=== PATIENT | female | born 2000 | race Caucasian/White ===

== ENCOUNTER → 2020-08-20 11:17 | Outpatient (CLI) | payer OTHER, SELFPAY ==
[2020-08-23 17:43] LABS: HPV Reflexed? NOT INDICATED
== END ==
PROVIDERS: Visit Provider Student in an Organized Health Care Education/Training Program
DX: Z12.4 Encounter for screening for malignant neoplasm of cervix (principal)
CPT/HCPCS: 88175; G0145

== ENCOUNTER → 2022-03-20 | Outpatient (CLI) | payer OTHER, SELFPAY ==
[2022-03-20 11:16] LABS: Absolute Lymphocyte Count 1.38 X10^3/uL (0.83-4.51); Absolute Neutrophil Count 3.6 X10^3/uL (2.0-7.7); Basophil# 0.04 X10^3/uL; Basophil% 0.7 % (0-1); Eosinophil# 0.04 X10^3/uL; Eosinophils% 0.7 % (0-5); Hematocrit 42.1 % (37-47); Hemoglobin 13.5 g/dL (12.0-15.0); Lymphocyte # 1.38 X10^3/ul (0.83-4.51); Mean Corp Hgb Conc 32.1 g/dL (32-36); Mean Corpuscular Hgb 28.8 pg (27.0-32.0); Mean Corpuscular Volume 89.8 fL (81-99); Mean Platelet Vol. 10.1 fl (6.2-12.0); Monocyte# 0.46 X10^3/uL; Monocyte% 8.3 % (0-10); NRBC Flagged by Analyzer 0 % (0-5); Neutrophil % 65.3 % (47-70); Platelet Count 321 K/mm3 (150-450); RBC Distribution Width CV 13.3 % (11.6-14.6); RBC Distribution Width SD 44.1 fl (35.1-43.9); Red Blood Count 4.69 M/mm3 (4.2-5.4); White Blood Count 5.5 K/mm3 (4.4-11.0)
[2022-03-20 11:52] LABS: Thyroid Stim Hormone (TSH) 0.89 uIU/mL (0.358-3.74)
== END | disposition home or self-care (01) ==
PROVIDERS: Referring Provider Obstetrics & Gynecology; Visit Provider Obstetrics & Gynecology
DX: N93.9 Abnormal uterine and vaginal bleeding, unspecified (principal)
CPT/HCPCS: 36415; 84443; 85025; 87070; 87205

== ENCOUNTER → 2022-03-26 | Outpatient (CLI) | payer OTHER, SELFPAY ==
--- NOTE | 2022-03-26 18:05 | US_ITS ---
STUDY: ULTRASOUND OF THE FEMALE PELVIS - COMPLETE REASON FOR EXAM: Female, 21 years old. AUB TECHNIQUE: Endovaginal. Transvaginal US was obtained to better visualized the ovaries. COMPARISON: None. FINDINGS: The uterus is anteverted and is in a midline position. The uterus measures 6.6 x 4 cm. Normal uterine cervix. The endometrium measures 5 mm in thickness, and is hyperechoic. There is no demonstrated endometrial mass. There is no demonstrated myometrial mass. I.U.D. - The patient does not have an I.U.D. arcuate uterus. The right ovary is visualized. The right ovary measures 4.2 cm. There is no right ovarian cyst or ovarian mass. There is no visualized right adnexal mass or complex lesion. There is normal arterial and normal venous vascularity. The left ovary is visualized. The left ovary measures 4.4 cm. There is no left ovarian cyst or ovarian mass. There is no visualized left adnexal mass or complex lesion. There is normal arterial and normal venous vascularity. There is no fluid in the cul-de-sac. Urinary bladder volume is (in cc) 75. US/Transvaginal Non- IMPRESSION: There are no acute findings. Electronically Signed: Emre Ariza MD at 20:14 EDT ,
--- NOTE | 2022-03-26 18:05 | US_ITS ---
STUDY: ULTRASOUND OF THE FEMALE PELVIS - COMPLETE REASON FOR EXAM: Female, 21 years old. AUB TECHNIQUE: Endovaginal. Transvaginal US was obtained to better visualized the ovaries. COMPARISON: None. FINDINGS: The uterus is anteverted and is in a midline position. The uterus measures 6.6 x 4 cm. Normal uterine cervix. The endometrium measures 5 mm in thickness, and is hyperechoic. There is no demonstrated endometrial mass. There is no demonstrated myometrial mass. I.U.D. - The patient does not have an I.U.D. arcuate uterus. The right ovary is visualized. The right ovary measures 4.2 cm. There is no right ovarian cyst or ovarian mass. There is no visualized right adnexal mass or complex lesion. There is normal arterial and normal venous vascularity. The left ovary is visualized. The left ovary measures 4.4 cm. There is no left ovarian cyst or ovarian mass. There is no visualized left adnexal mass or complex lesion. There is normal arterial and normal venous vascularity. There is no fluid in the cul-de-sac. Urinary bladder volume is (in cc) 75. US/Pelvic (Non ) IMPRESSION: There are no acute findings. Electronically Signed: Emre Ariza MD at 20:14 EDT ,
== END | disposition home or self-care (01) ==
PROVIDERS: Referring Provider Obstetrics & Gynecology; Visit Provider Obstetrics & Gynecology
DX: N93.9 Abnormal uterine and vaginal bleeding, unspecified (principal)
CPT/HCPCS: 76830; 76856

== ENCOUNTER → 2022-05-27 | Outpatient (CLI) | payer OTHER, SELFPAY ==
[2022-05-27 17:22] LABS: Amphetamine Urine VISTA NEGATIVE (<1000 ng/mL); Barbiturate Urine VISTA NEGATIVE (< 200 ng/mL); Benzodiazepine Urine VISTA NEGATIVE (< 200 ng/mL); Cocaine Urine VISTA NEGATIVE (< 300 ng/mL); Ecstacy Urine VISTA NEGATIVE (< 500 ng/mL); Methadone Urine VISTA NEGATIVE (< 300 ng/mL); PCP Urine VISTA NEGATIVE (< 25 ng/mL); THC Urine VISTA NEGATIVE (< 50 ng/mL); Vista UDS pH Range 5
[2022-05-29 21:07] LABS: Chlamydia By Nucleic Acid AMP Negative (Negative)
[2022-05-30 15:57] LABS: Gonococcus By Nucleic Acid AMP Negative (Negative)
== END | disposition home or self-care (01) ==
LOC: LABSPEC 15:43
PROVIDERS: Visit Provider Obstetrics & Gynecology
DX: Z34.92 Encounter for supervision of normal pregnancy, unspecified, second trimester (principal)
CPT/HCPCS: 80307; 87086; 87088; 87491; 87591

== ENCOUNTER → 2022-06-25 | Outpatient (CLI) | payer OTHER, SELFPAY ==
[2022-06-25 14:56] LABS: Absolute Lymphocyte Count 1.71 X10^3/uL (0.83-4.51); Absolute Neutrophil Count 6.6 X10^3/uL (2.0-7.7); Basophil# 0.03 X10^3/uL; Basophil% 0.3 % (0-1); Eosinophil# 0.06 X10^3/uL; Eosinophils% 0.7 % (0-5); Hematocrit 41.9 % (37-47); Hemoglobin 13.6 g/dL (12.0-15.0); Lymphocyte # 1.71 X10^3/ul (0.83-4.51); Lymphocyte % 19.1 % (19-41); Mean Corp Hgb Conc 32.5 g/dL (32-36); Mean Corpuscular Hgb 29.1 pg (27.0-32.0); Mean Corpuscular Volume 89.7 fL (81-99); Mean Platelet Vol. 10.4 fl (6.2-12.0); Monocyte# 0.54 X10^3/uL; NRBC Flagged by Analyzer 0 % (0-5); Neutrophil # 6.61 X10^3/uL (2.7-7.7); Neutrophil % 73.7 % (47-70); Platelet Count 315 K/mm3 (150-450); RBC Distribution Width CV 13.3 % (11.6-14.6); RBC Distribution Width SD 43.9 fl (35.1-43.9); Red Blood Count 4.67 M/mm3 (4.2-5.4)
[2022-06-25 15:03] LABS: NATERA MAILED SPECIMEN
[2022-06-25 16:42] LABS: HIV - WCH Non-Reactive (Nonreactive); Hepatitis B Surface Antigen Non-Reactive (Nonreactive); Hepatitis C Antibody Non-Reactive (Nonreactive); Rubella IgG Reactive (Nonreactive); Syphilis Antibodies Non-reactive
== END | disposition home or self-care (01) ==
PROVIDERS: Referring Provider Obstetrics & Gynecology; Visit Provider Obstetrics & Gynecology
DX: Z34.81 Encounter for supervision of other normal pregnancy, first trimester (principal)
CPT/HCPCS: 36415; 85025; 86703; 86762; 86780; 86803; 86850; 86900; 86901; 87340

== ENCOUNTER → 2022-07-22 | Outpatient (CLI) | payer OTHER, SELFPAY | END | disposition home or self-care (01) | PROVIDERS: Visit Provider Registered Nurse | DX: O26.899 Other specified pregnancy related conditions, unspecified trimester (principal); Z36.9 Encounter for antenatal screening, unspecified; R30.0 Dysuria | CPT/HCPCS: 36415; 87086; 87088 ==

== ENCOUNTER → 2022-10-16 | Outpatient (CLI) | payer OTHER, SELFPAY ==
[2022-10-16 10:17] LABS: Absolute Lymphocyte Count 1.36 X10^3/uL (0.83-4.51); Absolute Neutrophil Count 12.3 X10^3/uL (2.0-7.7); Basophil# 0.05 X10^3/uL; Basophil% 0.3 % (0-1); Eosinophil# 0.11 X10^3/uL; Eosinophils% 0.8 % (0-5); Hematocrit 33.1 % (37-47); Hemoglobin 10.4 g/dL (12.0-15.0); Lymphocyte # 1.36 X10^3/ul (0.83-4.51); Lymphocyte % 9.3 % (19-41); Mean Corp Hgb Conc 31.4 g/dL (32-36); Mean Corpuscular Hgb 28.7 pg (27.0-32.0); Mean Corpuscular Volume 91.2 fL (81-99); Mean Platelet Vol. 9.9 fl (6.2-12.0); Monocyte# 0.76 X10^3/uL; Monocyte% 5.2 % (0-10); NRBC Flagged by Analyzer 0 % (0-5); Neutrophil # 12.27 X10^3/uL (2.7-7.7); Neutrophil % 83.8 % (47-70); Platelet Count 303 K/mm3 (150-450); RBC Distribution Width CV 13.2 % (11.6-14.6); RBC Distribution Width SD 43.4 fl (35.1-43.9); Red Blood Count 3.63 M/mm3 (4.2-5.4); White Blood Count 14.6 K/mm3 (4.4-11.0)
[2022-10-16 10:45] LABS: Glucose Challenge Gest 1H 50g 142 mg/dL (70-140)
[2022-10-16 12:07] LABS: HIV - WCH Non-Reactive (Nonreactive); Syphilis Antibodies Non-reactive
== END | disposition home or self-care (01) ==
LOC: LAB 09:12
PROVIDERS: Referring Provider Obstetrics & Gynecology; Visit Provider Obstetrics & Gynecology
DX: Z34.00 Encounter for supervision of normal first pregnancy, unspecified trimester (principal)
CPT/HCPCS: 36415; 82950; 85025; 86703; 86780

== ENCOUNTER → 2022-10-22 | Outpatient (CLI) | payer OTHER, SELFPAY ==
[2022-10-22 07:36] LABS: Glucose GTT-Gestation. Fasting 77 mg/dL (<105)
[2022-10-22 08:23] LABS: Glucose GTT-Gestational 1 Hr 119 mg/dL (<190)
[2022-10-22 09:21] LABS: Glucose GTT-Gestational 2 Hr 112 mg/dL (<165)
[2022-10-22 10:30] LABS: Glucose GTT-Gestational 3 Hr 94 L (<145)
== END | disposition home or self-care (01) ==
LOC: LAB 06:42
PROVIDERS: Referring Provider Obstetrics & Gynecology; Visit Provider Obstetrics & Gynecology
DX: Z13.1 Encounter for screening for diabetes mellitus (principal)
CPT/HCPCS: 36415; 82951; 82952

== ENCOUNTER → 2022-12-04 | Outpatient (CLI) | payer OTHER, SELFPAY ==
[2022-12-04 17:19] LABS: Absolute Lymphocyte Count 1.62 X10^3/uL (0.83-4.51); Absolute Neutrophil Count 11.3 X10^3/uL (2.0-7.7); Basophil# 0.05 X10^3/uL; Basophil% 0.4 % (0-1); Eosinophils% 0.7 % (0-5); Hematocrit 30.1 % (37-47); Hemoglobin 9.8 g/dL (12.0-15.0); Lymphocyte # 1.62 X10^3/ul (0.83-4.51); Lymphocyte % 11.4 % (19-41); Mean Corp Hgb Conc 32.6 g/dL (32-36); Mean Corpuscular Hgb 27.4 pg (27.0-32.0); Mean Corpuscular Volume 84.1 fL (81-99); Mean Platelet Vol. 10.3 fl (6.2-12.0); Monocyte# 1.05 X10^3/uL; Monocyte% 7.4 % (0-10); NRBC Flagged by Analyzer 0 % (0-5); Neutrophil # 11.27 X10^3/uL (2.7-7.7); Neutrophil % 79.7 % (47-70); Platelet Count 308 K/mm3 (150-450); RBC Distribution Width CV 13.7 % (11.6-14.6); RBC Distribution Width SD 42.5 fl (35.1-43.9); Red Blood Count 3.58 M/mm3 (4.2-5.4); White Blood Count 14.2 K/mm3 (4.4-11.0)
== END | disposition home or self-care (01) ==
LOC: LAB 16:19
PROVIDERS: Referring Provider Registered Nurse; Visit Provider Registered Nurse
DX: O99.019 Anemia complicating pregnancy, unspecified trimester (principal); Z3A.00 Weeks of gestation of pregnancy not specified
CPT/HCPCS: 36415; 85025

== ENCOUNTER → 2022-12-11 | Outpatient (CLI) | payer OTHER, SELFPAY ==
[2022-12-11 16:40] LABS: Ferritin 7 ng/mL (8-252); Iron Binding Capacity,Total 538 ug/dL (250-450)
[2022-12-13 08:09] LABS: Transferrin 442 mg/dL (192-364)
== END | disposition home or self-care (01) ==
LOC: LAB 15:49
PROVIDERS: Referring Provider Registered Nurse; Visit Provider Registered Nurse
DX: O99.019 Anemia complicating pregnancy, unspecified trimester (principal)
CPT/HCPCS: 36415; 82728; 83550; 84466

== ENCOUNTER → 2022-12-22 | Outpatient (CLI) | payer OTHER, SELFPAY ==
[2022-12-22 15:08] LABS: Absolute Lymphocyte Count 1.44 X10^3/uL (0.83-4.51); Absolute Neutrophil Count 11.1 X10^3/uL (2.0-7.7); Basophil# 0.03 X10^3/uL; Basophil% 0.2 % (0-1); Eosinophil# 0.07 X10^3/uL; Eosinophils% 0.5 % (0-5); Hematocrit 33.1 % (37-47); Hemoglobin 10.6 g/dL (12.0-15.0); Lymphocyte # 1.44 X10^3/ul (0.83-4.51); Lymphocyte % 10.7 % (19-41); Mean Corpuscular Hgb 27.4 pg (27.0-32.0); Mean Corpuscular Volume 85.5 fL (81-99); Mean Platelet Vol. 10.6 fl (6.2-12.0); Monocyte# 0.75 X10^3/uL; Monocyte% 5.6 % (0-10); NRBC Flagged by Analyzer 0 % (0-5); Neutrophil # 11.13 X10^3/uL (2.7-7.7); Neutrophil % 82.3 % (47-70); Platelet Count 296 K/mm3 (150-450); RBC Distribution Width CV 16.7 % (11.6-14.6); RBC Distribution Width SD 48.6 fl (35.1-43.9); Red Blood Count 3.87 M/mm3 (4.2-5.4); White Blood Count 13.5 K/mm3 (4.4-11.0)
== END | disposition home or self-care (01) ==
PROVIDERS: Referring Provider Advanced Practice Midwife; Visit Provider Advanced Practice Midwife
DX: Z34.00 Encounter for supervision of normal first pregnancy, unspecified trimester (principal)
CPT/HCPCS: 36415; 85025; 87081

== ENCOUNTER 2022-12-24 08:15 | Outpatient (CLI) | payer OTHER, SELFPAY ==
[2022-12-24 08:27] VITALS: BMI 27.4
[2022-12-24 08:45] VITALS: BP 112/71; PULSE 67; PULSE 72; TEMP 37.3; O2SAT 98
[2022-12-24 08:56] LABS: ROM Internal Control Test YES-OK TO RESULT pt. (Internal QC); ROM Patient Test Negative (Negative)
[2022-12-24 08:57] LABS: Record Kit Lot#, ROM+ K1374
--- NOTE | 2022-12-28 07:22 | OB.TRI.PN ---
Progress Notes Date of Service: 12/24/22 Progress Note: Patient presents for triage evaluation secondary to possible rupture of membranes FHT: 140 Moderate variability reactive no decelerations category I tracing [place]: no reuglar Contractions Assessment and plan: amniotic membranes intact false labor Reactive NST, reassuring maternal and status patient discharged to home to follow-up as scheduled. See problem list details for additional plan information. Laboratory Studies: Laboratory Tests 12/24/22 12/24/22 Range/Units 09:25 08:30 Vag Amniotic Fld Detect Negative (Negative) Blood Type A POSITIVE Antibody Screen NEGATIVE Charges/Coding Procedures Urinary/Genital 52xxx-59xxx: 67120-90 non-stress test Interp
== END 2022-12-24 11:50 | disposition home or self-care (01) ==
LOC: WPOUT 08:23 → WP 08:23
PROVIDERS: Referring Provider Obstetrics & Gynecology; Visit Provider Obstetrics & Gynecology
DX: O47.9 False labor, unspecified (principal); Z3A.00 Weeks of gestation of pregnancy not specified
CPT/HCPCS: 36415; 59025; 59050; 84112; 86850; 86900; 86901

== ENCOUNTER 2022-12-27 14:15 | Outpatient (CLI) | payer OTHER, SELFPAY ==
[2022-12-27 14:30] VITALS: TEMP 37.1
[2022-12-27 14:31] VITALS: BP 123/74; PULSE 67; O2SAT 99
[2022-12-27 14:35] VITALS: BMI 27.3
--- NOTE | 2022-12-28 07:23 | OB.TRI.PN_ITS ---
Progress Notes Date of Service: 12/27/22 Progress Note: Patient presents for triage evaluation secondary to contractions FHT: 140 Moderate variability reactive no decelerations category I tracing [place]: q 2-5 Contractions Assessment and plan: contractions no cervical change 4 cm Reactive NST, reassuring maternal and status patient discharged to home to follow-up as scheduled no cervical change. See problem list details for additional plan information. Charges/Coding Procedures Urinary/Genital 52xxx-59xxx: 54780-36 non-stress test Interp
== END 2022-12-27 16:00 | disposition home or self-care (01) ==
LOC: WPOUT 14:18 → WP 14:19
PROVIDERS: Referring Provider Obstetrics & Gynecology; Visit Provider Obstetrics & Gynecology
DX: O47.9 False labor, unspecified (principal); Z3A.00 Weeks of gestation of pregnancy not specified
CPT/HCPCS: 59025; 59050; 99221; G0378

== ENCOUNTER 2023-01-08 19:55 | Inpatient (IN) | payer OTHER, SELFPAY ==
[2022-12-27 15:33] LABS: ROM Internal Control Test YES-OK TO RESULT pt. (Internal QC); ROM Patient Test Negative (Negative)
[2023-01-08] MEDS: Lactated Ringers 1,000 ML 50 ML IV (20:05)
[2023-01-08 20:24] LABS: ROM Internal Control Test YES-OK TO RESULT pt. (Internal QC)
[2023-01-08 20:26] LABS: Absolute Lymphocyte Count 1.94 X10^3/uL (0.83-4.51); Absolute Neutrophil Count 10.4 X10^3/uL (2.0-7.7); Basophil# 0.05 X10^3/uL; Basophil% 0.4 % (0-1); Eosinophil# 0.08 X10^3/uL; Eosinophils% 0.6 % (0-5); Hemoglobin 10.7 g/dL (12.0-15.0); Lymphocyte # 1.94 X10^3/ul (0.83-4.51); Lymphocyte % 14.2 % (19-41); Mean Corp Hgb Conc 31.5 g/dL (32-36); Mean Corpuscular Hgb 26.9 pg (27.0-32.0); Mean Corpuscular Volume 85.4 fL (81-99); Mean Platelet Vol. 10.3 fl (6.2-12.0); Monocyte# 1.17 X10^3/uL; Monocyte% 8.6 % (0-10); NRBC Flagged by Analyzer 0 % (0-5); Neutrophil # 10.35 X10^3/uL (2.7-7.7); Neutrophil % 75.6 % (47-70); Platelet Count 316 K/mm3 (150-450); RBC Distribution Width CV 18.2 % (11.6-14.6); RBC Distribution Width SD 55.5 fl (35.1-43.9); Red Blood Count 3.98 M/mm3 (4.2-5.4); White Blood Count 13.7 K/mm3 (4.4-11.0)
[2023-01-08 20:27] LABS: ROM Patient Test POSITIVE (Negative); Record Kit Lot#, ROM+ K1374
[2023-01-08 21:21] VITALS: BMI 28.1
--- NOTE | 2023-01-08 21:49 | HP.PCM.OB_ITS ---
HPI - General General Date of Admission: 01/08/23 HPI Narrative TK COTTER, is a 22 y/o @ 39 weeks 3 days who presents to L&D in active labor and SROM Maternal Data Information KOKI Calculator Estimated Delivery Date Method Current WG Current Estimate 01/13/23 Ultrasound #1 39w 3d Other Estimates 12/07/22 LMP (Certain) 44w 5d PFSH PFSH Medical History no medical history Home Medications vitamins no.163-iron bis-gly 20 mg-folate no.10 1 mg tablet (PNV Tabs 20-1) 1 tab PO DAILY 05/06/22 [History Last Taken 12/26/22 21:00] miscellaneous medical supply 2 ea miscellaneous ONCE #2 ea 10/16/22 [Rx Last Taken Unknown] ferrous sulfate 142 mg (45 mg iron) tablet,extended release (Slow Fe) 142 mg PO DAILY anemia 12/24/22 [History Last Taken 12/26/22 21:00] hydrocortisone 2.5 % topical ointment 1 applic topical BID itching 12/24/22 [History Last Taken Unknown] Allergy/AdvReac Type Severity Reaction Status Date / Time hydrocodone [From Vicodin] Allergy Mild Rash Verified 01/08/23 20:51 Family History Grandfather Cancer Grandmother Breast cancer Surgical History no surgical history Social History adopted: No household members: spouse housing: house current occupational status: employed 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 April going to [place].) out of state: Yes out of country: No sexually active: Yes Smoking Status: Never smoker alcohol intake: never substance use type: does not use well-balanced diet: daily or most days caffeine: Yes Type: coffee and tea Number of servings: 1 eating out: rarely or never during the past year weight has: remained stable what type of physical activity do you participate in: none yennifer/caodaism: Sikhism seatbelt use: always do you feel safe at home: Yes additional social history: [employer] History 1 Elective abortions Hx Para 0 Spontaneous abortions Hx # Term Pregnancies Ectopic pregnancies Hx # Pregnancies Multiple births # of living children Visit Details Expected Delivery Route/Plan Labor Preferences- CB/BF classes: done labor support person: dawood labor intervention preferences: [] pain management options preferred: natural. prefers no epidural cut cord/dad catch: [] : [] PP control planned: [] discussed possible routes of delivery and associated risks: [] special requests: [] Plans Covid status: discussed Flu vaccine: discussed Tdap vaccine: discussed Rhogam: na LARC form signed: declined movement and labor precautions reviewed. Problem list reviewed and updated with the most current plan of care details and appropriate orders placed. Relevant counseling for the gestational age provided. Continue routine care and follow up unless otherwise noted in visit notes/problem list details OB Flowsheet Initial Weight: Not Recorded Date -?-?-?-?-?-?-?-?-?-?-?-?- EGA Weight BP Urine Prot -?-?-?-?-?-?-?-?-?-?-?-?- Glucose FHR FuHt Pres Dilation -?-?-?-?-?-?-?-?-?-?-?-?- Effaced St Visit Note 05/27/22 -?-?-?-?-?-?-?-?-?-?-?-?- 7w 0d 108 lb 107/67 -?-?-?-?-?-?-?-?-?-?-?-?- 160 -?-?-?-?-?-?-?-?-?-?-?-?- SM- CRL 9.8 NOT cons with LMP 06/25/22 -?-?-?-?-?-?-?-?-?-?-?-?- 11w 1d 110 lb 96/56 -?-?-?-?-?-?-?-?-?-?-?-?- 163 -?-?-?-?-?-?-?-?-?-?-?-?- JV- no complaint s today. Pt desires genetic testing and carrier testing. sending to lab today. 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 desires afp, order placed. no vb/cramping.has anatomy scheduled 08/17/22 -?-?-?-?-?-?-?-?-?-?-?-?- 18w 5d 116 lb 97/61 Negative -?-?-?-?--?-?-?-?-?-?-?-?- Negative 145 -?-?-?-?-?-?-?-?-?-?-?-?- SM- no vb crampi ng 09/18/22 -?-?-?-?-?-?-?-?-?-?-?-?- 23w 2d 128 lb 4 oz 116/68 Nega tive -?-?-?-?-?-?-?-?-?-?-?-?- Negative 145 23 -?-?-?-?-?-?-?-?-?-?-?-?- SM- no vb lof go od fm no regular ctx 10/16/22 -?-?-?-?-?-?-?-?--?-?-?-?- 27w 2d 134 lb 123/73 Negative -?-?-?-?-?-?-?-?-?-?-?-?- Negative 150 -?-?-?-?-?-?-?-?-?-?-?-?- JV- no complaint s want compression stocking. going on trip so her can go bear hunting in [place]. 11/02/22 -?-?-?-?-?-?-?-?-?-?-?-?- 29w 5d 139 lb 6 oz 109/69 -?-?-?-?-?-?-?-?-?-?-?-?- 145 30 -?-?-?-?-?-?-?-?-?-?-?-?- Sm- no vb lof go od fm no regular ctx 11/20/22 -?-?-?-?-?-?-?-?-?-?-?-?- 32w 2d 142 lb 114/75 Negative -?-?-?-?-?-?-?-?-?-?-?-?- Negative 150 29 Cephalic -?-?-?-?-?-?-?-?-?-?-?-?- JV- measuring a little small today. if still small next visit will order growth scan 12/04/22 -?-?-?-?-?-?-?-?-?-?-?-?- 34w 2d 151 lb 8 oz 127/69 Nega tive -?-?-?-?-?-?-?-?-?-?-?-?- Negative 148 33 Cephalic -?-?-?-?-?-?-?-?-?-?-?-?- LC- no lof/vb/ct x. good fm. repeat CBC ordered today for mild anemia. using iron gummies for supplementation. 12/15/22 -?-?-?-?-?-?-?-?-?-?-?-?- 35w 6d 146 lb 8 oz 103/69 Nega tive -?-?-?-?-?-?-?-?-?-?-?-?- Negative 148 35 Cephalic -?-?-?-?-?-?-?-?-?-?-?-?- Sm- no vb lof go od fm no regular ctx, has pupps rash on lateral thighs- reviewed supportive care 12/22/22 -?-?-?-?-?-?-?-?-?-?-?-?- 36w 6d 152 lb 120/60 Negative -?-?-?-?-?-?-?-?-?-?-?-?- Negative 135 37 Cephalic 4 -?-?-?-?-?-?-?-?-?-?-?-?- 70 -2 KW-+FM. no lof/vb/ctx. no concerns today. GBS done. labor precautions. 01/01/23 -?-?-?-?-?-?-?-?-?-?-?-?- 38w 2d 150 lb 2 oz 125/86 Nega tive -?-?-?-?-?-?-?-?-?-?-?-?- Negative 143 37 Cephalic -?-?-?-?-?-?-?-?-?-?-?-?- JV- pt's PATRICIA is having heart surgery. declines pelvic exam. no lof, vaginal bleeding, or dec fm. 01/08/23 -?-?-?-?-?-?-?-?-?-?-?-?- 39w 2d 149 lb 126/70 Negative -?-?-?-?-?-?-?-?-?-?-?-?- Negative 140 39 Cephalic 4 .5 -?-?-?-?-?-?-?-?-?-?-?-?- 70 -1 KW-+ FM, n o lof/vb/ctx. no complaints ROS Constitutional Constitutional: Denies change in weight, fatigue, fever(s), headache(s), poor appetite or weakness Eyes Eyes: Denies blurry vision, change in vision, seeing flashes or spots in vision ENT HEENT: Denies dizziness, headache(s), loss taste/smell or sore throat Cardiovascular Cardiovascular: Denies chest pain, dizziness, dyspnea, irregular heart rhythm, leg edema, palpitations, rapid heart rate or vomiting Respiratory/Chest Respiratory/Chest: Denies chest tightness, cough, dyspnea or breast pain Gastrointestinal Gastrointestinal: Denies abdominal pain, anorexia, constipation, cramping, diarrhea, hemorrhoids, vomiting or weight changes Genitourinary Genitourinary: Denies dysuria, flank pain, genital lesions, genital pain, urinary frequency or urinary urgency Musculoskeletal Musculoskeletal: Denies back pain, difficulty walking, joint pain, limited range of motion, muscle cramps or numbness Integumentary Integumentary: Denies lesions or unusual bruising Neurologic Neurologic: Denies abnormal movements, abnormal speech, dizziness, numbness, seizure-like activity or syncope Psychiatric Psychiatric: Denies anxiety, behavioral changes, change in appetite, change in libido, cognitive impairment, confusion, depression, difficulty concentrating, hallucinations or suicidal thoughts Endocrine Endocrinology: Denies excessive sweating, polydipsia or polyuria Hematologic/Lymphatic Hematologic/Lymphatic: Denies easy bleeding, easy bruising or lymphadenopathy Allergic/Immunologic Allergic/Immunologic: Denies itchy eyes, lip swelling, seasonal rhinorrhea, rhinitis, throat swelling, tongue swelling, eczemia, wheezing or asthma Vital Signs Vital Signs Vital Signs: 01/08/23 21:53 01/08/23 21:53 01/08/23 21:53 Temperature Temperature Source Tympanic Pulse Rate 76 Respiratory Rate Blood Pressure 126/77 H Blood Pressure Mean BP Systolic 126 BP Diastolic 77 Pulse Ox Oxygen Delivery Method 01/08/23 21:53 01/08/23 23:47 01/08/23 23:47 Temperature 99.2 F H Temperature Source Pulse Rate 65 Respiratory Rate Blood Pressure Blood Pressure Mean BP Systolic BP Diastolic Pulse Ox 89 Oxygen Delivery Method 01/08/23 23:47 01/08/23 23:47 01/08/23 23:52 Temperature Temperature Source Pulse Rate 85 74 Respiratory Rate Blood Pressure Blood Pressure Mean BP Systolic BP Diastolic Pulse Ox 100 Oxygen Delivery Method 01/08/23 23:52 01/08/23 23:53 01/08/23 23:53 Temperature Temperature Source Pulse Rate 71 Respiratory Rate Blood Pressure 128/72 H Blood Pressure Mean BP Systolic 128 BP Diastolic 72 Pulse Ox 99 Oxygen Delivery Method 01/08/23 23:57 01/08/23 23:57 01/08/23 23:58 Temperature Temperature Source Pulse Rate 82 Respiratory Rate Blood Pressure 130/63 H Blood Pressure Mean BP Systolic 130 BP Diastolic 63 Pulse Ox 98 Oxygen Delivery Method 01/08/23 23:58 01/09/23 00:03 01/09/23 00:03 Temperature Temperature Source Pulse Rate 76 81 Respiratory Rate Blood Pressure 122/65 H Blood Pressure Mean BP Systolic 122 BP Diastolic 65 Pulse Ox Oxygen Delivery Method 01/09/23 00:02 01/09/23 00:05 01/09/23 00:05 Temperature Temperature Source Pulse Rate 80 Respiratory Rate Blood Pressure 105/51 L Blood Pressure Mean BP Systolic 105 BP Diastolic 51 Pulse Ox 100 Oxygen Delivery Method 01/09/23 00:07 01/09/23 00:07 01/09/23 00:09 Temperature Temperature Source Pulse Rate 81 Respiratory Rate Blood Pressure 103/50 L Blood Pressure Mean BP Systolic 103 BP Diastolic 50 Pulse Ox 98 Oxygen Delivery Method 01/09/23 00:09 01/09/23 00:13 01/09/23 00:12 Temperature Temperature Source Pulse Rate 83 96 Respiratory Rate Blood Pressure Blood Pressure Mean BP Systolic BP Diastolic Pulse Ox 97 Oxygen Delivery Method 01/09/23 00:13 01/09/23 00:17 01/09/23 00:17 Temperature Temperature Source Pulse Rate 105 H Respiratory Rate Blood Pressure 107/58 L Blood Pressure Mean BP Systolic 107 BP Diastolic 58 Pulse Ox 97 Oxygen Delivery Method 01/09/23 00:19 01/09/23 00:19 01/09/23 00:24 Temperature Temperature Source Pulse Rate 93 Respiratory Rate Blood Pressure 112/55 L 119/65 Blood Pressure Mean BP Systolic 112 119 BP Diastolic 55 65 Pulse Ox Oxygen Delivery Method 01/09/23 00:24 01/09/23 00:28 01/09/23 00:28 Temperature Temperature Source Pulse Rate 101 H 104 H Respiratory Rate Blood Pressure 116/66 Blood Pressure Mean BP Systolic 116 BP Diastolic 66 Pulse Ox Oxygen Delivery Method 01/09/23 00:32 01/09/23 00:32 01/09/23 00:34 Temperature Temperature Source Pulse Rate 99 98 Respiratory Rate Blood Pressure Blood Pressure Mean BP Systolic BP Diastolic Pulse Ox 97 Oxygen Delivery Method 01/09/23 00:34 01/09/23 00:38 01/09/23 00:38 Temperature Temperature Source Pulse Rate 85 Respiratory Rate Blood Pressure 107/59 L Blood Pressure Mean BP Systolic 107 BP Diastolic 59 Pulse Ox 93 Oxygen Delivery Method 01/09/23 00:37 01/09/23 03:19 01/09/23 03:20 Temperature Temperature Source Tympanic Pulse Rate Respiratory Rate Blood Pressure 121/63 H Blood Pressure Mean BP Systolic 121 BP Diastolic 63 Pulse Ox 97 Oxygen Delivery Method 01/09/23 03:20 01/09/23 03:19 01/09/23 04:33 Temperature 98.9 F Temperature Source Pulse Rate 88 Respiratory Rate Blood Pressure 117/65 Blood Pressure Mean BP Systolic 117 BP Diastolic 65 Pulse Ox Oxygen Delivery Method 01/09/23 04:33 01/09/23 04:33 01/09/23 04:33 Temperature 99.1 F Temperature Source Tympanic Pulse Rate 104 H Respiratory Rate Blood Pressure Blood Pressure Mean BP Systolic BP Diastolic Pulse Ox Oxygen Delivery Method 01/09/23 06:27 01/09/23 06:27 01/09/23 06:26 Temperature 98.1 F Temperature Source Temporal Pulse Rate 127 H 130 H Respiratory Rate 16 Blood Pressure 110/58 L 110/58 L Blood Pressure Mean 75 BP Systolic 110 BP Diastolic 58 Pulse Ox 98 Oxygen Delivery Method Room Air Weight Weight: 149 lb Body Mass Index (BMI) 28.1 Physical Exam Const alert, oriented x3, no apparent distress and healthy appearing General Appearance: cooperative; Negative for anxious HEENT normocephalic Face and Sinus: normal facial exam Eyes EOMs intact bilaterally and no scleral icterus General Eye: normal appearance of both eyes Neck full ROM and supple Lymph Lymphatic: no lymphadenopathy noted Chest Chest: abnormal inspection of the chest Resp normal respiratory effort Effort and Inspection: able to speak in complete sentences Cardio regular rate GI soft to palpation and non-tender Inspection: gravid Palpation: soft; Negative for tender external exam normal Amniotic Fluid: ROM+plus Back/Spine no CVA tenderness Extremity normal to inspection, full ROM and no clubbing, cyanosis or edema General Extremity: Negative for calf tenderness or edema Skin Lesions: no lesions Rashes: no rashes Psych mental status grossly normal Labs Labs Labs: Blood Type A POSITIVE Antibody Screen NEGATIVE Hct 34.0 % (37-47) L Hgb 10.7 g/dL (12.0-15.0) L Syphilis Total Ab Non-reactive Rubella IgG Antibody Reactive (Nonreactive) Hep Bs Antigen Non-Reactive (Nonreactive) Chlamydia DNA (JUANY) Negative (Negative) Neisseria gonorrhoeae DNA (JUANY) Negative (Negative) HIV 1&2 Antibody Non-Reactive (Nonreactive) Glucose 1 Hr 50 gm 142 mg/dL (70-140) H Miscellaneous Test Assessment & Plan (1) Pruritic urticarial papules and plaques of (puppp): COMMENT: supportive care (2) Anemia affecting : COMMENT: cont anemia on PO iron. iron studies ordered 12/07. 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 (5) UTI (urinary tract infection) during : COMMENT: 07/22 rpt culture obtained (6) Supervision of normal first : COMMENT: PRR , KOKI 01/13/23, boy walker Spouse Dawood (7) : QUALIFIERS: Weeks of gestation: 38 weeks Qualified Code(s): Z3A.38 - 38 weeks gestation of COMMENT: GBS neg, nl NIPT & reviewed Carrier testing, nl anatomy PLAN: Plan Patient presents IAL, plan expectant management for , pitocin PRN Pain management: plans epidural. GBS negative . Management of any complications: none I have reviewed the [facility] and made any clinically relevant updates.
[2023-01-08 21:53] VITALS: BP 126/77; PULSE 76; TEMP 37.3
[2023-01-08 22:15] LABS: Syphilis Antibodies Non-reactive
[2023-01-08 22:21] VITALS: BMI 28.1
[2023-01-08] MEDS: LACTATED RINGERS 500 ML 999 ML IV (23:20)
[2023-01-08 23:47] VITALS: PULSE 65; PULSE 85; O2SAT 100; O2SAT 89
[2023-01-08 23:52] VITALS: PULSE 74; O2SAT 99
[2023-01-08 23:53] VITALS: BP 128/72; PULSE 71
[2023-01-08 23:57] VITALS: PULSE 82; O2SAT 98
[2023-01-08 23:58] VITALS: BP 130/63; PULSE 76
[2023-01-09] VITALS (37 sets, daily range): BP systolic 98–129; BP diastolic 50–78; PULSE 77–130; RESP 14–21; TEMP 36.6–37.3; O2SAT 93–100
[2023-01-09] MEDS: fentaNYL-bupivacaine (epidural) 100 ML BAG EPIDURAL ×2 (00:10→04:15)
[2023-01-09] MEDS: Lactated Ringers 1,000 ML 200 ML IV (03:54)
[2023-01-09] MEDS: Cefazolin 2 GM in 0.9% Normal Saline 100 ML IV (06:45)
--- NOTE | 2023-01-09 06:51 | PCM.PN.OB ---
Subjective Subjective pt was pushing for 3 hrs when nurses called for evaluation. current tracing: FHT: Moderate variability reactive no decelerations category I tracing [place]: q1-2 min Contractions OP position, cx compltely dilated. The patient consents to tryin some different positions then a vacuum attempt after another hour of pushing a vacuum attempt was decided The bladder was emptied and EFW is thought to be less than 4000 grams but not under 3000 grams The vacuum was applied to the head inferior to the superior sutures. The device was pumped to the green zone. 4 pulls were attempted with 2 pop offs with no decent of the head. The decision was made to proceed with a primary section Objective Data Objective Data Vital Signs: Vital Signs Temp Pulse Resp BP Pulse Ox O2 Del Method 98.1 F 127 H 16 110/58 L 98 Room Air 01/09/23 06:26 01/09/23 06:27 01/09/23 06:26 01/09/23 06:27 01/09/23 06:26 01/09/23 06:26 Oxygen Delivery Method Room Air Weight: 149 lb Body Mass Index (BMI) 28.1 Intake & Output: Intake and Output for Last 24 Hours 01/07/23 01/08/23 01/09/23 23:59 23:59 23:59 Intake Total 1000 / 1000 Balance 1000 / 1000 Lab / Micro Data Result Diagrams: 01/08/23 20:05 Labs: Laboratory Results - last 24 hr 01/08/23 19:50: Vag Amniotic Fld Detect POSITIVE H 01/08/23 20:05: WBC 13.7 H, RBC 3.98 L, Hgb 10.7 L, Hct 34.0 L, MCV 85.4, MCH 26.9 L, MCHC 31.5 L, RDW Std Deviation 55.5 H, RDW Coeff of [place]ár[place] 18.2 H, Plt Count 316, MPV 10.3, Immature Gran % (Auto) 0.600, Neut % (Auto) 75.6 H, Lymph % (Auto) 14.2 L, [place] % (Auto) 8.6, Eos % (Auto) 0.6, Baso % (Auto) 0.4, Absolute Neuts (auto) 10.4 H, Absolute Lymphs (auto) 1.94, Nucleated RBC % 0 01/08/23 20:05: Blood Type A POSITIVE, Antibody Screen NEGATIVE 01/08/23 20:05: Syphilis Total Ab Non-reactive Charges/Coding Procedures Urinary/Genital 52xxx-59xxx: Other Procedure See Report (vacuum attempt, failed (modifier needed) )
--- NOTE | 2023-01-09 06:57 | DCINST_ITS ---
Discharge Instructions Diet Discharge Diet: No restrictions Activity Discharge Activity: May Not Drive (for 2 weeks or while taking narcotic pain medications.), May Shower and May Take a Tub Bath (in 7 days.) May resume sexual activity in: 4-6 weeks Weight Bearing Status: Full weight bearing Lifting Restrictions: 20 pounds Dressing / Incision Call your doctor if your incision/area has: Continuous Slow Oozing, Sudden Increased Bleeding, Increased Pain/ Swelling, Increased Redness and Foul Smelling Discharge Call your doctor if you observe: Fever of 101 or Higher and Using more than 1 pad per hour Suture Line Care: Avoid Pulling/Pushing and Avoid Pinching/Bending Cleanse incision/area with: Soap & Water and Keep Dressing Clean & Dry Follow Up Care Please Follow Up With: Awilda Felix DO When: Call [phone] to make an appointment for an incision check in 1-2 weeks. Test Results: Test results from this visit will be discussed in further detail at your follow- up appointment, if applicable. Discharge Plan Admission Admit Date/Time: 01/08/23 19:55 Primary Reason for Your Visit: Attending Provider: Awilda Felix Primary Care Provider: Moni Farris Primary Discharge Orders/Prescriptions Prescriptions: New ibuprofen 800 mg tablet 800 mg PO Q8H PRN (Reason: pain) Qty: 30 0RF No Action PNV Tabs 20-1 20 mg iron- 1 mg tablet 1 tab PO DAILY miscellaneous medical supply Misc 2 ea miscellaneous ONCE Qty: 2 0RF Rx Instructions: compression stockings 20mm hg strength. hydrocortisone 2.5 % ointment 1 applic topical BID Slow Fe 142 mg (45 mg iron) tablet extended release 142 mg PO DAILY Referrals / Follow Up: Care PhysicianMoni Primary [Primary Care Provider] - Disposition Disposition (needs filled in before D/C Order can be placed): Home, Self Care
--- NOTE | 2023-01-09 07:49 | EX.PCM.OBRPT ---
Assessment & Plan (1) Arrested active labor, delivered, current hospitalization: (2) Pruritic urticarial papules and plaques of (puppp): COMMENT: supportive care (3) Anemia affecting : COMMENT: cont anemia on PO iron. iron studies ordered 12/07. 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 (6) UTI (urinary tract infection) during : COMMENT: 07/22 rpt culture obtained (7) Supervision of normal first : COMMENT: PRR , KOKI 01/13/23, boy walker Spouse Dawood (8) : QUALIFIERS: Weeks of gestation: 38 weeks Qualified Code(s): Z3A.38 - 38 weeks gestation of COMMENT: GBS neg, nl NIPT & reviewed Carrier testing, nl anatomy Maternal Data Information KOKI Calculator Estimated Delivery Date Method Current WG Current Estimate 01/13/23 Ultrasound #1 39w 3d Other Estimates 12/07/22 LMP (Certain) 44w 5d Final KOKI: 01/13/23 Final KOKI Source: US <20 weeks [place] Doctor Who Attended Delivery: Huy Espino Details Operative Information Date of Procedure: 01/09/23 Pre-Operative Diagnosis: 22 y/o @39 weeks 3 days, arrest of descent, failed vacuum attempt Post-Operative Diagnosis: 22 y/o @39 weeks 3 days, arrest of descent, failed vacuum attempt Classification: ARTURO Procedure Type: low transverse Type of Anesthesia: Epidural Antibiotic Given: Ancef 2 grams IV x1 and Zithromax 500 mg/5 mL X1 Drain: García to straight drain Estimated Blood Loss: 400cc Findings Description of Procedure: The patient was found to be complete and pushing for 4 hours total. Vacuum attempt was performed with 4 poles and 2 pop offs. Minimal descent of the head was achieved and only It was brought to a lower station. The decision was made to proceed with a primary section. The risk benefits alternatives of the procedure were discussed with the patient a consent form was signed. Epidural anesthesia was found to be adequate . García catheter was placed. The patient was placed in the dorsal supine position with leftward tilt. Patient was prepped and draped in the normal sterile fashion. Pfannenstiel skin incision was made with the scalpel and carried through to the underlying layer of fascia with the scalpel. Fascia was nicked in the midline and the incision extended laterally. The rectus bellies were dissected off superiorly and inferiorly with out complication both sharply and bluntly. The peritoneum was entered digitally. The incision was stretched and a low transverse uterine incision was made with the scalpel. The infant's head was delivered atraumatically followed by the anterior and posterior shoulders without complication the rest of the delivered. The cord was clamped and cut and the infant was handed off to awaiting nurse. The placenta was delivered spontaneously immediately following and was noted to be intact and have a three-vessel cord. The uterus was exteriorized cleared of all clots and debris, and the incision was closed in a double layer closure using #1 vicryl and #1 Monocryl. The ovaries and fallopian tubes were noted to be within normal limits. The uterus was returned to the maternal abdomen and gutters were cleared of all clots and debris. The peritoneum was closed with 3-0 Monocryl in a running fashion. Gloves were changed prior to fascial closure. Fascia was closed with 0 PDS in a running fashion. Subcutaneous tissue was copiously irrigated and the skin was closed with 3-0 Monocryl in a subcuticular fashion. Mepilex dressing was applied without complication. Patient was taken to recovery in stable condition. It was discussed with the patient that based on the clinical information obtained during this encounter, combined with her history, at this time I would recommend repeat for future deliveries if next size is estimated over 8 lbs. further pregnancies are desired. male : 8lbs 1 oz, scores 8/9. baby boy walker Presentation: Positive for Vertex Amniotic Membrane Rupture Type: Spontaneous Amniotic Fluid Description: Moderate meconium Placental Delivery Description: Expressed Placenta Disposition: [facility] Cord Vessel Description: 3 Vessels Cord Entanglement: None Infant A Gender: Male (1 minute): 8 (5 minute): 9 Delayed Cord Clamping: Yes Complications Risks of Surgery Discussed w/Patient: Bleeding, Anesthesia Risks, Infection, Need for Future C-Sections and Injury to surrounding structure(s) including bowel and bladder Multi Select Codes Urinary/Genital Urinary/Genital CPT Codes: 13901 Delivery [facility] [place]
[2023-01-09] MEDS: Oxytocin 15 Units/NS 250ml 15 UNITS/250 ML IV.SOLN 83 UNITS IV (08:00)
[2023-01-09] MEDS: Ketorolac 30 MG/ML Syringe IV ×3 (09:33→22:02)
[2023-01-09] MEDS: Senna/Docusate Sodium 1 Tablet PO (10:55)
[2023-01-09] MEDS: Lactated Ringers 1,000 ML 100 ML IV (10:55)
[2023-01-09] MEDS: Acetaminophen 500 MG Tablet 1000 MG PO ×3 (10:56→22:42)
[2023-01-09] MEDS: Ferrous Sulfate 325 MG Tablet PO (13:59)
[2023-01-09] MEDS: 0.9% Saline Lock 10 ML Syringe IV ×2 (15:23→22:01)
[2023-01-10] MEDS: Ketorolac 30 MG/ML Syringe IV (03:57)
[2023-01-10] MEDS: 0.9% Saline Lock 10 ML Syringe IV (03:57)
[2023-01-10 03:58] VITALS: BP 108/55; PULSE 73; RESP 16; TEMP 36.3; O2SAT 100
[2023-01-10] MEDS: Acetaminophen 500 MG Tablet 1000 MG PO ×4 (04:40→22:10)
[2023-01-10 04:52] LABS: Hematocrit 25.8 % (37-47); Mean Corpuscular Hgb 26.7 pg (27.0-32.0); Mean Platelet Vol. 9.5 fl (6.2-12.0); Platelet Count 209 K/mm3 (150-450); RBC Distribution Width CV 18.4 % (11.6-14.6); RBC Distribution Width SD 56.9 fl (35.1-43.9)
--- NOTE | 2023-01-10 07:32 | PCM.PN.OB ---
Subjective Subjective Patient is laying in bed comfortably without complaints. She states that she slept on an off during the night. Lochia is mild and pain is minimal. Objective Data Objective Data Vital Signs: Vital Signs Temp Pulse Resp BP Pulse Ox O2 Del Method 97.4 F L 73 16 108/55 L 100 Room Air 01/10/23 03:58 01/10/23 03:58 01/10/23 03:58 01/10/23 03:58 01/10/23 03:58 01/10/23 03:58 Oxygen Delivery Method Room Air Weight: 149 lb Body Mass Index (BMI) 28.1 Intake & Output: Intake and Output for Last 24 Hours 01/08/23 01/09/23 01/10/23 23:59 23:59 23:59 Intake Total 3425.41 / 3425.41 Output Total 1350 / 1350 200 / 200 Balance 2075.41 / 2075.41 -200 / -200 Lab / Micro Data Result Diagrams: 01/10/23 04:42 Labs: Laboratory Results - last 24 hr 01/10/23 04:42: WBC 12.0 H, RBC 3.00 L, Hgb 8.0 L, Hct 25.8 L, MCV 86.0, MCH 26.7 L, MCHC 31.0 L, RDW Std Deviation 56.9 H, RDW Coeff of [place]ár[place] 18.4 H, Plt Count 209, MPV 9.5 ROS Constitutional Constitutional: Reports systems reviewed and no addt'l complaints, except as documented Cardiovascular Cardiovascular: Denies chest pain, dizziness, dyspnea or irregular heart rhythm Respiratory/Chest Respiratory/Chest: Denies cough, pain on inspiration or shortness of breath at rest Gastrointestinal Gastrointestinal: Denies abdominal pain, nausea or vomiting Genitourinary Genitourinary: Denies burning urination Musculoskeletal Musculoskeletal: Denies muscle cramps, muscle spasms or muscle weakness Neurologic Neurologic: Denies confusion, dizziness, headache(s) or lack of coordination Psychiatric Psychiatric: Denies anxiety, behavioral changes or depression Physical Exam HEENT normocephalic Resp normal respiratory effort and normal air movement GI soft to palpation, non-tender and non-distended Rectal Exam: other Other Details: Incision is clean, dry, and intact no CVA tenderness Extremity normal to inspection General Extremity: edema bilateral (trace ) Assessment & Plan (1) Status post section: PLAN: s/p LTCS PPD # 1 1. routine post care 2. breast feeding- support given 3. rh positive 4. rubella immune 5. plan for dc to home today
[2023-01-10 07:48] VITALS: BP 98/62; PULSE 72; RESP 18; TEMP 36.4; O2SAT 98
[2023-01-10] MEDS: Senna/Docusate Sodium 1 Tablet PO (09:32)
[2023-01-10] MEDS: Ibuprofen 600 MG Tablet PO ×3 (09:32→22:10)
[2023-01-10 15:00] VITALS: BP 95/68; PULSE 78; RESP 18; TEMP 36.6
[2023-01-10] MEDS: Ferrous Sulfate 325 MG Tablet PO (15:20)
[2023-01-10 19:47] VITALS: BP 108/60; PULSE 78; RESP 16; TEMP 36.5; O2SAT 98
[2023-01-11 02:20] VITALS: BP 107/71; PULSE 72; RESP 16; TEMP 36.4; O2SAT 99
--- NOTE | 2023-01-11 02:44 | NURSING ---
Reviewed and agreed with Lacy QUIROZ charting.
[2023-01-11] MEDS: Acetaminophen 500 MG Tablet 1000 MG PO ×2 (04:39→10:43)
[2023-01-11] MEDS: Ibuprofen 600 MG Tablet PO ×2 (04:39→10:43)
--- NOTE | 2023-01-11 07:06 | PCM.PN.OB ---
Subjective Subjective Patient doing well without complaints. Tolerating PO. Ambulating and voiding without difficulty. Feeding well. Denies chest pain, shortness of breath, calf pain/swelling, fevers, chills, lightheadedness. Objective Data Objective Data Vital Signs: Vital Signs Temp Pulse Resp BP Pulse Ox O2 Del Method 97.5 F L 72 16 107/71 99 Room Air 01/11/23 02:20 01/11/23 02:20 01/11/23 02:20 01/11/23 02:20 01/11/23 02:20 01/11/23 02:20 Oxygen Delivery Method Room Air Weight: 149 lb Body Mass Index (BMI) 28.1 Intake & Output: Intake and Output for Last 24 Hours 01/09/23 01/10/23 01/11/23 23:59 23:59 23:59 Intake Total 3425.41 / 3425.41 Output Total 1350 / 1350 200 / 200 Balance 2075.41 / 2075.41 -200 / -200 Lab / Micro Data Attestation: I reviewed the patient's lab results. Result Diagrams: 01/10/23 04:42 ROS Constitutional Constitutional: Reports systems reviewed and no addt'l complaints, except as documented; Denies anorexia or headache(s) Cardiovascular Cardiovascular: Reports systems reviewed and no addt'l complaints, except as documented; Denies dizziness, dyspnea, nausea or tachypnea Respiratory/Chest Respiratory/Chest: Reports systems reviewed and no addt'l complaints, except as documented; Denies cough, dyspnea, shortness of breath at rest or tachypnea Gastrointestinal Gastrointestinal: Reports systems reviewed and no addt'l complaints, except as documented; Denies abdominal pain, constipation or nausea Genitourinary Genitourinary: Reports systems reviewed and no addt'l complaints, except as documented; Denies burning urination, difficulty urinating, dysuria, urinary frequency or urinary incontinence Musculoskeletal Musculoskeletal: Reports systems reviewed and no addt'l complaints, except as documented Integumentary Integumentary: Reports systems reviewed and no addt'l complaints, except as documented Neurologic Neurologic: Reports systems reviewed and no addt'l complaints, except as documented; Denies abnormal speech, dizziness or headache(s) Psychiatric Psychiatric: Reports systems reviewed and no addt'l complaints, except as documented Endocrine Endocrinology: Reports systems reviewed and no addt'l complaints, except as documented Hematologic/Lymphatic Hematologic/Lymphatic: Reports systems reviewed and no addt'l complaints, except as documented Physical Exam Const alert, oriented x3 and no apparent distress Neck full ROM Resp normal respiratory effort, normal air movement and no retractions Effort and Inspection: able to speak in complete sentences and symmetric chest movement GI soft to palpation Inspection: incision intact Bladder / Kidney Exam: bladder normal to palpation Uterus Palpation: uterus fundus firm Extremity normal to inspection and full ROM Psych mental status grossly normal, thought process normal and cooperative Assessment & Plan (1) Status post section: PLAN: s/p LTCS PPD # 2 1. routine post care 2. breast feeding- support given 3. rh positive 4. rubella immune 5. DC home. (2) Abnormal glucose affecting : COMMENT: normal 3 hr gtt (3) Anemia affecting : COMMENT: cont anemia on PO iron. iron studies ordered 12/07. slow fe 45mg (4) Arrested active labor, delivered, current hospitalization: (5) Supervision of normal first : COMMENT: PRR , KOKI 01/13/23, boy walker Spouse Dawood (6) : QUALIFIERS: Weeks of gestation: 38 weeks Qualified Code(s): Z3A.38 - 38 weeks gestation of COMMENT: GBS neg, nl NIPT & reviewed Carrier testing, nl anatomy Charges/Coding Procedures Urinary/Genital [id number]: No Charge Multi Select Codes Urinary/Genital Urinary/Genital CPT Codes: No Charge
--- NOTE | 2023-01-11 07:12 | DCINST_ITS ---
Discharge Instructions Diet Discharge Diet: No restrictions Activity Discharge Activity: Return to Normal Activity May resume sexual activity in: 4-6 weeks Weight Bearing Status: Full weight bearing Dressing / Incision Call your doctor if your incision/area has: Continuous Slow Oozing, Sudden Increased Bleeding, Increased Pain/ Swelling, Increased Redness and Foul Smelling Discharge Call your doctor if you observe: Fever of 101 or Higher and Using more than 1 pad per hour Suture Line Care: Avoid Pulling/Pushing and Avoid Pinching/Bending Cleanse incision/area with: Soap & Water and Keep Dressing Clean & Dry Follow Up Care Please Follow Up With: Awilda Felix, When: Please call the office to schedule your follow up appointment in 6 weeks. If you had high blood pressure please call to schedule an appointment in 2 we eks. Test Results: Test results from this visit will be discussed in further detail at your follow- up appointment, if applicable. Discharge Plan Admission Admit Date/Time: 01/08/23 19:55 Primary Reason for Your Visit: Attending Provider: Awilda Felix Primary Care Provider: Care PhysicianMoni Primary Discharge Orders/Prescriptions Prescriptions: New ibuprofen 800 mg tablet 800 mg PO Q8H PRN (Reason: pain) Qty: 30 0RF oxycodone 5 mg capsule 5 mg PO Q6H PRN (Reason: pain) 3 Days Qty: 10 0RF No Action PNV Tabs 20-1 20 mg iron- 1 mg tablet 1 tab PO DAILY miscellaneous medical supply Misc 2 ea miscellaneous ONCE Qty: 2 0RF Rx Instructions: compression stockings 20mm hg strength. hydrocortisone 2.5 % ointment 1 applic topical BID Slow Fe 142 mg (45 mg iron) tablet extended release 142 mg PO DAILY Referrals / Follow Up: Care PhysicianMoni Primary [Primary Care Provider] - Disposition Disposition (needs filled in before D/C Order can be placed): Home, Self Care
[2023-01-11 09:00] VITALS: BP 125/74; PULSE 75; RESP 16; TEMP 36.4; O2SAT 96
[2023-01-11] MEDS: Senna/Docusate Sodium 1 Tablet PO (10:43)
== END 2023-01-11 12:30 | disposition home or self-care (01) | DRG 788 ==
LOC: WPOUT 21:42 → WP 21:44 → WPOUT 21:45 → WP 21:45
PROVIDERS: Obstetrics & Gynecology; Admitting Provider Obstetrics & Gynecology; Visit Provider Obstetrics & Gynecology
DX: O62.1 Secondary uterine inertia (principal); D64.9 Anemia, unspecified; O26.86 Pruritic urticarial papules and plaques of pregnancy (PUPPP); Z3A.39 39 weeks gestation of pregnancy; O77.0 Labor and delivery complicated by meconium in amniotic fluid; Z37.0 Single live birth; Z14.8 Genetic carrier of other disease; O99.02 Anemia complicating childbirth; O66.5 Attempted application of vacuum extractor and forceps
CPT/HCPCS: 59025; 59050; 84112; 85025; 85027; 86780; 86850; 86900; 86901; 94799; 99221; J7120; A4216; G0378

== ENCOUNTER → 2024-02-23 | Outpatient (CLI) | payer OTHER, SELFPAY ==
[2024-02-29 12:36] LABS: HPV Reflexed? NOT INDICATED
== END | disposition home or self-care (01) ==
PROVIDERS: Referring Provider Nurse Practitioner Family; Visit Provider Nurse Practitioner Family
DX: Z01.419 Encounter for gynecological examination (general) (routine) without abnormal findings (principal)
CPT/HCPCS: 88175; G0145

== ENCOUNTER → 2025-01-29 | Outpatient (CLI) | payer OTHER, SELFPAY ==
[2025-02-01 06:08] LABS: Chlamydia By Nucleic Acid AMP Negative (Negative); Gonococcus By Nucleic Acid AMP Negative (Negative)
== END | disposition home or self-care (01) ==
LOC: LABSPEC 16:32
PROVIDERS: Referring Provider Obstetrics & Gynecology; Visit Provider Obstetrics & Gynecology
DX: O09.90 Supervision of high risk pregnancy, unspecified, unspecified trimester (principal); Z3A.00 Weeks of gestation of pregnancy not specified
CPT/HCPCS: 87086; 87088; 87491; 87591

== ENCOUNTER → 2025-02-09 | Outpatient (CLI) | payer OTHER, SELFPAY ==
[2025-02-09 12:25] LABS: Hematocrit 40.8 % (37-47); Hemoglobin 13.6 g/dL (12.0-15.0); Immature Granulocytes Count 0.030 X10^3/uL (0.0-0.0); Mean Corp Hgb Conc 33.3 g/dL (32-36); Mean Corpuscular Volume 87.7 fL (81-99); Mean Platelet Vol. 10.2 fl (6.2-12.0); NRBC Flagged by Analyzer 0 % (0-5); Platelet Count 305 K/mm3 (150-450); RBC Distribution Width CV 13.3 % (11.6-14.6); RBC Distribution Width SD 42.7 fl (35.1-43.9); Red Blood Count 4.65 M/mm3 (4.2-5.4); White Blood Count 9.3 K/mm3 (4.4-11.0)
[2025-02-09 13:36] LABS: HIV Nonreactive (Nonreactive); Hepatitis B Surface Antigen Nonreactive (Nonreactive); Syphilis Antibodies Nonreactive (Nonreactive)
[2025-02-09 13:58] LABS: Hepatitis C Antibody Nonreactive (Nonreactive)
== END | disposition home or self-care (01) ==
PROVIDERS: Visit Provider Obstetrics & Gynecology
DX: O09.90 Supervision of high risk pregnancy, unspecified, unspecified trimester (principal); Z3A.00 Weeks of gestation of pregnancy not specified
CPT/HCPCS: 36415; 85025; 86703; 86762; 86780; 86803; 86850; 86900; 86901; 87340

== ENCOUNTER → 2025-05-14 | Outpatient (CLI) | payer OTHER, SELFPAY ==
--- OUTSIDE RECORDS SUMMARY | 2025-05-14 17:53 | XMS RPT_ITS | CCD ---
Author Organization [facility] Care Team Providers Care Crime Scene Examiner Name Role Phone Dr. Brielle Nathan Attending Provider [phone] Dr. Brielle Nathan Attending Provider [phone] Care Physician, No Primary Primary Care Provider Unavailable Care Physician, No Primary Referring Provider Un available Dr. Awilda Felix Attending Provider [phone] Dr. Brielle Nathan Attending Provider [phone] JOY White Attending Provider Care Physician, No Primary Primary Care Provider Unavailable Care Physician, No Primary Referring Provider Un available Dr. Awilda Felix Attending Provider [phone] JOY White Attending Provider [phone] Dr. Brielle Nathan Attending Provider [phone] Care Physician, No Primary Primary Care Provider Unavailable Care Physician, No Primary Referring Provider Un available Dr. Awilda Felix Attending Provider [phone] Care Physician, No Primary Primary Care Provider Unavailable Care Physician, No Primary Referring Provider Un available Dr. Brielle Nathan Attending Provider [phone] JOY White Attending Provider JOY Mercado Attending Provider [phone] Dr. Brielle Nathan Referring Provider [phone] Dr. Brielle Nathan Other Provider [phone] Dr. Awilda Felix Admit Provider Dr. Awilda Felix Other Provider Care Physician, No Primary Primary Care Provider Unavailable Care Physician, No Primary Referring Provider Un available Dr. Brielle Nathan Attending Provider [phone] Osvaldo [employer]LECT[employer] LEAD, DIANEC Kya Attending Provider PHYSICIAN, NONE Primary Care Physician Unavailab le PHYSICIAN, NONE Primary Care Unavailable MARAL MILLER, DR MARYAN West Attending Unavailable LORAINE BANEGAS, DR CARTER Attending Unavailyari e PHYSICIAN, NONE Primary Care Unavailable Dr. Brielle Nathan MD Attending Provider Dr. Awilda Felix DO Attending Provider Chas Bhatia DO, Dr. Kaiser Referring Provider Jami Mckay Attending Provider [phone] Lizzy Mercado CNM Attending Provider [phone] NO PRIMARY CARE, MD Primary Care Unavailable VIVIAN LOBO Attending Unavailable JAMI JOHNSON Referring Unavailable Dr. Brielle Nathan MD Attending Physician Dr. Awilda Felix DO Attending Physician Jami Mckay Attending Physician [phone] Lizzy Mercado CNM Attending Physician [phone] Jami Johnson NP Attending Unavailable Lizzy Mercado Attending Unavailable Lizzy Mercado Attending Unavailable Brielle Nathan Attending Unavailable Awilda Felix Attending Awilda Orona Referring Unavailyari e Awilda Felix Attending Unavailabl e Awilda Felix Attending Unavailabl e Allergies Allergy Classification Reported Allergen(s) Allergy Type Date of Onset Reaction(s) Facility Acetaminophen / HYDROcodone (1 source) Acetaminophen / HYDROcodone; Translations: [acetaminophen-hyd rocodone] Drug Allergy [facility] (2 sources) Acetaminophen Drug Allergy 03-20-2022 [facility] Work Phone: (18 sources) HYDROcodone Drug Allergy 03-20-2022 other, Rash [facility] (1 source) Acetaminophen / HYDROcodone; Translations: [acetaminophen-hyd rocodone] Drug Allergy [facility] (1 source) Acetaminophen / HYDROcodone; Translations: [HYDROCODONE-ACETA MINOPHEN] Drug Allergy 11-21-2015 [facility] (1 source) HYDROcodone Drug Allergy 04-30-2025 [facility] Repository Medications Current Medications Medication Drug Class(es) Dates Sig (Normalized) Sig (Original) famotidine 40 mg oral tablet (1 source) Histamine-2 Receptor Antagonist Start: 01-03-2024 End: 01-13-2024 Pepcid 40 mg oral tablet Dose : 40 mg = 1 tab(s), Oral, BID, # 20 tab(s), 0 Refill(s) Start Date: 01/03/24 Stop Date: 01/13/24 Status: Ordered Iron (16 sources) Start: 05-06-2022 Pnv No.704-[id number] No.10 (Pnv Tabs 20-1) 20 mg iron- 1 mg tablet Active 1 {tbl} PO DAILY May 06, 2022 12:00am Complies with drug therapy Start: 05-06-2022 Pnv No.163-Iro n-Folate No.10 (Pnv Tabs 20-1) 20 mg iron- 1 mg tablet Active 1 {tbl} PO DAILY May 06, 2022 12:00am Start: 05-06-2022 Pnv No.163-Iro n-Folate No.10 (Pnv Tabs 20-1) 20 mg iron- 1 mg tablet Active 1 {tbl} PO DAILY May 06, 2022 12:00am Start: 05-06-2022 Pnv No.163-Iro n-Folate No.10 (Pnv Tabs 20-1) 20 mg iron- 1 mg tablet Active 1 TABLET PO DAILY May 06, 2022 12:00am Start: 05-06-2022 Pnv No.163-Iro n-Folate No.10 (Pnv Tabs 20-1) 20 mg iron- 1 mg tablet Active TABLET PO May 06, 2022 12:00am Start: 05-06-2022 Pnv No.163-Iro n-Folate No.10 (Pnv Tabs 20-1) 20 mg iron- 1 mg tablet Active TABLET PO May 05, 2022 11:00pm Completed/Discontinued Medications Medication Drug Class(es) Dates Sig (Normalized) Sig (Original) cephalexin 500 mg oral capsule (16 sources) Cephalosporin Antibacterial Start: 05-29-2022 End: 07-24-2022 take 1 capsule by mouth three times daily Cephalexin 500 mg capsule Discontinued 500 mg PO THREE TIMES A DAY 21 0 May 29, 2022 12:00am July 24, 2022 10:27pm 24 hr ferrous sulfate 142 mg extended release oral tablet (20 sources) Start: 12-11-2022 End: 02-18-2023 take 1 tablet by mouth once daily Ferrous Sulfate (Slow Fe) 142 mg (45 mg iron) tablet extended release Discontinued 142 mg PO DAILY December 24, 2022 8:51am February 18, 2023 1:20pm anemia fluconazole 150 mg oral tablet (5 sources) Azole Antifungal Start: 02-01-2025 End: 03-23-2025 Fluconazole 150 mg tablet Discontinued 150 mg PO Every 3 Days 2 0 February 01, 2025 12:00am March 23, 2025 9:41am hydrocortisone 0.025 mg/mg topical ointment (20 sources) Corticosteroid Start: 12-22-2022 End: 01-21-2023 Hydrocortisone 2.5 % ointment Discontinued 1 NMA TOPICAL TWICE A DAY December 24, 2022 8:51am January 21, 2023 9:41am itching ibuprofen 800 mg oral tablet (19 sources) Nonsteroidal Anti-inflammatory Drug Start: 01-09-2023 End: 02-18-2023 take 1 tablet by mouth every eight hours as needed for pain Ibuprofen 800 mg tablet Discontinued 800 mg PO Q8H as needed for pain 20 0 January 21, 2023 9:59am February 18, 2023 1:20pm metroNIDAZOLE 500 mg oral tablet (18 sources) Nitroimidazole Antimicrobial Start: 03-23-2022 End: 05-06-2022 take 1 tablet by mouth twice daily Metronidazole 500 mg tablet Discontinued 500 mg PO TWICE A DAY 14 0 March 23, 2022 12:00am May 06, 2022 3:16pm take one tab twice a day for 7 days. Miscellaneous Medical Supply (7 sources) Start: 10-16-2022 End: 01-21-2023 Miscellaneous Medical Supply Discontinued 2 EACH MC ONCE 2 October 16, 2022 12:00am January 21, 2023 9:41am compression stockings 20mm hg strength. Start: 10-16-2022 Miscellaneous Medical Supply Active 2 EACH MC ONCE 2 October 16, 2022 12:00am compression stockings 20mm hg strength. Miscellaneous Medical Supply misc (7 sources) Start: 10-16-2022 End: 01-21-2023 Miscellaneous Medical Supply misc Discontinued 2 NMA MC ONCE 2 October 16, 2022 12:00am January 21, 2023 9:41am Back pain affecting Other specified diseases and conditions complicating Dorsalgia, unspecified compression stockings 20mm hg strength. Start: 10-16-2022 End: 01-21-2023 Miscellaneous Medical Supply misc Discontinued 2 NMA MC ONCE 2 October 16, 2022 12:00am January 21, 2023 9:41am compression stockings 20mm hg strength. nitrofurantoin, macrocrystals 25 mg / nitrofurantoin, monohydrate 75 mg oral capsule (15 sources) Nitrofuran Antibacterial Start: 07-24-2022 End: 07-31-2022 take 1 capsule by mouth every twelve hours at mealtime Nitrofurantoin Monohyd/M-Cryst (Macrobid) 100 mg capsule Discontinued 100 mg PO Q12H 14 7 0 July 24, 2022 1:00am July 30, 2022 1:00am July 31, 2022 1:04am must administer with a meal/food oxyCODONE hydrochloride 5 mg oral capsule (10 sources) Opioid Agonist Start: 01-11-2023 End: 01-21-2023 take 1 capsule by mouth every six hours as needed for pain Oxycodone 5 mg capsule Discontinued 5 mg PO EVERY 6 HOURS as needed for pain 10 3 0 January 11, 2023 January 21, 2023 9:41am Status post delivery History of uterine scar from previous surgery Problems Problem Classification Problem Date Documented Da te Episodic/Chronic Contraceptive and procreative management (3 sources) Encounter for other general counseling and advice on procreation; Translations: [Other procreative management counseling and advice] Episodic Diabetes or abnormal glucose tolerance complicating ; childbirth; or the puerperium (20 sources) Abnormal glucose level; Translations: [Abnormal glucose complicating ] 10-22-2022 Episodic Comment on above: normal 3 hr gtt distress and abnormal forces of labor (13 sources) Arrested active phase of labor; 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 iron studies ordered 12/07. slow fe 45mg Other complications of (16 sources) Anemia complicating , unspecified trimester; Translations: [Anemia of mother, unspecified as to episode of care or not applicable] 12-15-2022 Chronic Other complications of (16 sources) Urinary tract infection in ; Translations: [Unspecified infection of urinary tract in , unspecified trimester] 07-22-2022 Episodic Comment on above: 07/22 rpt culture ob tained Other complications of (20 sources) Unspecified infection of urinary tract in , unspecified trimester; Translations: [Infections of genitourinary tract in , unspecified as to episode of care or not applicable] Episodic Other complications of (20 sources) Pruritic urticarial papules and plaques of (PUPPP); Translations: [Pruritic urticarial papules and plaques of ] 12-15-2022 Episodic Comment on above: supportive care Other complications of (18 sources) High risk ; Translations: [Supervision of high risk , unspecified, unspecified trimester] 01-25-2025 Episodic Comment on above: KOKI 08/31/25 PC Shanna alker Maia PRR, KOKI 08/31/25 PC Walker Maia Other complications of (1 source) Supervision of high risk , unspecified, first trimester; Translations: [Supervision of high risk , unspecified, first trimester] Onset: 04-30-2025 Episodic Other complications of (1 source) Supervision of high risk , unspecified, unspecified trimester; Translations: [Supervision of high risk , unspecified, unspecified trimester] Onset: 02-15-2025 Episodic Other connective tissue disease (18 sources) Pelvic floor tension; Translations: [Other specified disorders of muscle] 05-27-2022 Episodic Comment on above: possible cause of dy spareunia and pelvic pain, recommend PFPT evaluation. 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 mood side effects with enskyce in past. Other female genital disorders (3 sources) Abnormal uterine and vaginal bleeding, unspecified; Translations: [Unspecified disorders of menstruation and other abnormal bleeding from female genital tract] Chronic Other and delivery including normal (20 sources) Normal ; Translations: [Encounter for supervision of normal first , unspecified trimester] Episodic Comment on above: PRR , KOKI 3, boy walker Spouse Maia GBS neg, nl NIPT & r eviewed Carrier testing, nl anatomy NIPT w gender- elect s, carrier- declines (previously did carrier) NIPT low risk, male( PT DOES NOT KNOW GENDER YET), carrier- declines (previously did carrier) NIPT low risk, male( PT DOES NOT KNOW GENDER YET), carrier- declines (previously did carrier), nl anatomy Other upper respiratory disease (16 sources) Seasonal allergy; Translations: [Other seasonal allergic rhinitis] 05-27-2022 Chronic Comment on above: Spring Residual codes; unclassified (20 sources) 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 1 11/06 Residual codes; unclassified (20 sources) Genetic carrier of other disease; Translations: [Other genetic carrier status] Onset: 04-30-2025 Episodic Residual codes; unclassified (6 sources) History of uterine scar from previous surgery; Translations: [Other postprocedural status] Onset: 04-30-2025 01-11-2023 Episodic Residual codes; unclassified (1 source) 21 weeks gestation of ; Translations: [21 weeks gestation of ] Onset: 04-30-2025 Episodic Results Test Name Value Interpretation Reference Range Facility Business Analysis Consultant Office Visit Reporton 04-30-2025 Business Analysis Consultant Office Visit Report [facility] [address], [address] [place] [address] OFFICE VISIT Date of Service: 04/30/25 MR#: [id number] Acct: [id number] Name: TK COTTER Rep #: [id number] : 2000 Provider: JOY Camargo ams Age/Sex: 25/F Location: [facility] Status: Signed Intake Vital Signs 01/29/25 10:44 03/23/25 09:42 04/30/25 11:02 Height 5 ft 1 in 5 ft 1 in 5 ft 1 in Weight: 122 lb 3 oz BMI 23.1 BP 105/71 Intake Visit Reasons: 21 wk ob *5 wks per patient Chief Complaint: 21wk OB Research Assistant Member Required: No Is patient in pain?: No Allergies hydrocodone (From Vicodin) Allergy (Mild, Verified 04/30/25 11:00) Rash Medications ???Medication ???Instructions ???Recorded ???Confirmed ???Type vitamins no.163-iron 1 tab PO DAILY 05/06/22 04/30/25 History bis-gly 20 mg-folate no.10 1 mg tablet (PNV Tabs 20-1) Last Menstrual Period: 11/24/24 : No PFSH PFSH Surgical History Status post section Family History Grandfather Cancer Grandmother Breast cancer Grandfather Cancer esophageal cancer Social History adopted: No household members: spouse housing: house number of children: 1 current occupational status: employed 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 [employer] current occupational exposures/hazards: No pets and animals: Yes pets and animals: dog(s) history of recent travel: No sexually active: Yes Smoking Status: Never smoker alcohol intake: never details: not while substance use type: does not use well-balanced diet: daily or most days caffeine: Yes Type: coffee and tea Number of servings: 1 eating out: rarely or never during the past year weight has: remained stable what type of physical activity do you participate in: none yennifer/taoist: Catholic seatbelt use: always do you feel safe at home: Yes additional social history: [employer] History 2 Elective abortions Hx Para 1 Spontaneous abortions Hx # Term Pregnancies Ectopic pregnancies Hx # Pregnancies Multiple births # of living children 1 Past Pregnancies Del. Date Name GA/Weeks Outcome Route Bth Weight Gen Labor Lgth Anesthesia Del Locatn Provider FOB 01/09/23 Walker 39 live - full term 8lbs 2oz Male epidural [facility] Dr. Felix Delivery Date: 01/09/23 Last Updated by: Vee Santiago PUPPS, anemia, failed vacuum, arrest of decent HPI 21 wk ob *5 wks per patient Details: TK COTTER is a 25 year old who presents for routine OB visit. OB Visit KOKI Calculator Estimated Delivery Date Method Current WG Current Estimate 09/08/25 Ultrasound #1 21w 2d Other Estimates 08/31/25 LMP (Certain) 22w 3d 09/05/25 Ultrasound #2 21w 5d Expected Delivery Route/Plan prior c-s patient counseled regarding risks/benefits of trial of labor versus repeat . ACOG/uptodate education given to patient. 60 % likelihood of success per calculator TOLAC consent form signed: [] Specific Issue/Plans Covid status: [] Flu vaccine: [] Tdap vaccine: [] Rhogam: [] LARC form signed: [] Problem list reviewed and updated with the most current plan of care details and appropriate orders placed. Relevant counseling for the gestational age provided. Continue routine care and follow up unless otherwise noted in visit notes/problem list details Initial Weight: 106 lb Date -???-???-???-???-???-???- ???-???-???-???-???-???- EGA Weight BP Urine Prot -???-???-???-???-???-???- ???-???-???-???-???-???- Glucose FHR FuHt Pres Dilation -???-???-???-???-???-???- ???-???-???-???-???-???- Effaced St Visit Note 01/29/25 -???-???-???-???-???-???- ???-???-???-???-???-???- 8w 2d 106 lb 8 oz (+8 oz) 112/75 -???-???-???-???-???-???- ???-???-???-???-???-???- 180 -???-???-???-???-???-???- ???-???-???-???-???-???- JV- JV- CRL measuring 8 weeks 5 days. unsure if wants to , desires NIPT. 02/28/25 -???-???-???-???-???-???- ???-???-???-???-???-???- 12w 4d 110 lb 9 oz (+4 lb 9 oz) 101/66 Negative -???-???-???-???-???-???- ???-???-???-???-???-???- Negative 160 -???-???-???-???-???-???- ???-???-???-???-???-???- -Has light pink dc postcoital. Reassured Br US confirm FHT 03/23/25 -???-???-???-???-???-???- ???-???-???-???-???-???- 15w 6d 114 lb 5 oz (+8 lb 5 oz) 112/71 Negative -???-???-???-???-???-???- ???-???-???-???-???-???- Negative 145 -???-???-???-???-???-???- ???-???-???-???-???-???- KW- work in for JV. no vb/cramping. possible flutters US scheduled. AFP declined. 10/ (more content not included)... Normal [facility] - Chemistry and C hemistry - challengeOrdered By: Awilda Bhatia on 03-23-2025 Glucose Ql (U) Negative [facility] - UrinalysisOrder ed By: Awilda Bhatia on 03-23-2025 Protein Ql (U) Negative [facility] Business Analysis Consultant Office Visit Reporton 03-23-2025 Business Analysis Consultant Office Visit Report [facility] [address], [address] [place] [address] OFFICE VISIT Date of Service: 03/23/25 MR#: [id number] Acct: [id number] Name: TK COTTER Rep #: [id number] : 2000 Provider: JOY Camargo ams Age/Sex: 24/F Location: [facility] Status: Signed Intake Vital Signs 01/29/25 10:44 02/28/25 10:07 03/23/25 09:41 03/23/25 09:42 Height 5 ft 1 in 5 ft 1 in 5 ft 1 in 5 ft 1 in Weight: 114 lb 5 oz BMI 21.6 BP 112/71 Intake Visit Reasons: 16 wk ob Research Assistant Member Required: No Is patient in pain?: No Allergies hydrocodone (From Vicodin) Allergy (Mild, Verified 03/23/25 09:41) Rash Medications ???Medication ???Instructions ???Recorded ???Confirmed ???Type vitamins no.163-iron 1 tab PO DAILY 05/06/22 03/23/25 History bis-gly 20 mg-folate no.10 1 mg tablet (PNV Tabs 20-1) Last Menstrual Period: 11/24/24 Zika: Zika virus screening: Negative : No PFSH PFSH Surgical History Status post section Family History Grandfather Cancer Grandmother Breast cancer Grandfather Cancer esophageal cancer Social History adopted: No household members: spouse housing: house number of children: 1 current occupational status: employed 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 [employer] current occupational exposures/hazards: No pets and animals: Yes pets and animals: dog(s) history of recent travel: No sexually active: Yes Smoking Status: Never smoker alcohol intake: never details: not while substance use type: does not use well-balanced diet: daily or most days caffeine: Yes Type: coffee and tea Number of servings: 1 eating out: rarely or never during the past year weight has: remained stable what type of physical activity do you participate in: none yennifer/taoist: Catholic seatbelt use: always do you feel safe at home: Yes additional social history: [employer] History 2 Elective abortions Hx Para 1 Spontaneous abortions Hx # Term Pregnancies Ectopic pregnancies Hx # Pregnancies Multiple births # of living children 1 Past Pregnancies Del. Date Name GA/Weeks Outcome Route Bth [facility] Walker 39 live - full term 8lbs 2oz Male epidural [facility] Dr. Felix Delivery Date: 01/09/23 Last Updated by: Vee Santiago PUPPS, anemia, failed vacuum, arrest of decent HPI 16 wk ob Details: TK COTTER is a 24 year old who presents for routine OB visit. OB Visit KOKI Calculator Estimated Delivery Date Method Current WG Current Estimate 09/08/25 Ultrasound #1 15w 6d Other Estimates 08/31/25 LMP (Certain) 17w 0d 09/05/25 Ultrasound #2 16w 2d Expected Delivery Route/Plan prior c-s patient counseled regarding risks/benefits of trial of labor versus repeat . ACOG/uptodate education given to patient. 60 % likelihood of success per calculator TOLAC consent form signed: [] Specific Issue/Plans Covid status: [] Flu vaccine: [] Tdap vaccine: [] Rhogam: [] LARC form signed: [] Problem list reviewed and updated with the most current plan of care details and appropriate orders placed. Relevant counseling for the gestational age provided. Continue routine care and follow up unless otherwise noted in visit notes/problem list details Initial Weight: 106 lb Date -???-???-???-???-???-???- ???-???-???-???-???-???- EGA Weight BP Urine Prot -???-???-???-???-???-???- ???-???-???-???-???-???- Glucose FHR FuHt Pres Dilation -???-???-???-???-???-???- ???-???-???-???-???-???- Effaced St Visit Note 01/29/25 -???-???-???-???-???-???- ???-???-???-???-???-???- 8w 2d 106 lb 8 oz (+8 oz) 112/75 -???-???-???-???-???-???- ???-???-???-???-???-???- 180 -???-???-???-???-???-???- ???-???-???-???-???-???- JV- JV- CRL measuring 8 weeks 5 days. unsure if wants to , desires NIPT. 02/28/25 -???-???-???-???-???-???- ???-???-???-???-???-???- 12w 4d 110 lb 9 oz (+4 lb 9 oz) 101/66 Negative -???-???-???-???-???-???- ???-???-???-???-???-???- Negative 160 -???-???-???-???-???-???- ???-???-???-???-???-???- MH-Has light pink dc postcoital. Reassured Br US confirm FHT 03/23/25 -???-???-???-???-???-???- ???-???-???-???-???-???- 15w 6d 114 lb 5 oz (+8 lb 5 oz) 112/71 Negative -???-???-???-???-???-???- ???-???-???-???-???-???- Negative 145 -???-???-???-???-???-???- ???-???-???-???-???-???- KW- work in for JV. no vb/cramping. possible flutters US scheduled. AFP d (more content not included)... Normal [facility] - Chemistry and C hemistry - challengeOrdered By: Jami Johnson on 02-28-2025 Glucose Ql (U) Negative [facility] - UrinalysisOrder ed By: Jami Johnson on 02-28-2025 Protein Ql (U) Negative [facility] Business Analysis Consultant Office Visit Reporton 02-28-2025 Business Analysis Consultant Office Visit Report [address], [address] [place] [address] OFFICE VISIT Date of Service: 02/28/25 MR#: [id number] Acct: [id number] Name: TK COTTER Rep #: [id number] : 2000 Provider: ADRIANA angeles Age/Sex: 24/F Location: [facility] Status: Signed Intake Vital Signs 01/29/25 10:44 02/28/25 10:07 Height 5 ft 1 in 5 ft 1 in Weight: 110 lb 9 oz BMI 20.9 BP 101/66 Intake Visit Reasons: 12 wk ob Chief Complaint: 12 Week OB Research Assistant Member Required: No Is patient in pain?: No Allergies hydrocodone (From Vicodin) Allergy (Mild, Verified 02/28/25 10:07) Rash Medications ???Medication ???Instructions ???Recorded ???Confirmed ???Type vitamins no.163-iron 1 tab PO DAILY 05/06/22 02/28/25 History bis-gly 20 mg-folate no.10 1 mg tablet (PNV Tabs 20-1) fluconazole 150 mg tablet 150 mg PO Q3D 2 doses #2 tabs 01/2302/28/25 Rx Last Menstrual Period: 11/24/24 Zika: Zika virus screening: Negative : No PFSH PFSH Surgical History Status post section Family History Grandfather Cancer Grandmother Breast cancer Grandfather Cancer esophageal cancer Social History adopted: No household members: spouse housing: house number of children: 1 current occupational status: employed 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 [employer] current occupational exposures/hazards: No pets and animals: Yes pets and animals: dog(s) history of recent travel: No sexually active: Yes Smoking Status: Never smoker alcohol intake: never details: not while substance use type: does not use well-balanced diet: daily or most days caffeine: Yes Type: coffee and tea Number of servings: 1 eating out: rarely or never during the past year weight has: remained stable what type of physical activity do you participate in: none yennifer/taoist: Catholic seatbelt use: always do you feel safe at home: Yes additional social history: [employer] History 2 Elective abortions Hx Para 1 Spontaneous abortions Hx # Term Pregnancies Ectopic pregnancies Hx # Pregnancies Multiple births # of living children 1 Past Pregnancies Del. Date Name GA/Weeks Outcome Route Bth Weight Infant Gen Labor Lgth Anesthesia Del Locatn Provider FOB 01/09/23 Walker 39 live - full term 8lbs 2oz Male epidural [facility] Dr. Felix Delivery Date: 01/09/23 Last Updated by: Vee Santiago PUPPS, anemia, failed vacuum, arrest of decent HPI 12 wk ob Details: TK COTTER is a 24 year old who presents for routine OB visit. OB Visit KOKI Calculator Estimated Delivery Date Method Current WG Current Estimate 09/08/25 Ultrasound #1 12w 4d Other Estimates 08/31/25 LMP (Certain) 13w 5d 09/05/25 Ultrasound #2 13w 0d Expected Delivery Route/Plan prior c-s patient counseled regarding risks/benefits of trial of labor versus repeat . ACOG/uptodate education given to patient. 60 % likelihood of success per calculator TOLAC consent form signed: [] Specific Issue/Plans Covid status: [] Flu vaccine: [] Tdap vaccine: [] Rhogam: [] LARC form signed: [] Problem list reviewed and updated with the most current plan of care details and appropriate orders placed. Relevant counseling for the gestational age provided. Continue routine care and follow up unless otherwise noted in visit notes/problem list details Initial Weight: 106 lb Date -???-???-???-???-???-???- ???-???-???-???-???-???- EGA Weight BP Urine Prot -???-???-???-???-???-???- ???-???-???-???-???-???- Glucose FHR FuHt Pres Dilation -???-???-???-???-???-???- ???-???-???-???-???-???- Effaced St Visit Note 01/29/25 -???-???-???-???-???-???- ???-???-???-???-???-???- 8w 2d 106 lb 8 oz (+8 oz) 112/75 -???-???-???-???-???-???- ???-???-???-???-???-???- 180 -???-???-???-???-???-???- ???-???-???-???-???-???- JV- JV- CRL measuring 8 weeks 5 days. unsure if wants to , desires NIPT. 02/28/25 -???-???-???-???-???-???- ???-???-???-???-???-???- 12w 4d 110 lb 9 oz (+4 lb 9 oz) 101/66 Negative -???-???-???-???-???-???- ???-???-???-???-???-???- Negative 160 -???-???-???-???-???-???- ???-???-???-???-???-???- -Has light pink dc postcoital. Reassured Br US confirm FHT ACOG First Trimester First Trimester: Desire for , Alcohol, Tobacco Cessation, Illicit/Recreational Drug/Substance Use, Intimate Partner Violence, Barriers to care, Unstable Housing, Communication Barriers, Environmental/Wor (more content not included)... Normal [facility] Absolute lymphocyte countOrd ered By: Awilda Bhatia on 02-09-2025 Lymphocytes Auto (Unsp spec) [#/Vol] 1.38 10*3/uL 0.83-4.51 [facility] Absolute neutrophil countOrd ered By: Awilda Bhatia on 02-09-2025 Neutrophils (Bld) [#/Vol] 7.4 10*3/uL 2.0-7.7 [facility] Automated lymphocyte count a s percentage of total leukocytesOrdered By: Awilda Bhatia on 02-09-2025 Lymphocytes/100 WBC Auto (Unsp spec) 14.8 % Low 19-41 [facility] Basophil percentageOrdered B y: Awilda Bhatia on 02-09-2025 Basophils/100 WBC (Bld) 0.5 % 0-1 [facility] CBC W/Diff, Automatedon 01-23 Absolute Lymph 1.38 X10 3/uL Normal 0.83-4.51 [facility] Comment on above: Performed By: #### B TS, L3890.6301, L3890.6006, L100.0100, L900.0098, L509.4006, L509.8002, L3890.6102 #### [facility] [address] [place], [address] Absolute Neut 7.4 X10 3/uL Normal 2.0-7.7 [facility] Comment on above: Performed By: #### B TS, L3890.6301, L3890.6006, L100.0100, L900.0098, L509.4006, L509.8002, L3890.6102 #### [facility] [address] [place], [address] Basophils/100 WBC (Bld) 0.5 % Normal 0-1 [facility] Comment on above: Performed By: #### B TS, L3890.6301, L3890.6006, L100.0100, L900.0098, L509.4006, L509.8002, L3890.6102 #### [facility] [address] [place], [address] Eosinophils/100 WBC (Bld) 0.8 % Normal 0-5 [facility] Comment on above: Performed By: #### B TS, L3890.6301, L3890.6006, L100.0100, L900.0098, L509.4006, L509.8002, L3890.6102 #### [facility] [address] [place], [address] Erythrocyte distribution width (RBC) [Ratio] 13.3 % Normal 11.6-14.6 [facility] Comment on above: Performed By: #### B TS, L3890.6301, L3890.6006, L100.0100, L900.0098, L509.4006, L509.8002, L3890.6102 #### [facility] [address] [facility] [place], [address] Hematocrit (Bld) [Volume fraction] 40.8 % Normal 37-47 [facility] Comment on above: Performed By: #### B TS, L3890.6301, L3890.6006, L100.0100, L900.0098, L509.4006, L509.8002, L3890.6102 #### [facility] [address] [facility] [place], [address] Hemoglobin (Bld) [Mass/Vol] 13.6 g/dL Normal 12.0-15.0 [facility] Comment on above: Performed By: #### B TS, L3890.6301, L3890.6006, L100.0100, L900.0098, L509.4006, L509.8002, L3890.6102 #### [facility] [address] [facility] [place], [address] IG% 0.300 Normal 0.0-0.9 [facility] Comment on above: Result Comment: IG% - Immature Granulocytes (promyelocytes, myelocytes and metamyelocytes) > 1% indicates that a LEFT SHIFT is Present. Performed By: #### B TS, L3890.6301, L3890.6006, L100.0100, L900.0098, L509.4006, L509.8002, L3890.6102 #### [facility] [address] [place], [address] Lymphocytes/100 WBC (Bld) 14.8 % Low 19-41 [facility] Comment on above: Performed By: #### B TS, L3890.6301, L3890.6006, L100.0100, L900.0098, L509.4006, L509.8002, L3890.6102 #### [facility] [address] [place], [address] MCH (RBC) [Entitic mass] 29.2 pg Normal 27.0-32.0 [facility] Comment on above: Performed By: #### B TS, L3890.6301, L3890.6006, L100.0100, L900.0098, L509.4006, L509.8002, L3890.6102 #### [facility] [address] [place], [address] MCHC (RBC) [Mass/Vol] 33.3 g/dL Normal 32-36 [facility] Comment on above: Performed By: #### B TS, L3890.6301, L3890.6006, L100.0100, L900.0098, L509.4006, L509.8002, L3890.6102 #### [facility] [address] [place], [address] MCV (RBC) [Entitic vol] 87.7 fL Normal 81-99 [facility] Comment on above: Performed By: #### B TS, L3890.6301, L3890.6006, L100.0100, L900.0098, L509.4006, L509.8002, L3890.6102 #### [facility] [address] [place], [address] Monocytes/100 WBC (Bld) 4.3 % Normal 0-10 [facility] Comment on above: Performed By: #### B TS, L3890.6301, L3890.6006, L100.0100, L900.0098, L509.4006, L509.8002, L3890.6102 #### [facility] [address] [place], [address] Neutrophils/100 WBC (Bld) 79.3 % High 47-70 [facility] Comment on above: Performed By: #### B TS, L3890.6301, L3890.6006, L100.0100, L900.0098, L509.4006, L509.8002, L3890.6102 #### [facility] [address] [place], [address] Nucleated RBC (Bld) [#/Vol] 0 10*3/uL Normal 0-5 [facility] Comment on above: Performed By: #### B TS, L3890.6301, L3890.6006, L100.0100, L900.0098, L509.4006, L509.8002, L3890.6102 #### [facility] [address] [place], [address] Platelet mean volume (Bld) [Entitic vol] 10.2 fL Normal 6.2-12.0 [facility] Comment on above: Performed By: #### B TS, L3890.6301, L3890.6006, L100.0100, L900.0098, L509.4006, L509.8002, L3890.6102 #### [facility] [address] [place], [address] Platelets (Bld) [#/Vol] 305 10*3/uL Normal 150-450 [facility] Comment on above: Performed By: #### B TS, L3890.6301, L3890.6006, L100.0100, L900.0098, L509.4006, L509.8002, L3890.6102 #### [facility] [address] [place], [address] RBC (Bld) [#/Vol] 4.65 10*6/uL Normal 4.2-5.4 [facility] Comment on above: Performed By: #### B TS, L3890.6301, L3890.6006, L100.0100, L900.0098, L509.4006, L509.8002, L3890.6102 #### [facility] [address] [place], [address] RDW SD 42.7 fl Normal 35.1-43.9 [facility] Comment on above: Performed By: #### B TS, L3890.6301, L3890.6006, L100.0100, L900.0098, L509.4006, L509.8002, L3890.6102 #### [facility] [address] [place], [address] WBC (Bld) [#/Vol] 9.3 10*3/uL Normal 4.4-11.0 [facility] Comment on above: Performed By: #### B TS, L3890.6301, L3890.6006, L100.0100, L900.0098, L509.4006, L509.8002, L3890.6102 #### [facility] [address] [place], [address] Eosinophil percentageOrdered By: Awilda Bhatia on 02-09-2025 Eosinophils/100 WBC (Bld) 0.8 % 0-5 [facility] Erythrocyte distribution wid th ratioOrdered By: Awilda Bhatia on 02-09-2025 Erythrocyte distribution width (RBC) [Ratio] 13.3 % 11.6-14.6 [facility] Erythrocyte distribution wid th standard deviationOrdered By: Awilda Bhatia on 02-09-2025 Erythrocyte distribution width (RBC) [Ratio] 42.7 fl 35.1-43.9 [facility] HIVon 02-09-2025 HIV Non-Reactive Normal Nonreactive [facility] Comment on above: Result Comment: Non- Reactive Reactive Repeatedly reactive samples must be confirmed according to CDC recommended confirmatory algorithms. The subresults for either HIVAG or AHIV can be used as an aid in the selection of the confirmation algorithm for reactive samples. Send out specimens with Reactive results to [facility] for confirmation. Order the HIV antibody detection and differentiation: lc#[id number] Performed By: #### B TS, L3890.6301, L3890.6006, L100.0100, L900.0098, L509.4006, L509.8002, L3890.6102 #### [facility] [address] [place], [place], [address] Hematocrit Auto (Bld) [Volum e fraction]Ordered By: Awilda Jannette on 02-09-2025 Hematocrit (Bld) [Volume fraction] 40.8 % 37-47 [facility] Hemoglobin measurementOrdere d By: Awilda Jannette on 02-09-2025 Hemoglobin (Bld) [Mass/Vol] 13.6 g/dL 12.0-15.0 [facility] Hepatitis C Antibodyon 02-09 Hepatitis C Ab Non-Reactive Normal Nonreactive [facility] Comment on above: Result Comment: Reac tive: Presumptive evidence of antibodies to HCV. Follow CDC recommendations for supplemental testing. Non-Reactive: Antibodies to HCV were not detected; does not exclude the possibility of exposure to HCV Reactive Results are presumptive evidence of antibodies to HCV. Follow CDC recommendations for supplemental testing. Order confirmation testing: HCV Quant by PCR testing - HCVPCR lc#[id number] Non Reactive: < 0.8 Equivocal: >/= 0.8 to < 1.0 Reactive: >/= 1.0 The CDC requires that a reactive/equivocal HCV antibody result be sent out for confirmation. HCV Quant by PCR testing. Performed By: #### B CELINA, L3890.6301, L3890.6006, L100.0100, L900.0098, L509.4006, L509.8002, L3890.6102 ####[facility] [address] [place], [place], [id number] Immature granulocytes/100 WB C Auto (Bld)Ordered By: Awilda Bhatia on 02-09-2025 Immature granulocytes/100 WBC (Bld) 0.300 % 0.0-0.9 [facility] Comment on above: IG% - Immature Granu locytes (promyelocytes, myelocytes and metamyelocytes) > 1% indicates that a LEFT SHIFT is Present. L3890.6102on 02-09-2025 HEP B Surf Ag Non-Reactive Normal Nonreactive [facility] Comment on above: Result Comment: Reac tive: Presumptive evidence of HBV. Repeatedly reactive samples must be confirmed using a neutralization test ([employer] HBsAg Confirmatory Test) Non-Reactive: HBsAg not detected; does not exclude the possibility of exposure to HBV Performed By: #### B TS, L3890.6301, L3890.6006, L100.0100, L900.0098, L509.4006, L509.8002, L3890.6102 ####[facility] [address] [facility] [place], [place], [id number] L509.4006on 02-09-2025 Rubella IgG REAC Normal Nonreactive [facility] Comment on above: Result Comment: Anti body Result: Interpretation Non-Reactive: Non-Immune Reactive: Immune The following results were obtained with the [employer] Rubella IgG assay. Results from assays of other manufacturers cannot be used interchangeably. Performed By: #### B TS, L3890.6301, L3890.6006, L100.0100, L900.0098, L509.4006, L509.8002, L3890.6102 #### [facility] [address] [facility] [place], [place], [id number] Laboratory - Microbiology an d Antimicrobial susceptibilityOrdered By: Awilda Bhatia on 02-09-2025 HBV surface Ag Ql (S) Non-Reactive Nonreactive [facility] Comment on above: Reactive: Presumptiv e evidence of HBV. Repeatedly reactive samples must be confirmed using a neutralization test ([facility] HBsAg Confirmatory Test)Non-Reactive: HBsAg not detected; does not exclude the possibility of exposure to HBV MCV (mean corpuscular volume ) determinationOrdered By: Awilda Bhatia on 02-09-2025 MCV (RBC) [Entitic vol] 87.7 fL 81-99 [facility] Mean corpuscular hemoglobin (MCH) determinationOrdered By: Awilda Bhatia on 02-09-2025 MCH (RBC) [Entitic mass] 29.2 pg 27.0-32.0 [facility] Mean corpuscular hemoglobin concentration (MCHC) determinationOrdered By: Awilda Bhatia on 02-09-2025 MCHC (RBC) [Mass/Vol] 33.3 g/dL 32-36 [facility] Mean platelet volume determi nationOrdered By: Awilda Bhatia on 02-09-2025 Platelet mean volume (Bld) [Entitic vol] 10.2 fL 6.2-12.0 [facility] Monocyte percentageOrdered B y: Aiwlda Bhatia on 02-09-2025 Monocytes/100 WBC (Bld) 4.3 % 0-10 [facility] NATERAon 02-09-2025 NATURA SEE SCANNED REPORT Normal [facility] Comment on above: Performed By: #### B , L3890.6301, L3890.6006, L100.0100, L900.0098, L509.4006, L509.8002, L3890.6102 #### [facility] [address] [place], [address] Neutrophil percentageOrdered By: Awilda Bhatia on 02-09-2025 Neutrophils/100 WBC (Bld) 79.3 % High 47-70 [facility] No Panel InformationOrdered By: Awilda Bhatia on 02-09-2025 HIV (1&2) Antibody Non-Reactive Nonreactive [facility] Comment on above: Non-ReactiveReactive Repeatedly reactive samples must be confirmed according to CDC recommended confirmatory algorithms. The subresults for either HIVAG or AHIV can be used as an aid in the selection of the confirmation algorithm for reactive samples.Send out specimens with Reactive results to [facility] for confirmation.Order the HIV antibody detection and differentiation: juvenal#[id number] Nucleated red blood cell per centageOrdered By: Awilda Bhatia on 02-09-2025 Nucleated RBC/100 WBC (Bld) [Ratio] 0 % 0-5 [facility] Platelet countOrdered By: Dejon arriolariver Jannette on 02-09-2025 Platelets (Bld) [#/Vol] 305 10*3/uL 150-450 [facility] RBC Auto (Bld) [#/Vol]Ordere d By: Awilda Bhatia on 02-09-2025 RBC (Bld) [#/Vol] 4.65 10*6/uL 4.2-5.4 [facility] Syphilis Antibodieson 2024 Syphilis Abs Non-Reactive Normal Nonreactive [facility] Comment on above: Performed By: #### B TS, L3890.6301, L3890.6006, L100.0100, L900.0098, L509.4006, L509.8002, L3890.6102 #### [facility] [address] [place], [address] Type AND Screenon 02-09-2025 Ab SCREEN GEL Negative Normal [facility] Comment on above: Order Comment: PN Performed By: #### B TS, L3890.6301, L3890.6006, L100.0100, L900.0098, L509.4006, L509.8002, L3890.6102 ####[facility] [address] [place], [address] ABO and Rh group Nom (Bld) Blood group A Rh(D) positive Normal [facility] Comment on above: Order Comment: PN Performed By: #### B TS, L3890.6301, L3890.6006, L100.0100, L900.0098, L509.4006, L509.8002, L3890.6102 ####[facility] [address] [place] [place], [address] White blood cell (WBC) count Ordered By: Awilda Bhatia on 02-09-2025 WBC (Bld) [#/Vol] 9.3 10*3/uL 4.4-11.0 [facility] Chlamydia/GC JUANY aptimaon CHLAMY,NUC ACID Negative Normal Negative [facility] Comment on above: Performed By: #### M 100.2200, L7000.1800 #### [facility] [address] [place] [place], [address] GC BY NUC ACID Negative Normal Negative [facility] Comment on above: Result Comment: Perf ormed at: =G - [facility] [address] [id number] Churn Operator Margarine: Ange Motley MD, Phone: [phone] Performed By: #### M 100.2200, L7000.1800 #### [facility] [address] [place] [place], [address] Urine Cultureon 02-01-2025 URC Below infection leve l. Presumptive C albicans [place] Count <1000 Normal [facility] Comment on above: Performed By: #### M 100.2200, L7000.1800 #### [facility] [address] [place], [address] Chlamydia trachomatis rRNA d etection by probe and target amplification methodOrdered By: Awilda Bhatia on 01-29-2025 C. trachomatis rRNA JUANY+probe Ql (Unsp spec) Negative Negative [facility] Neisseria gonorrhoeae nuclei c acid detection by amplified probe techniqueOrdered By: Awilda Bhatia on 01-29-2025 N. gonorrhoeae DNA JUANY+probe Ql (Unsp spec) Negative Negative [facility] Comment on above: Performed at: =G - [facility] [address] [id number] Director: Ange Motley MD, Phone: [phone] Business Analysis Consultant Office Visit Reporton 01-29-2025 Business Analysis Consultant Office Visit Report [facility] [address], [address] [place] [address] OFFICE VISIT Date of Service: 01/29/25 MR#: [id number] Acct: [id number] Name: TK COTTER Rep #: [id number] : 2000 Provider: Dr. Awilda Dubois, Age/Sex: 24/F Location: [facility] Status: Signed Intake Vital Signs 02/23/24 14:26 01/15/25 11:35 01/29/25 10:44 01/29/25 10:44 Height 5 ft 1 in 5 ft 1 in 5 ft 1 in 5 ft 1 in Weight: 106 lb 8 oz BMI 20.1 BP 112/75 Intake Visit Reasons: *EST* NOB LMP 11/24, KOKI / Research Assistant Member Required: No Is patient in pain?: No Allergies hydrocodone (From Vicodin) Allergy (Mild, Verified 01/29/25 10:43) Rash Medications ???Medication ???Instructions ???Recorded ???Confirmed ???Type vitamins no.163-iron 1 tab PO DAILY 05/06/22 01/29/25 History bis-gly 20 mg-folate no.10 1 mg tablet (PNV Tabs 20-1) Last Menstrual Period: 11/24/24 Zika: Zika virus screening: Negative : No PFSH PFSH Surgical History Status post section Family History Grandfather Cancer Grandmother Breast cancer Grandfather Cancer esophageal cancer Social History adopted: No household members: spouse housing: house number of children: 1 current occupational status: employed 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 [employer] current occupational exposures/hazards: No pets and animals: Yes pets and animals: dog(s) history of recent travel: No sexually active: Yes Smoking Status: Never smoker alcohol intake: never details: not while substance use type: does not use well-balanced diet: daily or most days caffeine: Yes Type: coffee and tea Number of servings: 1 eating out: rarely or never during the past year weight has: remained stable what type of physical activity do you participate in: none yennifer/taoist: Catholic seatbelt use: always do you feel safe at home: Yes additional social history: [employer] History 2 Elective abortions Hx Para 1 Spontaneous abortions Hx # Term Pregnancies Ectopic pregnancies Hx # Pregnancies Multiple births # of living children 1 Past Pregnancies Del. Date Name GA/Weeks Outcome Route Bth Weight Infant Gen Labor Lgth Anesthesia Del Locatn Provider FOB 01/09/23 Walker 39 live - full term 8lbs 2oz Male epidural [facility] Dr. Felix Delivery Date: 01/09/23 Last Updated by: Vee Santiago PUPPS, anemia, failed vacuum, arrest of decent HPI *EST* NOB LMP 11/24, KOKI 08/31 Details: TK COTTER is a 24 year old who presents for New OB visit. OB Visit KOKI Calculator Estimated Delivery Date Method Current WG Current Estimate 09/08/25 Ultrasound #1 8w 2d Other Estimates 08/31/25 LMP (Certain) 9w 3d 09/05/25 Ultrasound #2 8w 5d Comments: HIV: Urine Culture: Sequential Screen: NIPT Screen: Estimated Due Date: 12/07/22 Expected Delivery Route/Plan prior c-s patient counseled regarding risks/benefits of trial of labor versus repeat . ACOG/uptodate education given to patient. 60 % likelihood of success per calculator TOLAC consent form signed: [] Specific Issue/Plans Covid status: [] Flu vaccine: [] Tdap vaccine: [] Rhogam: [] LARC form signed: [] Problem list reviewed and updated with the most current plan of care details and appropriate orders placed. Relevant counseling for the gestational age provided. Continue routine care and follow up unless otherwise noted in visit notes/problem list details Initial Weight: 106 lb Date -???-???-???-???-???-???- ???-???-???-???-???-???- EGA Weight BP Urine Prot -???-???-???-???-???-???- ???-???-???-???-???-???- Glucose FHR FuHt Pres Dilation -???-???-???-???-???-???- ???-???-???-???-???-???- Effaced St Visit Note 01/29/25 -???-???-???-???-???-???- ???-???-???-???-???-???- 8w 2d 106 lb 8 oz (+8 oz) 112/75 -???-???-???-???-???-???- ???-???-???-???-???-???- 180 -???-???-???-???-???-???- ???-???-???-???-???-???- JV- JV- CRL measuring 8 weeks 5 days. unsure if wants to , desires NIPT. Menstrual History Last Menstrual Period: 11/24/24 Reported LMP: definite Normal amount/duration: Yes Frequency in days: 28 On hormonal BC at conception: No hCG+: 12/25/24 Antepartum Record Genetic Screening: Congenital Heart Defect: Other, Neural Tube Defect: Other, Hemoglobinopathy Or Carrier: Other, Cystic Fibrosis: Other, Chromosome Abnormality: Other, Adui-Sachs: Other, Hemophilia: Other, Intellectual Disability/Autism: Other, Recurrent Pr (more content not included)... Normal [facility] Urine cultureOrdered By: Flory Bhatia on 01-29-2025 Bacteria identified Cx Nom (U) Presumptive C albicans Abnormal [facility] Business Analysis Consultant Office Visit Reporton 01-15-2025 Business Analysis Consultant Office Visit Report [facility] [address], [address] [place] [address] OFFICE VISIT Date of Service: 01/15/25 MR#: [id number] Acct: [id number] Name: TK COTTER Rep #: [id number] : 2000 Provider: Dr. Brielle vázquez MD Age/Sex: 24/F Location: [facility] Status: Signed Intake Vital Signs 02/23/24 14:26 01/15/25 11:35 Height 5 ft 1 in 5 ft 1 in Weight: 98 lb 106 lb 6 oz BMI 18.5 20.0 BP 104/67 106/67 Blood Pressure Location Rt brachial Position Sitting Pulse 80 Pulse Source Monitor Intake Visit Reasons: Spotting/cramping in early Research Assistant Member Required: No Is patient in pain?: Yes (intermittent light cramping ) Allergies hydrocodone (From Vicodin) Allergy (Mild, Verified 01/15/25 11:36) Rash Medications ???Medication ???Instructions ???Recorded ???Confirmed ???Type vitamins no.163-iron 1 tab PO DAILY 05/06/22 01/15/25 History bis-gly 20 mg-folate no.10 1 mg tablet (PNV Tabs 20-1) Is last menstrual period known: Yes Last Menstrual Period: 11/24/24 Post menopausal: No Patient : Yes : No PFSH Surgical History Status post section Family History Grandfather Cancer Grandmother Breast cancer Social History (Updated 01/15/25 @ 11:37 by Jami Chapman) adopted: No household members: spouse housing: house number of children: 1 current occupational status: employed 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 April going to [place] out of state: Yes out of country: No sexually active: Yes Smoking Status: Never smoker alcohol intake: never substance use type: does not use well-balanced diet: daily or most days caffeine: Yes Type: coffee and tea Number of servings: 1 eating out: rarely or never during the past year weight has: remained stable what type of physical activity do you participate in: none yennifer/taoist: Catholic seatbelt use: always do you feel safe at home: Yes additional social history: [employer] HPI Spotting/cramping in early Details: TK COTTER is a 24 year old who presents for early brown discharge CRL .cm 6w2d not consistent with LMP KOKI 09/08/24 Female Reproductive History Last Menstrual Period: 11/24/24 History 2 Elective abortions Hx Para 1 Spontaneous abortions Hx # Term Pregnancies Ectopic pregnancies Hx # Pregnancies Multiple births # of living children 1 Past Pregnancies Del. Date Name GA/Weeks Outcome Route Bth Weight Infant Gen Labor Lgth Anesthesia Del Locatn Provider FOB 01/09/23 Walker 39 live - full term 8lbs 2oz Male epidural [facility] Dr. Felix Delivery Date: 01/09/23 Last Updated by: Vee Santiago PUPPS, anemia, failed vacuum, arrest of decent ROS Const Constitutional: Reports as per HPI; Denies fever(s) ENT ENT: Reports system reviewed and no additional complaints, except as documented Cardio Card: Reports system reviewed and no additional complaints, except as documented Resp Resp: Reports system reviewed and no additional complaints, except as documented GI GI: Reports as per HPI : Reports as per HPI Musc Musc: Reports system reviewed and no additional complaints, except as documented Skin Skin/Breast: Reports system reviewed and no additional complaints, except as documented Neuro Neuro: Reports system reviewed and no additional complaints, except as documented Endo Endo: Reports system reviewed and no additional complaints, except as documented Exam Const General: healthy appearing, comfortable and no acute distress HENMT Head: normal to inspection and normocephalic Neck Neck: no lymphadenopathy noted Thyroid: thyroid normal Chest Chest palpation inspection: normal inspection of the chest Resp Effort Inspection: normal respiratory effort Cardio Rate: regular rate Rhythm: regular rhythm GI Inspection: normal to inspection Palpation: soft and nontender External Female Exam: normal external appearance Speculum Exam - Vagina: normal appearance of the vagina and vaginal bleeding Bimanual Exam- Vagina Uterus: uterine shape normal and non-tender OB/External Speculum: vaginal bleeding Speculum Exam: vaginal bleeding Skin General: no rashes or lesions noted Neuro General: no focal motor deficits Extrem General: normal to inspection and no pedal edema Psych Appearance: grossly normal Coding Level of Care Code No Charge Brie (more content not included)... Normal [facility] Final Surgical Pathology Rep sandra 03-01-2024 Final Surgical Pathology Report . Pathology Reports Accession: Collected Date/Time: Received Date/Time: Pathologist: [id number] 02/28/2024 10:42 EDT 02/28/2024 13:56 EDT DONATO HARMON MD Final Surgical Pathology Report DIAGNOSIS: DUODENUM, BIOPSY: - GASTRIC MUCOSA WITH MODERATE ACTIVE CHRONIC GASTRITIS. IMMUNOHISTOCHEMICAL STUDIES ARE NEGATIVE FOR HELICOBACTER CLINICAL INFORMATION: Procedure: ESOPHAGOGASTRODUODENOSCOP Y WITH BIOPSY Preoperative diagnosis: HEMATEMESIS Postoperative diagnosis: HEMATEMESIS SPECIMEN: A DUODENUM, BX GROSS DESCRIPTION: All parts labelled with patient name and [id number] Received in formalin labeled duodenal biopsy are 2 weeks-pink tissue fragments measuring 0.3 x 0.1 and 0.3 cm. TS-1 Juliana Floyd, Grossing Solar Energy Technician/ Dr. Donato Harmon, Pathologist Performed by Juliana Floyd MICROSCOPIC DESCRIPTION: The microscopic examination is performed, except in the case of Gross Only. Electronically Signed by Pathology Report verified by [facility] DONATO HARMON Sign out Date: 03/01/2024 12:38 Performing Lab: [facility], [address] [place] [address] Pathology Dept Disclaimer If ancillary studies were utilized, the following Laboratory Developed Test (LDT) disclaimer will apply: Under CLIA requirements, [facility] is qualified to perform high complexity testing. For all ancillary stains, positive and negative controls stain appropriately. Performance characteristics of immunohistochemical and chromogenic in-situ hybridization tests have been determined by [facility]. These tests are used for clinical purposes, They should not be regarded as investigational or for research. Normal [facility] ([place] LABORATORYOrdered By: Marisabel Mike on 02-28-2024 HCG ( test) Ql Negative (02/28/24 10:01 AM) Normal AO Manual Urine SS test (u) int Not detected Invalid Interpretation Code AO Manual Urine SS PREGUon 02-28-2024 HCG ( test) Ql (U) Negative Normal [facility] ([place] Comment on above: Performed By: #### P REGU #### [address] [address] test (u) int Not detected Invalid Interpretation Code [facility] ([place] Comment on above: Performed By: #### P REGU #### [address] [address] .Auto Diffon 01-03-2024 Basophil, Absolute 0.0 10 3/mcL Normal 0.0-0.2 [facility] ([place] Comment on above: Performed By: #### C SCOTT DIAZ MDW, CMP, LIP, GFR, ANEU #### [address] [address] Basophils/100 WBC (Bld) 0.3 % Normal 0.0-2.5 [facility] ([place] Comment on above: Performed By: #### C SCOTT DIAZ MDW, CMP, LIP, GFR, ANEU #### [address] [address] Eosinophil, Absolute 0.1 10 3/mcL Normal 0.0-0.4 [facility] ([place] Comment on above: Performed By: #### C SCOTT DIAZ MDW, CMP, LIP, GFR, ANEU #### [address] [address] Eosinophils/100 WBC (Bld) 0.9 % Normal 0.0-7.0 [facility] ([place] Comment on above: Performed By: #### C SCOTT DIAZ MDW, CMP, LIP, GFR, ANEU #### [address] [address] Lymphocyte, Absolute 0.8 10 3/mcL Normal 0.8-3.9 [facility] ([place] Comment on above: Performed By: #### C SCOTT DIAZ, PAULINA, CMP, LIP, GFR, ANEU #### [address] [address] Lymphocytes/100 WBC (Bld) 12.1 % Normal 10.0-50.0 [facility] ([place] Comment on above: Performed By: #### C SCOTT DIAZ MDW, CMP, LIP, GFR, ANEU #### [address] [address] Monocyte, Absolute 0.5 10 3/mcL Normal 0.2-1.0 [facility] ([place] Comment on above: Performed By: #### C JOE, PAULINA CHAVEZ, CMP, LIP, GFR, ANEU #### [address] [address] Monocytes/100 WBC (Bld) 6.7 % Normal 1.7-13.0 [facility] ([place] Comment on above: Performed By: #### C SCOTT DIAZ MDW, CMP, LIP, GFR, ANEU #### [address] [address] Neutrophils/100 WBC (Bld) 80.0 % Normal 37.0-80.0 [facility] ([place] Comment on above: Performed By: #### C SCOTT DIAZ MDW, CMP, LIP, GFR, ANEU #### [address] [address] .GFRon 01-03-2024 GFR Non- 132 ml/min/1.73sqm Normal [facility] ([place] Comment on above: Result Comment: GFR Population mean for , Non- Americans Ages 20-29 = 116 mL/min/1.73 sq.m. Ages 30-39 = 107 mL/min/1.73 sq.m. Ages 40-49 = 99 mL/min/1.73 sq.m. Ages 50-59 = 93 mL/min/1.73 sq.m. Ages 60-69 = 85 mL/min/1.73 sq.m. Ages 70+ = 75 mL/min/1.73 sq.m. Chronic Kidney Disease: Less than 60 mL/min/1.73 square meters End Stage Renal Disease: Less than 15 mL/min/1.73 square meters Performed By: #### C JOE, PAULINA CHAVEZ, CMP, LIP, GFR, ANEU #### [address] [address] GFR 160 ml/min/1.73sqm Normal [facility] ([place] Comment on above: Result Comment: GFR Population mean for , Non- Americans Ages 20-29 = 116 mL/min/1.73 sq.m. Ages 30-39 = 107 mL/min/1.73 sq.m. Ages 40-49 = 99 mL/min/1.73 sq.m. Ages 50-59 = 93 mL/min/1.73 sq.m. Ages 60-69 = 85 mL/min/1.73 sq.m. Ages 70+ = 75 mL/min/1.73 sq.m. Chronic Kidney Disease: Less than 60 mL/min/1.73 square meters End Stage Renal Disease: Less than 15 mL/min/1.73 square meters Performed By: #### C SCOTT DIAZ MDW, CMP, LIP, GFR, ANEU #### [address] [address] .MDWon 01-03-2024 Monocyte Distribution Width 20.98 High 0.00-20.00 [facility] ([place] Comment on above: Result Comment: For adults in ED, MDW>20.0 may be associated with a higher risk of sepsis during the first 12hrs of hospital admission Performed By: #### C SCOTT DIAZ MDW, CMP, LIP, GFR, ANEU #### [address] [address] .NEUABSon 01-03-2024 Neutrophil, Absolute 5.5 10 3/mcL Normal 2.9-6.2 [facility] ([place] Comment on above: Performed By: #### C SCOTT DIAZ MDW, CMP, LIP, GFR, ANEU #### [address] [address] CBCon 01-03-2024 Erythrocyte distribution width (RBC) [Ratio] 13.7 % Normal 11.5-14.5 [facility] ([place] Comment on above: Performed By: #### C SCOTT DIAZ MDW, CMP, LIP, GFR, ANEU #### [address] [address] Hematocrit (Bld) [Volume fraction] 42.8 % Normal 37.0-47.0 [facility] ([place] Comment on above: Performed By: #### C SCOTT DIAZ MDW, CMP, LIP, GFR, ANEU #### [address] [address] Hgb 14.2 G/dL Normal 12.0-16.0 [facility] ([place] Comment on above: Performed By: #### C SCOTT DIAZ MDW, CMP, LIP, GFR, ANEU #### [place] [address] MCH (RBC) [Entitic mass] 29.7 pg Normal 27.0-31.2 [facility] ([place] Comment on above: Performed By: #### C SCOTT DIAZ MDW, CMP, LIP, GFR, ANEU #### [place] [address] MCHC 33.3 G/dL Normal 33.0-37.0 [facility] ([place] Comment on above: Performed By: #### C SCOTT DIAZ MDW, CMP, LIP, GFR, ANEU #### [place] [address] MCV (RBC) [Entitic vol] 89.3 fL Normal 80.0-94.0 [facility] ([place] Comment on above: Performed By: #### C SCOTT DIAZ MDW, CMP, LIP, GFR, ANEU #### [place] [id number] Platelet 254 10 3/mcL Normal 130-400 [facility] ([place] Comment on above: Performed By: #### C SCOTT DIAZ MDW, CMP, LIP, GFR, ANEU #### [place] [id number] Platelet mean volume (Bld) [Entitic vol] 7.7 fL Normal 7.4-10.4 [facility] ([place] Comment on above: Performed By: #### C SCOTT DIAZ MDW, CMP, LIP, GFR, ANEU #### [address] [address] RBC 4.79 10 6/mcL Normal 4.20-5.40 [facility] ([place] Comment on above: Performed By: #### C JOE, PAULINA CHAVEZ, CMP, LIP, GFR, ANEU #### [address] [address] WBC 6.9 10 3/mcL Normal 4.6-10.8 [facility] ([place] Comment on above: Performed By: #### C SCOTT DIAZ MDW, CMP, LIP, GFR, ANEU #### [address] [address] CMPon 01-03-2024 Albumin Level 4.1 G/dL Normal 3.5-5.0 [facility] ([place] Comment on above: Performed By: #### C SCOTT DIAZ MDW, CMP, LIP, GFR, ANEU #### [address] [address] Albumin/Globulin [Mass ratio] 1.3 {ratio} Normal 1.1-2.5 [facility] ([place] Comment on above: Performed By: #### C SCOTT DIAZ MDW, CMP, LIP, GFR, ANEU #### [address] [address] ALP [Catalytic activity/Vol] 97 U/L Normal 40-135 [facility] ([place] Comment on above: Performed By: #### C SCOTT DIAZ MDW, CMP, LIP, GFR, ANEU #### [address] [address] ALT [Catalytic activity/Vol] 20 U/L Normal 14-59 [facility] ([place] Comment on above: Performed By: #### C SCOTT DIAZ MDW, CMP, LIP, GFR, ANEU #### [address] [address] AST [Catalytic activity/Vol] 16 U/L Normal 10-40 [facility] ([place] Comment on above: Performed By: #### C JOE, PAULINA CHAVEZ, CMP, LIP, GFR, ANEU #### [address] [address] Bili Total 0.4 mg/dL Normal 0.2-1.0 [facility] ([place] Comment on above: Result Comment: Use of this assay is not recommended for patients undergoing treatment with eltrombopag due to the potential for falsely elevated results. Performed By: #### C JOE, PAULINA CHAVEZ, CMP, LIP, GFR, ANEU #### [address] [address] BUN/Creatinine Ratio 30 ratio High 7-27 [facility] ([place] Comment on above: Performed By: #### C JOE, PAULINA CHAVEZ, CMP, LIP, GFR, ANEU #### [address] [address] Calcium [Mass/Vol] 9.0 mg/dL Normal 8.4-10.2 [facility] ([place] Comment on above: Performed By: #### C JOE, PAULINA CHAVEZ, CMP, LIP, GFR, ANEU #### [address] [address] Chloride [Moles/Vol] 107 mmol/L Normal 98-107 [facility] ([place] Comment on above: Performed By: #### C SCOTT DIAZ MDW, CMP, LIP, GFR, ANEU #### [address] [address] CO2 [Moles/Vol] 27 mmol/L Normal 22-29 [facility] ([place] Comment on above: Performed By: #### C JOE, PAULINA CHAVEZ, CMP, LIP, GFR, ANEU #### [address] [address] Creatinine [Mass/Vol] 0.56 mg/dL Normal 0.55-1.02 [facility] ([place]) Comment on above: Performed By: #### C JOE, PAULINA CHAVEZ, CMP, LIP, GFR, ANEU #### [address] [address] Electrolyte Balance 11.0 mEq/L Normal 4.0-15.0 [facility] ([place] Comment on above: Performed By: #### C SCOTT DIAZ MDW, CMP, LIP, GFR, ANEU #### [address] [address] Globulin 3.1 G/dL Normal [facility] ([place] Comment on above: Performed By: #### C SCOTT DIAZ MDW, CMP, LIP, GFR, ANEU #### [address] [address] Glucose [Mass/Vol] 83 mg/dL Normal 70-105 [facility] ([place] Comment on above: Performed By: #### C SCOTT DIAZ MDW, CMP, LIP, GFR, ANEU #### [address] [address] Potassium [Moles/Vol] 3.8 mmol/L Normal 3.5-5.1 [facility] ([place] Comment on above: Performed By: #### C SCOTT DIAZ MDW, CMP, LIP, GFR, ANEU #### [address] [address] Sodium [Moles/Vol] 145 mmol/L Normal 136-145 [facility] ([place] Comment on above: Performed By: #### C SCOTT DIAZ MDW, CMP, LIP, GFR, ANEU #### [address] [address] Total Protein 7.2 G/dL Normal 6.4-8.2 [facility] ([place] Comment on above: Performed By: #### SCOTT RICHARD MDW, CMP, LIP, GFR, ANEU #### [address] [address] Urea nitrogen [Mass/Vol] 17 mg/dL Normal 7-18 [facility] ([place] Comment on above: Performed By: #### C SCOTT DIAZ MDW, CMP, LIP, GFR, ANEU #### [address] [place] [address] LABORATORYOrdered By: SYSTEM SYSTEM on 01-03-2024 Albumin BCP dye [Mass/Vol] 4.1 G/dL Normal 3.5 - 5.0 G/dL AO ADM SS Albumin/Globulin [Mass ratio] 1.3 {ratio} Normal 1.1 - 2.5 ratio AO ADM SS ALP [Catalytic activity/Vol] 97 U/L Normal 40 - 135 U/L AO ADM SS ALT With P-5'-P [Catalytic activity/Vol] 20 U/L Normal 14 - 59 U/L AO ADM SS AST With P-5'-P [Catalytic activity/Vol] 16 U/L Normal 10 - 40 U/L AO ADM SS Basophil, Absolute 0.0 103/mcL Normal 0.0 - 0.2 10^3/mcL AO Workflow SS Basophils/100 WBC (Bld) 0.3 % Normal 0.0 - 2.5 % AO Workflow SS Bilirubin [Mass/Vol] 0.4 mg/dL Normal 0.2 - 1 .0 mg/dL AO ADM SS Comment on above: Interpretive Data: U se of this assay is not recommended for patients undergoing treatment with eltrombopag due to the potential for falsely elevated results. Calcium [Mass/Vol] 9.0 mg/dL Normal 8.4 - 10. 2 mg/dL AO ADM SS Chloride [Moles/Vol] 107 mmol/L Normal 98 - 10 7 mmol/L AO ADM SS CO2 [Moles/Vol] 27 mmol/L Normal 22 - 29 mmol/L AO ADM SS Creatinine [Mass/Vol] 0.56 mg/dL Normal 0.55 - 1.02 mg/dL AO ADM SS Electrolyte Balance 11.0 mEq/L Normal 4.0 - 15 .0 mEq/L AO ADM SS Eosinophil, Absolute 0.1 103/mcL Normal 0.0 - 0 .4 10^3/mcL AO Workflow SS Eosinophils/100 WBC (Bld) 0.9 % Normal 0.0 - 7.0 % AO Workflow SS Erythrocyte distribution width (RBC) [Ratio] 13.7 % Normal 11.5 - 14.5 % AO Workflow SS GFR/1.73 sq M.predicted among blacks MDRD (S/P/Bld) [Vol rate/Area] 160 ml/min/1.73sqm Invalid Interpretation Code AO Chemistry S Comment on above: Interpretive Data: GFR Population mean for , Non- Americans Ages 20-29 = 116 mL/min/1.73 sq.m. Ages 30-39 = 107 mL/min/1.73 sq.m. Ages 40-49 = 99 mL/min/1.73 sq.m. Ages 50-59 = 93 mL/min/1.73 sq.m. Ages 60-69 = 85 mL/min/1.73 sq.m. Ages 70+ = 75 mL/min/1.73 sq.m. Chronic Kidney Disease: Less than 60 mL/min/1.73 square meters End Stage Renal Disease: Less than 15 mL/min/1.73 square meters GFR/1.73 sq M.predicted among non-blacks MDRD (S/P/Bld) [Vol rate/Area] 132 ml/min/1.73sqm Invalid Interpretation Code AO Chemistry S Comment on above: Interpretive Data: GFR Population mean for , Non- Americans Ages 20-29 = 116 mL/min/1.73 sq.m. Ages 30-39 = 107 mL/min/1.73 sq.m. Ages 40-49 = 99 mL/min/1.73 sq.m. Ages 50-59 = 93 mL/min/1.73 sq.m. Ages 60-69 = 85 mL/min/1.73 sq.m. Ages 70+ = 75 mL/min/1.73 sq.m. Chronic Kidney Disease: Less than 60 mL/min/1.73 square meters End Stage Renal Disease: Less than 15 mL/min/1.73 square meters Globulin 3.1 G/dL Invalid Interpretation Code AO ADM SS Glucose [Mass/Vol] 83 mg/dL Normal 70 - 105 mg/dL AO ADM SS Hematocrit (Bld) [Volume fraction] 42.8 % Normal 37.0 - 47.0 % AO Workflow SS Hemoglobin (Bld) [Mass/Vol] 14.2 G/dL Normal 12.0 - 16.0 G/dL AO Workflow SS Lipase [Catalytic activity/Vol] 32 U/L Normal 16 - 77 U/L AO ADM SS Lymphocyte, Absolute 0.8 103/mcL Normal 0.8 - 3 .9 10^3/mcL AO Workflow SS Lymphocytes/100 WBC (Bld) 12.1 % Normal 10.0 - 50.0 % AO Workflow SS MCH (RBC) [Entitic mass] 29.7 pg Normal 27.0 - 31.2 pg AO Workflow SS MCHC 33.3 G/dL Normal 33.0 - 37.0 G/dL AO Workflow SS MCV (RBC) [Entitic vol] 89.3 fL Normal 80.0 - 94.0 fL AO Workflow SS Monocyte distribution width Auto (Bld) [Entitic vol] 20.98 1 High 0.00 - 20.00 AO Workflow SS Comment on above: Result Comment: For adults in ED, MDW>20.0 may be associated with a higher risk of sepsis during the first 12hrs of hospital admission Monocyte, Absolute 0.5 103/mcL Normal 0.2 - 1.0 10^3/mcL AO Workflow SS Monocytes/100 WBC (Bld) 6.7 % Normal 1.7 - 13.0 % AO Workflow SS Neutrophil, Absolute 5.5 103/mcL Normal 2.9 - 6 .2 10^3/mcL AO Workflow SS Neutrophils/100 WBC (Bld) 80.0 % Normal 37.0 - 80.0 % AO Workflow SS Platelet mean volume (Bld) [Entitic vol] 7.7 fL Normal 7.4 - 10.4 fL AO Workflow SS Platelets (Bld) [#/Vol] 254 103/mcL Normal 130 - 400 10^3/mcL AO Workflow SS Potassium [Moles/Vol] 3.8 mmol/L Normal 3.5 - 5.1 mmol/L AO ADM SS Protein [Mass/Vol] 7.2 G/dL Normal 6.4 - 8.2 G/dL AO ADM SS RBC (Bld) [#/Vol] 4.79 106/mcL Normal 4.20 - 5.4 0 10^6/mcL AO Workflow SS Sodium [Moles/Vol] 145 mmol/L Normal 136 - 145 mmol/L AO ADM SS Urea nitrogen [Mass/Vol] 17 mg/dL Normal 7 - 18 mg/dL AO ADM SS Urea nitrogen/Creatinine [Mass ratio] 30 ratio High 7 - 27 ratio AO ADM SS WBC (Bld) [#/Vol] 6.9 103/mcL Normal 4.6 - 10.8 10^3/mcL AO Workflow SS LABORATORYOrdered By: Darby Reid on 01-03-2024 HCG ( test) Ql Negative (01/03/24 8:23 PM) Normal AO Manual Urine SS test (u) int Not detected Invalid Interpretation Code AO Manual Urine SS LIPon 01-03-2024 Lipase Level 32 U/L Normal 16-77 [facility] ([place] Comment on above: Performed By: #### C BC, SCOTT, MDW, CMP, LIP, GFR, ANEU #### [place] [id number] [place], [place] [address] PREGUon 01-03-2024 HCG ( test) Ql (U) Negative Normal [facility] ([place] Comment on above: Performed By: #### P REGU #### [address] [address] test (u) int Not detected Invalid Interpretation Code [facility] ([place] Comment on above: Performed By: #### P REGU #### [address] [address] Basophil percentageOrdered B y: Dr. Bhatia on 01-10-2023 WBC (Bld) [#/Vol] 12.0 10*3/uL 4.4-11.0 [facility] Blood erythrocytes count (nu mber/volume)Ordered By: Dr. Bhatia on 01-10-2023 RBC (Bld) [#/Vol] 3.00 10*6/uL 4.2-5.4 [facility] Blood hemoglobin measurement (mass/volume)Ordered By: Dr. Bhatia on 01-10-2023 Hemoglobin (Bld) [Mass/Vol] 8.0 g/dL 12.0-15.0 [facility] Blood platelet mean volumeOr dered By: Dr. Bhatia on 01-10-2023 Platelet mean volume (Bld) [Entitic vol] 9.5 fL 6.2-12.0 [facility] Determination of erythrocyte mean corpuscular volume (MCV)Ordered By: Dr. Bhatia on 01-10-2023 MCV (RBC) [Entitic vol] 86.0 fL 81-99 [facility] Hematocrit Auto (Bld) [Volum e fraction]Ordered By: Dr. Bhatia on 01-10-2023 Hematocrit (Bld) [Volume fraction] 25.8 % 37-47 [facility] Laboratory - Hematology and Cell countsOrdered By: Dr. Bhatia on 01-10-2023 Erythrocyte distribution width (RBC) [Entitic vol] 56.9 fL 35.1-43.9 [facility] Erythrocyte distribution width (RBC) [Ratio] 18.4 % 11.6-14.6 [facility] MCH (RBC) [Entitic mass] 26.7 pg 27.0-32.0 [facility] MCHC Auto (RBC) [Mass/Vol]Or dered By: Dr. Bhatia on 01-10-2023 MCHC (RBC) [Mass/Vol] 31.0 g/dL 32-36 [facility] Platelets bldOrdered By: Dr. Bhatia on 01-10-2023 Platelets (Bld) [#/Vol] 209 10*3/uL 150-450 [facility] Absolute lymphocyte countOrd ered By: Dr. Bhatia on 01-08-2023 Lymphocytes Auto (Unsp spec) [#/Vol] 1.94 10*3/uL 0.83-4.51 [facility] Basophil percentageOrdered B y: Dr. Bhatia on 01-08-2023 Basophils/100 WBC (Bld) 0.4 % 0-1 [facility] Eosinophils/100 WBC (Bld) 0.6 % 0-5 [facility] Neutrophils (Bld) [#/Vol] 10.4 10*3/uL 2.0-7.7 [facility] Neutrophils/100 WBC (Bld) 75.6 % 47-70 [facility] Blood lymphocytes/100 leukoc ytesOrdered By: Dr. Bhatia on 01-08-2023 Lymphocytes/100 WBC (Bld) 14.2 % 19-41 [facility] Blood monocytes/100 leukocyt esOrdered By: Dr. Bhatia on 01-08-2023 Monocytes/100 WBC (Bld) 8.6 % 0-10 [facility] Laboratory - Chemistry and C hemistry - challengeon 01-08-2023 Glucose Ql (U) Negative [facility] Laboratory - Hematology and Cell countsOrdered By: Dr. Bhatia on 01-08-2023 Immature granulocytes/100 WBC (Bld) 0.600 % 0.0-0.9 [facility] Comment on above: IG% - Immature Granu locytes (promyelocytes, myelocytes and metamyelocytes) > 1% indicates that a LEFT SHIFT is Present. Nucleated RBC/100 WBC (Bld) [Ratio] 0 % 0-5 [facility] Laboratory - Urinalysison Protein Ql (U) Negative [facility] No Panel InformationOrdered By: Dr. Nathan on 01-08-2023 Vaginal Amniotic Fluid Detection Positive Negative [facility] Comment on above: Amniotic fluid prese nt indicates rupture of Membranes. RESULTS CALLED TO MICHEAL ABDUL 01/08/232023 Pedro Perdomo.REPORT READ BACK BY SAME . Serum Treponema species anti body detectionOrdered By: Dr. Bhatia on 01-08-2023 Treponema sp Ab Ql (S) Non-Reactive [facility] Laboratory - Chemistry and C hemistry - challengeon 01-01-2023 Glucose Ql (U) Negative [facility] Laboratory - Urinalysison Protein Ql (U) Negative [facility] No Panel InformationOrdered By: Lizzy Mercado on 12-25-2022 Group B Streptococcus Culture Group B Beta Streptococcus is not isolated. [facility] No Panel InformationOrdered By: Dr. Nathan on 12-24-2022 Vaginal Amniotic Fluid Detection Negative Negative [facility] Comment on above: Amniotic fluid not p resent indicates No Rupture of FetalMembranes at time of specimen collection. Absolute lymphocyte countOrd ered By: Lizzy Mercado on 12-22-2022 Lymphocytes Auto (Unsp spec) [#/Vol] 1.44 10*3/uL 0.83-4.51 [facility] Basophil percentageOrdered B y: Lizzy Mercado on 12-22-2022 Basophils/100 WBC (Bld) 0.2 % 0-1 [facility] Eosinophils/100 WBC (Bld) 0.5 % 0-5 [facility] Neutrophils (Bld) [#/Vol] 11.1 10*3/uL 2.0-7.7 [facility] Neutrophils/100 WBC (Bld) 82.3 % 47-70 [facility] WBC (Bld) [#/Vol] 13.5 10*3/uL 4.4-11.0 [facility] Blood erythrocytes count (nu mber/volume)Ordered By: Lizzy Mercado on 12-22-2022 RBC (Bld) [#/Vol] 3.87 10*6/uL 4.2-5.4 [facility] Blood hemoglobin measurement (mass/volume)Ordered By: Lizzy Mercado on 12-22-2022 Hemoglobin (Bld) [Mass/Vol] 10.6 g/dL 12.0-15.0 [facility] Blood lymphocytes/100 leukoc ytesOrdered By: Lizzy Mercado on 12-22-2022 Lymphocytes/100 WBC (Bld) 10.7 % 19-41 [facility] Blood monocytes/100 leukocyt esOrdered By: Lizzy Mercado on 12-22-2022 Monocytes/100 WBC (Bld) 5.6 % 0-10 [facility] Blood platelet mean volumeOr dered By: Lizzy Mercado on 12-22-2022 Platelet mean volume (Bld) [Entitic vol] 10.6 fL 6.2-12.0 [facility] Determination of erythrocyte mean corpuscular volume (MCV)Ordered By: Lizzy Mercado on 12-22-2022 MCV (RBC) [Entitic vol] 85.5 fL 81-99 [facility] Hematocrit Auto (Bld) [Volum e fraction]Ordered By: Lizzy Mercado on 12-22-2022 Hematocrit (Bld) [Volume fraction] 33.1 % 37-47 [facility] Laboratory - Chemistry and C hemistry - challengeon 12-22-2022 Glucose Ql (U) Negative [facility] Laboratory - Hematology and Cell countsOrdered By: Lizzy Mercado on 12-22-2022 Erythrocyte distribution width (RBC) [Entitic vol] 48.6 fL 35.1-43.9 [facility] Erythrocyte distribution width (RBC) [Ratio] 16.7 % 11.6-14.6 [facility] Immature granulocytes/100 WBC (Bld) 0.700 % 0.0-0.9 [facility] Comment on above: IG% - Immature Granu locytes (promyelocytes, myelocytes and metamyelocytes) > 1% indicates that a LEFT SHIFT is Present. MCH (RBC) [Entitic mass] 27.4 pg 27.0-32.0 [facility] Nucleated RBC/100 WBC (Bld) [Ratio] 0 % 0-5 [facility] Laboratory - Urinalysison Protein Ql (U) Negative [facility] MCHC Auto (RBC) [Mass/Vol]Or dered By: Lizzy Mercado on 12-22-2022 MCHC (RBC) [Mass/Vol] 32.0 g/dL 32-36 [facility] No Panel InformationOrdered By: Lizzy Mercado on 12-22-2022 Group B Streptococcus Culture Group B Beta Streptococcus is not isolated. [facility] Platelets bldOrdered By: Rocky Mercado on 12-22-2022 Platelets (Bld) [#/Vol] 296 10*3/uL 150-450 [facility] Laboratory - Chemistry and C hemistry - challengeon 12-15-2022 Glucose Ql (U) Negative [facility] Laboratory - Urinalysison Protein Ql (U) Negative [facility] Laboratory - Chemistry and C hemistry - challengeOrdered By: Erma White on 12-11-2022 Transferrin [Mass/Vol] 442 mg/dL 192-364 [facility] Comment on above: Performed at: [address] Director: Robert Jo PhD, Phone: [phone] No Panel InformationOrdered By: Erma White on 12-11-2022 Total Iron Binding Capacity 538 ug/dL 250-450 [facility] Serum or plasma ferritin rhina surement (mass/volume)Ordered By: Erma White on 12-11-2022 Ferritin [Mass/Vol] 7 ng/mL 8-252 [facility] Absolute lymphocyte countOrd ered By: Erma White on 12-04-2022 Lymphocytes Auto (Unsp spec) [#/Vol] 1.62 10*3/uL 0.83-4.51 [facility] Basophil percentageOrdered B y: Erma White on 12-04-2022 Basophils/100 WBC (Bld) 0.4 % 0-1 [facility] Eosinophils/100 WBC (Bld) 0.7 % 0-5 [facility] Neutrophils (Bld) [#/Vol] 11.3 10*3/uL 2.0-7.7 [facility] Neutrophils/100 WBC (Bld) 79.7 % 47-70 [facility] WBC (Bld) [#/Vol] 14.2 10*3/uL 4.4-11.0 [facility] Blood erythrocytes count (nu mber/volume)Ordered By: Erma White on 12-04-2022 RBC (Bld) [#/Vol] 3.58 10*6/uL 4.2-5.4 [facility] Blood hemoglobin measurement (mass/volume)Ordered By: Erma White on 12-04-2022 Hemoglobin (Bld) [Mass/Vol] 9.8 g/dL 12.0-15.0 [facility] Blood lymphocytes/100 leukoc ytesOrdered By: Erma White on 12-04-2022 Lymphocytes/100 WBC (Bld) 11.4 % 19-41 [facility] Blood monocytes/100 leukocyt esOrdered By: Erma White on 12-04-2022 Monocytes/100 WBC (Bld) 7.4 % 0-10 [facility] Blood platelet mean volumeOr dered By: Erma White on 12-04-2022 Platelet mean volume (Bld) [Entitic vol] 10.3 fL 6.2-12.0 [facility] Determination of erythrocyte mean corpuscular volume (MCV)Ordered By: Erma White on 12-04-2022 MCV (RBC) [Entitic vol] 84.1 fL 81-99 [facility] Hematocrit Auto (Bld) [Volum e fraction]Ordered By: Erma White on 12-04-2022 Hematocrit (Bld) [Volume fraction] 30.1 % 37-47 [facility] Laboratory - Chemistry and C hemistry - challengeon 12-04-2022 Glucose Ql (U) Negative [facility] Laboratory - Hematology and Cell countsOrdered By: Erma White on 12-04-2022 Erythrocyte distribution width (RBC) [Entitic vol] 42.5 fL 35.1-43.9 [facility] Erythrocyte distribution width (RBC) [Ratio] 13.7 % 11.6-14.6 [facility] Immature granulocytes/100 WBC (Bld) 0.400 % 0.0-0.9 [facility] Comment on above: IG% - Immature Granu locytes (promyelocytes, myelocytes and metamyelocytes) > 1% indicates that a LEFT SHIFT is Present. MCH (RBC) [Entitic mass] 27.4 pg 27.0-32.0 [facility] Nucleated RBC/100 WBC (Bld) [Ratio] 0 % 0-5 [facility] Laboratory - Urinalysison Protein Ql (U) Negative [facility] MCHC Auto (RBC) [Mass/Vol]Or dered By: Erma White on 12-04-2022 MCHC (RBC) [Mass/Vol] 32.6 g/dL 32-36 [facility] Platelets bldOrdered By: Jo White on 12-04-2022 Platelets (Bld) [#/Vol] 308 10*3/uL 150-450 [facility] Laboratory - Chemistry and C hemistry - challengeon 11-20-2022 Glucose Ql (U) Negative [facility] Laboratory - Urinalysison Protein Ql (U) Negative [facility] Quantitative serum or plasma 3 hour gestational glucose tolerance panelOrdered By: Dr. Bhatia on 10-22-2022 Glucose tolerance 3 hours gestational panel See comment [facility] Comment on above: FASTING 77 Col: 09/25 0647GLUCOSE TOLERANCE TEST FOR Reference Interval GESTATIONAL DIABETES Fasting <105 mg/dL 1 hour <190 mg/dl 2 hour <165 mg/dl 3 hour <145 mg/dl 1 HR GLU 119 Col: 10/22/22 0755 2 HR GLU 112 Col: 10/22/22 0855 3 HR GLU 94 Col: 10/22/22 0954 Absolute lymphocyte countOrd ered By: Dr. Nathan on 10-16-2022 Lymphocytes Auto (Unsp spec) [#/Vol] 1.36 10*3/uL 0.83-4.51 [facility] Basophil percentageOrdered B y: Dr. Nathan on 10-16-2022 Basophils/100 WBC (Bld) 0.3 % 0-1 [facility] Eosinophils/100 WBC (Bld) 0.8 % 0-5 [facility] Neutrophils (Bld) [#/Vol] 12.3 10*3/uL 2.0-7.7 [facility] Neutrophils/100 WBC (Bld) 83.8 % 47-70 [facility] WBC (Bld) [#/Vol] 14.6 10*3/uL 4.4-11.0 [facility] Blood erythrocytes count (nu mber/volume)Ordered By: Dr. Nathan on 10-16-2022 RBC (Bld) [#/Vol] 3.63 10*6/uL 4.2-5.4 [facility] Blood hemoglobin measurement (mass/volume)Ordered By: Dr. Nathan on 10-16-2022 Hemoglobin (Bld) [Mass/Vol] 10.4 g/dL 12.0-15.0 [facility] Blood lymphocytes/100 leukoc ytesOrdered By: Dr. Nathan on 10-16-2022 Lymphocytes/100 WBC (Bld) 9.3 % 19-41 [facility] Blood monocytes/100 leukocyt esOrdered By: Dr. Nathan on 10-16-2022 Monocytes/100 WBC (Bld) 5.2 % 0-10 [facility] Blood platelet mean volumeOr dered By: Dr. Nathan on 10-16-2022 Platelet mean volume (Bld) [Entitic vol] 9.9 fL 6.2-12.0 [facility] Determination of erythrocyte mean corpuscular volume (MCV)Ordered By: Dr. Nathan on 10-16-2022 MCV (RBC) [Entitic vol] 91.2 fL 81-99 [facility] Gestational diabetes screen 1-hour screen with 50g oral glucose loadOrdered By: Dr. Nathan on 10-16-2022 Glucose 1 Hr post 50 g glucose PO [Mass/Vol] 142 mg/dL 70-140 [facility] HIV 1 and HIV-2 antibody ass ay with HIV-1 p24 antigen detectionOrdered By: Dr. Nathan on 10-16-2022 HIV 1+2 Ab+HIV1 p24 Ag IA Ql Non-Reactive Nonreactive [facility] Hematocrit Auto (Bld) [Volum e fraction]Ordered By: Dr. Nathan on 10-16-2022 Hematocrit (Bld) [Volume fraction] 33.1 % 37-47 [facility] Laboratory - Chemistry and C hemistry - challengeon 10-16-2022 Glucose Ql (U) Negative [facility] Laboratory - Hematology and Cell countsOrdered By: Dr. Nathan on 10-16-2022 Erythrocyte distribution width (RBC) [Entitic vol] 43.4 fL 35.1-43.9 [facility] Erythrocyte distribution width (RBC) [Ratio] 13.2 % 11.6-14.6 [facility] Immature granulocytes/100 WBC (Bld) 0.600 % 0.0-0.9 [facility] Comment on above: IG% - Immature Granu locytes (promyelocytes, myelocytes and metamyelocytes) > 1% indicates that a LEFT SHIFT is Present. MCH (RBC) [Entitic mass] 28.7 pg 27.0-32.0 [facility] Nucleated RBC/100 WBC (Bld) [Ratio] 0 % 0-5 [facility] Laboratory - Urinalysison Protein Ql (U) Negative [facility] MCHC Auto (RBC) [Mass/Vol]Or dered By: Dr. Nathan on 10-16-2022 MCHC (RBC) [Mass/Vol] 31.4 g/dL 32-36 [facility] Platelets bldOrdered By: Dr. Nathan on 10-16-2022 Platelets (Bld) [#/Vol] 303 10*3/uL 150-450 [facility] Serum Treponema species anti body detectionOrdered By: Dr. Nathan on 10-16-2022 Treponema sp Ab Ql (S) Non-Reactive [facility] Laboratory - Chemistry and C hemistry - challengeon 09-18-2022 Glucose Ql (U) Negative [facility] Laboratory - Urinalysison Protein Ql (U) Negative [facility] Laboratory - Chemistry and hemistry - challengeon 08-17-2022 Glucose Ql (U) Negative [facility] Laboratory - Urinalysison Protein Ql (U) Negative [facility] Culture, urineOrdered By: Ivy White on 07-24-2022 Bacteria identified Cx Nom (U) Presumptive Lactobacillus sp. [facility] Laboratory - Chemistry and C hemistry - challengeon 07-22-2022 Glucose Ql (U) Negative [facility] Laboratory - Urinalysison Protein Ql (U) Negative [facility] No Panel InformationOrdered By: Erma White on 07-22-2022 Miscellaneous Test See comment [facility] Comment on above: TEST RESULT LIMITSAF P, Serum, Open Spina BifidaTEST RESULTS: SCREEN GESTATIONAL AGE 15.1 WEEKSGESTAT. AGE BASED ON Ultrasound 15.0 on 07/22/22 Recalculation are not recommended when gestational dating by LMP or ultrasound are within 10 days MATERNAL AGE AT [place] [age] YEARSRACE CaucasianWEIGHT 112 LBSINSULIN DEP DIABETES Not ProvidedMULTIPLE GESTATION NoAFP VALUE (EIA) 34.8 ng/mLAFP MOM VALUE 0.91 [place] RISK 1 [place] [address] Interpretation: Screen NegativeThis result is screen negative for OSB. The AFP MoM calculated is based on the gestational age provided. MS-AFP can identify up to 80% of open neural tube defects. Closed neural tube defects and some open defects may not be detected by this test. This test does not screen for Down Syndrome or Trisomy 18. If screening for Down Syndrome or Trisomy 18 is desired, contact [employer] to discuss available options. The [place] [employer] [place] [employer] recommends amniocentesis be offered to women age 35 and older.Catrachita Sunshine, Ph.D., DABCCDirectorReferences: Available Upon Request. Multiples of Median cutoffs Abreviation definitions For AFP Elevations IDD - Insulin Dep DiabetesSingleton 2.5 Black 2.8 OSBR- Open Spina Bifida RiskIDD 2.0 Twins 4.5 DSR - Down Syndrome RiskFor further inquiries contact [employer] at [phone].This test was developed and its performance characteristicsdetermined by [employer]. It has not been cleared or approvedby the Food and Drug Administration. TESTING PERFORMED AT [facility]. ORIGINAL REPORT ON FILE IN LAB CONTAINS ADDITIONAL TEST SITE INFORMATION. Absolute lymphocyte countOrd ered By: Dr. Nathan on 06-25-2022 Lymphocytes Auto (Unsp spec) [#/Vol] 1.71 10*3/uL 0.83-4.51 [facility] Basophil percentageOrdered B y: Dr. Nathan on 06-25-2022 Basophils/100 WBC (Bld) 0.3 % 0-1 [facility] Eosinophils/100 WBC (Bld) 0.7 % 0-5 [facility] Neutrophils (Bld) [#/Vol] 6.6 10*3/uL 2.0-7.7 [facility] Neutrophils/100 WBC (Bld) 73.7 % 47-70 [facility] WBC (Bld) [#/Vol] 9.0 10*3/uL 4.4-11.0 [facility] Blood erythrocytes count (nu mber/volume)Ordered By: Dr. Nathan on 06-25-2022 RBC (Bld) [#/Vol] 4.67 10*6/uL 4.2-5.4 [facility] Blood hemoglobin measurement (mass/volume)Ordered By: Dr. Nathan on 06-25-2022 Hemoglobin (Bld) [Mass/Vol] 13.6 g/dL 12.0-15.0 [facility] Blood lymphocytes/100 leukoc ytesOrdered By: Dr. Nathan on 06-25-2022 Lymphocytes/100 WBC (Bld) 19.1 % 19-41 [facility] Blood monocytes/100 leukocyt esOrdered By: Dr. Nathan on 06-25-2022 Monocytes/100 WBC (Bld) 6.0 % 0-10 [facility] Blood platelet mean volumeOr dered By: Dr. Nathan on 06-25-2022 Platelet mean volume (Bld) [Entitic vol] 10.4 fL 6.2-12.0 [facility] Determination of erythrocyte mean corpuscular volume (MCV)Ordered By: Dr. Nathan on 06-25-2022 MCV (RBC) [Entitic vol] 89.7 fL 81-99 [facility] HIV 1 and HIV-2 antibody ass ay with HIV-1 p24 antigen detectionOrdered By: Dr. Nathan on 06-25-2022 HIV 1+2 Ab+HIV1 p24 Ag IA Ql Non-Reactive Nonreactive [facility] Hematocrit Auto (Bld) [Volum e fraction]Ordered By: Dr. Nathan on 06-25-2022 Hematocrit (Bld) [Volume fraction] 41.9 % 37-47 [facility] Laboratory - Hematology and Cell countsOrdered By: Dr. Nathan on 06-25-2022 Erythrocyte distribution width (RBC) [Entitic vol] 43.9 fL 35.1-43.9 [facility] Erythrocyte distribution width (RBC) [Ratio] 13.3 % 11.6-14.6 [facility] Immature granulocytes/100 WBC (Bld) 0.200 % 0.0-0.9 [facility] Comment on above: IG% - Immature Granu locytes (promyelocytes, myelocytes and metamyelocytes) > 1% indicates that a LEFT SHIFT is Present. MCH (RBC) [Entitic mass] 29.1 pg 27.0-32.0 [facility] Nucleated RBC/100 WBC (Bld) [Ratio] 0 % 0-5 [facility] MCHC Auto (RBC) [Mass/Vol]Or dered By: Dr. Nathan on 06-25-2022 MCHC (RBC) [Mass/Vol] 32.5 g/dL 32-36 [facility] No Panel InformationOrdered By: Dr. Nathan on 06-25-2022 Miscellaneous Test Comment MAILED SPECIMEN [facility] Hepatitis B Surface Antigen Non-Reactive Nonreactive [facility] Hepatitis C Antibody Non-Reactive Nonreactive [facility] Comment on above: Non Reactive: < 0.8 Equivocal: >/= 0.8 to < 1.0 Reactive: >/= 1.0The CDC recommends that a reactive/equivocal HCV antibody result be followed up by the HCV Nucleic Acid Amplificationtest (336348) Rubella IgG Antibody Reactive Nonreactive [facility] Comment on above: Antibody Results Int erpretation of Immune Status Non Reactive Presumed Non-Immune Equivocal Equivocal Reactive Presumed Immune Platelets bldOrdered By: Dr. Nathan on 06-25-2022 Platelets (Bld) [#/Vol] 315 10*3/uL 150-450 [facility] Serum Treponema species anti body detectionOrdered By: Dr. Nathan on 06-25-2022 Treponema sp Ab Ql (S) Non-Reactive [facility] Chlamydia trachomatis rRNA d etection by probe and target amplification methodon 05-27-2022 C. trachomatis rRNA JUANY+probe Ql (Unsp spec) Negative Negative [facility] Work Phone: Laboratory - Drug toxicology on 05-27-2022 Amphetamines Ql (U) Negative <1000 ng/mL [facility] Work Phone: Benzodiazepines Ql (U) Negative < 200 ng/mL [facility] Work Phone: Cannabinoids Screen Ql (U) Negative < 50 ng/mL [facility] Work Phone: Cocaine Ql (U) Negative < 300 ng/mL [facility] Work Phone: Opiates Ql (U) Negative < 300 ng/mL [facility] Work Phone: Laboratory - Microbiology an d Antimicrobial susceptibilityon 05-27-2022 N. gonorrhoeae DNA JUANY+probe Ql (Unsp spec) Negative Negative [facility] Work Phone: Comment on above: Performed at: =[address] [id number] Director: Ange Motley MD, Phone: [phone] No Panel Informationon 05-27 MDMA (Ecstasy) Screen Negative < 500 ng/mL [facility] Work Phone: Urine Barbiturates Screen Negative < 200 ng/mL [facility] Work Phone: Urine Drug Screen Comment [facility] Work Phone: Comment on above: CONFIRMATORY TESTING FOR ALL POSITIVE URINE DRUG SCREENRESULTS WILL ONLY BE SENT OUT UPON PHYSICIAN ORDER. VISTA Urine Drug Screen methods provide only preliminaryanalytical test results. A more specific alternate chemicalmethod must be used in order to obtain a confirmedanalytical result. Gas chromatography/mass spectrometery(GC/MS) is the preferred confirmatory method. Clinicalconsideration and professional judgement should be appliedto any drug of abuse test result, particularly whenpreliminary positive results are used. URINE TCA TESTING MUST BE ORDERED SEPARATELY. USE TESTMNEMONIC: [facility] Urine Methadone Screen Negative < 300 ng/mL [facility] Work Phone: Urine phencyclidine (PCP) de tectionon 05-27-2022 Phencyclidine Ql (U) Negative < 25 ng/mL [facility] Work Phone: Absolute lymphocyte counton 03-20-2022 Lymphocytes Auto (Unsp spec) [#/Vol] 1.38 10*3/uL 0.83-4.51 [facility] Work Phone: [phone] Basophil percentageon 2021 Basophils/100 WBC (Bld) 0.7 % 0-1 [facility] Work Phone: Eosinophils/100 WBC (Bld) 0.7 % 0-5 [facility] Work Phone: Neutrophils (Bld) [#/Vol] 3.6 10*3/uL 2.0-7.7 [facility] Work Phone: Neutrophils/100 WBC (Bld) 65.3 % 47-70 [facility] Work Phone: WBC (Bld) [#/Vol] 5.5 10*3/uL 4.4-11.0 [facility] Work Phone: [phone] Blood erythrocytes count (nu mber/volume)on 03-20-2022 RBC (Bld) [#/Vol] 4.69 10*6/uL 4.2-5.4 [facility] Work Phone: Blood hemoglobin measurement (mass/volume)on 03-20-2022 Hemoglobin (Bld) [Mass/Vol] 13.5 g/dL 12.0-15.0 [facility] Work Phone: Blood lymphocytes/100 leukoc yteson 03-20-2022 Lymphocytes/100 WBC (Bld) 25.0 % 19-41 [facility] Work Phone: Blood monocytes/100 leukocyt eson 03-20-2022 Monocytes/100 WBC (Bld) 8.3 % 0-10 [facility] Work Phone: Blood platelet mean volumeon 03-20-2022 Platelet mean volume (Bld) [Entitic vol] 10.1 fL 6.2-12.0 [facility] Work Phone: Determination of erythrocyte mean corpuscular volume (MCV)on 03-20-2022 MCV (RBC) [Entitic vol] 89.8 fL 81-99 [facility] Work Phone: Hematocrit Auto (Bld) [Volum e fraction]on 03-20-2022 Hematocrit (Bld) [Volume fraction] 42.1 % 37-47 [facility] Work Phone: Laboratory - Hematology and Cell countson 03-20-2022 Erythrocyte distribution width (RBC) [Entitic vol] 44.1 fL 35.1-43.9 [facility] Work Phone: Erythrocyte distribution width (RBC) [Ratio] 13.3 % 11.6-14.6 [facility] Work Phone: Immature granulocytes/100 WBC (Bld) 0.000 % 0.0-0.9 [facility] Work Phone: Comment on above: IG% - Immature Granu locytes (promyelocytes, myelocytes and metamyelocytes) > 1% indicates that a LEFT SHIFT is Present. MCH (RBC) [Entitic mass] 28.8 pg 27.0-32.0 [facility] Work Phone: Nucleated RBC/100 WBC (Bld) [Ratio] 0 % 0-5 [facility] Work Phone: MCHC Auto (RBC) [Mass/Vol]on 03-20-2022 MCHC (RBC) [Mass/Vol] 32.1 g/dL 32-36 [facility] Work Phone: No Panel Informationon 03-20 Thyroid Stimulating Hormone (TSH) 0.89 uIU/mL 0.358-3.74 [facility] Work Phone: Platelets bldon 03-20-2022 Platelets (Bld) [#/Vol] 321 10*3/uL 150-450 [facility] Work Phone: Culture, urine Bacteria identified Cx Nom (U) Presumptive Lactobacillus sp. [facility] Work Phone: Gram stain for investigation of transfusion reaction Microscopic observation Gram stain Nom (Unsp spec) [facility] Work Phone: Thin prep Papanicolaou smear with manual screening Genital Culture G. vaginalis (Presumptive) [facility] Work Phone: Vital Signs Date Time Vital Sign Value Performing Clinician Faci lity 04-30-2025 11:02-0400 Body height 154.[address] Awilda Felix DO Work Phone: [facility] 04-30-2025 11:02-0400 Body mass index (BMI) [Ratio] 23.1 kg/m2 Dr. Awilda Felix DO Work Phone: [facility] 04-30-2025 11:02-0400 Body weight 55.[address] Awilda Felix DO Work Phone: [facility] 04-30-2025 11:02-0400 Diastolic blood pressure 71 mm[Hg] Dr. Awilda Felix DO Work Phone: [facility] 04-30-2025 11:02-0400 Systolic blood pressure 105 mm[Hg] Dr. Awilda Felix DO Work Phone: [facility] 03-23-2025 09:42-0400 Body height 154.[address] Awilda Felix DO Work Phone: [facility] 03-23-2025 09:41-0400 Body mass index (BMI) [Ratio] 21.6 kg/m2 Dr. Awilda Felix DO Work Phone: [facility] 03-23-2025 09:41-0400 Body weight 51.[address] Awilda Felix DO Work Phone: [facility] 03-23-2025 09:41-0400 Diastolic blood pressure 71 mm[Hg] Dr. Awilda Felix DO Work Phone: [facility] 03-23-2025 09:41-0400 Systolic blood pressure 112 mm[Hg] Dr. Awilda Felix DO Work Phone: [facility] 02-28-2025 10:07-0400 Body height 154.[address] Awilda Felix DO Work Phone: [facility] 02-28-2025 10:07-0400 Body mass index (BMI) [Ratio] 20.9 kg/m2 Dr. Awilad Felix DO Work Phone: [facility] 02-28-2025 10:07-0400 Body weight 50.[address] Awilda Felix DO Work Phone: [facility] 02-28-2025 10:07-0400 Diastolic blood pressure 66 mm[Hg] Dr. Awilda Felix DO Work Phone: [facility] 02-28-2025 10:07-0400 Systolic blood pressure 101 mm[Hg] Dr. Awilda Felix DO Work Phone: [facility] 01-29-2025 10:44-0400 Body height 154.[address] Brielle Nathan MD Work Phone: [facility] 01-29-2025 10:44-0400 Body mass index (BMI) [Ratio] 20.1 kg/m2 Dr. Brielle Nathan MD Work Phone: [facility] 01-29-2025 10:44-0400 Body weight 48.[address] Brielle Nathan MD Work Phone: [facility] 01-29-2025 10:44-0400 Diastolic blood pressure 75 mm[Hg] Dr. Brielle Nathan MD Work Phone: [facility] 01-29-2025 10:44-0400 Systolic blood pressure 112 mm[Hg] Dr. Brielle Nathan MD Work Phone: [phone] [place] [address] 01-15-2025 11:35-0400 Body height 154.[address] Brielle Nathan MD Work Phone: [phone] [place] [address] 01-15-2025 11:35-0400 Body mass index (BMI) [Ratio] 20 kg/m2 Dr. Brielle Nathan MD Work Phone: [phone] [place] [address] 01-15-2025 11:35-0400 Body weight 48.[address] Brielle Nathan MD Work Phone: [phone] [place] [address] 01-15-2025 11:35-0400 Diastolic blood pressure 67 mm[Hg] Dr. Brielle Nathan MD Work Phone: [phone] [place] [address] 01-15-2025 11:35-0400 Systolic blood pressure 106 mm[Hg] Dr. Brielle Nathan MD Work Phone: [facility] 02-28-2024 11:06-0400 Diastolic Blood Pressure Non-Invasive 68 mm[Hg] DR ROBERT BARON MD [facility] 02-28-2024 11:06-0400 Heart rate 70 /min DR ROBERT BARON MD [facility] 02-28-2024 11:06-0400 Respiratory rate 20 /min DR ROBERT BARON MD [facility] 02-28-2024 11:06-0400 Systolic Blood Pressure Non-Invasive 104 mm[Hg] DR ROBERT BARON MD [facility] 02-28-2024 10:55-0400 Diastolic Blood Pressure Non-Invasive 63 mm[Hg] DR ROBERT BARON MD [facility] 02-28-2024 10:55-0400 Heart rate 89 /min DR ROBERT BARON MD [facility] 02-28-2024 10:55-0400 Respiratory rate 20 /min DR ROBERT BARON MD [facility] 02-28-2024 10:55-0400 Systolic Blood Pressure Non-Invasive 102 mm[Hg] DR ROBERT BARON MD [facility] 02-28-2024 10:46-0400 Body temperature 98.06 [degF] DR ROBERT BARON MD [facility] 02-28-2024 10:46-0400 Diastolic Blood Pressure Non-Invasive 63 mm[Hg] DR ROBERT BARON MD [facility] 02-28-2024 10:46-0400 Heart rate 80 /min DR ROBERT BARON MD [facility] 02-28-2024 10:46-0400 Respiratory rate 16 /min DR ROBERT BARON MD [facility] 02-28-2024 10:46-0400 Systolic Blood Pressure Non-Invasive 93 mm[Hg] DR ROBERT BARON MD [facility] 02-28-2024 10:40-0400 Respiratory Rate - Anes 23 br/min DR ROBERT BARON MD [facility] 02-28-2024 10:35-0400 Respiratory Rate - Anes 12 br/min DR ROBERT BARON MD [facility] 02-28-2024 09:57-0400 Body height 159.[address] ROBERT BARON MD [facility] 02-28-2024 09:57-0400 Body temperature 98.06 [degF] DR ROBERT BARON MD [facility] [facility] 02-28-2024 09:57-0400 Body weight 44.[address] ROBERT BARON MD [facility] 02-28-2024 09:57-0400 Body weight 17.4 kg/m2 DR ROBERT BARON MD [facility] 02-28-2024 09:57-0400 Heart rate 72 /min DR ROBERT BARON MD [facility] 01-03-2024 19:46-0400 Body height [address] MARYNA ALICIA DO [facility] 01-03-2024 19:46-0400 Body temperature 96.98 [degF] DR MARYAN ALICIA DO [facility] 01-03-2024 19:46-0400 Body weight 47.[address] MARYAN ALICIA DO [facility] 01-03-2024 19:46-0400 Diastolic Blood Pressure Non-Invasive 67 mm[Hg] DR MARYAN ALICIA DO [facility] 01-03-2024 19:46-0400 Heart rate 69 /min DR MARYAN ALICIA DO [facility] 01-03-2024 19:46-0400 Respiratory rate 18 /min DR MARYAN ALICIA DO [facility] 01-03-2024 19:46-0400 Systolic Blood Pressure Non-Invasive 109 mm[Hg] DR MARYAN ALICIA DO [facility] 01-21-2023 09:38-0400 Body height 154.94 cm No Primary Care Physician [facility] 01-21-2023 09:37-0400 Body mass index (BMI) [Ratio] 23.6 kg/m2 No Primary Care Physician [facility] 01-21-2023 09:37-0400 Body weight 56.75 kg No Primary Care Physician [facility] 01-21-2023 09:37-0400 Diastolic blood pressure 78 mm[Hg] No Primary Care Physician [facility] 01-21-2023 09:37-0400 Systolic blood pressure 123 mm[Hg] No Primary Care Physician [facility] 01-11-2023 09:00-0400 Body temperature 97.5 [degF] No Primary Care Physician [facility] 01-11-2023 09:00-0400 Diastolic blood pressure 74 mm[Hg] No Primary Care Physician [facility] 01-11-2023 09:00-0400 Heart rate 75 /min No Primary Care Physician [facility] 01-11-2023 09:00-0400 Respiratory rate 16 /min No Primary Care Physician [facility] 01-11-2023 09:00-0400 SaO2% (BldA) [Mass fraction] 96 % No Primary Care Physician [facility] 01-11-2023 09:00-0400 Systolic blood pressure 125 mm[Hg] No Primary Care Physician [facility] 01-08-2023 22:21-0400 Body height 154.94 cm No Primary Care Physician [facility] 01-08-2023 22:21-0400 Body mass index (BMI) [Ratio] 28.1 kg/m2 No Primary Care Physician [facility] 01-08-2023 22:21-0400 Body weight 67.58 kg No Primary Care Physician [facility] 01-08-2023 13:57-0400 Body mass index (BMI) [Ratio] 27.2 kg/m2 No Primary Care Physician [facility] 01-08-2023 13:57-0400 Body weight 67.58 kg No Primary Care Physician [facility] 01-08-2023 13:57-0400 Diastolic blood pressure 70 mm[Hg] No Primary Care Physician [facility] 01-08-2023 13:57-0400 Systolic blood pressure 126 mm[Hg] No Primary Care Physician [facility] 01-01-2023 14:23-0400 Diastolic blood pressure 86 mm[Hg] No Primary Care Physician [facility] 01-01-2023 14:23-0400 Systolic blood pressure 125 mm[Hg] No Primary Care Physician [facility] 01-01-2023 14:06-0400 Body mass index (BMI) [Ratio] 27.4 kg/m2 No Primary Care Physician [facility] 01-01-2023 14:06-0400 Body weight 68.09 kg No Primary Care Physician [facility] 01-01-2023 14:06-0400 Heart rate 90 /min No Primary Care Physician [facility] 12-27-2022 14:35-0400 Body height 157.48 cm No Primary Care Physician [facility] 12-27-2022 14:35-0400 Body mass index (BMI) [Ratio] 27.3 kg/m2 No Primary Care Physician [facility] 12-27-2022 14:35-0400 Body weight 68 kg No Primary Care Physician [facility] 12-27-2022 14:31-0400 Diastolic blood pressure 74 mm[Hg] No Primary Care Physician [facility] 12-27-2022 14:31-0400 Heart rate 67 /min No Primary Care Physician [facility] 12-27-2022 14:31-0400 SaO2% (BldA) [Mass fraction] 99 % No Primary Care Physician [facility] 12-27-2022 14:31-0400 Systolic blood pressure 123 mm[Hg] No Primary Care Physician [facility] 12-27-2022 14:30-0400 Body temperature 98.8 [degF] No Primary Care Physician [facility] 12-24-2022 08:45-0400 Body temperature 99.1 [degF] No Primary Care Physician [facility] 12-24-2022 08:45-0400 Diastolic blood pressure 71 mm[Hg] No Primary Care Physician [facility] 12-24-2022 08:45-0400 Heart rate 72 /min No Primary Care Physician [facility] 12-24-2022 08:45-0400 SaO2% (BldA) [Mass fraction] 98 % No Primary Care Physician [facility] 12-24-2022 08:45-0400 Systolic blood pressure 112 mm[Hg] No Primary Care Physician [facility] 12-24-2022 08:27-0400 Body height 157.48 cm No Primary Care Physician [facility] 12-24-2022 08:27-0400 Body mass index (BMI) [Ratio] 27.4 kg/m2 No Primary Care Physician [facility] 12-24-2022 08:27-0400 Body weight 68.03 kg No Primary Care Physician [facility] 12-22-2022 13:55-0400 Body mass index (BMI) [Ratio] 27.8 kg/m2 No Primary Care Physician [facility] 12-22-2022 13:55-0400 Body weight 68.94 kg No Primary Care Physician [facility] 12-22-2022 13:55-0400 Diastolic blood pressure 60 mm[Hg] No Primary Care Physician [facility] 12-22-2022 13:55-0400 Systolic blood pressure 120 mm[Hg] No Primary Care Physician [facility] 12-15-2022 13:19-0400 Body mass index (BMI) [Ratio] 26.8 kg/m2 No Primary Care Physician [facility] 12-15-2022 13:19-0400 Body weight 66.45 kg No Primary Care Physician [facility] 12-15-2022 13:19-0400 Diastolic blood pressure 69 mm[Hg] No Primary Care Physician [facility] 12-15-2022 13:19-0400 Systolic blood pressure 103 mm[Hg] No Primary Care Physician [facility] 12-04-2022 15:05-0400 Body mass index (BMI) [Ratio] 27.7 kg/m2 No Primary Care Physician [facility] 12-04-2022 15:05-0400 Body weight 68.71 kg No Primary Care Physician [facility] 12-04-2022 15:05-0400 Diastolic blood pressure 69 mm[Hg] No Primary Care Physician [facility] 12-04-2022 15:05-0400 Systolic blood pressure 127 mm[Hg] No Primary Care Physician [facility] 11-20-2022 16:00-0400 Body mass index (BMI) [Ratio] 25.9 kg/m2 No Primary Care Physician [facility] 11-20-2022 16:00-0400 Body weight 64.41 kg No Primary Care Physician [facility] 11-20-2022 16:00-0400 Diastolic blood pressure 75 mm[Hg] No Primary Care Physician [facility] 11-20-2022 16:00-0400 Systolic blood pressure 114 mm[Hg] No Primary Care Physician [facility] 11-02-2022 14:53-0400 Body mass index (BMI) [Ratio] 25.4 kg/m2 No Primary Care Physician [facility] 11-02-2022 14:53-0400 Body weight 63.21 kg No Primary Care Physician [facility] 11-02-2022 14:53-0400 Diastolic blood pressure 69 mm[Hg] No Primary Care Physician [facility] 11-02-2022 14:53-0400 Systolic blood pressure 109 mm[Hg] No Primary Care Physician [facility] 10-16-2022 09:58-0400 Body height 157.48 cm No Primary Care Physician [facility] 10-16-2022 09:58-0400 Body mass index (BMI) [Ratio] 24.5 kg/m2 No Primary Care Physician [facility] 10-16-2022 09:58-0400 Body weight 60.78 kg No Primary Care Physician [facility] 10-16-2022 09:58-0400 Diastolic blood pressure 73 mm[Hg] No Primary Care Physician [facility] 10-16-2022 09:58-0400 Systolic blood pressure 123 mm[Hg] No Primary Care Physician [facility] 09-18-2022 14:59-0500 Diastolic blood pressure 68 mm[Hg] No Primary Care Physician [facility] 09-18-2022 14:59-0500 Systolic blood pressure 116 mm[Hg] No Primary Care Physician [facility] 09-18-2022 14:37-0500 Body mass index (BMI) [Ratio] 23.4 kg/m2 No Primary Care Physician [facility] 09-18-2022 14:37-0500 Body weight 58.17 kg No Primary Care Physician [facility] 08-17-2022 16:03-0500 Body mass index (BMI) [Ratio] 21.2 kg/m2 No Primary Care Physician [facility] 08-17-2022 16:03-0500 Body weight 52.61 kg No Primary Care Physician [facility] 08-17-2022 16:03-0500 Diastolic blood pressure 61 mm[Hg] No Primary Care Physician [facility] 08-17-2022 16:03-0500 Systolic blood pressure 97 mm[Hg] No Primary Care Physician [facility] 07-22-2022 15:45-0500 Body height 157.48 cm No Primary Care Physician [facility] Work Phone: 07-22-2022 15:45-0500 Body mass index (BMI) [Ratio] 20.5 kg/m2 No Primary Care Physician [facility] 07-22-2022 15:45-0500 Body weight 50.85 kg No Primary Care Physician [facility] 07-22-2022 15:45-0500 Diastolic blood pressure 71 mm[Hg] No Primary Care Physician [facility] 07-22-2022 15:45-0500 Systolic blood pressure 112 mm[Hg] No Primary Care Physician [facility] 06-25-2022 13:27-0500 Body height 157.48 cm No Primary Care Physician [facility] Work Phone: 06-25-2022 13:23-0500 Body mass index (BMI) [Ratio] 20.1 kg/m2 No Primary Care Physician [facility] 06-25-2022 13:23-0500 Body weight 49.89 kg No Primary Care Physician [facility] 06-25-2022 13:23-0500 Diastolic blood pressure 56 mm[Hg] No Primary Care Physician [facility] 06-25-2022 13:23-0500 Systolic blood pressure 96 mm[Hg] No Primary Care Physician [facility] 05-27-2022 11:46-0400 Body mass index (BMI) [Ratio] 20.4 kg/m2 No Primary Care Physician [facility] Work Phone: 05-27-2022 11:46-0400 Body weight 48.98 kg No Primary Care Physician [facility] Work Phone: 05-27-2022 11:46-0400 Diastolic blood pressure 67 mm[Hg] No Primary Care Physician [facility] Work Phone: 05-27-2022 11:46-0400 Systolic blood pressure 107 mm[Hg] No Primary Care Physician [facility] Work Phone: 03-20-2022 09:19-0400 Body height 157.[address] Brielle Nathan Work Phone: [facility] Work Phone: 03-20-2022 09:19-0400 Body mass index (BMI) [Ratio] 19 kg/m2 Dr. Brielle Nathan Work Phone: [facility] Work Phone: 03-20-2022 09:19-0400 Body weight 47.[address] Brielle Nathan Work Phone: [facility] Work Phone: 03-20-2022 09:19-0400 Diastolic blood pressure 70 mm[Hg] Dr. Brielle Nathan Work Phone: [facility] Work Phone: 03-20-2022 09:19-0400 Systolic blood pressure 110 mm[Hg] Dr. Brielle Nathan Work Phone: [facility] Work Phone: Encounters Encounter Date Encounter Type Care Provider Facility Start: 04-30-2025 End: 04-30-2025 Patient encounter procedure Lizzy ROCKWELL -[facility] Work Phone: Start: 04-30-2025 End: 04-30-[address] Awilda Felix DO Work Phone: -[facility] Start: 04-16-2025 End: 04-16-2025 ambulatory MD [facility] Start: 03-23-2025 End: 03-23-2025 Patient encounter procedure Lizzy Mercado CNM -[facility] Work Phone: Start: 03-23-2025 End: 03-23-[address] Awilda Felix DO Work Phone: -[facility] Start: 02-28-2025 End: 02-28-2025 Patient encounter procedure Jami Kunalattila WRIGHT -[facility] Work Phone: Start: 02-28-2025 End: 02-28-[address] Awilda Felix DO Work Phone: -[facility] Start: 02-09-2025 End: 02-09-[address] Awilda Felix DO Work Phone: -[facility] Start: 02-09-2025 End: 02-09-[address] Awilda Felix DO -[facility] Start: 02-09-2025 End: 02-09-2025 ambulatory Awilda Felix Facility:[facility] Start: 01-29-2025 End: 01-29-[address] Awilda Felix DO Work Phone: -[facility] Start: 01-29-2025 End: 01-29-[address] Awilda Felix DO -[facility] Work Phone: Start: 01-29-2025 End: 01-29-[address] Awilda Felix DO -[facility] Work Phone: Start: 01-29-2025 End: 01-29-2025 ambulatory Awilda Felix -[facility] Start: 01-29-2025 End: 01-29-2025 ambulatory Awilda Felix Facility:[facility] Start: 01-15-2025 End: 01-15-[address] Brielle Nathan MD -[facility] Work Phone: Start: 01-15-2025 End: 01-15-2025 ambulatory Brielle Nathan [facility] Work Phone: Start: 02-28-2024 End: 02-28-[address] ROBERT BARON MD Facility:[facility] Start: 02-28-2024 End: 02-28-[address] ROBERT BARON MD [facility] Start: 01-03-2024 End: 01-03-2024 Emergency department patient visit DR MARYAN ALICIA DO [facility] Start: 01-21-2023 End: 01-21-2023 Patient encounter procedure No Primary Care Physician [facility] Work Phone: Start: 01-12-2023 End: 01-12-2023 Patient encounter procedure No Primary Care Physician [facility] Work Phone: Start: 01-11-2023 Non-patient / Non-visit No Primary Care Physician [facility] Start: 01-10-2023 Non-patient / Non-visit No Primary Care Physician [facility] Start: 01-09-2023 Non-patient / Non-visit No Primary Care Physician [facility] Start: 01-08-2023 Non-patient / Non-visit No Primary Care Physician [facility] Start: 01-08-2023 End: 01-11-2023 Evaluation and management of inpatient No [facility] Start: 01-08-2023 End: 01-08-2023 Patient encounter procedure No Primary Care Physician [facility] Start: 01-01-2023 End: 01-01-2023 Patient encounter procedure No Primary Care Physician [facility] Start: 12-28-2022 Non-patient / Non-visit No Primary Care Physician [facility] Start: 12-27-2022 End: 12-27-2022 ambulatory No Primary Care Physician [facility] Work Phone: Start: 12-27-2022 End: 12-27-2022 Patient encounter procedure No Primary Care Physician [facility] Start: 12-24-2022 End: 12-24-2022 ambulatory No Primary Care Physician [facility] Work Phone: Start: 12-24-2022 End: 12-24-2022 Patient encounter procedure No Primary Care Physician [facility] Start: 12-22-2022 End: 12-22-2022 ambulatory No Primary Care Physician [facility] Work Phone: Start: 12-22-2022 End: 12-22-2022 Patient encounter procedure No Primary Care Physician [facility]-Laboratory Start: 12-15-2022 End: 12-15-2022 Patient encounter procedure No Primary Care Physician [facility] Start: 12-11-2022 End: 12-11-2022 ambulatory No Primary Care Physician [facility] Work Phone: Start: 12-11-2022 End: 12-11-2022 Patient encounter procedure No Primary Care Physician [facility]-Laboratory Start: 12-04-2022 End: 12-04-2022 Patient encounter procedure No Primary Care Physician [facility] Start: 12-04-2022 End: 12-04-2022 Patient encounter procedure No Primary Care Physician [facility] Start: 11-20-2022 End: 11-20-2022 Patient encounter procedure No Primary Care Physician [facility] Start: 11-02-2022 End: 11-02-2022 Patient encounter procedure No Primary Care Physician [facility] Start: 10-22-2022 End: 10-22-2022 ambulatory No Primary Care Physician [facility] Work Phone: Start: 10-22-2022 End: 10-22-2022 Patient encounter procedure No Primary Care Physician [facility] Start: 10-16-2022 End: 10-16-2022 ambulatory No Primary Care Physician [facility] Work Phone: Start: 10-16-2022 End: 10-16-2022 Patient encounter procedure No Primary Care Physician [facility] Start: 09-18-2022 End: 09-18-2022 Patient encounter procedure No Primary Care Physician [facility] Start: 08-17-2022 End: 08-17-2022 Patient encounter procedure No Primary Care Physician [facility] Start: 07-22-2022 End: 07-22-2022 ambulatory No Primary Care Physician [facility] Work Phone: Start: 07-22-2022 End: 07-22-2022 Patient encounter procedure No Primary Care Physician [facility] Start: 06-25-2022 End: 06-25-2022 ambulatory No Primary Care Physician [facility] Work Phone: Start: 06-25-2022 End: 06-25-2022 Patient encounter procedure No Primary Care Physician [facility] Start: 05-27-2022 End: 05-27-2022 Patient encounter procedure No Primary Care Physician [facility]-Laboratory, Specimen Start: 05-27-2022 End: 05-27-2022 Patient encounter procedure No Primary Care Physician [facility] Start: 03-26-2022 End: 03-26-[address] Brielle Nathan Work Phone: [facility] Work Phone: Start: 03-26-2022 End: 03-26-[address] Brielle Nathan Work Phone: [facility] Start: 03-20-2022 End: 03-20-[address] Brielle Nathan Work Phone: [facility] Work Phone: Start: 03-20-2022 End: 03-20-[address] Brielle Nathan Work Phone: [facility]-Laboratory Start: 03-20-2022 End: 03-20-[address] Brielle Nathan Work Phone: [facility] Procedures Date Procedure Procedure Detail Performing Clinician Start: 02-09-2025 Hepatitis C antibody measurement Dr. Awilda Felix DO Work Phone: Comment on above: Reactive: Presumptiv e evidence of antibodies to HCV. Follow CDC recommendations for supplemental testing.Non-Reactive: Antibodies to HCV were not detected; does not exclude the possibility of exposure to HCVReactive Results are presumptive evidence of antibodies to HCV. Follow CDC recommendations for supplemental testing.Order confirmation testing: HCV Quant by PCR testing - HCVPCR #[id number] Non Reactive: < 0.8 Equivocal: >/= 0.8 to < 1.0 Reactive: >/= 1.0The CDC requires that a reactive/equivocal HCV antibody result be sent out for confirmation. HCV Quant by PCR testing. Start: 02-09-[address] Marisabel Felix DO Work Phone: Start: 02-09-[address] Awilda Felix DO Work Phone: Comment on above: Antibody Result: Int erpretationNon-Reactive: Non- ImmuneReactive: ImmuneThe following results were obtained with the [employer] Rubella IgG assay. Results from assays of other manufacturers cannot be used interchangeably. Start: 02-09-2025 Serologic test for syphilis Dr. Awilda Felix DO Work Phone: Start: 01-29-[address] Marly Felix DO Work Phone: Start: 01-19-[address] LANI BARON MD Start: 12-22-2022 Group B Streptococcu s Culture No Primary Care Physician Start: 03-26-[address] Meena Nathan Work Phone: Start: 03-26-[address] Brielle Nathan Work Phone: Cytopathology proced ure, preparation of smear, genital source Dr. Brielle Nathan Work Phone: Group B Streptococcu s Culture No Primary Care Physician H/O: section Status pos t section No Primary Care Physician H/O: section History of C-sectio n Dr. Brielle Nathan MD Work Phone: Comment on above: x1, currently pregna nt contemplating H/O: section History of C-sectio n Dr. Awilda Felix DO H/O: section History of C-sectio n Jami Johnson [employer] H/O: section History of C-sectio n Lizzy ROCKWELLM H/O: section History of C-sectio n Lizzy Mercado CNM Investigation of transfusion reaction Dr. Brielle Nathan Work Phone: Urine culture No Primary Car e Physician Urine culture No Primary Car e Physician Plan of Treatment Date Care Activity Detail Author Start: 01-11-2023 Patient discharge [facility] Start: 01-10-2023 Application of abdominal corset [facility] Start: 01-09-2023 Administration of medication [facility] Start: 01-09-2023 Ambulation therapy management [facility] Start: 01-09-2023 Application of device [facility] Start: 01-09-2023 Application of intermittent pneumatic compression device [facility] Start: 01-09-2023 Assessment of risk of venous thromboembolism [facility] Start: 01-09-2023 Catheterization of vein [facility] Start: 01-09-2023 Deep breathing and coughing exercises [facility] Start: 01-09-2023 Exercises [facility] Start: 01-09-2023 Measuring intake and output [facility] Start: 01-09-2023 End: 01-09-2023 Notification of physician [facility] Start: 01-09-2023 Procedure discontinued [facility] Start: 01-09-2023 Provision of activity privileges [facility] Start: 01-09-2023 Vital signs measurements [facility] Start: 01-09-2023 Wound care [facility] Start: 01-09-2023 End: 01-09-2023 [facility] Start: 01-09-2023 Application of abdominal corset [facility] Start: 01-08-2023 [facility] Start: 01-08-2023 Notification of physician [facility] Start: 01-08-2023 Admission procedure [facility] Start: 01-08-2023 Anesthesia consultation [facility] Start: 01-08-2023 acoustic stimulation test [facility] Start: 01-08-2023 Insertion of catheter into peripheral vein [facility] Start: 01-08-2023 Intrauterine catheterization [facility] Start: 01-08-2023 Introduction of urinary catheter [facility] Start: 01-08-2023 Obstetric monitoring [facility] Start: 01-08-2023 Provision of activity privileges [facility] Start: 01-08-2023 Vital signs measurements [facility] Start: 01-08-2023 End: 01-08-2023 [facility] Start: 12-27-2022 Nonstress test [facility] Start: 12-27-2022 Obstetric monitoring [facility] Start: 12-27-2022 Vital signs measurements [facility] Start: 12-27-2022 [facility] Start: 12-24-2022 Nonstress test [facility] Start: 12-24-2022 Obstetric monitoring [facility] Start: 12-24-2022 Vital signs measurements [facility] Start: 12-24-2022 [facility] Start: 12-24-2022 Patient discharge [facility] Start: 12-22-2022 Streptococcus agalactiae [Presence] in Unspecified specimen by Organism specific culture [facility] Beta-hemolytic Streptococcus culture [facility] CBC W Auto Different ial panel - Blood [facility] Chlamydia deoxyribon ucleic acid detection [facility] Group B Streptococcu s Culture Group B Streptococcus Culture [facility] Hepatitis C antibody measurement [facility] Patient Education [facility] Work Phone: Patient referral [facility] Work Phone: Procedure [facility] Rubella IgG measurement [facility] Serologic test for syphilis [facility] US Pelvis [facility] Work Phone: US Pelvis transvaginal [facility] Work Phone: [facility] Immunizations Immunization Date Immunization Notes Care Provider Fa [id number] 11-20-2022 tetanus toxoid, redu elmira diphtheria toxoid, and acellular pertussis vaccine, adsorbed No Primary Care Physician [facility] Payers Date Payer Category Payer Self-pay [id number] 2024 Unknown [id number] 2024 Unknown [id number] 1998 Unknown [id number] 1998 Unknown [id number] 1998 Unknown [id number] Unknown [id number] 2.16.8 [id number] Unknown [id number] 2.16.8 [id number] Unknown [id number] 2.16.8 [id number] Unknown [id number] 2.16.8 [id number] Unknown [id number] 2.16.8 [id number] Unknown [id number] 2.16.8 [id number] Unknown [id number] 2.16.8 [id number] Social History Date Type Detail Facility Start: 03-20-2022 End: 01-21-2023 Tobacco smoking status NHIS Unknown if ever smoked [facility] Start: 2000 Sex Assigned At Female [facility] Tobacco smoking status No Smokin g Status Entered [facility] Start: 01-07-2024 End: 01-25-2025 Tobacco smoking status Never smoked tobacco (finding) [facility] Sex Female [facility] Goals Date Patient Goal Desired Activity /State Functional Status Date Assessment Result Facility 02-28-2024 Functional Status Independent [facility] 02-28-2024 Functional Status Maintained [facility] 01-03-2024 Functional Status Independent [facility] 01-03-2024 Functional Status Independent [facility] Mental Status Date Assessment Result Facility 02-28-2024 Mental Status [facility] 02-28-[facility]24 [facility] 01-03-2024 Mental Status O[facility] Oriented [facility] 01-03-2024 [facility] Clinical Notes 01-09-2023 to 04-30-2025 Note Date & Type Note Facility 04-30-2025 Progress note [facility] 03-23-2025 Progress note [facility] 01-15-2025 Evaluation note Diagnosis Onset Date Resolution acute January 15 11:18am Vaginal bleeding during acute January 15, 2025 11:18am 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 acute January 29 10:42am History of acute January 29, 2025 10:42am acute January 29, 2025 10:42am Supervision of high-risk acute January 29 10:42am Vaginal bleeding during acute January 29, 2025 10:42am [facility] Work Phone: 1(163) 361-428206-23-2025 Evaluation note* Diagnosis Onset Date Resolution Status Admit Date acute January 15 11:18am Vaginal bleeding during acute January 15, 2025 11:18am 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 acute January 29, 2025 1 0:42am History of acute January 29, 2025 10:42am acute January 29, 2025 10:42am Supervision of high-risk acute January 29, 2025 1 0:42am Vaginal bleeding during acute January 29, 2025 1 0:42am 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 acute February 28, 2025 10:04am History of acute 2024 10:04am acute February 28 10:04am Supervision of high-risk acute February 28, 2025 10:04am Vaginal bleeding during acute February 28, 2025 10:04am [facility] Work Phone: 1(397) 842-507506-23-2025 Evaluation note* Diagnosis Onset Date Resolution Status Admit Date acute January 15 11:18am Vaginal bleeding during acute January 15, 2025 11:18am 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 acute January 29, 2025 1 0:42am History of acute January 29, 2025 10:42am acute January 29, 2025 10:42am Supervision of high-risk acute January 29, 2025 1 0:42am Vaginal bleeding during acute January 29, 2025 1 0:42am 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 acute February 28, 2025 10:04am History of acute 2024 10:04am acute February 28 10:04am Supervision of high-risk acute February 28, 2025 10:04am Vaginal bleeding during acute February 28, 2025 10:04am 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 acute March 23 9:51am History of acute 2024 9:51am acute March 23, 2 025 9:51am Supervision of high-risk acute March 23 9:51am Vaginal bleeding during acute March 23 9:51am [facility] Work Phone: 1(809) 412-247206-23-2025 Evaluation note* Diagnosis Onset Date Resolution Status Admit Date acute January 15 11:18am Vaginal bleeding during acute January 15, 2025 11:18am 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 acute January 29, 2025 1 0:42am History of acute January 29, 2025 10:42am acute January 29, 2025 10:42am Supervision of high-risk acute January 29, 2025 1 0:42am Vaginal bleeding during acute January 29, 2025 1 0:42am 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 acute February 28, 2025 10:04am History of acute 2024 10:04am acute February 28 10:04am Supervision of high-risk acute February 28, 2025 10:04am Vaginal bleeding during acute February 28, 2025 10:04am 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 acute March 23 9:51am History of acute 2024 9:51am acute March 23 9:51am Supervision of high-risk acute March 23 9:51am Vaginal bleeding during acute March 23 9:51am 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 acute April 30 10:58am History of acute 2024 10:58am acute April 30 10:58am Supervision of high-risk acute April 30 10:58am Vaginal bleeding during acute April 30 10:58am [facility] Work Phone: 1(796) 591-762508-05-2024 Evaluation + Plan noteExtracted from: Title:Clinical Document Author:ROBERT BARON Date:02/28/24 [facility] ADMISSION HISTORY AN D PHYSICIAL CHIEF COMPLAINT: HISTORY OF PRESENT ILLNESS: REVIEW OF SYSTEMS: ACTIVE PROBLEMS: No qualifying data available for Problems MEDICATIONS: Active Inpt Meds: None Active PRN Meds: None One Time Meds: None Active IV Meds: Lactated Ringers Infusion 1,000 mL (LR 1,000 mL) Start: 02/28/24 9:59:00 EDT, Rate: 50 mL/hr, 02/28/24 9:59:00 EDT ALLERGIES: (1) Vicodin FAMILY HISTORY: SOCIAL HISTORY: PHYSICAL EXAM: VITALS: [id number](kg) 02/27 09:5736.7--079186TS60/05 44.5 24 Hr Tmax: 36.7 at 02/27 09:57 36 Hr Tmax: 36.7 at 02/27 09:57 Vital Signs are the last 5 in the past 48 hours. Weights display the last 5 within 7 days. Initial Wt: 02/27 44.5 kg 98 lb Current Wt: 02/27 44.5 kg 98 lb GENERAL: HEENT: CARDIOVASCULAR: RESPIRATORY: ABDOMEN: EXREMETIES: NEUROLOGICAL: PSYCHIATRIC: LABS: 36hr Labs 02/27 1001 TestSee Flowsheet testSee Flowsheet DIAGNOSTICS: IMPRESSION: PLAN: History and Physical Update I have examined the patient; reviewed the H&P and there are no changes to the H&P unless noted below. [facility] 08-05-2024 Hospital Discharge instructions Patient Education 02/28/2024 10:49:43 Moderate Conscious Sedation, Adult, Care After Moderate Conscious Sedation, Adult, Care After These instructions provide you with information about caring for yourself after your procedure. Your health care provider may also give you more specific instructions. Your treatment has been plannedaccording to current medical practices, but problems sometimes occur. Call your health care provider if you have any problems or questions after your procedure. What can I expect after the procedure? After your procedure, it is common: To feel sleepy for several hours. To feel clumsy and have poor balance for several hours. To have poor judgment for several hours. To vomit if you eat too soon. Follow these instructions at home: For at least 24 hours after the procedure: Do not: ?Participate in activities where you could fall or become injured. ?Drive. ?Use heavy machinery. ?Drink alcohol. ?Take sleeping pills or medicines that cause drowsiness. ?Make important decisions or sign legal documents. ?Take care of children on your own. Rest. Eating and drinking Follow the diet recommended by your health care provider. If you vomit: ?Drink water, juice, or soup when you can drink without vomiting. ?Make sure you have little or no nausea before eating solid foods. General instructions Have a responsible adult stay with you until you are awake and alert. Take pyxg-lgg-otmewsm and prescription medicines only as told by your health care provider. If you smoke, do not smoke without supervision. Keep all follow-up visits as told by your health care provider. This is important. Contact a health care provider if: You keep feeling nauseous or you keep vomiting. You feel light-headed. You develop a rash. You have a fever. Get help right away if: You have trouble breathing. This information is not intended to replace advice given to you by your health care provider. Make sure you discuss any questions you have with your health care provider. Document Released: 05/02/2014 Document Revised: 06/24/2018 Document Reviewed: 10/31/2016 [employer] Patient Education 2020 [employer]. 02/28/2024 10:49:36 9 - AO Minor Esophagogastroduodenoscopy (10/06)(CUSTOM) Esophagogastroduodenoscopy This is an endoscopic procedure (a procedure that uses a device like a flexible telescope) that allows your caregiver to view the upper stomach and small bowel. This test allows your caregiver to look at the esophagus. The esophagus carries food from your mouth to your stomach. They can also look at your duodenum. This is the first part of the small intestine that attaches to the stomach. This rodrick t is used to detect problems in the bowel such as ulcers and inflammation. MEANING OF TEST Your caregiver will go over the test results with you and discuss the importance and meaning of your results, as well as treatment options and the need for additional tests if necessary. OBTAINING THE TEST RESULTS Your caregiver s office will call you with the results of the test. POST SEDATION INSTRUCTIONS Rest at home today. Since your coordination may be impaired, be cautious on stairways, do not drive any vehicle or operate any heavy machinery, or use any sharp instruments for the remainder of the day. Do not drink any alcoholic beverages or make any major decisions for 24 hours. POST PROCEDURE INSTRUCTIONS Progress slowly with full liquids then resume previous diet and medications. Belching or passing of gas is to be expected. Notify the physician if you have severe chest pain, fever, or if difficulty when swallowing persists. 10/03/13 Custom 02/28/2024 10:49:29 Gastritis, Adult, Kbre-kr-Hnxv Gastritis, Adult Gastritis is swelling (inflammation) of the stomach. Gastritis can develop quickly (acute). It can also develop slowly over time (chronic). It is important to get help for this condition. If you do not get help, your stomach can bleed, and you can get sores (ulcers) in your stomach. What are the causes? This condition may be caused by: Germs that get to your stomach. Drinking too much alcohol. Medicines you are taking. Too much acid in the stomach. A disease of the intestines or stomach. Stress. An allergic reaction. Crohn's disease. Some cancer treatments (radiation). Sometimes the cause of this condition is not known. What are the signs or symptoms? Symptoms of this condition include: Pain in your stomach. A burning feeling in your stomach. Feeling sick to your stomach (nauseous). Throwing up (vomiting). Feeling too full after you eat. Weight loss. Bad breath. Throwing up blood. Blood in your poop (stool). How is this diagnosed? This condition may be diagnosed with: Your medical history and symptoms. A physical exam. Tests. These can include: ?Blood tests. ?Stool tests. ?A procedure to look inside your stomach (upper endoscopy). ?A test in which a sample of tissue is taken for testing (biopsy). How is this treated? Treatment for this condition depends on what caused it. You may be given: Antibiotic medicine, if your condition was caused by germs. H2 blockers and similar medicines, if your condition was caused by too much acid. Follow these instructions at home: Medicines Take dspq-vhc-jbcqeoe and prescription medicines only as told by your doctor. If you were prescribed an antibiotic medicine, take it as told by your doctor. Do not stop taking it even if you start to feel better. Eating and drinking Eat small meals often, instead of large meals. Avoid foods and drinks that make your symptoms worse. Drink enough fluid to keep your pee (urine) pale yellow. Alcohol use Do not drink alcohol if: ?Your doctor tells you not to drink. ?You are , may be , or are planning to become . If you drink alcohol: ?Limit your use to: ?0 1 drink a day for women. ?0 2 drinks a day for men. ?Be aware of how much alcohol is in your drink. In the [place] one drink equals one 12 oz bottle of beer (355 mL), one 5 oz glass of wine (148 mL), or one 1 oz glass of hard liquor (44 mL). General instructions Talk with your doctor about ways to manage stress. You can exercise or do deep breathing, meditation, or yoga. Do not smoke or use products that have nicotine or tobacco. If you need help quitting, ask your doctor. Keep all follow-up visits as told by your doctor. This is important. Contact a doctor if: Your symptoms get worse. Your symptoms go away and then come back. Get help right away if: You throw up blood or something that looks like coffee grounds. You have black or dark red poop. You throw up any time you try to drink fluids. Your stomach pain gets worse. You have a fever. You do not feel better after one week. Summary Gastritis is swelling (inflammation) of the stomach. You must get help for this condition. If you do not get help, your stomach can bleed, and you can get sores (ulcers). This condition is diagnosed with medical history, physical exam, or tests. You can be treated with medicines for germs or medicines to block too much acid in your stomach. This information is not intended to replace advice given to you by your health care provider. Make sure you discuss any questions you have with your health care provider. Document Released: 12/28/2008 Document Revised: 11/29/2018 Document Reviewed: 11/29/2018 [employer] Patient Education 2020 [employer]. Follow Up Care 02/04/2024 13:05:53 With:ROBERT BARON MD Address: [address] [place] [address] [phone] When: Unknown [facility] 08-05-2024 Note Discharge Instructions Thank you for allowing [facility] to assist you with your healthcare needs. The following is importantdischarge information regarding your hospital visit. Your Care Team PHYSICIAN, AILYN BARON What to do next Follow Up Appointments Follow Up with ROBERT BARON MD Where:[address] [place] [address] [phone] Allergies Vicodin Medications Please ask your primary doctor or pharmacist before taking any other medication not listed, including over the counter drugs, herbal medications, vitamins and or supplements as they may interact withyour home medications. Please take this list to your next doctor s visit. Bring all medications you take, including over the counter medications, herbals and other supplements with you to your doctor s visit. Patients and families are reminded to discard old lists and to update any records with all medication providers or retail pharmacies. Education Materials Moderate Conscious Sedation, Adult, Care After These instructions provide you with information about caring for yourself after your procedure. Your health care provider may also give you more specific instructions. Your treatment has been plannedaccording to current medical practices, but problems sometimes occur. Call your health care provider if you have any problems or questions after your procedure. What can I expect after the procedure? After your procedure, it is common: To feel sleepy for several hours. To feel clumsy and have poor balance for several hours. To have poor judgment for several hours. To vomit if you eat too soon. Follow these instructions at home: For at least 24 hours after the procedure: Do not: ? Participate in activities where you could fall or become injured. ? Drive. ? Use heavy machinery. ? Drink alcohol. ? Take sleeping pills or medicines that cause drowsiness. ? Make important decisions or sign legal documents. ? Take care of children on your own. Rest. Eating and drinking Follow the diet recommended by your health care provider. If you vomit: ? Drink water, juice, or soup when you can drink without vomiting. ? Make sure you have little or no nausea before eating solid foods. General instructions Have a responsible adult stay with you until you are awake and alert. Take bnhb-dnf-kdwenyy and prescription medicines only as told by your health care provider. If you smoke, do not smoke without supervision. Keep all follow-up visits as told by your health care provider. This is important. Contact a health care provider if: You keep feeling nauseous or you keep vomiting. You feel light-headed. You develop a rash. You have a fever. Get help right away if: You have trouble breathing. This information is not intended to replace advice given to you by your health care provider. Make sure you discuss any questions you have with your health care provider. Document Released: 05/02/2014 Document Revised: 06/24/2018 Document Reviewed: 10/31/2016 [employer] Patient Education 2020 [employer] Esophagogastroduodenoscopy This is an endoscopic procedure (a procedure that uses a device like a flexible telescope) that allows your caregiver to view the upper stomach and small bowel. This test allows your caregiver to look at the esophagus. The esophagus carries food from your mouth to your stomach. They can also look at your duodenum. This is the first part of the small intestine that attaches to the stomach. This rodrick t is used to detect problems in the bowel such as ulcers and inflammation. MEANING OF TEST Your caregiver will go over the test results with you and discuss the importance and meaning of your results, as well as treatment options and the need for additional tests if necessary. OBTAINING THE TEST RESULTS Your caregiver s office will call you with the results of the test. POST SEDATION INSTRUCTIONS Rest at home today. Since your coordination may be impaired, be cautious on stairways, do not drive any vehicle or operate any heavy machinery, or use any sharp instruments for the remainder of the day. Do not drink any alcoholic beverages or make any major decisions for 24 hours. POST PROCEDURE INSTRUCTIONS Progress slowly with full liquids then resume previous diet and medications. Belching or passing of gas is to be expected. Notify the physician if you have severe chest pain, fever, or if difficulty when swallowing persists. 10/03/13 Custom Gastritis, Adult Gastritis is swelling (inflammation) of the stomach. Gastritis can develop quickly (acute). It can also develop slowly over time (chronic). It is important to get help for this condition. If you do not get help, your stomach can bleed, and you can get sores (ulcers) in your stomach. What are the causes? This condition may be caused by: Germs that get to your stomach. Drinking too much alcohol. Medicines you are taking. Too much acid in the stomach. A disease of the intestines or stomach. Stress. An allergic reaction. Crohn's disease. Some cancer treatments (radiation). Sometimes the cause of this condition is not known. What are the signs or symptoms? Symptoms of this condition include: Pain in your stomach. A burning feeling in your stomach. Feeling sick to your stomach (nauseous). Throwing up (vomiting). Feeling too full after you eat. Weight loss. Bad breath. Throwing up blood. Blood in your poop (stool). How is this diagnosed? This condition may be diagnosed with: Your medical history and symptoms. A physical exam. Tests. These can include: ? Blood tests. ? Stool tests. ? A procedure to look inside your stomach (upper endoscopy). ? A test in which a sample of tissue is taken for testing (biopsy). How is this treated? Treatment for this condition depends on what caused it. You may be given: Antibiotic medicine, if your condition was caused by germs. H2 blockers and similar medicines, if your condition was caused by too much acid. Follow these instructions at home: Medicines Take qpar-jmp-nzrfirh and prescription medicines only as told by your doctor. If you were prescribed an antibiotic medicine, take it as told by your doctor. Do not stop taking it even if you start to feel better. Eating and drinking Eat small meals often, instead of large meals. Avoid foods and drinks that make your symptoms worse. Drink enough fluid to keep your pee (urine) pale yellow. Alcohol use Do not drink alcohol if: ? Your doctor tells you not to drink. ? You are , may be , or are planning to become . If you drink alcohol: ? Limit your use to: ? 0 1 drink a day for women. ? 0 2 drinks a day for men. ? Be aware of how much alcohol is in your drink. In the [place] one drink equals one 12 oz bottle of beer (355 mL), one 5 oz glass of wine (148 mL), or one 1 oz glass of hard liquor (44 mL). General instructions Talk with your doctor about ways to manage stress. You can exercise or do deep breathing, meditation, or yoga. Do not smoke or use products that have nicotine or tobacco. If you need help quitting, ask your doctor. Keep all follow-up visits as told by your doctor. This is important. Contact a doctor if: Your symptoms get worse. Your symptoms go away and then come back. Get help right away if: You throw up blood or something that looks like coffee grounds. You have black or dark red poop. You throw up any time you try to drink fluids. Your stomach pain gets worse. You have a fever. You do not feel better after one week. Summary Gastritis is swelling (inflammation) of the stomach. You must get help for this condition. If you do not get help, your stomach can bleed, and you can get sores (ulcers). This condition is diagnosed with medical history, physical exam, or tests. You can be treated with medicines for germs or medicines to block too much acid in your stomach. This information is not intended to replace advice given to you by your health care provider. Make sure you discuss any questions you have with your health care provider. Document Released: 12/28/2008 Document Revised: 11/29/2018 Document Reviewed: 11/29/2018 [employer] Patient Education 2020 [employer]. Additional Information VACCINATE! IT SAVES LIVES! Members of the community who have not yet received the COVID-19 vaccine and would like to receive it can visit one of [facility] vaccine clinics. There are many vaccine clinic locations within the [facility]. For locations and available times, please visit [email or web address].[place].gov/. It is important to note that some COVID mobile vaccine clinics are held outdoors and may be canceled in rainy or stormy conditions. To learn more about pediatric vaccinations (ages 5-11), we invite you to visit the [employer] webpage. [email or web address]/[email or web address] [email or web address] learn more about the COVID-19 vaccine, we invite you to visit the CDC website for a list of frequently asked questions.https://www.cdc.gov/coronavirus/2019-ncov/vaccines/faq.html [facility] Patient Portal Access Instructions: Stay connected with your healthcare team and access your personal medical information anytime with the [facility] Patient Portal. Please follow the directions below to create your [facility] account: 1.Access the email account you provided upon registration to the hospital/physician office.2.Look for an invitation email from [facility].3.Open the email and access the invitation link: AcceptInvitation to [employer].4.Fill in the required burns to create your account. To access your account, visit [employer]. Click the blue button labeled Access Patient Portal and then log in with the username and password that you created in the steps above. You will be able to view your test results, lab results, a summary of your visits, upcoming appointments and more. There is also a convenient messaging option where you can send secure messages to your p rovider. In addition, you will have the ability to download any documents or summaries to your computer and/or send the information securely to a physician. Remember that your healthcare information is confidential, so carefully consider who you will allowto register on the [facility] for access to your information. You can also access the [facility] on the [facility] sil[facility]. Simply click on Patient Portal and then log into your account. If you would like to receive a full copy of your medical records, please contact the [facility] Medical Records Department by calling [phone], Wednesday through Wednesday between 8 a.m. and 4:30 p.m. HOW TO SAFELY DISPOSE OF PRESCRIPTION MEDICATIONS Please use one of the following methods to safely dispose of your unused medications. 1.Use a drug disposal kit: the drug disposal pouch allows you to safely discard your old and unuseddrugs. Ask your nurse to give you one when you are discharged.2.Visit a local take-back location: Many local pharmacies and police departments have programs that collect old and unwanted prescriptiondrugs. Call your local pharmacy or go to http://[employer]/9G0Mp0c to find one close to you.3.Make use of household items: Use cat litter or old coffee grounds to dispose medications if other options arenot available. Mix your drugs with these household products, seal them in an airtight container andthrow it into the garbage. Call [facility]: [phone] to be sure your drugs can be disposed of in this way. Some medicines may require a different approach.4.Never flush your medications down the toilet. IF YOU HAVE BEEN PRESCRIBED AN OPIOID FOR PAIN If you have been prescribed an opioid (such as hydrocodone, oxycodone or morphine), it is critical to understand the possible side effects and risks of opioid pain medications. Even when taken as directed, opioids can have several side effects including: Tolerance, meaning you might need to take more of a medication for the same pain relief. Nausea, vomiting and/or constipation. Sleepiness, dizziness, dry mouth, confusion, depression or itching. Physical dependence, meaning you have withdrawal symptoms when a medication is stopped, can develop within a few days. KNOW YOUR RESPONSIBILITIES It is important to know exactly how much and how often to take the opioid pain medications you are prescribed. Never take opioids in higher amounts or more often than prescribed. Do not combine opioids with alcohol or other drugs that cause drowsiness, such as benzodiazepines, also known as benzos, including diazepam and alprazolam, muscle relaxants or sleep aids. Never sell or share prescription opioids. This is illegal. Store opioids in a secure place and out of reach of others (including children, family, friends and visitors). The last page of this document has been signed and retained as a CHART COPY. Signatures Patient Education Materials Moderate Conscious Sedation, Adult, Care After 9 - AO Minor Esophagogastroduodenoscopy (10/06)(CUSTOM) Gastritis, Adult, [id number] Medication Leaflets My discharge plan and instructions have been reviewed and explained to me and I,TK COTTER understand my current condition and have read and understand these discharge instructions. I have received a written copy of the plan/instructions. If I have questions, I am aware that I should contact my doctor. 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08-05-2024 Note Date of Service February 28, 2024 Procedure Name EGD with biopsy Consent Taken before procedure Indication Patient with epigastric pain and hematemesis Location [facility] Pre-Procedure Exam Epigastric pain and hematemesis Procedural Sedation Anesthesia provided a MAC Technique Was brought to the endoscopy suite and placed left shoulder down. The scope was passed regularization down to the esophagus. Z-line was 34 cm from the incisors no evidence of Carlos's mucosa. Stomach was easily insufflated there was some erythema in the prepyloric area. The duodenum was unremarkable. Scope was withdrawn back into the stomach retroflexion was performed a view of the cardia was well-seen no evidence of a hiatal hernia. Biopsies were taken taken of the antral mucosa. Stomach is decompressed there was no evidence of any peptic ulcer disease throughout the stomach the distal esophagus showed some minor erythema. The endoscope was withdrawn the patient tolerated the procedure well. Post-Procedure Exam EGD with biopsy Findings Gastritis Complications None apparent Total Time Approximately 15 minutes Assessment/Plan Orders: Lactated Ringers Infusion 1,000 mL(LR 1,000 mL), 1000 mL, Intravenous Bedrest, 02/28/24 10:43:00 EDT, Strict, continuous, Constant order, Lying on side until alert or asordered Bedrest, 02/28/24 10:43:00 EDT, Strict, continuous, Constant order, Lying on side until alert or asordered Call Parameters, 02/28/24 10:43:00 EDT, Notify for vomiting, severe pain, signs of bleeding, severeabdominal pain, distention or rigidity, Constant order Communication Order (scheduled), 02/28/24 9:59:00 EDT, Once, 02/28/24 9:59:00 EDT, Pathology TissueRequest Communication Order (scheduled), 02/28/24 9:59:00 EDT, Once, 02/28/24 9:59:00 EDT, Urine Test or waiver for women of child bearing age Communication Order (scheduled), 02/28/24 9:59:00 EDT, Once, 02/28/24 9:59:00 EDT, Fasting Blood Sugar priot to procedure of patient is diabetic Diet Order, 02/28/24 10:43:00 EDT, Start Meal: Next meal, Clear Liquid Diet, Post exam or after gagreflex returns if EGD, Constant Order, : No, per patient, : Yes Discharge, 02/28/24 9:59:00 EDT, Discharged to: Home, when able to ambulate and after being seen byphysician Discharge Activity, NO activity restrictions, 02/28/24 10:43:00 EDT Discharge Diet, Follow the post-operative/post-procedure diet instructions provided by your physician's office., 02/28/24 10:43:00 EDT Discharge Wound Care, Follow the post-operative/post-procedure wound care instructions provided by your physician's office., 02/28/24 10:43:00 EDT Pathology Tissue Request, 02/28/24 10:42:00 EDT, Collected, Routine, Nurse Collect, AP Specimen, DUODENAL BIOPSY, SEE CHART, ESOPHAGOGASTRODUODENOSCOPY WITH BIOPSY, HEMATEMESIS, HEMATEMESIS, Preferred Lab: Other lab service, [id number] Post Procedure Assessment, 02/28/24 10:43:00 EDT, Stop Date 02/28/24 10:43:00 EDT, [facility] until Adán Score of 12 or Preprocedure Sign Consent, 02/28/24 9:59:00 EDT, Once, For EGD Vital Signs, 02/28/24 10:43:00 EDT, q15min, 1 hour(s), 02/28/24 11:30:00 EDT Vital Signs, 02/28/24 10:43:00 EDT, q30min, 1 hour(s), 02/28/24 11:30:00 EDT Vital Signs PRN, 02/28/24 10:43:00 EDT, PRN order Follow Up/Recommendation Follow-up the biopsies the patient may take a PPI daily Digitally Signed by ROBERT BARON MD on 02/28/2024 10:[address] [facility]08-05-2024 Note [facility]LEY ADMISSION HISTORY AND PHYSICIAL CHIEF COMPLAINT: HISTORY OF PRESENT ILLNESS: REVIEW OF SYSTEMS: ACTIVE PROBLEMS: No qualifying data available for Problems MEDICATIONS: Active Inpt Meds: None Active PRN Meds: None One Time Meds: None Active IV Meds: Lactated Ringers Infusion 1,000 mL (LR 1,000 mL) Start: 02/28/24 9:59:00 EDT, Rate: 50 mL/hr, 02/28/24 9:59:00 EDT ALLERGIES: (1) Vicodin FAMILY HISTORY: SOCIAL HISTORY: PHYSICAL EXAM: VITALS: [id number](kg) 02/27 09:5736.7--[id number]/05 44.5 24 Hr Tmax: 36.7 at 02/27 09:57 36 Hr Tmax: 36.7 at 02/27 09:57 Vital Signs are the last 5 in the past 48 hours. Weights display the last 5 within 7 days. Initial Wt: 02/27 44.5 kg 98 lb Current Wt: 02/27 44.5 kg 98 lb GENERAL: HEENT: CARDIOVASCULAR: RESPIRATORY: ABDOMEN: EXREMETIES: NEUROLOGICAL: PSYCHIATRIC: LABS: 36hr Labs 02/27 1001 TestSee Flowsheet testSee Flowsheet DIAGNOSTICS: IMPRESSION: PLAN: History and Physical Update I have examined the patient; reviewed the H&P and there are no changes to the H&P unless noted below. Digitally Signed by ROBERT BARON MD on 02/28/2024 10:[address] [facility]08-05-2024 Anesthesiology Consult note Patient: TK COTTER Age: 23 years Sex: Female : 2000 Associated Diagnoses: None Author: DIONNE GUERRERO APRN-QUARTZ ORIENTATOR Preoperative Information Anesthesia history Patient's history: negative. Family's history: negative. Health Status Allergies: Allergic Reactions (Selected) Severity Not Documented Vicodin- No reactions were documented., Allergies (1) ActiveSeverityReaction VicodinNone Documented Current medications: (Selected) Inpatient Medications Ordered LR 1,000 mL: 50 mL/hr, Intravenous Prescriptions Prescribed Pepcid 40 mg oral tablet: 40 mg, 1 tab(s), Oral, BID, for 30 day(s), 60 tab(s), 0 Refill(s), Medications (1) Active Scheduled: (0) Continuous: (1) Lactated Ringers Infusion 1,000 mL 1,000 mL, Intravenous, 50 mL/hr PRN: (0) Problem list: No qualifying data available Histories Past Medical History: No active or resolved past medical history items have been selected or recorded. Family History: Cancer Grandparent Procedure history: delivery ([id number]) on 01/19/2023 at 22 Years. Social History: Social & Psychosocial Habits Alcohol 01/07/2024 Use: Current Type: Beer Frequency: 1-2 times per year Average drinks per episode in last year: 3 Maximum drinks per episode in last year: 3 Started at age: 19 Years Substance Abuse 01/07/2024 Use: Never Tobacco 01/07/2024 Tobacco Use: Never (less than 100 in l Exposure to Tobacco Smoke Lives in non-smoking home Home/Environment 01/07/2024 Living situation: Home/Independent Nutrition/Health 01/07/2024 Type of diet: Regular Sexual 01/07/2024 Sexually active: Yes First active at age: 16 Years Physical Examination Vital Signs 02/28/2024 9:57 EDT Temperature Temporal Artery 36.7 DegC Peripheral Pulse Rate 72 bpm Respiratory Rate 16 br/min Systolic Blood Pressure Non-Invasive 96 mmHg Diastolic Blood Pressure Non-Invasive 73 mmHg Vital Signs (last 24 hrs) Last Charted Temp Jigmgjsg74.7 DegC (FEB 27 09:57) SBP96 mmHg (FEB 27 09:57) DBP73 mmHg (FEB 27 09:57) BMI17.4 (FEB 27:57) Measurements from flowsheet : Measurements 02/28/2024 9:57 EDT Height 159.9 cm Admission Weight 44.5 kg [place] Body Weight 52.29 kg BSA Admission 1.43 Body Mass Index 17.4 kg/m2 General: Alert and oriented. Airway: Normal temporomandibular joint mobility. Mallampati classification: II (soft palate, fauces, uvula visible). Dentition Evaluation: Denies loose/chipped teeth. Respiratory: Lungs are clear to auscultation, Respirations are non-labored. Cardiovascular: Normal rate, Regular rhythm. Neurologic: Alert, Oriented. Review / Management Results review: No qualifying data available , Lab results 02/28/2024 9:57 EDT Designated Person #1 We May Share [facility] Designated Person #1 We May Share [facility] Designated Person #1 Relationship Spouse Privacy Restrictions Requested None Height 159.9 cm Admission Weight 44.5 kg [place] Body Weight 52.29 kg BSA Admission 1.43 Body Mass Index 17.4 kg/m2 Temperature Temporal Artery 36.7 DegC Peripheral Pulse Rate 72 bpm Respiratory Rate 16 br/min Systolic Blood Pressure Non-Invasive 96 mmHg Diastolic Blood Pressure Non-Invasive 73 mmHg Oxygen Saturation 99 % Status No, per patient Sensory Deficits None Infectious Disease Symptoms Patient states no symptoms Infectious Disease Recent Exposure No Alcohol and Drug Use No Employee of Institutional Living No Health Care Employee No History of Exposure to TB No History of Positive Chest X-Ray for TB No History of Positive TB Skin Test No Homeless No Known Immunosuppression No Recent Immigrant No Resident of Institutional Living No Bloody Sputum No Fatigue No Fever No Loss of Appetite No Night Sweats No Persistent Cough > 3 Weeks No Weight Loss No Barriers to Learning None evident Teaching Method Explanation, Printed materials Preferred Spoken Language Italian Preferred Written Language Italian Information Given by Patient Patient's Current Physicians N/A Discharge To, Anticipated Home independently Prev Test Positive/Diagnosis w/COVID-19 No Current Quarantine/Isolated any Illness No Any Contact with Sick Animals/Birds No Traveled Anywhere in Last 30 Days No Yes Personal Devices, Patient Valuables Glasses Admission Note-Nursing Procedure/Therapy Intake . Assessment and Plan Citizen Of [place] Society of Anesthesiologists (ASA) physical status classification: Class II. Anesthetic Preoperative Plan Anesthetic technique: MAC. Postoperative pain management: Per surgeon. Risks discussed: nausea, vomiting, sore throat, dental injury, hypotension, allergic reaction, serious complications. Informed consent: signed by patient. Digitally Signed by DIONNE GUERRERO on 02/28/2024 10:[address] [facility]06-10-2024 Hospital Discharge instructions Patient Education 01/03/2024 21:12:24 Gastritis or Ulcer (No Antibiotic Treatment) Gastritis or Ulcer, No Antibiotic Treatment Gastritis is irritation and inflammation of the stomach lining. This means the lining is red and swollen. It can cause shallow sores in the stomach lining called erosions. An ulcer is a deeper open sore in the lining of the stomach. It may also occur in the first part of the small intestine (duodenum). The causes and symptoms of gastritis and ulcers are very similar. Causes and risk factors for both problems can include: Long-term use of nonsteroidal anti-inflammatory drugs (NSAIDs), such as aspirin and ibuprofen H. pylori bacteria infection Tobacco use Alcohol use Certain other conditions such as immune disorders, certain medicines (high-dose iron supplements) and street drugs (such as cocaine) Symptoms for both problems can include: Dull or burning pain in the upper part of the belly Loss of appetite Heartburn or upset stomach Frequent burping Bloated feeling Nausea with or without vomiting You likely had an evaluation to help find the exact cause and extent of your problem. This may haveincluded a health history, exam, and certain tests. Results showed that your problem is not due to H. pylori infection. For this reason, you don't needantibiotics as part of your treatment. Whether your problem is gastritis or an ulcer, you will still need to take other medicines, however. You will also need to follow instructions to help reduce stomach irritation so your stomach can heal. Home care Take any medicines you re prescribed exactly as directed. Common medicines used to treat gastritis include: oAntacids. These help neutralize the normal acids in your stomach. oProton pump inhibitors. These block your stomach from making any acid. oH2 blockers. These reduce the amount of acid your stomach makes. oBismuth subsalicylate. This helps protect the lining of your stomach from acid. Don't take any NSAIDs during your treatment. If you take NSAID to help treat other health problems,tell your healthcare provider. He or she may need to adjust your medicine plan or change the dosage. Don t use tobacco. Also don t drink alcohol. These products can increase the amount of acid your stomach makes. This can delay healing. It can also worsen symptoms. Follow-up care Follow up with your healthcare provider, or as advised. In some cases, more testing may be needed. When to seek medical advice Call your healthcare provider right away if any of these occur: Fever of 100.4 F (38 C) or higher, or as directed by your healthcare provider Stomach pain that worsens or moves to the lower right part of belly Extreme fatigue Weakness or dizziness Continued weight loss Frequent vomiting, blood in your vomit, or coffee ground-like substance in your vomit Black, tarry, or bloody stools Call 911 Call 911 if any of these occur: Chest pain appears or worsens, or spreads to the back, neck, shoulder, or arm Unusually fast heart rate Trouble breathing or swallowing Confusion Extreme drowsiness or trouble waking up Fainting Large amounts of blood present in vomit or stool [id number] [employer]. [address] [place] [address]. All rights reserved. This information is not intended as a substitute for professional medical care. Always follow yourhealthcare professional's instructions. 01/03/2024 21:12:15 Headache, Unspecified Headache, Unspecified A number of things can cause headaches. The cause of your headache isn t clear. But it doesn t seemto be a sign of any serious illness. Headache affects almost everyone at some time. It is the most common reason people miss days from work or school. You could have a tension headache or a migraine headache. Stress can cause a tension headache. This can happen if you tense the muscles of your shoulders, neck, and scalp without knowing it. If this stress lasts long enough, you may develop a tension headache. It is not clear why migraines occur, but certain things called triggers can raise the risk of having a migraine attack. Migraine triggers may include emotional stress or depression, or by hormone changes during the menstrual cycle. Other triggers include control pills and other medicines, alcohol or caffeine, foods with tyramine (such as aged cheese, wine), eyestrain, weather changes, missed meals, and lack of sleep or oversleeping. Other causes of headache include: Viral illness with high fever Head injury with concussion Sinus, ear, or throat infection Dental pain and jaw joint (TMJ) pain More serious but less common causes of headache include stroke, brain hemorrhage, brain tumor, meningitis, and encephalitis. Home care Follow these tips when taking care of yourself at home: Don t drive yourself home if you were given pain medicine for your headache. Instead, have someone else drive you home. Try to sleep when you get home. You should feel much better when you wake up. Apply heat to the back of your neck to ease a neck muscle spasm. Take care of a migraine headache by putting an ice pack on your forehead or at the base of your skull. If you have nausea or vomiting, eat a light diet until your headache eases. If you have a migraine headache, use sunglasses when in the daylight or around bright indoor lighting until your symptoms get better. Bright glaring light can make this type of headache worse. Follow-up care Follow up with your healthcare provider, or as advised. Talk with your provider if you have frequent headaches. He or she can help figure out a treatment plan. By knowing the earliest signs of headache, and starting treatment right away, you may be able to stop the pain yourself. When to seek medical advice Call your healthcare provider right away if any of these occur: Your head pain suddenly gets worse after sexual intercourse or strenuous activity Your head pain doesn t get better within 24 hours You aren t able to keep liquids down (repeated vomiting) Fever of 100.4 F (38 C) or higher, or as directed by your healthcare provider Stiff neck Extreme drowsiness, confusion, or fainting Dizziness or dizziness with spinning sensation (vertigo) Weakness in an arm or leg or one side of your face You have trouble talking or seeing [id number] [employer]. [address] [place] [address], [place] [address]. All rights reserved. This information is not intended as a substitute for professional medical care. Always follow yourhealthcare professional's instructions. Follow Up Care 01/03/2024 19:40:51 With:NANETTE WHITE DO Address: [address] [place] [phone] When:2-4 days With:Follow up with primary care provider Address:Unknown When:2-[address] [facility] 06-10-2024 Note Discharge Instructions Thank you for allowing [facility] to assist you with your healthcare needs. The following is importantdischarge information regarding your hospital visit. What to Do Next Instructions from Your Care Team No qualifying data available. Post Acute Orders No qualifying data available. You Need to Schedule the Following Appointments Follow Up with NANETTE WHITE DO When:Within 2-4 days Where:[address] [place] [phone] Follow Up with Follow up with primary care provider When:Within 2-4 days Allergies Vicodin Medications Please ask your primary doctor or pharmacist before taking any other medication not listed, including over the counter drugs, herbal medications, vitamins and or supplements as they may interact withyour home medications. What How Much When Instructions Last Dose New famotidine (Pepcid 40 mg oral tablet) 1 tab(s) by mouth Two (2) times a day Duration: 10 Days Printed Prescription Please take this list to your next doctor s visit. Bring all medications you take, including over the counter medications, herbals and other supplements with you to your doctor s visit. Patients and families are reminded to discard old lists and to update any records with all medication providers or retail pharmacies. Education Materials Gastritis or Ulcer, No Antibiotic Treatment Gastritis is irritation and inflammation of the stomach lining. This means the lining is red and swollen. It can cause shallow sores in the stomach lining called erosions. An ulcer is a deeper open sore in the lining of the stomach. It may also occur in the first part of the small intestine (duodenum). The causes and symptoms of gastritis and ulcers are very similar. Causes and risk factors for both problems can include: Long-term use of nonsteroidal anti-inflammatory drugs (NSAIDs), such as aspirin and ibuprofen H. pylori bacteria infection Tobacco use Alcohol use Certain other conditions such as immune disorders, certain medicines (high-dose iron supplements) and street drugs (such as cocaine) Symptoms for both problems can include: Dull or burning pain in the upper part of the belly Loss of appetite Heartburn or upset stomach Frequent burping Bloated feeling Nausea with or without vomiting You likely had an evaluation to help find the exact cause and extent of your problem. This may haveincluded a health history, exam, and certain tests. Results showed that your problem is not due to H. pylori infection. For this reason, you don't needantibiotics as part of your treatment. Whether your problem is gastritis or an ulcer, you will still need to take other medicines, however. You will also need to follow instructions to help reduce stomach irritation so your stomach can heal. Home care Take any medicines you re prescribed exactly as directed. Common medicines used to treat gastritis include: oAntacids. These help neutralize the normal acids in your stomach. oProton pump inhibitors. These block your stomach from making any acid. oH2 blockers. These reduce the amount of acid your stomach makes. oBismuth subsalicylate. This helps protect the lining of your stomach from acid. Don't take any NSAIDs during your treatment. If you take NSAID to help treat other health problems,tell your healthcare provider. He or she may need to adjust your medicine plan or change the dosage. Don t use tobacco. Also don t drink alcohol. These products can increase the amount of acid your stomach makes. This can delay healing. It can also worsen symptoms. Follow-up care Follow up with your healthcare provider, or as advised. In some cases, more testing may be needed. When to seek medical advice Call your healthcare provider right away if any of these occur: Fever of 100.4 F (38 C) or higher, or as directed by your healthcare provider Stomach pain that worsens or moves to the lower right part of belly Extreme fatigue Weakness or dizziness Continued weight loss Frequent vomiting, blood in your vomit, or coffee ground-like substance in your vomit Black, tarry, or bloody stools Call 911 Call 911 if any of these occur: Chest pain appears or worsens, or spreads to the back, neck, shoulder, or arm Unusually fast heart rate Trouble breathing or swallowing Confusion Extreme drowsiness or trouble waking up Fainting Large amounts of blood present in vomit or stool [id number] [employer]. [address] [place] [address]. All rights reserved. This information is not intended as a substitute for professional medical care. Always follow yourhealthcare professional's instructions. Headache, Unspecified A number of things can cause headaches. The cause of your headache isn t clear. But it doesn t seemto be a sign of any serious illness. Headache affects almost everyone at some time. It is the most common reason people miss days from work or school. You could have a tension headache or a migraine headache. Stress can cause a tension headache. This can happen if you tense the muscles of your shoulders, neck, and scalp without knowing it. If this stress lasts long enough, you may develop a tension headache. It is not clear why migraines occur, but certain things called triggers can raise the risk of having a migraine attack. Migraine triggers may include emotional stress or depression, or by hormone changes during the menstrual cycle. Other triggers include control pills and other medicines, alcohol or caffeine, foods with tyramine (such as aged cheese, wine), eyestrain, weather changes, missed meals, and lack of sleep or oversleeping. Other causes of headache include: Viral illness with high fever Head injury with concussion Sinus, ear, or throat infection Dental pain and jaw joint (TMJ) pain More serious but less common causes of headache include stroke, brain hemorrhage, brain tumor, meningitis, and encephalitis. Home care Follow these tips when taking care of yourself at home: Don t drive yourself home if you were given pain medicine for your headache. Instead, have someone else drive you home. Try to sleep when you get home. You should feel much better when you wake up. Apply heat to the back of your neck to ease a neck muscle spasm. Take care of a migraine headache by putting an ice pack on your forehead or at the base of your skull. If you have nausea or vomiting, eat a light diet until your headache eases. If you have a migraine headache, use sunglasses when in the daylight or around bright indoor lighting until your symptoms get better. Bright glaring light can make this type of headache worse. Follow-up care Follow up with your healthcare provider, or as advised. Talk with your provider if you have frequent headaches. He or she can help figure out a treatment plan. By knowing the earliest signs of headache, and starting treatment right away, you may be able to stop the pain yourself. When to seek medical advice Call your healthcare provider right away if any of these occur: Your head pain suddenly gets worse after sexual intercourse or strenuous activity Your head pain doesn t get better within 24 hours You aren t able to keep liquids down (repeated vomiting) Fever of 100.4 F (38 C) or higher, or as directed by your healthcare provider Stiff neck Extreme drowsiness, confusion, or fainting Dizziness or dizziness with spinning sensation (vertigo) Weakness in an arm or leg or one side of your face You have trouble talking or seeing [phone] [employer]. [address] [place] [address]. All rights reserved. This information is not intended as a substitute for professional medical care. Always follow yourhealthcare professional's instructions. Additional Information VACCINATE! IT SAVES LIVES! Members of the community who have not yet received the COVID-19 vaccine and would like to receive it can visit one of [facility] vaccine clinics. There are many vaccine clinic locations within the [facility]. For locations and available times, please visit www.gettheshot.coronavirus.[place].gov/. It is important to note that some COVID mobile vaccine clinics are held outdoors and may be canceled in rainy or stormy conditions. To learn more about pediatric vaccinations (ages 5-11), we invite you to visit the [facility] webpage. https://www.[facility].org/pages/5548-Otnth-Nuxctjebzfi-Jffkhnzgrs-Hzeqv-Ttz stions.htmlTo learn more about the COVID-19 vaccine, we invite you to visit the CDC website for a list of frequently asked questions. https://www.cdc.gov/coronavirus/2019-ncov/vaccines/faq.html [facility] Access Instructions: Stay connected with your healthcare team and access your personal medical information anytime with the [facility] Patient Portal. If you would like a full copy of your medical records please contact the [facility] Medical Records Department Wednesday through Wednesday between 8a.m. and 4:30p.m. Please follow the directions below to access the portal: 1.Access the email account you provided upon registration to the hospital.2.Look for an invitation email from [facility].3.Open the email and access the invitation link: Accept Invitation to [employer]4.Fill in the required burns to create your account. Sign into [email or web address] with your username and password that you created in the above steps to stay up to date. You can then view a summary of results, a summary of your visits, and the ability to download your summaries to your computer or send the information securely to a physician. Remember that your healthcare information is confidential, so carefully consider who you will allow to register on the [facility] Patient Portal for access to your information. You can also access the [employer] Patient Portal on the [email or web address] silvia. Simply click on Health Records under [employer] and then click on the [employer] logo. HOW TO SAFELY DISPOSE OF PRESCRIPTION MEDICATIONS Please use one of the following methods to safely dispose of your unused medications. 1.Use a drug disposal kit: the drug disposal pouch allows you to safely discard your old and unuseddrugs. Ask your nurse to give you one when you are discharged.2.Visit a local take-back location: Many local pharmacies and police departments have programs that collect old and unwanted prescriptiondrugs. Call your local pharmacy or go to http://bit.ly/3Q3Mf6c to find one close to you.3.Make use of household items: Use cat litter or old coffee grounds to dispose medications if other options arenot available. Mix your drugs with these household products, seal them in an airtight container andthrow it into the garbage. Call [facility]: [phone] to be sure your drugs can be disposed of in this way. Some medicines may require a different approach.4.Never flush your medications down the toilet. IF YOU HAVE BEEN PRESCRIBED AN OPIOIDS FOR PAIN If you have been prescribed an opioid (such as hydrocodone, oxycodone or morphine), it is critical to understand the possible side effects and risks of opioid pain medications. Even when taken as directed, opioids can have several side effects including: Tolerance, meaning you might need to take more of a medication for the same pain relief. Nausea, vomiting and/or constipation. Sleepiness, dizziness, dry mouth, confusion, depression or itching. Physical dependence, meaning you have withdrawal symptoms when a medication is stopped ? this can develop within a few days. KNOW YOUR RESPONSIBILITIES It is important to know exactly how much and how often to take the opioid pain medications you are prescribed. Never take opioids in higher amounts or more often than prescribed. Do not combine opioids with alcohol or other drugs that cause drowsiness, such as benzodiazepines, also known as benzos,including diazepam and alprazolam, muscle relaxants or sleep aids. Never sell or share prescriptionopioids. This is illegal. Store opioids in a secure place and out of reach of others (including children, family, friends and visitors). The last page(s) of this document has been signed and retained as a CHART COPY Signatures Patient Education Materials Gastritis or Ulcer (No Antibiotic Treatment) Headache, Unspecified Medication Leaflets My discharge plan and instructions have been reviewed and explained to me and I,TK COTTER understand my current condition and have read and understand these discharge instructions. I have received a written copy of the plan/instructions. If I have questions, I am aware that I should contact my doctor. 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06-19-2023 Discharge summary Author Lizzy Mercado [facility] January 11, 2023 7:16am Note Date/Time January 11, 2023 7:13 am [facility] Medical Records Department [address] [place] [address] Instructions for Home/Discharge Instructions 01/11/2312 MR#: [id number] Acct: [id number] Name: TK COTTER Rep #:[id number] : 2000 22 From: Lizzy Mercado CNM PCP: Loretta Physician,No Primary Status :ADM IN Discharge Instructions Diet Discharge Diet: No restrictions Activity Discharge Activity: Return to Normal Activity May resume sexual activity in: 4-6 weeks Weight Bearing Status: Full weight bearing Dressing / Incision Call your doctor if your incision/area has: Continuous Slow Oozing, Sudden Increased Bleeding, Increased Pain/ Swelling, Increased Redness and Foul Smelling Discharge Call your doctor if you observe: Fever of 101 or Higher and Using more than 1 pad per hour Suture Line Care: Avoid Pulling/Pushing and Avoid Pinching/Bending Cleanse incision/area with: Soap & Water and Keep Dressing Clean & Dry Follow Up Care Please Follow Up With: Awilda Felix DO When: Please call the office to schedule your follow up appointment in 6 weeks. If you had high blood pressure please call to schedule an appointment in 2 weeks. Test Results: Test results from this visit will be discussed in further detail at your follow- up appointment, if applicable. Discharge Plan Admission Admit Date/Time: 01/08/23 19:55 Primary Reason for Your Visit: Attending Provider: Awilda Felix Primary Care Provider: Loretta Physician,Moni Primary Discharge Orders/Prescriptions Prescriptions: New ibuprofen 800 mg tablet 800 mg PO Q8H PRN (Reason: pain) Qty: 30 0RF oxycodone 5 mg capsule 5 mg PO Q6H PRN (Reason: pain) 3 Days Qty: 10 0RF No Action PNV Tabs 20-1 20 mg iron- 1 mg tablet 1 tab PO DAILY miscellaneous medical supply Misc 2 ea miscellaneous ONCE Qty: 2 0RF Rx Instructions: compression stockings 20mm hg strength. hydrocortisone 2.5 % ointment 1 applic topical BID Slow Fe 142 mg (45 mg iron) tablet extended release 142 mg PO DAILY Referrals / Follow Up: Care Physician,No Primary [Primary Care Provider] - Disposition Disposition (needs filled in before D/C Order can be placed): Home, Self Care 01/11/23715<Electronically signed by Lizzy Mercado CNM>Lizzy Mercado CNM CC: No Primary Care Physician ~ Signed [facility] Work Phone: 1(154) 561-852506-19-2023 Progress note Author Lizzy Mercado [facility] January 11, 2023 7:12am Note Date/Time January 11, 2023 7:10 am [facility] System Medical Records Department [address] [place] [address] Progress Note - OBGYN 01/11/23 0706 MR#: [id number] Acct: [id number] Name: TK COTTER Rep #:[id number] : 2000 22 From: Lizzy Mercado CNM PCP: Care Physician,No Primary Status :ADM IN Location: [address] Subjective Subjective Patient doing well without complaints. Tolerating PO. Ambulating and voiding without difficulty. Feeding well. Denies chest pain, shortness of breath, calf pain/swelling, fevers, chills, lightheadedness. Objective Data Objective Data Vital Signs: Vital Signs Temp Pulse Resp BP Pulse Ox O2 Del Method 97.5 F L 72 16 107/71 99 Room Air 01/11/23 02:20 01/11/23 02:20 01/11/23 02:20 01/11/23 02:20 01/11/23 02:20 01/11/23 02:20 Oxygen Delivery Method Room Air Weight: 149 lb Body Mass Index (BMI) 28.1 Intake & Output: Intake and Output for Last 24 Hours 01/09/23 01/10/23 01/11/23 23:59 23:59 23:59 Intake Total 3425.41 / 3425.41 Output Total 1350 / 1350 200 / 200 Balance 2075.41 / 2075.41 -200 / -200 Lab / Micro Data Attestation: I reviewed the patient's lab results. Result Diagrams: 01/10/23 04:42 ROS Constitutional Constitutional: Reports systems reviewed and no addt'l complaints, except as documented; Denies anorexia or headache(s) Cardiovascular Cardiovascular: Reports systems reviewed and no addt'l complaints, except as documented; Denies dizziness, dyspnea, nausea or tachypnea Respiratory/Chest Respiratory/Chest: Reports systems reviewed and no addt'l complaints, except as documented; Denies cough, dyspnea, shortness of breath at rest or tachypnea Gastrointestinal Gastrointestinal: Reports systems reviewed and no addt'l complaints, except as documented; Denies abdominal pain, constipation or nausea Genitourinary Genitourinary: Reports systems reviewed and no addt'l complaints, except as documented; Denies burning urination, difficulty urinating, dysuria, urinary frequency or urinary incontinence Musculoskeletal Musculoskeletal: Reports systems reviewed and no addt'l complaints, except as documented Integumentary Integumentary: Reports systems reviewed and no addt'l complaints, except as documented Neurologic Neurologic: Reports systems reviewed and no addt'l complaints, except as documented; Denies abnormal speech, dizziness or headache(s) Psychiatric Psychiatric: Reports systems reviewed and no addt'l complaints, except as documented Endocrine Endocrinology: Reports systems reviewed and no addt'l complaints, except as documented Hematologic/Lymphatic Hematologic/Lymphatic: Reports systems reviewed and no addt'l complaints, exceptas documented Physical Exam Const alert, oriented x3 and no apparent distress Neck full ROM Resp normal respiratory effort, normal air movement and no retractions Effort and Inspection: able to speak in complete sentences and symmetric chest movement GI soft to palpation Inspection: incision intact Bladder / Kidney Exam: bladder normal to palpation Uterus Palpation: uterus fundus firm Extremity normal to inspection and full ROM Psych mental status grossly normal, thought process normal and cooperative Assessment & Plan (1) Status post section: PLAN: s/p LTCS PPD # 2 1. routine post care 2. breast feeding- support given 3. rh positive 4. rubella immune 5. DC home. (2) Abnormal glucose affecting : COMMENT: normal 3 hr gtt (3) Anemia affecting : COMMENT: cont anemia on PO iron. iron studies ordered 12/07. slow fe 45mg (4) Arrested active labor, delivered, current hospitalization: (5) Supervision of normal first : COMMENT: PRR , KOKI 01/13/23, boy walker Spouse Maia (6) : QUALIFIERS: Weeks of gestation: 38 weeks Qualified Code(s): Z3A.38 - 38 weeks gestation of COMMENT: GBS neg, nl NIPT & reviewed Carrier testing, nl anatomy Charges/Coding Procedures Urinary/Genital 52xxx-59xxx: No Charge Multi Select Codes Urinary/Genital Urinary/Genital CPT Codes: No Charge 01/11/23 0712 <Electronically signed by Lizzy Mercado CNM> Cosigner Signature (if applicable): CC: ~ Signed [facility] Work Phone: 1(356) 112-284706-18-[address] Bhatia [facility] January 10, 2023 7:34am Note Date/Time January 10, 2023 7:34 am [facility] Medical Records Department [address] [place] [address] Progress Note - OBGYN 01/10/23 0732 MR#: [id number] Acct: [id number] Name: TK COTTER Rep #:[id number] : 2000 22 From: Awilda Felix DO PCP: Care Physician,No Primary Status :ADM IN Location: [place] [address]-1 Subjective Subjective Patient is laying in bed comfortably without complaints. She states that she slept on an off during the night. Lochia is mild and pain is minimal. Objective Data Objective Data Vital Signs: Vital Signs Temp Pulse Resp BP Pulse Ox O2 Del Method 97.4 F L 73 16 108/55 L 100 Room Air 01/10/23 03:58 01/10/23 03:58 01/10/23 03:58 01/10/23 03:58 01/10/23 03:58 01/10/23 03:58 Oxygen Delivery Method Room Air Weight: 149 lb Body Mass Index (BMI) 28.1 Intake & Output: Intake and Output for Last 24 Hours 01/08/23 01/09/23 01/10/23 23:59 23:59 23:59 Intake Total 3425.41 / 3425.41 Output Total 1350 / 1350 200 / 200 Balance 2075.41 / 2075.41 -200 / -200 Lab / Micro Data Result Diagrams: 01/10/23 04:42 Labs: Laboratory Results - last 24 hr 01/10/23 04:42: WBC 12.0 H, RBC 3.00 L, Hgb 8.0 L, Hct 25.8 L, MCV 86.0, MCH 26.7 L, MCHC 31.0 L, RDW Std Deviation 56.9 H, RDW Coeff of [place]ár[place] 18.4 H, Plt Count 209, MPV 9.5 ROS Constitutional Constitutional: Reports systems reviewed and no addt'l complaints, except as documented Cardiovascular Cardiovascular: Denies chest pain, dizziness, dyspnea or irregular heart rhythm Respiratory/Chest Respiratory/Chest: Denies cough, pain on inspiration or shortness of breath at rest Gastrointestinal Gastrointestinal: Denies abdominal pain, nausea or vomiting Genitourinary Genitourinary: Denies burning urination Musculoskeletal Musculoskeletal: Denies muscle cramps, muscle spasms or muscle weakness Neurologic Neurologic: Denies confusion, dizziness, headache(s) or lack of coordination Psychiatric Psychiatric: Denies anxiety, behavioral changes or depression Physical Exam HEENT normocephalic Resp normal respiratory effort and normal air movement GI soft to palpation, non-tender and non-distended Rectal Exam: other Other Details: Incision is clean, dry, and intact no CVA tenderness Extremity normal to inspection General Extremity: edema bilateral (trace ) Assessment & Plan (1) Status post section: PLAN: s/p LTCS PPD # 1 1. routine post care 2. breast feeding- support given 3. rh positive 4. rubella immune 5. plan for dc to home today 01/10/23 0734 <Electronically signed by Awilda Felix DO> Cosigner Signature (if applicable): CC: ~ Signed [facility] Work Phone: 1(258) 286-814206-17-[address] Bhatia [facility] January 09, 2023 6:58am Note Date/Time January 09, 2023 6:57 am [facility] Medical Records Department [address] [place] [address] Instructions for Home/Discharge Instructions 01/09/23 0657 MR#: [id number] Acct: [id number] Name: CYNDEETK EASTON Rep #:[id number] : 2000 22 From: Awilda Felix DO PCP: Care Physician,No Primary Status :ADM IN Discharge Instructions Diet Discharge Diet: No restrictions Activity Discharge Activity: May Not Drive (for 2 weeks or while taking narcotic pain medications.), May Shower and May Take a Tub Bath (in 7 days.) May resume sexual activity in: 4-6 weeks Weight Bearing Status: Full weight bearing Lifting Restrictions: 20 pounds Dressing / Incision Call your doctor if your incision/area has: Continuous Slow Oozing, Sudden Increased Bleeding, Increased Pain/ Swelling, Increased Redness and Foul Smelling Discharge Call your doctor if you observe: Fever of 101 or Higher and Using more than 1 pad per hour Suture Line Care: Avoid Pulling/Pushing and Avoid Pinching/Bending Cleanse incision/area with: Soap & Water and Keep Dressing Clean & Dry Follow Up Care Please Follow Up With: Awilda Felix DO When: Call [phone] to make an appointment for an incision check in 1-2 weeks. Test Results: Test results from this visit will be discussed in further detail at your follow- up appointment, if applicable. Discharge Plan Admission Admit Date/Time: 01/08/23 19:55 Primary Reason for Your Visit: Attending Provider: Awilda Felxi Primary Care Provider: Care PhysicianMoni Primary Discharge Orders/Prescriptions Prescriptions: New ibuprofen 800 mg tablet 800 mg PO Q8H PRN (Reason: pain) Qty: 30 0RF No Action PNV Tabs 20-1 20 mg iron- 1 mg tablet 1 tab PO DAILY miscellaneous medical supply Misc 2 ea miscellaneous ONCE Qty: 2 0RF Rx Instructions: compression stockings 20mm hg strength. hydrocortisone 2.5 % ointment 1 applic topical BID Slow Fe 142 mg (45 mg iron) tablet extended release 142 mg PO DAILY Referrals / Follow Up: Care Physician,Moni Primary [Primary Care Provider] - Disposition Disposition (needs filled in before D/C Order can be placed): Home, Self Care 01/09/23 0658<Electronically signed by Awilda Felix DO>Awilda Felix DO CC: No Primary Care Physician ~ Signed [facility] Work Phone: [phone]) 747-271706-17-[address] Bhatia [facility] January 09, 2023 6:54am Note Date/Time January 09, 2023 6:54 am [facility] Medical Records Department [address] [place] [address] Progress Note - OBGYN 01/09/23 0651 MR#: [id number] Acct: [id number] Name: TK COTTER Rep #:[id number] : 2000 22 From: Awilda Felix DO PCP: Care Physician,No Primary Status :ADM IN Location: [facility]-0 Subjective Subjective pt was pushing for 3 hrs when nurses called for evaluation. current tracing: FHT: Moderate variability reactive no decelerations category I tracing [place]: q1-2 min Contractions OP position, cx compltely dilated. The patient consents to tryin some different positions then a vacuum attempt after another hour of pushing a vacuum attempt was decided The bladder was emptied and EFW is thought to be less than 4000 grams but not under 3000 grams The vacuum was applied to the head inferior to the superior sutures. The device was pumped to the green zone. 4 pulls were attempted with 2 pop offs with no decent of the head. The decision was made to proceed with a primary section Objective Data Objective Data Vital Signs: Vital Signs Temp Pulse Resp BP Pulse Ox O2 Del Method 98.1 F 127 H 16 110/58 L 98 Room Air 01/09/23 06:26 01/09/23 06:27 01/09/23 06:26 01/09/23 06:27 01/09/23 06:26 01/09/23 06:26 Oxygen Delivery Method Room Air Weight: 149 lb Body Mass Index (BMI) 28.1 Intake & Output: Intake and Output for Last 24 Hours 01/07/23 01/08/23 01/09/23 23:59 23:59 23:59 Intake Total 1000 / 1000 Balance 1000 / 1000 Lab / Micro Data Result Diagrams: 01/08/23 20:05 Labs: Laboratory Results - last 24 hr 01/08/23 19:50: Vag Amniotic Fld Detect POSITIVE H 01/08/23 20:05: WBC 13.7 H, RBC 3.98 L, Hgb 10.7 L, Hct 34.0 L, MCV 85.4, MCH 26.9 L, MCHC 31.5 L, RDW Std Deviation 55.5 H, RDW Coeff of Bárbara 18.2 H, Plt Count 316, MPV 10.3, Immature Gran % (Auto) 0.600, Neut % (Auto) 75.6 H, Lymph %(Auto) 14.2 L, [place] % (Auto) 8.6, Eos % (Auto) 0.6, Baso % (Auto) 0.4, Absolute Neuts (auto) 10.4 H, Absolute Lymphs (auto) 1.94, Nucleated RBC % 0 01/08/23 20:05: Blood Type A POSITIVE, Antibody Screen NEGATIVE 01/08/23 20:05: Syphilis Total Ab Non-reactive Charges/Coding Procedures Urinary/Genital 52xxx-59xxx: Other Procedure See Report (vacuum attempt, failed (modifier needed) ) 01/09/23 0654 <Electronically signed by Awilda Felix DO> Cosigner Signature (if applicable): CC: ~ Signed [facility] Work Phone: 1(402) 104-831406-17-2023 History and physical note Author Dr. 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 01/08/232148 MR#: [id number] Acct: [id number] Name: TK COTTER Rep #:[id number] : 2000 22 From: Awilda Felix DO PCP: Care Physician,No Primary Status :ADM IN Location: [place] [id number] HPI - General General Date of Admission: 01/08/23 HPI Narrative TK COTTER, is a 22 y/o @ 39 weeks 3 days who presents to L&D in active labor and SROM Maternal Data Information KOKI Calculator Estimated Delivery Date Method Current WG Current Estimate 01/13/23 Ultrasound #1 39w 3d Other Estimates 12/07/22 LMP (Certain) 44w 5d PFSH PFSH Medical History no medical history Home Medications vitamins no.163-iron bis-gly 20 mg-folate no.10 1 mg tablet (PNV Tabs 20-1) 1 tab PO DAILY 05/06/22 [History Last Taken 12/26/22 21:00] miscellaneous medical supply 2 ea miscellaneous ONCE #2 ea 10/16/22 [Rx Last Taken Unknown] ferrous sulfate 142 mg (45 mg iron) tablet,extended release (Slow Fe) 142 mg PO DAILY anemia 12/24/22 [History Last Taken 12/26/22 21:00] hydrocortisone 2.5 % topical ointment 1 applic topical BID itching 12/24/22 [History Last Taken Unknown] Allergy/AdvReac Type Severity Reaction Status Date / Time hydrocodone [From Vicodin] Allergy Mild Rash Verified 01/08/23 20:51 Family History Grandfather Cancer Grandmother Breast cancer Surgical History no surgical history Social History adopted: No household members: spouse housing: house current occupational status: employed 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 April going to [place]out of state: Yes out of country: No sexually active: Yes Smoking Status: Never smoker alcohol intake: never substance use type: does not use well-balanced diet: daily or most days caffeine: Yes Type: coffee and tea Number of servings: 1 eating out: rarely or never during the past year weight has: remained stable what type of physical activity do you participate in: none yennifer/taoist: Catholic seatbelt use: always do you feel safe at home: Yes additional social history: [employer] History 1 Elective abortions Hx Para 0 Spontaneous abortions Hx # Term Pregnancies Ectopic pregnancies Hx # Pregnancies Multiple births # of living children Visit Details Expected Delivery Route/Plan Labor Preferences- CB/BF classes: done labor support person: maia labor intervention preferences: [] pain management options preferred: natural. prefers no epidural cut cord/dad catch: [] : [] PP control planned: [] discussed possible routes of delivery and associated risks: [] special requests: [] Plans Covid status: discussed Flu vaccine: discussed Tdap vaccine: discussed Rhogam: na LARC form signed: declined movement and labor precautions reviewed. Problem list reviewed and updated with the most current plan of care details and appropriate orders placed. Relevant counseling for the gestational age provided. Continue routine care and follow up unless otherwise noted in visit notes/problem list details OB Flowsheet Initial Weight: Not Recorded Date -?-?-?-?-?-?-?-?--?-?-?-?- EGA Weight BP Urine Prot -?-?-?-?-?-?-?-?-?-?-?-?- Glucose FHR FuHt Pres Dilation -?-?-?-?-?-?-?-?-?-?-?-?- Effaced St Visit Note 05/27/22 -?-?-?-?-?-?-?-?-?-?-?-?- 7w 0d 108 lb 107/67 -?-?-?-?-?-?-?-?-?-?-?-?- 160 -?-?-?-?-?-?-?-?-?-?-?-?- SM- CRL 9.8 NOT cons with LMP 06/25/22 -?-?-?-?-?-?-?-?-?-?-?-?- 11w 1d 110 lb 96/56 -?-?-?-?-?-?-?-?-?-?-?-?- 163 -?-?-?-?-?-?-?-?-?-?-?-?- JV- no complaint s today. Pt desires genetic testing and carrier testing. sending to lab today. 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 desires afp, order placed. no vb/cramping.has anatomy scheduled 08/17/22 -?-?-?-?-?-?-?-?-?-?-?-?- 18w 5d 116 lb 97/61 Negative -?-?-?-?-?-?-?-?-?-?-?-?- Negative 145 -?-?-?-?-?-?-?-?-?-?-?-?- SM- no vb crampi ng 09/18/22 -?-?-?-?-?-?-?-?-?-?-?-?- 23w 2d 128 lb 4 oz 116/68 Nega tive -?-?-?-?-?-?-?-?-?-?-?-?- Negative 145 23 -?-?-?-?-?-?-?-?-?-?-?-?- SM- no vb lof go od fm no regular ctx 10/16/22 -?--?-?-?-?-?-?-?-?-?-?-?- 27w 2d 134 lb 123/73 Negative -?-?-?-?-?-?-?-?-?-?-?-?- Negative 150 -?-?-?-?-?-?-?-?-?-?-?-?- JV- no complaint s want compression stocking. going on trip so her can go bear hunting in [place]. 11/02/22 -?-?-?-?-?-?-?-?-?-?-?-?- 29w 5d 139 lb 6 oz 109/69 -?-?-?-?-?-?-?-?-?-?-?-?- 145 30 -?-?-?-?-?-?-?-?-?-?-?-?- Sm- no vb lof go od fm no regular ctx 11/20/22 -?-?-?-?-?-?-?-?-?-?-?-?- 32w 2d 142 lb 114/75 Negative -?-?-?-?-?-?-?-?-?-?-?-?- Negative 150 29 Cephalic -?-?-?-?-?-?-?-?-?-?-?-?- JV- measuring a little small today. if still small next visit will order growth scan 12/04/22 -?-?-?-?-?-?-?-?-?-?-?-?- 34w 2d 151 lb 8 oz 127/69 Nega tive -?-?-?-?-?-?-?-?-?-?-?-?- Negative 148 33 Cephalic -?-?-?-?-?-?-?-?-?-?-?-?- LC- no lof/vb/ct x. good fm. repeat CBC ordered today for mild anemia. using iron gummies for supplementation. 12/15/22 -?-?-?-?-?-?-?-?-?-?-?-?- 35w 6d 146 lb 8 oz 103/69 Nega tive -?-?-?-?-?-?-?-?-?-?-?-?- Negative 148 35 Cephalic -?-?-?-?-?-?-?-?-?-?-?-?- Sm- no vb lof go od fm no regular ctx, has pupps rash on lateral thighs- reviewed supportive care 12/22/22 -?-?-?-?-?-?-?-?-?-?-?-?- 36w 6d 152 lb 120/60 Negative -?-?-?-?-?-?-?-?-?-?-?-?- Negative 135 37 Cephalic 4 -?-?-?-?-?-?-?-?-?-?-?-?- 70 -2 KW-+FM. no lof/vb/ctx. no concerns today. GBS done. labor precautions. 01/01/23 -?-?-?-?-?-?--?-?-?-?-?-?- 38w 2d 150 lb 2 oz 125/86 Nega tive -?-?-?-?-?-?-?-?-?-?-?-?- Negative 143 37 Cephalic -?-?-?-?-?-?-?-?-?-?-?-?- JV- pt's PATRICIA is having heart surgery. declines pelvic exam. no lof, vaginal bleeding, or dec fm. 01/08/23 -?-?-?-?-?-?-?-?-?-?-?-?- 39w 2d 149 lb 126/70 Negative -?-?-?-?-?-?-?-?--?-?-?-?- Negative 140 39 Cephalic 4 .5 -?-?-?-?-?-?-?-?-?-?-?-?- 70 -1 KW-+ FM, n o lof/vb/ctx. no complaints ROS Constitutional Constitutional: Denies change in weight, fatigue, fever(s), headache(s), poor appetite or weakness Eyes Eyes: Denies blurry vision, change in vision, seeing flashes or spots in vision ENT HEENT: Denies dizziness, headache(s), loss taste/smell or sore throat Cardiovascular Cardiovascular: Denies chest pain, dizziness, dyspnea, irregular heart rhythm, leg edema, palpitations, rapid heart rate or vomiting Respiratory/Chest Respiratory/Chest: Denies chest tightness, cough, dyspnea or breast pain Gastrointestinal Gastrointestinal: Denies abdominal pain, anorexia, constipation, cramping, diarrhea, hemorrhoids, vomiting or weight changes Genitourinary Genitourinary: Denies dysuria, flank pain, genital lesions, genital pain, urinary frequency or urinary urgency Musculoskeletal Musculoskeletal: Denies back pain, difficulty walking, joint pain, limited range of motion, muscle cramps or numbness Integumentary Integumentary: Denies lesions or unusual bruising Neurologic Neurologic: Denies abnormal movements, abnormal speech, dizziness, numbness, seizure-like activity or syncope Psychiatric Psychiatric: Denies anxiety, behavioral changes, change in appetite, change in libido, cognitive impairment, confusion, depression, difficulty concentrating, hallucinations or suicidal thoughts Endocrine Endocrinology: Denies excessive sweating, polydipsia or polyuria Hematologic/Lymphatic Hematologic/Lymphatic: Denies easy bleeding, easy bruising or lymphadenopathy Allergic/Immunologic Allergic/Immunologic: Denies itchy eyes, lip swelling, seasonal rhinorrhea, rhinitis, throat swelling, tongue swelling, eczemia, wheezing or asthma Vital Signs Vital Signs Vital Signs: 01/08/23 21:53 01/08/23 21:53 01/08/23 21:53 Temperature Temperature Source Tympanic Pulse Rate 76 Respiratory Rate Blood Pressure 126/77 H Blood Pressure Mean BP Systolic 126 BP Diastolic 77 Pulse Ox Oxygen Delivery Method 01/08/23 21:53 01/08/23 23:47 01/08/23 23:47 Temperature 99.2 F H Temperature Source Pulse Rate 65 Respiratory Rate Blood Pressure Blood Pressure Mean BP Systolic BP Diastolic Pulse Ox 89 Oxygen Delivery Method 01/08/23 23:47 01/08/23 23:47 01/08/23 23:52 Temperature Temperature Source Pulse Rate 85 74 Respiratory Rate Blood Pressure Blood Pressure Mean BP Systolic BP Diastolic Pulse Ox 100 Oxygen Delivery Method 01/08/23 23:52 01/08/23 23:53 01/08/23 23:53 Temperature Temperature Source Pulse Rate 71 Respiratory Rate Blood Pressure 128/72 H Blood Pressure Mean BP Systolic 128 BP Diastolic 72 Pulse Ox 99 Oxygen Delivery Method 01/08/23 23:57 01/08/23 23:57 01/08/23 23:58 Temperature Temperature Source Pulse Rate 82 Respiratory Rate Blood Pressure 130/63 H Blood Pressure Mean BP Systolic 130 BP Diastolic 63 Pulse Ox 98 Oxygen Delivery Method 01/08/23 23:58 01/09/23 00:03 01/09/23 00:03 Temperature Temperature Source Pulse Rate 76 81 Respiratory Rate Blood Pressure 122/65 H Blood Pressure Mean BP Systolic 122 BP Diastolic 65 Pulse Ox Oxygen Delivery Method 01/09/23 00:02 01/09/23 00:05 01/09/23 00:05 Temperature Temperature Source Pulse Rate 80 Respiratory Rate Blood Pressure 105/51 L Blood Pressure Mean BP Systolic 105 BP Diastolic 51 Pulse Ox 100 Oxygen Delivery Method 01/09/23 00:07 01/09/23 00:07 01/09/23 00:09 Temperature Temperature Source Pulse Rate 81 Respiratory Rate Blood Pressure 103/50 L Blood Pressure Mean BP Systolic 103 BP Diastolic 50 Pulse Ox 98 Oxygen Delivery Method 01/09/23 00:09 01/09/23 00:13 01/09/23 00:12 Temperature Temperature Source Pulse Rate 83 96 Respiratory Rate Blood Pressure Blood Pressure Mean BP Systolic BP Diastolic Pulse Ox 97 Oxygen Delivery Method 01/09/23 00:13 01/09/23 00:17 01/09/23 00:17 Temperature Temperature Source Pulse Rate 105 H Respiratory Rate Blood Pressure 107/58 L Blood Pressure Mean BP Systolic 107 BP Diastolic 58 Pulse Ox 97 Oxygen Delivery Method 01/09/23 00:19 01/09/23 00:19 01/09/23 00:24 Temperature Temperature Source Pulse Rate 93 Respiratory Rate Blood Pressure 112/55 L 119/65 Blood Pressure Mean BP Systolic 112 119 BP Diastolic 55 65 Pulse Ox Oxygen Delivery Method 01/09/23 00:24 01/09/23 00:28 01/09/23 00:28 Temperature Temperature Source Pulse Rate 101 H 104 H Respiratory Rate Blood Pressure 116/66 Blood Pressure Mean BP Systolic 116 BP Diastolic 66 Pulse Ox Oxygen Delivery Method 01/09/23 00:32 01/09/23 00:32 01/09/23 00:34 Temperature Temperature Source Pulse Rate 99 98 Respiratory Rate Blood Pressure Blood Pressure Mean BP Systolic BP Diastolic Pulse Ox 97 Oxygen Delivery Method 01/09/23 00:34 01/09/23 00:38 01/09/23 00:38 Temperature Temperature Source Pulse Rate 85 Respiratory Rate Blood Pressure 107/59 L Blood Pressure Mean BP Systolic 107 BP Diastolic 59 Pulse Ox 93 Oxygen Delivery Method 01/09/23 00:37 01/09/23 03:19 01/09/23 03:20 Temperature Temperature Source Tympanic Pulse Rate Respiratory Rate Blood Pressure 121/63 H Blood Pressure Mean BP Systolic 121 BP Diastolic 63 Pulse Ox 97 Oxygen Delivery Method 01/09/23 03:20 01/09/23 03:19 01/09/23 04:33 Temperature 98.9 F Temperature Source Pulse Rate 88 Respiratory Rate Blood Pressure 117/65 Blood Pressure Mean BP Systolic 117 BP Diastolic 65 Pulse Ox Oxygen Delivery Method 01/09/23 04:33 01/09/23 04:33 01/09/23 04:33 Temperature 99.1 F Temperature Source Tympanic Pulse Rate 104 H Respiratory Rate Blood Pressure Blood Pressure Mean BP Systolic BP Diastolic Pulse Ox Oxygen Delivery Method 01/09/23 06:27 01/09/23 06:27 01/09/23 06:26 Temperature 98.1 F Temperature Source Temporal Pulse Rate 127 H 130 H Respiratory Rate 16 Blood Pressure 110/58 L 110/58 L Blood Pressure Mean 75 BP Systolic 110 BP Diastolic 58 Pulse Ox 98 Oxygen Delivery Method Room Air Weight Weight: 149 lb Body Mass Index (BMI) 28.1 Physical Exam Const alert, oriented x3, no apparent distress and healthy appearing General Appearance: cooperative; Negative for anxious HEENT normocephalic Face and Sinus: normal facial exam Eyes EOMs intact bilaterally and no scleral icterus General Eye: normal appearance of both eyes Neck full ROM and supple Lymph Lymphatic: no lymphadenopathy noted Chest Chest: abnormal inspection of the chest Resp normal respiratory effort Effort and Inspection: able to speak in complete sentences Cardio regular rate GI soft to palpation and non-tender Inspection: gravid Palpation: soft; Negative for tender external exam normal Amniotic Fluid: ROM+plus Back/Spine no CVA tenderness Extremity normal to inspection, full ROM and no clubbing, cyanosis or edema General Extremity: Negative for calf tenderness or edema Skin Lesions: no lesions Rashes: no rashes Psych mental status grossly normal Labs Labs Labs: Blood Type A POSITIVE Antibody Screen NEGATIVE Hct 34.0 % (37-47) L Hgb 10.7 g/dL (12.0-15.0) L Syphilis Total Ab Non-reactive Rubella IgG Antibody Reactive (Nonreactive) Hep Bs Antigen Non-Reactive (Nonreactive) Chlamydia DNA (JUANY) Negative (Negative) Neisseria gonorrhoeae DNA (JUANY) Negative (Negative) HIV 1&2 Antibody Non-Reactive (Nonreactive) Glucose 1 Hr 50 gm 142 mg/dL (70-140) H Miscellaneous Test Assessment & Plan (1) Pruritic urticarial papules and plaques of (puppp): COMMENT: supportive care (2) Anemia affecting : COMMENT: cont anemia on PO iron. iron studies ordered 12/07. 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 (5) UTI (urinary tract infection) during : COMMENT: 07/22 rpt culture obtained (6) Supervision of normal first : COMMENT: PRR , KOKI 01/13/23, boy walker Spouse Maia (7) : QUALIFIERS: Weeks of gestation: 38 weeks Qualified Code(s): Z3A.38 - 38 weeks gestation of COMMENT: GBS neg, nl NIPT & reviewed Carrier testing, nl anatomy PLAN: Plan Patient presents IAL, plan expectant management for , pitocin PRN Pain management: plans epidural. GBS negative . Management of any complications: none I have reviewed the [facility] and made any clinically relevant updates. 01/09/23 0651 <Electronically signed by Awilda Felix DO> Cosigner Signature (if applicable): CC: Dr. Awilda Felix DO; No Primary Care Physician~ Signed [facility] Work Phone: [phone] 420-494106-17-2023 [facility] + Plan note No data available for this section [facility] Evaluation note* Diagnosis Onset Date Resolution Status Abnormal uterine bleeding ac [place] Pelvic floor tension acute Encounter for preconception consultation noneactive [facility] Work Phone: evaluation note* Diagnosis Onset Date Resolution Status Abnormal uterine bleeding re solved Pelvic floor tension resolve d Encounter for preconception consultation noneactive acute Supervision of normal first acute acute Supervision of normal first acute UTI (urinary tract infection) during acute [facility] Work Phone: Evaluation note* Diagnosis Onset Date Resolution Status acute Supervision of normal first acute acute Supervision of normal first acute UTI (urinary tract infection) during acute 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 acute acute Supervision of normal first acute UTI (urinary tract infection) during acute [facility] Work Phone: evaluation note* Diagnosis Onset Date Resolution Status acute Supervision of normal first acute UTI (urinary tract infection) during acute 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 acute acute Supervision of normal first acute UTI (urinary tract infection) during acute 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 acute acute Supervision of normal first acute UTI (urinary tract infection) during acute 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 acute acute Supervision of normal first acute UTI (urinary tract infection) during acute 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 acute acute Supervision of normal first acute UTI (urinary tract infection) during acute [facility] Work Phone: Evaluation note* Diagnosis Onset Date Resolution Status 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 acute acute Supervision of normal first acute UTI (urinary tract infection) during acute 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 acute acute Supervision of normal first acute UTI (urinary tract infection) during acute 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 acute acute Supervision of normal first acute UTI (urinary tract infection) during acute 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 acute acute Supervision of normal first acute UTI (urinary tract infection) during acute [facility] Work Phone: Evaluation note* Diagnosis Onset Date Resolution Status 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 acute acute Supervision of normal first acute UTI (urinary tract infection) during acute 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 acute acute Supervision of normal first acute UTI (urinary tract infection) during acute Abnormal glucose affecting acute 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 acute acute Supervision of normal first acute UTI (urinary tract infection) during acute Abnormal glucose affecting acute 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 acute acute Supervision of normal first acute UTI (urinary tract infection) during acute Abnormal glucose affecting acute 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 acute acute Supervision of normal first acute UTI (urinary tract infection) during acute Abnormal glucose affecting acute Anemia affecting a cute 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 acute acute Pruritic urticarial papules and plaques of (puppp) acute Supervision of normal first acute UTI (urinary tract infection) during acute Abnormal glucose affecting acute Anemia affecting a cute 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 acute acute Pruritic urticarial papules and plaques of (puppp) acute Supervision of normal first acute UTI (urinary tract infection) during acute [facility] Work Phone: Evaluation note* Diagnosis Onset Date Resolution Status 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 acute acute Supervision of normal first acute UTI (urinary tract infection) during acute 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 acute acute Supervision of normal first acute UTI (urinary tract infection) during acute Abnormal glucose affecting acute 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 acute acute Supervision of normal first acute UTI (urinary tract infection) during acute Abnormal glucose affecting acute 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 acute acute Supervision of normal first acute UTI (urinary tract infection) during acute Abnormal glucose affecting acute 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 acute acute Supervision of normal first acute UTI (urinary tract infection) during acute Abnormal glucose affecting acute Anemia affecting a cute 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 acute acute Pruritic urticarial papules and plaques of (puppp) acute Supervision of normal first acute UTI (urinary tract infection) during acute Abnormal glucose affecting acute Anemia affecting a cute 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 acute acute Pruritic urticarial papules and plaques of (puppp) acute Supervision of normal first acute UTI (urinary tract infection) during acute Abnormal glucose affecting acute Anemia affecting a cute 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 acute acute Pruritic urticarial papules and plaques of (puppp) acute Supervision of normal first acute UTI (urinary tract infection) during acute Abnormal glucose affecting acute Anemia affecting a cute Arrested active labor, delmaxwell estrada, current hospitalization acute 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 acute acute Pruritic urticarial papules and plaques of (puppp) acute Status post section acute Supervision of normal first acute UTI (urinary tract infection) during acute [facility] Work Phone: Evaluation note* Diagnosis Onset Date Resolution Status 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 acute acute Supervision of normal first acute UTI (urinary tract infection) during acute Abnormal glucose affecting acute 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 acute acute Supervision of normal first acute UTI (urinary tract infection) during acute Abnormal glucose affecting acute 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 acute acute Supervision of normal first acute UTI (urinary tract infection) during acute Abnormal glucose affecting acute 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 acute acute Supervision of normal first acute UTI (urinary tract infection) during acute Abnormal glucose affecting acute Anemia affecting a cute 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 acute acute Pruritic urticarial papules and plaques of (puppp) acute Supervision of normal first acute UTI (urinary tract infection) during acute Abnormal glucose affecting acute Anemia affecting a cute 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 acute acute Pruritic urticarial papules and plaques of (puppp) acute Supervision of normal first acute UTI (urinary tract infection) during acute Abnormal glucose affecting acute Anemia affecting a cute 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 acute acute Pruritic urticarial papules and plaques of (puppp) acute Supervision of normal first acute UTI (urinary tract infection) during acute Abnormal glucose affecting acute Anemia affecting a cute Arrested active labor, robb estrada, current hospitalization acute 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 acute acute Pruritic urticarial papules and plaques of (puppp) acute Status post section acute Supervision of normal first acute UTI (urinary tract infection) during acute Care and examination of lactating mother noneactive Status post section acute [facility] Work Phone: Evaluation note* Diagnosis Onset Date Resolution Status Admit Date acute January 15 11:18am Vaginal bleeding during acute January 15, 2025 11:18am [facility] Work Phone: Hospital Discharge instructions Additional Instructions Work from [facility] Work Phone: Progress note Author Lizzy Mercado [facility] Note Date/Time March 23, 2025 9: 59am [facility] [address] [place] [address], [address] [place] [address] OFFICE VISIT Date of Service: 03/23/25 MR#: [id number] Acct: [id number] Name: TK COTTER Rep #: [id number] : 2000 Provider: JOY Mercado Age/Sex: 24/F Location: [facility] Status: Signed Intake Vital Signs 01/29/25 10:44 02/28/25 10:07 03/23/25 09:41 03/23/25 09:42 Height 5 ft 1 in 5 ft 1 in 5 ft 1 in 5 ft 1 in Weight: 114 lb 5 oz BMI 21.6 BP 112/71 Intake Visit Reasons: 16 wk ob Research Assistant Member Required: No Is patient in pain?: No Allergies hydrocodone (From Vicodin) Allergy (Mild, Verified 03/23/25 09:41) Rash Medications ?Medication ?Instructions ?Recorded ?Confirmed ?Type vitamins no.163-iron 1 tab PO DAILY 05/06/22 03/23/25 History bis-gly 20 mg-folate no.10 1 mg tablet (PNV Tabs 20-1) Last Menstrual Period: 11/24/24 Zika: Zika virus screening: Negative : No PFSH PFSH Surgical History Status post section Family History Grandfather Cancer Grandmother Breast cancer Grandfather Cancer esophageal cancer Social History adopted: No household members: spouse housing: house number of children: 1 current occupational status: employed 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 [employer] current occupational exposures/hazards: No pets and animals: Yes pets and animals: dog(s) history of recent travel: No sexually active: Yes Smoking Status: Never smoker alcohol intake: never details: not while substance use type: does not use well-balanced diet: daily or most days caffeine: Yes Type: coffee and tea Number of servings: 1 eating out: rarely or never during the past year weight has: remained stable what type of physical activity do you participate in: none yennifer/taoist: Catholic seatbelt use: always do you feel safe at home: Yes additional social history: [employer] History 2 Elective abortions Hx Para 1 Spontaneous abortions Hx # Term Pregnancies Ectopic pregnancies Hx # Pregnancies Multiple births # of living children 1 Past Pregnancies Del. Date Name GA/Weeks Outcome Route Bth Weight Infant Gen Labor Lgth Anesthesia Del Locatn Provider FOB 01/09/23 Walker 39 live - full term 8lbs 2oz Male epidural [facility] Dr. Felix Delivery Date: 01/09/23 Last Updated by: Vee Santiago PUPPS, anemia, failed vacuum, arrest of decent HPI 16 wk ob Details: TK COTTER is a 24 year old who presents for routine OB visit. OB Visit KOKI Calculator Estimated Delivery Date Method Current WG Current Estimate 09/08/25 Ultrasound #1 15w 6d Other Estimates 08/31/25 LMP (Certain) 17w 0d 09/05/25 Ultrasound #2 16w 2d Expected Delivery Route/Plan prior c-s patient counseled regarding risks/benefits of trial of labor versus repeat . ACOG/uptodate education given to patient. 60 % likelihood of success per calculator TOLAC consent form signed: [] Specific Issue/Plans Covid status: [] Flu vaccine: [] Tdap vaccine: [] Rhogam: [] LARC form signed: [] Problem list reviewed and updated with the most current plan of care details and appropriate orders placed. Relevant counseling for the gestational age provided. Continue routine care and follow up unless otherwise noted in visit notes/problem list details Initial Weight: 106 lb Date -?-?-?-?-?-?-?-?-?-?-?-?- EGA Weight BP Urine Prot -?-?-?-?-?-?-?-?-?-?-?-?- Glucose FHR FuHt Pres Dilation -?-?-?-?-?-?-?-?-?-?-?-?- Effaced St Visit Note 01/29/25 -?-?-?-?-?-?-?-?-?-?-?-?- 8w 2d 106 lb 8 oz (+8 oz) 112/75 -?-?-?-?-?-?-?-?-?-?-?-?- 180 -?-?-?-?-?-?-?-?-?-?-?-?- JV- JV- CRL measuring 8 weeks 5 days. unsure if wants to , desires NIPT. 02/28/25 -?-?-?-?-?-?-?-?-?-?-?-?- 12w 4d 110 lb 9 oz (+4 lb 9 oz) 101/66 Negative -?-?-?-?-?-?-?-?-?-?-?-?- Negative 160 -?-?-?-?-?-?-?-?-?-?-?-?- MH-Has light pin k dc postcoital. Reassured Br US confirm FHT 03/23/25 -?-?-?-?-?-?-?-?-?-?-?-?- 15w 6d 114 lb 5 oz (+8 lb 5 oz) 112/71 Negative -?-?-?-?-?-?-?-?-?-?-?-?- Negative 145 -?-?-?-?-?-?-?-?-?-?-?-?- KW- work in for JV. no vb/cramping. possible flutters US scheduled. AFP declined. ACOG First Trimester First Trimester: Desire for , Alcohol, Tobacco Cessation, Illicit/Recreational Drug/Substance Use, Intimate Partner Violence, Barriers to care, Unstable Housing, Communication Barriers, Environmental/Work Hazards, Anticipated Course of Care, Toxoplasmosis Precations, Use of Any medications, Sexual activity, Exercise, Dental Care, Sauna/Hot tub use, Seat Belt use, Childbirth classes/Hospital facilities, Travel, Indications for Ultrasound and Screening for Aneuploidy; Discussed Second Trimester Second Trimester: Signs and Symptoms of Labor, Selecting a care provider, Reproductive Life Planning & Contreception, Care Planning, Depression/Anxiety and Intimate Partner Violence; Discussed Tobacco Cessation Third Trimester Third Trimester: Pain Management Plans, Labor support person(s), Immediate Larc, Movement Monitoring, Signs and Symptoms of Preeclampsia and Henderson Education ROS Const Reports system reviewed and no additional complaints, except as documented Eyes Reports system reviewed and no additional complaints, except as documented ENT Reports system reviewed and no additional complaints, except as documented Card Reports system reviewed and no additional complaints, except as documented Resp Reports system reviewed and no additional complaints, except as documented GI Reports system reviewed and no additional complaints, except as documented, Denies nausea and Denies vomiting Reports system reviewed and no additional complaints, except as documented Musc Reports system reviewed and no additional complaints, except as documented Skin/Breast Reports system reviewed and no additional complaints, except as documented Neuro Yes system reviewed and no additional complaints, except as documented Psych Reports system reviewed and no additional complaints, except as documented Endo Reports system reviewed and no additional complaints, except as documented Philip/Lymph Reports system reviewed and no additional complaints, except as documented Aller/Immun Reports system reviewed and no additional complaints, except as documented Exam Const General: cooperative, healthy appearing and no acute distress Orientation: alert, awake and oriented x3 Neck Neck: normal visual inspection and full ROM Resp Effort & Inspection: normal respiratory effort, able to speak in complete sentences and symmetric chest movement GI Inspection: normal to inspection Palpation: soft and other Other: gravid Skin General: no rashes or lesions noted Neuro General: patient alert, patient awake and patient oriented x3 Cognition: normal cognition Speech: speech normal Gait: normal gait Motor: muscle tone normal throughout Extrem General: normal to inspection and full ROM Psych Appearance: grossly normal Mental Status: mental status grossly normal Mood: congruent mood Affect: normal affect Speech and Movement: speech and movement normal Attitude: cooperative Thought Process: normal Thought Content: normal Judgment: judgment good Results POC Urinalysis 2 Dip (Clinic) Office Urine Glucose Negative Last Edit by Vee Santiago on 03/23/25 09: 52 Office Urine Protein Negative Last Edit by Vee Santiago on 03/23/25 09: 52 Coding Level of Care Code OB Routine Diagnoses 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 (2) History of : Status: Acute Comment: x1, currently contemplating (3) Supervision of high-risk : Status: Acute Qualifiers: Trimester: first trimester Qualified Code(s): O09.91 - Supervision of high risk , unspecified, first trimester Comment: PRR, KOKI 08/31/25 PC Walker Maia (4) Vaginal bleeding during : Status: Acute (5) : Status: Acute Qualifiers: Weeks of gestation: 15 weeks Qualified Code(s): Z3A.15 - 15 weeks gestation of Comment: NIPT low risk, male(PT DOES NOT KNOW GENDER YET), carrier- declines (previously did carrier) Orders: Orders POC Urinalysis 2 Dip (Clinic) Today Plan Details Additional Comments: ACOG trimester education reviewed and updated. see problem list details for updated plan management information and see below for orders placed at this visit. GA appropriate handout given. 03/23/25 7549 <Electronically signed by Lizzy michaud CNM> Date _ Lizzy Mercado CNM Cosigner Signature: Date (if applicable) CC: ~ [facility] Work Phone: Progress note Author Lizzy Mercado [facility] Services Note Date/Time April 30, 2025 11 :14am [facility] [address], [address] [place] [address] OFFICE VISIT Date of Service: 04/30/25 MR#: [id number] Acct: [id number] Name: TK COTTER Rep #: [id number] : 2000 Provider: JOY Mercado Age/Sex: 25/F Location: [facility] Status: Signed Intake Vital Signs 01/29/25 10:44 03/23/25 09:42 04/30/25 11:02 Height 5 ft 1 in 5 ft 1 in 5 ft 1 in Weight: 122 lb 3 oz BMI 23.1 BP 105/71 Intake Visit Reasons: 21 wk ob *5 wks per patient Chief Complaint: 21wk OB Research Assistant Member Required: No Is patient in pain?: No Allergies hydrocodone (From Vicodin) Allergy (Mild, Verified 04/30/25 11:00) Rash Medications ?Medication ?Instructions ?Recorded ?Confirmed ?Type vitamins no.163-iron 1 tab PO DAILY 05/06/22 04/30/25 History bis-gly 20 mg-folate no.10 1 mg tablet (PNV Tabs 20-1) Last Menstrual Period: 11/24/24 : No PFSH PFSH Surgical History Status post section Family History Grandfather Cancer Grandmother Breast cancer Grandfather Cancer esophageal cancer Social History adopted: No household members: spouse housing: house number of children: 1 current occupational status: employed 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 [employer] current occupational exposures/hazards: No pets and animals: Yes pets and animals: dog(s) history of recent travel: No sexually active: Yes Smoking Status: Never smoker alcohol intake: never details: not while substance use type: does not use well-balanced diet: daily or most days caffeine: Yes Type: coffee and tea Number of servings: 1 eating out: rarely or never during the past year weight has: remained stable what type of physical activity do you participate in: none yennifer/taoist: Catholic seatbelt use: always do you feel safe at home: Yes additional social history: [employer] History 2 Elective abortions Hx Para 1 Spontaneous abortions Hx # Term Pregnancies Ectopic pregnancies Hx # Pregnancies Multiple births # of living children 1 Past Pregnancies Del. Date Name GA/Weeks Outcome Route Bth Weight Gen Labor Lgth Anesthesia Del Locatn Provider FOB 01/09/23 Walker 39 live - full term 8lbs 2oz Male epidural [facility] Dr. Felix Delivery Date: 01/09/23 Last Updated by: Vee Santiago PUPPS, anemia, failed vacuum, arrest of decent HPI 21 wk ob *5 wks per patient Details: TK COTTER is a 25 year old who presents for routine OB visit. OB Visit KOKI Calculator Estimated Delivery Date Method Current WG Current Estimate 09/08/25 Ultrasound #1 21w 2d Other Estimates 08/31/25 LMP (Certain) 22w 3d 09/05/25 Ultrasound #2 21w 5d Expected Delivery Route/Plan prior c-s patient counseled regarding risks/benefits of trial of labor versus repeat . ACOG/uptodate education given to patient. 60 % likelihood of success per calculator TOLAC consent form signed: [] Specific Issue/Plans Covid status: [] Flu vaccine: [] Tdap vaccine: [] Rhogam: [] LARC form signed: [] Problem list reviewed and updated with the most current plan of care details and appropriate orders placed. Relevant counseling for the gestational age provided. Continue routine care and follow up unless otherwise noted in visit notes/problem list details Initial Weight: 106 lb Date -?-?-?-?-?-?-?-?-?-?-?-?- EGA Weight BP Urine Prot -?-?-?-?-?-?-?-?-?-?-?-?- Glucose FHR FuHt Pres Dilation -?-?-?-?-?-?-?-?-?-?-?-?- Effaced St Visit Note 01/29/25 -?-?-?-?-?-?-?-?-?-?-?-?- 8w 2d 106 lb 8 oz (+8 oz) 112/75 -?-?-?-?-?-?-?-?-?-?-?-?- 180 -?-?-?-?-?-?-?-?-?-?-?-?- JV- JV- CRL measuring 8 weeks 5 days. unsure if wants to , desires NIPT. 02/28/25 -?-?-?-?-?-?-?-?-?-?-?-?- 12w 4d 110 lb 9 oz (+4 lb 9 oz) 101/66 Negative -?-?-?-?-?-?-?-?-?-?-?-?- Negative 160 -?-?-?-?-?-?-?-?-?-?-?-?- -Has light pin k dc postcoital. Reassured Br US confirm FHT 03/23/25 -?-?-?-?-?-?-?-?-?-?-?-?- 15w 6d 114 lb 5 oz (+8 lb 5 oz) 112/71 Negative -?-?--?-?-?-?-?-?-?-?-?-?- Negative 145 -?-?-?-?-?-?-?-?-?-?-?-?- KW- work in for JV. no vb/cramping. possible flutters US scheduled. AFP declined. 04/30/25 -?-?-?-?-?-?-?-?-?-?-?-?- 21w 2d 122 lb 3 oz (+16 lb 3 oz) 105/71 Negative -?-?-?-?-?-?-?-?-?-?-?-?- Negative 145 -?-?-?-?--?-?-?-?-?-?-?-?- kw-no vb/lof/ctx / good fm. reviewed US. desires fresh test. ACOG First Trimester First Trimester: Desire for , Alcohol, Tobacco Cessation, Illicit/Recreational Drug/Substance Use, Intimate Partner Violence, Barriers to care, Unstable Housing, Communication Barriers, Environmental/Work Hazards, Anticipated Course of Care, Toxoplasmosis Precations, Use of Any medications, Sexual activity, Exercise, Dental Care, Sauna/Hot tub use, Seat Belt use, Childbirth classes/Hospital facilities, Travel, Indications for Ultrasound and Screening for Aneuploidy; Discussed Second Trimester Second Trimester: Signs and Symptoms of Labor, Selecting a care provider, Reproductive Life Planning & Contreception, Care Planning, Depression/Anxiety and Intimate Partner Violence; Discussed Tobacco Cessation Third Trimester Third Trimester: Pain Management Plans, Labor support person(s), Immediate Larc, Movement Monitoring, Signs and Symptoms of Preeclampsia and Education ROS Const Reports system reviewed and no additional complaints, except as documented Eyes Reports system reviewed and no additional complaints, except as documented ENT Reports system reviewed and no additional complaints, except as documented Card Reports system reviewed and no additional complaints, except as documented Resp Reports system reviewed and no additional complaints, except as documented GI Reports system reviewed and no additional complaints, except as documented, Denies nausea and Denies vomiting Reports system reviewed and no additional complaints, except as documented Musc Reports system reviewed and no additional complaints, except as documented Skin/Breast Reports system reviewed and no additional complaints, except as documented Neuro Yes system reviewed and no additional complaints, except as documented Psych Reports system reviewed and no additional complaints, except as documented Endo Reports system reviewed and no additional complaints, except as documented Philip/Lymph Reports system reviewed and no additional complaints, except as documented Aller/Immun Reports system reviewed and no additional complaints, except as documented Exam Const General: cooperative, healthy appearing and no acute distress Orientation: alert, awake and oriented x3 Neck Neck: normal visual inspection and full ROM Resp Effort & Inspection: normal respiratory effort, able to speak in complete sentences and symmetric chest movement GI Inspection: normal to inspection Palpation: soft and other Other: gravid Skin General: no rashes or lesions noted Neuro General: patient alert, patient awake and patient oriented x3 Cognition: normal cognition Speech: speech normal Gait: normal gait Motor: muscle tone normal throughout Extrem General: normal to inspection and full ROM Psych Appearance: grossly normal Mental Status: mental status grossly normal Mood: congruent mood Affect: normal affect Speech and Movement: speech and movement normal Attitude: cooperative Thought Process: normal Thought Content: normal Judgment: judgment good Results POC Urinalysis 2 Dip (Clinic) Office Urine Glucose Negative Last Edit by Mirlande Quintero on 04/30/25 11:06 Office Urine Protein Negative Last Edit by Mirlande Quintero on 04/30/25 11:06 Coding Level of Care Code OB Routine Diagnoses 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 (2) History of : Status: Acute Comment: x1, currently contemplating (3) Supervision of high-risk : Status: Acute Qualifiers: Trimester: first trimester Qualified Code(s): O09.91 - Supervision of high risk , unspecified, first trimester Comment: PRR, KOKI 08/31/25 PC Walker Maia (4) Vaginal bleeding during : Status: Acute (5) : Status: Acute Qualifiers: Weeks of gestation: 21 weeks Qualified Code(s): Z3A.21 - 21 weeks gestation of Comment: NIPT low risk, male(PT DOES NOT KNOW GENDER YET), carrier- declines (previously did carrier), nl anatomy Orders: Orders POC Urinalysis 2 Dip (Clinic) Today Plan Details Additional Comments: ACOG trimester education reviewed and updated. see problem list details for updated plan management information and see below for orders placed at this visit. GA appropriate handout given. 04/30/25 1114 <Electronically signed by Lizzy michaud CNM> Date _ Lizzy Mercado CNM Cosigner Signature: Date (if applicable) CC: ~ [facility] Work Phone: Reason for referral (narrative)No reason for referral information available[facility] Work Phone: Chief Complaint and Reason for Visit Chief Complaint pre conception consu lt Reason for Visit Abnormal uterine ble eding Pelvic floor tension Encounter for preconception consultation Chief Complaint pre conception consu lt M62.89 Reason for Visit Abnormal uterine ble eding Pelvic floor tension Encounter for preconception consultation Chief Complaint pre conception consu lt M62.89 NOB LMP 8/15 11WK OB E ORDERS TOO Reason for Visit Abnormal uterine ble eding Pelvic floor tension Encounter for preconception consultation Supervision of normal first Supervision of normal first UTI (urinary tract infection) during Chief Complaint NOB LMP 8/15 11WK OB E ORDERS TOO 15WK OB Reason for Visit Supervision of normal first Supervision of normal first UTI (urinary tract infection) during 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 Supervision of normal first UTI (urinary tract infection) during Chief Complaint 11WK OB E ORDERS TOO 15WK OB 19 WK OB 23 WK OB 1 HOUR DRAW AT 9:30AM 27 WK OB/GLUCOSE Reason for Visit Supervision of normal first UTI (urinary tract infection) during 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 Supervision of normal first UTI (urinary tract infection) during 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 Supervision of normal first UTI (urinary tract infection) during 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 Supervision of normal first UTI (urinary tract infection) during 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 Supervision of normal first UTI (urinary tract infection) during Chief Complaint 15WK OB 19 WK OB 23 WK OB 1 HOUR DRAW AT 9:30AM 27 WK OB/GLUCOSE Reason for Visit 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 Supervision of normal first UTI (urinary tract infection) during 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 Supervision of normal first UTI (urinary tract infection) during 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 Supervision of normal first UTI (urinary tract infection) during 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 Supervision of normal first UTI (urinary tract infection) during Chief Complaint 23 WK OB 1 HOUR DRAW AT 9:30AM 27 WK OB/GLUCOSE 30 WK OB 32 WK OB 34 WK OB E-ORDER 36 WK OB 37 WK OB EORDERS R/O LABOR Reason for Visit 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 Supervision of normal first UTI (urinary tract infection) during 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 Supervision of normal first UTI (urinary tract infection) during Abnormal glucose affecting 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 Supervision of normal first UTI (urinary tract infection) during Abnormal glucose affecting 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 Supervision of normal first UTI (urinary tract infection) during Abnormal glucose affecting 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 Supervision of normal first UTI (urinary tract infection) during Abnormal glucose affecting Anemia affecting 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 Pruritic urticarial papules and plaques of (puppp) Supervision of normal first UTI (urinary tract infection) during Abnormal glucose affecting Anemia affecting 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 Pruritic urticarial papules and plaques of (puppp) Supervision of normal first UTI (urinary tract infection) during Chief Complaint 23 WK OB 1 HOUR DRAW AT 9:30AM 27 WK OB/GLUCOSE 30 WK OB 32 WK OB 34 WK OB E-ORDER 36 WK OB 37 WK OB EORDERS R/O LABOR RULE OUT LABOR Reason for Visit 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 Supervision of normal first UTI (urinary tract infection) during 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 Supervision of normal first UTI (urinary tract infection) during Abnormal glucose affecting 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 Supervision of normal first UTI (urinary tract infection) during Abnormal glucose affecting 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 Supervision of normal first UTI (urinary tract infection) during Abnormal glucose affecting 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 Supervision of normal first UTI (urinary tract infection) during Abnormal glucose affecting Anemia affecting 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 Pruritic urticarial papules and plaques of (puppp) Supervision of normal first UTI (urinary tract infection) during Abnormal glucose affecting Anemia affecting 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 Pruritic urticarial papules and plaques of (puppp) Supervision of normal first UTI (urinary tract infection) during Chief Complaint 23 WK OB 1 HOUR DRAW AT 9:30AM 27 WK OB/GLUCOSE 30 WK OB 32 WK OB 34 WK OB E-ORDER 36 WK OB 37 WK OB EORDERS R/O LABOR RULE OUT LABOR R/O LABOR 38 WK OB 39 WK OB PRIMARY C SECTION LABOR LABOR PRIMARY C SECTION PRIMARY C SECTION Reason for Visit 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 Supervision of normal first UTI (urinary tract infection) during 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 Supervision of normal first UTI (urinary tract infection) during Abnormal glucose affecting 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 Supervision of normal first UTI (urinary tract infection) during Abnormal glucose affecting 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 Supervision of normal first UTI (urinary tract infection) during Abnormal glucose affecting 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 Supervision of normal first UTI (urinary tract infection) during Abnormal glucose affecting Anemia affecting 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 Pruritic urticarial papules and plaques of (puppp) Supervision of normal first UTI (urinary tract infection) during Abnormal glucose affecting Anemia affecting 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 Pruritic urticarial papules and plaques of (puppp) Supervision of normal first UTI (urinary tract infection) during Abnormal glucose affecting Anemia affecting 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 Pruritic urticarial papules and plaques of (puppp) Supervision of normal first UTI (urinary tract infection) during Abnormal glucose affecting Anemia affecting Arrested active labor, delivered, current hospitalization 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 Pruritic urticarial papules and plaques of (puppp) Status post section Supervision of normal first UTI (urinary tract infection) during Chief Complaint 1 HOUR DRAW AT 9:30A M 27 WK OB/GLUCOSE 30 WK OB 32 WK OB 34 WK OB E-ORDER 36 WK OB 37 WK OB EORDERS R/O LABOR RULE OUT LABOR R/O LABOR 38 WK OB 39 WK OB PRIMARY C SECTION LABOR LABOR PRIMARY C SECTION PRIMARY C SECTION Latch Assess INCISION CHECK Reason for Visit 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 Supervision of normal first UTI (urinary tract infection) during Abnormal glucose affecting 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 Supervision of normal first UTI (urinary tract infection) during Abnormal glucose affecting 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 Supervision of normal first UTI (urinary tract infection) during Abnormal glucose affecting 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 Supervision of normal first UTI (urinary tract infection) during Abnormal glucose affecting Anemia affecting 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 Pruritic urticarial papules and plaques of (puppp) Supervision of normal first UTI (urinary tract infection) during Abnormal glucose affecting Anemia affecting 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 Pruritic urticarial papules and plaques of (puppp) Supervision of normal first UTI (urinary tract infection) during Abnormal glucose affecting Anemia affecting 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 Pruritic urticarial papules and plaques of (puppp) Supervision of normal first UTI (urinary tract infection) during Abnormal glucose affecting Anemia affecting Arrested active labor, delivered, current hospitalization 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 Pruritic urticarial papules and plaques of (puppp) Status post section Supervision of normal first UTI (urinary tract infection) during Care and examination of lactating mother Status post roofer gypsum Complaint Admit Date Spotting/cramping in early Avni e 2024 11:18am Reason for Visit Admit Date January 15, 2025 11:1 8am Vaginal bleeding during December 252024 11:18am Chief Complaint Admit Date Spotting/cramping in early Avni e 2024 11:18am *EST* NOB LMP 5, KOKI 08/31January 29 10:42am Reason for Visit Admit Date January 15, 2025 11:1 8am Vaginal bleeding during December 252024 11:18am 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 J sanjeev 2024 10:42am History of January 29, 2025 10:4 2am January 29, 2025 10:42 am Supervision of high-risk January 29, 2025 10:42am Vaginal bleeding during January 292024 10:42am Chief Complaint Admit Date Spotting/cramping in early Dec 11:18am *EST* NOB LMP 5/, KOKI 08/31January 29 10:42am 12 wk ob February 28, 2025 10: 04am Reason for Visit Admit Date January 15, 2025 11:1 8am Vaginal bleeding during December 252024 11:18am 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 J sanjeev 2024 10:42am History of January 29, 2025 10:4 2am January 29, 2025 10:42 am Supervision of high-risk January 29, 2025 10:42am Vaginal bleeding during January 292024 10:42am 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 A 2024 10:04am History of February 28, 2025 10 :04am February 28, 2025 10: 04am Supervision of high-risk Augus t 2024 10:04am Vaginal bleeding during February 28, 2025 10:04am Chief Complaint Admit Date Spotting/cramping in early Dec 11:18am *EST* NOB LMP 5/2, KOKI 08/31January 29 10:42am 12 wk ob February 28, 2025 10: 04am 16 wk ob March 23, 2025 9: 51am Reason for Visit Admit Date January 15, 2025 11:1 8am Vaginal bleeding during December 252024 11:18am 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 J sanjeev 2024 10:42am History of January 29, 2025 10:4 2am January 29, 2025 10:42 am Supervision of high-risk January 29, 2025 10:42am Vaginal bleeding during January 292024 10:42am 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 A ugust 2024 10:04am History of February 28, 2025 10 :04am February 28, 2025 10: 04am Supervision of high-risk Augus t 2024 10:04am Vaginal bleeding during February 28, 2025 10:04am 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 A ugust 2024 9:51am History of March 23, 2025 9 :51am March 23, 2025 9: 51am Supervision of high-risk Augus t 2024 9:51am Vaginal bleeding during March 23, 2025 9:51am Chief Complaint Admit Date Spotting/cramping in early Dec 11:18am *EST* NOB LMP /2, KOKI 08/31January 29 10:42am 12 wk ob February 28, 2025 10: 04am 16 wk ob March 23, 2025 9: 51am 21 wk ob *5 wks per patient April 30, 2025 10:58am Reason for Visit Admit Date January 15, 2025 11:1 8am Vaginal bleeding during December 252024 11:18am 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 J sanjeev 2024 10:42am History of January 29, 2025 10:4 2am January 29, 2025 10:42 am Supervision of high-risk January 29, 2025 10:42am Vaginal bleeding during January 292024 10:42am 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 A ugust 2024 10:04am History of February 28, 2025 10 :04am February 28, 2025 10: 04am Supervision of high-risk Augus t 2024 10:04am Vaginal bleeding during February 28, 2025 10:04am 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 A ugust 2024 9:51am History of March 23, 2025 9 :51am March 23, 2025 9: 51am Supervision of high-risk Augus t 2024 9:51am Vaginal bleeding during March 23, 2025 9:51am 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 O ctober 2024 10:58am History of April 30, 2025 1 0:58am April 30, 2025 10 :58am Supervision of high-risk Octob er 2024 10:58am Vaginal bleeding during Octobe r 2024 10:58am Family History No Family History Records Found Relationship Condition Age at Onset Recorded Date/T hina grandfather Malignant neoplasm Unknown grandmother Malignant neoplasm of breast Unknown Advance Directives No Advanced Directives Records Found Advance Directive Response Recorded Date/ Time Living Will No January 08, 2023 8:23pm Power of Television Analyzer No January 08 8:23pm Advance Directive Response Recorded Date/ Time Living Will No January 13, 2023 2:45pm Power of Television Analyzer No January 13 2:45pm Summary Purpose Additional Source Comments Goals (unrecognized section and content) Type Care Experience svdLabor Preferences -CB/BF classes: donelabor support person: jimmy intervention preferences: []pain management options preferred: natural. prefers no epidural cut cord/dad catch: []: []PP control planned: []discussed possible routes of delivery and associated risks: []special requests: [] Care Experience prior c-spatient cou nseled regarding risks/benefits of trial of labor versus repeat . ACOG/uptodate education given to patient. 60 % likelihood of success per calculatorTOLAC consent form signed: [] Care Teams (unrecognized sec tion and content) Team Status: Active Member Role Status Dates No Primary Care Physician Primary Care Provider Active Team Status: Inactive Member Role Status Dates No Primary Care Physician Primary Care Provider, Refer ring Provider Active Dr. Awilda Felix DO Attending Provider Activ e Team Status: Inactive Member Role Status Dates No Primary Care Physician Primary Care Provider, Refer ring Provider Active Erma White CNM Attending Provider Active Team Status: Inactive Member Role Status Dates No Primary Care Physician Primary Care Provider, Refer ring Provider Active Dr. Brielle Nathan MD Attending Provider Active Team Status: Inactive Member Role Status Dates No Primary Care Physician Primary Care Provider Active Dr. Brielle Nathan MD Attending Provider, Referr ing Provider Active Team Status: Inactive Member Role Status Dates No Primary Care Physician Primary Care Provider Active Erma White CNM Attending Provider Active Team Status: Active Member Role Status Dates No Primary Care Physician Primary Care Provider Active Dr. Awilda Felix DO Attending Provider, Refe rring Provider Active Team Status: Inactive Member Role Status Dates No Primary Care Physician Primary Care Provider Active Dr. Awilda Felix DO Attending Provider, Refe rring Provider Active Team Status: Inactive Member Role Status Dates No Primary Care Physician Primary Care Provider, Refer ring Provider Active Lizzy Mercado CNM Attending Provider Active Team Status: Inactive Member Role Status Dates No Primary Care Physician Primary Care Provider Active Erma White CNM Attending Provider, Referring Pr ovider Active Team Status: Active Member Role Status Dates No Primary Care Physician Primary Care Provider Active Erma White CNM Attending Provider, Referring Pr ovider Active Team Status: Active Member Role Status Dates No Primary Care Physician Primary Care Provider Active Lizzy Mercado CNM Attending Provider, Referring Pro vider Active Team Status: Active Member Role Status Dates No Primary Care Physician Primary Care Provider Active Dr. Brielle Nathan MD Attending Pr ovider, Referring Provider, Other Provider Active Team Status: Active Member Role Status Dates No Primary Care Physician Primary Care Provider Active Dr. Awilda Felix DO Admit Prov ider, Attending Provider, Other Provider Active Team Status: Active Member Role Status Dates No Primary Care Physician Primary Care Provider Active Dr. Awilda Felix DO Admit Provider, Other Pr ovider Active Lizzy Mercado CNM Attending Provider Active Team Status: Inactive Member Role Status Dates No Primary Care Physician Primary Care Provider Active Dr. Awilda Felix DO Admit Provider, Attendin g Provider Active Team Status: Inactive Member Role Status Dates No Primary Care Physician Primary Care Provider, Refer ring Provider Active Kya Riley [employer]LECT[employer] LEAD, ELECTRON[employer] LEAD-C Attending Provider Active Team Status: Inactive Member Role Status Dates No Primary Care Physician Primary Care Provider Active Lizzy Mercado CNM Attending Provider, Referring Pro vider Active Team Status: Inactive Member Role Status Dates Dr. Brielle Nathan MD Attending Provider Active Start: January 15, 2025 End: January 15, 2025 Team Status: Inactive Member Role/Relationship Status Dates Dr. Brielle Nathan MD Attending Provider Active Start: January 15, 2025 End: January 15, 2025 Team Status: Inactive Member Role/Relationship Status Dates Dr. Awilda Felix DO Attending Provider Activ e Start: January 29, 2025 End: January 29, 2025 Team Status: Inactive Member Role/Relationship Status Dates Dr. Awilda Felix DO Attending Provider Activ e Start: January 29, 2025 End: January 29, 2025 Dr. Awilda Felix DO Referring Provider Activ e Start: January 29, 2025 End: January 29, 2025 Team Status: Inactive Member Role/Relationship Status Dates Dr. Awilda Felix DO Attending Provider Activ e Start: February 09, 2025 End: February 09, 2025 Team Status: Inactive Member Role/Relationship Status Dates Jami Johnson NP, ELECTRON[employer] LEAD-C Attending Provider Active Start: February 28, 2025 End: February 28, 2025 Team Status: Inactive Member Role/Relationship Status Dates Lizzy Mercado CNM Attending Provider Active S tart: March 23, 2025 End: March 23, 2025 Team Status: Inactive Member Role/Relationship Status Dates Dr. Brielle Nathan MD Attending physician Active Start: January 15, 2025 End: January 15, 2025 Team Status: Inactive Member Role/Relationship Status Dates Dr. Awilda Felix DO Attending physician Acti ve Start: January 29, 2025 End: January 29, 2025 Team Status: Inactive Member Role/Relationship Status Dates Dr. Awilda Felix DO Attending physician Acti ve Start: January 29, 2025 End: January 29, 2025 Dr. Awilda Felix DO Referring Provider Activ e Start: January 29, 2025 End: January 29, 2025 Team Status: Inactive Member Role/Relationship Status Dates Dr. Awilda Felix DO Attending physician Acti ve Start: February 09, 2025 End: February 09, 2025 Team Status: Inactive Member Role/Relationship Status Dates Jami Johnson NP, ELECTRON[employer] LEAD-C Attending physician Active Start: February 28, 2025 End: February 28, 2025 Team Status: Inactive Member Role/Relationship Status Dates Lizzy Mercado CNM Attending physician Active Start: March 23, 2025 End: March 23, 2025 Team Status: Inactive Member Role/Relationship Status Dates Lizzy Mercado CNM Attending physician Active Start: April 30, 2025 End: April 30, 2025 INFORMATION SOURCE (unrecogn ized section and content) DATE CREATED AUTHOR 03/03/2024 [facility] ([place]) DATE CREATED AUTHOR AUTHOR'S ORGANIZ ATION 04/17/2025 [facility] DATE CREATED AUTHOR AUTHOR'S ORGANIZ ATION 05/02/2025 [facility] FOR RECORDS PERTAINING TO PATIENTS WHO ARE OR HAVE BEEN ENROLLED IN A CHEMICAL DEPENDENCY/SUBSTANCEABUSE PROGRAM, SOME INFORMATION MAY BE OMITTED. This clinical summary was aggregated from multiple sources. Caution should be exercised in using it in the provision of clinical care. This summary normalizes information from multiple sources, and as a consequence, information in this document may materially change the coding, format and clinical context of patient data. In addition, data may be omitted in some cases. CLINICAL DECISIONS SHOULD BE BASED ON THE PRIMARY CLINICAL RECORDS. [facility] [employer], [facility]. provides no warranty or guarantee of the accuracy or completeness of information in this document.
--- OUTSIDE RECORDS SUMMARY | 2025-05-14 17:53 | XMS RPT_ITS | CCD ---
Author Organization [facility] Care Team Providers Care Director Surgical Name Role Phone Dr. Brielle Nathan Attending [...] Brielle Nathan Attending Provider [phone] Osvaldo AUDIOVISUAL AIDS TECHNICIAN, DIANEC Kya Attending Provider PHYSICIAN, NONE Primary Care Physician Unavailab le PHYSICIAN, NONE Primary Care Unavailable MARAL MILLER, DR MARYAN West Attending Unavailable LORAINE BANEGAS, DR CARTER Attending Unavailyari e PHYSICIAN, NONE Primary Care Unavailable Dr. Brielle Nathan MD Attending Provider Dr. wAilda Felix DO Attending Provider Chas Bhatia DO, [...] / HYDROcodone; Translations: [acetaminophen-hyd rocodone] Drug Allergy [facility] (2 sources) Acetaminophen Drug Allergy 03-20-2022 [facility] Work Phone: (18 sources) HYDROcodone Drug Allergy 03-20-2022 other, Rash [facility] (1 source) Acetaminophen / HYDROcodone; Translations: [acetaminophen-hyd rocodone] Drug Allergy [facility] (1 source) Acetaminophen / HYDROcodone; Translations: [HYDROCODONE-ACETA MINOPHEN] Drug Allergy 11-21-2015 [facility] Repository (1 source) HYDROcodone Drug Allergy 04-30-2025 [facility] Repository Medications Current Medications Medication Drug Class(es) Dates Sig (Normalized) Sig (Original) famotidine 40 mg oral tablet (1 source) Histamine-2 Receptor Antagonist Start: 01-03-2024 End: 01-13-2024 Pepcid 40 mg oral tablet Dose : 40 mg = 1 tab(s), Oral, BID, # 20 tab(s), 0 Refill(s) Start Date: 01/03/24 Stop Date: 01/13/24 Status: Ordered Iron (16 sources) Start: 05-06-2022 Pnv No.[id number] No.10 (Pnv Tabs 20-1) 20 mg iron- [...] Test Name Value Interpretation Reference Range Facility Supervisor Advice Office Visit Reporton 04-30-2025 Supervisor Advice Office Visit Report [facility] [address], [address] [place] [address] OFFICE VISIT Date of Service: 04/30/25 MR#: [id number] Acct: [id number] Name: TK COTTER Rep #: [id number] : 2000 Provider: JOY Camargo ams Age/Sex: 25/F [place] [facility] [place]: Signed Intake Vital Signs 01/29/25 10:44 03/23/25 09:42 04/30/25 11:02 Height 5 ft 1 in 5 ft 1 in 5 ft 1 in Weight: 122 lb 3 oz BMI 23.1 BP 105/71 Intake Visit Reasons: 21 wk ob *5 wks per patient Chief Complaint: 21wk OB Canteen Manager Required: No Is patient in pain?: No [...] 1 current occupational status: employed 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 Date Name GA/Weeks Outcome Route Bth Weight Gen Labor Lgth Anesthesia Del Locatn Provider FOB 01/09/23 Walker 39 live - full term 8lbs 2oz Male epidural [facility] Dr. Felix Delivery Date: 01/09/23 Last Updated [...] declined. 10/ (more content not included)... Normal [facility] Laboratory - Chemistry and C hemistry - challengeOrdered By: Awilda Bhatia on 03-23-2025 Glucose Ql (U) Negative [facility] Laboratory - UrinalysisOrder ed By: Awilda Bhatia on 03-23-2025 Protein Ql (U) Negative [facility] Supervisor Advice Office Visit Reporton 03-23-2025 Supervisor Advice Office Visit Report [facility] [address], [address] [place] [address] OFFICE VISIT Date of Service: 03/23/25 MR#: [id number] Acct: [id number] Name: TK COTTER Rep #: [id number] : 2000 Provider: JOY Camargo ams Age/Sex: 24/F [place] [facility] [place]: Signed Intake Vital Signs 01/29/25 10:44 02/28/25 10:07 03/23/25 09:41 03/23/25 09:42 Height 5 ft 1 in 5 ft 1 in 5 ft 1 in 5 ft 1 in Weight: 114 lb 5 oz BMI 21.6 BP 112/71 Intake Visit Reasons: 16 wk ob Canteen Manager Required: No Is patient in pain?: No [...] 1 current occupational status: employed 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 Date Name GA/Weeks Outcome [facility] Walker 39 live - full term 8lbs 2oz Male epidural [facility] Dr. Felix Delivery Date: 01/09/23 Last Updated [...] AFP d (more content not included)... Normal [facility] Laboratory - Chemistry and C hemistry - challengeOrdered By: Jami Johnson on 02-28-2025 Glucose Ql (U) Negative [facility] Laboratory - UrinalysisOrder ed By: Jami Johnson on 02-28-2025 Protein Ql (U) Negative [facility] Supervisor Advice Office Visit Reporton 02-28-2025 Supervisor Advice Office Visit Report [address], [address] [place] [address] OFFICE VISIT Date of Service: 02/28/25 MR#: [id number] Acct: [id number] Name: TK COTTER Rep #: [id number] : 2000 Provider: ADRIANA angeles Age/Sex: 24/F [place] [facility] [place]: Signed Intake Vital Signs 01/29/25 10:44 02/28/25 10:07 Height 5 ft 1 in 5 ft 1 in Weight: 110 lb 9 oz BMI 20.9 BP 101/66 Intake Visit Reasons: 12 wk ob Chief Complaint: 12 Week OB Canteen Manager Required: No Is patient in pain?: No [...] 1 current occupational status: employed 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 current occupational exposures/hazards: No pets and animals: [...] physical activity do you participate in: none yennifer/jewish: Religious seatbelt use: always do you feel safe at home: Yes additional social history: [employer] History 2 Elective abortions Hx Para 1 Spontaneous abortions Hx # Term Pregnancies Ectopic pregnancies Hx # Pregnancies Multiple births # of living children 1 Past Pregnancies Del. Date Name GA/Weeks Outcome Route Bth Weight Infant Gen Labor Lgth Anesthesia Del Locatn Provider FOB 01/09/23 Walker 39 live - full term 8lbs 2oz Male epidural [facility] Dr. Felix Delivery Date: 01/09/23 Last Updated [...] Barriers, Environmental/Wor (more content not included)... Normal [facility] Absolute lymphocyte countOrd ered By: Awilda Bhatia on 02-09-2025 Lymphocytes Auto (Unsp spec) [#/Vol] 1.38 10*3/uL 0.83-4.51 [facility] Absolute neutrophil countOrd ered By: Awilda Bhatia on 02-09-2025 Neutrophils (Bld) [#/Vol] 7.4 10*3/uL 2.0-7.7 [facility] Automated lymphocyte count a s percentage of total leukocytesOrdered By: Awilda Bhatia on 02-09-2025 Lymphocytes/100 WBC Auto (Unsp spec) 14.8 % Low 19-41 [facility] Basophil percentageOrdered B y: Awilda Bhatia on 02-09-2025 Basophils/100 WBC (Bld) 0.5 % 0-1 [facility] CBC W/Diff, Automatedon 01-23 Absolute Lymph 1.38 X10 3/uL Normal 0.83-4.51 [facility] Comment on above: Performed By: #### B TS, L3890.6301, L3890.6006, L100.0100, L900.0098, L509.4006, L509.8002, L3890.6102 #### [facility] Laboratory [address] [place], [address] Absolute Neut 7.4 X10 3/uL Normal 2.0-7.7 [facility] Comment on above: Performed By: #### B TS, L3890.6301, L3890.6006, L100.0100, L900.0098, L509.4006, L509.8002, L3890.6102 #### [facility] [address] [place], [address] Basophils/100 WBC (Bld) 0.5 % Normal 0-1 [facility] Comment on above: Performed By: #### B TS, L3890.6301, L3890.6006, L100.0100, L900.0098, L509.4006, L509.8002, L3890.6102 #### [facility] [address] [place], [address] Eosinophils/100 WBC (Bld) 0.8 % Normal 0-5 [facility] Comment on above: Performed By: #### B TS, L3890.6301, L3890.6006, L100.0100, L900.0098, L509.4006, L509.8002, L3890.6102 #### [facility] [address] [place], [address] Erythrocyte distribution width (RBC) [Ratio] 13.3 % Normal 11.6-14.6 [facility] Comment on above: Performed By: #### B TS, L3890.6301, L3890.6006, L100.0100, L900.0098, L509.4006, L509.8002, L3890.6102 #### [facility] [address], [address] Hematocrit (Bld) [Volume fraction] 40.8 % Normal 37-47 [facility] Comment on above: Performed By: #### B TS, L3890.6301, L3890.6006, L100.0100, L900.0098, L509.4006, L509.8002, L3890.6102 #### [facility] [address] [place], [address] Hemoglobin (Bld) [Mass/Vol] 13.6 g/dL Normal 12.0-15.0 [facility] Comment on above: Performed By: #### B TS, L3890.6301, L3890.6006, L100.0100, L900.0098, L509.4006, L509.8002, L3890.6102 #### [facility] [address] [place], [address] IG% 0.300 Normal 0.0-0.9 [facility] Comment on above: Result Comment: IG% - Immature Granulocytes (promyelocytes, myelocytes and metamyelocytes) > 1% indicates that a LEFT SHIFT is Present. Performed By: #### B TS, L3890.6301, L3890.6006, L100.0100, L900.0098, L509.4006, L509.8002, L3890.6102 #### [facility] [address] [place], [address] Lymphocytes/100 WBC (Bld) 14.8 % Low 19-41 [facility] Comment on above: Performed By: #### B TS, L3890.6301, L3890.6006, L100.0100, L900.0098, L509.4006, L509.8002, L3890.6102 #### [facility] [address] [place], [address] MCH (RBC) [Entitic mass] 29.2 pg Normal 27.0-32.0 [facility] Comment on above: Performed By: #### B TS, L3890.6301, L3890.6006, L100.0100, L900.0098, L509.4006, L509.8002, L3890.6102 #### [facility] [address] [place], [address] MCHC (RBC) [Mass/Vol] 33.3 g/dL Normal 32-36 [facility] Comment on above: Performed By: #### B TS, L3890.6301, L3890.6006, L100.0100, L900.0098, L509.4006, L509.8002, L3890.6102 #### [facility] [address] [place], [address] MCV (RBC) [Entitic vol] 87.7 fL Normal 81-99 [facility] Comment on above: Performed By: #### B TS, L3890.6301, L3890.6006, L100.0100, L900.0098, L509.4006, L509.8002, L3890.6102 #### [facility] [address] [place], [address] Monocytes/100 WBC (Bld) 4.3 % Normal 0-10 [facility] Comment on above: Performed By: #### B TS, L3890.6301, L3890.6006, L100.0100, L900.0098, L509.4006, L509.8002, L3890.6102 #### [facility] [address] [place], [address] Neutrophils/100 WBC (Bld) 79.3 % High 47-70 [facility] Comment on above: Performed By: #### B TS, L3890.6301, L3890.6006, L100.0100, L900.0098, L509.4006, L509.8002, L3890.6102 #### [facility] [address] [place], [address] Nucleated RBC (Bld) [#/Vol] 0 10*3/uL Normal 0-5 [facility] Comment on above: Performed By: #### B TS, L3890.6301, L3890.6006, L100.0100, L900.0098, L509.4006, L509.8002, L3890.6102 #### [facility] [address] [place], [address] Platelet mean volume (Bld) [Entitic vol] 10.2 fL Normal 6.2-12.0 [facility] Comment on above: Performed By: #### B TS, L3890.6301, L3890.6006, L100.0100, L900.0098, L509.4006, L509.8002, L3890.6102 #### [facility] [address] [place], [address] Platelets (Bld) [#/Vol] 305 10*3/uL Normal 150-450 [facility] Comment on above: Performed By: #### B TS, L3890.6301, L3890.6006, L100.0100, L900.0098, L509.4006, L509.8002, L3890.6102 #### [facility] [address] [place], [address] RBC (Bld) [#/Vol] 4.65 10*6/uL Normal 4.2-5.4 [facility] Comment on above: Performed By: #### B TS, L3890.6301, L3890.6006, L100.0100, L900.0098, L509.4006, L509.8002, L3890.6102 #### [facility] [address] [place], [address] RDW SD 42.7 fl Normal 35.1-43.9 [facility] Comment on above: Performed By: #### B TS, L3890.6301, L3890.6006, L100.0100, L900.0098, L509.4006, L509.8002, L3890.6102 #### [facility] [address] [place], [address] WBC (Bld) [#/Vol] 9.3 10*3/uL Normal 4.4-11.0 [facility] Comment on above: Performed By: #### B TS, L3890.6301, L3890.6006, L100.0100, L900.0098, L509.4006, L509.8002, L3890.6102 #### [facility] [address] [place], [address] Eosinophil percentageOrdered By: Awilda Bhatia on 02-09-2025 Eosinophils/100 WBC (Bld) 0.8 % 0-5 [facility] Erythrocyte distribution wid th ratioOrdered By: Awilda Bhatia on 02-09-2025 Erythrocyte distribution width (RBC) [Ratio] 13.3 % 11.6-14.6 [facility] Erythrocyte distribution wid th standard deviationOrdered By: Awilda Bhatia on 02-09-2025 Erythrocyte distribution width (RBC) [Ratio] 42.7 fl 35.1-43.9 [facility] HIVon 02-09-2025 HIV Non-Reactive Normal Nonreactive [facility] Comment on above: Result Comment: Non- Reactive Reactive Repeatedly reactive samples must be confirmed according to CDC recommended confirmatory algorithms. The subresults for either HIVAG or AHIV can be used as an aid in the selection of the confirmation algorithm for reactive samples. Send out specimens with Reactive results to [facility] for confirmation. Order the HIV antibody detection and differentiation: [id number] Performed By: #### B TS, L3890.6301, L3890.6006, L100.0100, L900.0098, L509.4006, L509.8002, L3890.6102 #### [facility] [address] [place], [place], [address] Hematocrit Auto (Bld) [Volum e fraction]Ordered By: Awilda Jannette on 02-09-2025 Hematocrit (Bld) [Volume fraction] 40.8 % 37-47 [facility] Hemoglobin measurementOrdere d By: Awilda Jannette on 02-09-2025 Hemoglobin (Bld) [Mass/Vol] 13.6 g/dL 12.0-15.0 [facility] Hepatitis C Antibodyon 02-09 Hepatitis C Ab Non-Reactive Normal Nonreactive [facility] Comment on above: Result Comment: Reac tive: Presumptive evidence of antibodies to HCV. Follow CDC recommendations for supplemental testing. Non-Reactive: Antibodies to HCV were not detected; does not exclude the possibility of exposure to HCV Reactive Results are presumptive evidence of antibodies to HCV. Follow CDC recommendations for supplemental testing. Order confirmation testing: HCV Quant by PCR testing - HCVPCR lc#[id number] Non Reactive: < 0.8 Equivocal: >/= 0.8 to < 1.0 Reactive: >/= 1.0 The CDC requires that a reactive/equivocal HCV antibody result be sent out for confirmation. HCV Quant by PCR testing. Performed By: #### B CELINA, L3890.6301, L3890.6006, L100.0100, L900.0098, L509.4006, L509.8002, L3890.6102 ####[facility] [address] [place], [place], [id number] Immature granulocytes/100 WB C Auto (Bld)Ordered By: Awilda Bhatia on 02-09-2025 Immature granulocytes/100 WBC (Bld) 0.300 % 0.0-0.9 [facility] Comment on above: IG% - Immature Granu locytes (promyelocytes, myelocytes and metamyelocytes) > 1% indicates that a LEFT SHIFT is Present. L3890.6102on 02-09-2025 HEP B Surf Ag Non-Reactive Normal Nonreactive [facility] Comment on above: Result Comment: Reac tive: Presumptive evidence of HBV. Repeatedly reactive samples must be confirmed using a neutralization test ([employer] HBsAg Confirmatory Test) Non-Reactive: HBsAg not detected; does not exclude the possibility of exposure to HBV Performed By: #### B TS, L3890.6301, L3890.6006, L100.0100, L900.0098, L509.4006, L509.8002, L3890.6102 ####[facility] [address] [facility]. [place], [place], [id number] L509.4006on 02-09-2025 Rubella IgG REAC Normal Nonreactive [facility] Comment on above: Result Comment: Anti body Result: Interpretation Non-Reactive: Non-Immune Reactive: Immune The following results were obtained with the [employer] Rubella IgG assay. Results from assays of other manufacturers cannot be used interchangeably. Performed By: #### B TS, L3890.6301, L3890.6006, L100.0100, L900.0098, L509.4006, L509.8002, L3890.6102 #### [facility] [address] [place], [place], [address] Laboratory - Microbiology an d Antimicrobial susceptibilityOrdered By: Awilda Bhatia on 02-09-2025 HBV surface Ag Ql (S) Non-Reactive Nonreactive [facility] Comment on above: Reactive: Presumptiv e evidence of HBV. Repeatedly reactive samples must be confirmed using a neutralization test ([employer] HBsAg Confirmatory Test)Non-Reactive: HBsAg not detected; does not exclude the possibility of exposure to HBV MCV (mean corpuscular volume ) determinationOrdered By: Awilda Bhatia on 02-09-2025 MCV (RBC) [Entitic vol] 87.7 fL 81-99 [facility] Mean corpuscular hemoglobin (MCH) determinationOrdered By: Awilda Bhatia on 02-09-2025 MCH (RBC) [Entitic mass] 29.2 pg 27.0-32.0 [facility] Mean corpuscular hemoglobin concentration (MCHC) determinationOrdered By: Awilda Bhatia on 02-09-2025 MCHC (RBC) [Mass/Vol] 33.3 g/dL 32-36 [facility] Mean platelet volume determi nationOrdered By: Awilda Bhatia on 02-09-2025 Platelet mean volume (Bld) [Entitic vol] 10.2 fL 6.2-12.0 [facility] Monocyte percentageOrdered B y: Awilda Bhatia on 02-09-2025 Monocytes/100 WBC (Bld) 4.3 % 0-10 [facility] NATERAon 02-09-2025 NATURA SEE SCANNED REPORT Normal [facility] Comment on above: Performed By: #### B , L3890.6301, L3890.6006, L100.0100, L900.0098, L509.4006, L509.8002, L3890.6102 #### [facility] [address] [place], [address] Neutrophil percentageOrdered By: Awilda Bhatia on 02-09-2025 Neutrophils/100 WBC (Bld) 79.3 % High 47-70 [facility] No Panel InformationOrdered By: Awilda Bhatia on 02-09-2025 HIV (1&2) Antibody Non-Reactive Nonreactive [facility] Comment on above: Non-ReactiveReactive Repeatedly reactive samples must be confirmed according to CDC recommended confirmatory algorithms. The subresults for either HIVAG or AHIV can be used as an aid in the selection of the confirmation algorithm for reactive samples.Send out specimens with Reactive results to [facility] for confirmation.Order the HIV antibody detection and differentiation: juvenal#[id number] Nucleated red blood cell per centageOrdered By: Awilda Bhatia on 02-09-2025 Nucleated RBC/100 WBC (Bld) [Ratio] 0 % 0-5 [facility] Platelet countOrdered By: Dejon arriolariver Jannette on 02-09-2025 Platelets (Bld) [#/Vol] 305 10*3/uL 150-450 [facility] RBC Auto (Bld) [#/Vol]Ordere d By: Awilda Bhatia on 02-09-2025 RBC (Bld) [#/Vol] 4.65 10*6/uL 4.2-5.4 [facility] Syphilis Antibodieson 2024 Syphilis Abs Non-Reactive Normal Nonreactive [facility] Comment on above: Performed By: #### B TS, L3890.6301, L3890.6006, L100.0100, L900.0098, L509.4006, L509.8002, L3890.6102 #### [facility] [address] [place], [address] Type AND Screenon 02-09-2025 Ab SCREEN GEL Negative Normal [facility] Comment on above: Order Comment: PN Performed By: #### B TS, L3890.6301, L3890.6006, L100.0100, L900.0098, L509.4006, L509.8002, L3890.6102 ####[facility] [address] [place], [address] ABO and Rh group Nom (Bld) Blood group A Rh(D) positive Normal [facility] Comment on above: Order Comment: PN Performed By: #### B TS, L3890.6301, L3890.6006, L100.0100, L900.0098, L509.4006, L509.8002, L3890.6102 ####[facility] [id number] [place], [address] White blood cell (WBC) count Ordered By: Awilda Bhatia on 02-09-2025 WBC (Bld) [#/Vol] 9.3 10*3/uL 4.4-11.0 [facility] Chlamydia/GC JUANY aptimaon CHLAMY,NUC ACID Negative Normal Negative [facility] Comment on above: Performed By: #### M 100.2200, L7000.1800 #### [facility] [address] [place], [address] GC BY NUC ACID Negative Normal Negative [facility] Comment on above: Result Comment: Perf ormed at: =G - [facility] [address] [id number] Atv Mechanic: Ange Motley MD, Phone: [phone] Performed By: #### M 100.2200, L7000.1800 #### [facility] [address] [place], [address] Urine Cultureon 02-01-2025 URC Below infection leve l. Presumptive C albicans Rugby Count <1000 Normal [facility] Comment on above: Performed By: #### M 100.2200, L7000.1800 #### [facility] [address] [place], [address] Chlamydia trachomatis rRNA d etection by probe and target amplification methodOrdered By: Awilda Bhatia on 01-29-2025 C. trachomatis rRNA JUANY+probe Ql (Unsp spec) Negative Negative [facility] Neisseria gonorrhoeae nuclei c acid detection by amplified probe techniqueOrdered By: Awilda Bhatia on 01-29-2025 N. gonorrhoeae DNA JUANY+probe Ql (Unsp spec) Negative Negative [facility] Comment on above: Performed at: =G - [facility] [address] [id number] Director: Ange Motley MD, Phone: [phone] Supervisor Advice Office Visit Reporton 01-29-2025 Supervisor Advice Office Visit Report [facility] [address], [address] [place] [address] OFFICE VISIT Date of Service: 01/29/25 MR#: [id number] Acct: [id number] Name: TK COTTER Rep #: [id number] : 2000 Provider: Dr. 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 Date Name GA/Weeks Outcome Route Bth Weight Infant Gen Labor Lgth Anesthesia Del Locatn Provider FOB 01/09/23 Walker 39 live - full term 8lbs 2oz Male epidural [facility] Dr. Felix Delivery Date: 01/09/23 Last Updated [...] Other, Cystic Fibrosis: Other, Chromosome Abnormality: Other, Audi-Sachs: Other, Hemophilia: Other, Intellectual Disability/Autism: Other, Recurrent Pr (more content not included)... Normal [facility] Urine cultureOrdered By: Flory Bhatia on 01-29-2025 Bacteria identified Cx Nom (U) Presumptive C albicans Abnormal [facility] Supervisor Advice Office Visit Reporton 01-15-2025 Supervisor Advice Office Visit Report [facility] [address], [address] [place] [address] OFFICE VISIT Date of Service: 01/15/25 MR#: [id number] Acct: [id number] Name: TK COTTER Rep #: [id number] : 2000 Provider: Dr. 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 April going to [place].) out of state: Yes out of country: No sexually active: Yes Smoking Status: Never smoker alcohol intake: never substance use type: does not use well-balanced diet: daily or most days caffeine: Yes Type: coffee and tea Number of servings: 1 eating out: rarely or never during the past year weight has: remained stable what type of physical activity do you participate in: none yennifer/jewish: Religious seatbelt use: always do you feel safe at home: Yes additional social history: Same Day Serves HPI Spotting/cramping in early Details: TK COTTER [...] - full term 8lbs 2oz Male epidural [facility] Dr. Felix Delivery Date: 01/09/23 Last Updated [...] Charge Brie (more content not included)... Normal [facility] Final Surgical Pathology Rep sandra 03-01-2024 Final Surgical Pathology Report . Pathology Reports Accession: Collected Date/Time: Received Date/Time: Pathologist: [id number] 02/28/2024 10:42 EDT 02/28/2024 13:56 EDT DONATO HARMON MD Final Surgical Pathology Report DIAGNOSIS: DUODENUM, BIOPSY: - GASTRIC MUCOSA WITH MODERATE ACTIVE CHRONIC GASTRITIS. IMMUNOHISTOCHEMICAL STUDIES ARE NEGATIVE FOR HELICOBACTER CLINICAL INFORMATION: Procedure: ESOPHAGOGASTRODUODENOSCOP Y WITH BIOPSY Preoperative diagnosis: HEMATEMESIS Postoperative diagnosis: HEMATEMESIS SPECIMEN: A DUODENUM, BX GROSS DESCRIPTION: All parts labelled with patient name and [id number] Received in formalin labeled duodenal biopsy are 2 weeks-pink tissue fragments measuring 0.3 x 0.1 and 0.3 cm. TS-1 Juliana Floyd, Grossing Tobacco Hanger/ Dr. Donato Harmon, Pathologist Performed by Juliana Floyd MICROSCOPIC DESCRIPTION: The microscopic examination is performed, except in the case of Gross Only. Electronically Signed by Pathology Report verified by [facility] DONATO HARMON Sign out Date: 03/01/2024 12:38 Performing Lab: [facility], [address] [place] [address] Pathology Dept Disclaimer If ancillary studies were utilized, the following Laboratory Developed Test (LDT) disclaimer will apply: Under CLIA requirements, [facility] is qualified to perform high complexity testing. For all ancillary stains, positive and negative controls stain appropriately. Performance characteristics of immunohistochemical and chromogenic in-situ hybridization tests have been determined by [facility]. These tests are used for clinical purposes, They should not be regarded as investigational or for research. Normal [facility] ([place]) LABORATORYOrdered By: Marisabel Mike on 02-28-2024 HCG ( test) Ql Negative (02/28/24 10:01 AM) Normal AO Manual Urine SS test (u) int Not detected Invalid Interpretation Code AO Manual Urine SS PREGUon 02-28-2024 HCG ( test) Ql (U) Negative Normal [facility] ([place] Comment on above: Performed By: #### P REGU #### [address] [address] test (u) int Not detected Invalid Interpretation Code [facility] ([place]) Comment on above: Performed By: #### P REGU #### [address] [address] .Auto Diffon 01-03-2024 Basophil, Absolute 0.0 10 3/mcL Normal 0.0-0.2 [facility] ([place]) Comment on above: Performed By: #### C SCOTT DIAZ MDW, CMP, LIP, GFR, ANEU #### [address] [address] Basophils/100 WBC (Bld) 0.3 % Normal 0.0-2.5 [facility] ([place]) Comment on above: Performed By: #### C SCOTT DIAZ MDW, CMP, LIP, GFR, ANEU #### [address] [address] Eosinophil, Absolute 0.1 10 3/mcL Normal 0.0-0.4 [facility] ([place]) Comment on above: Performed By: #### C SCOTT DIAZ MDW, CMP, LIP, GFR, ANEU #### [address] [address] Eosinophils/100 WBC (Bld) 0.9 % Normal 0.0-7.0 [facility] ([place]) Comment on above: Performed By: #### C SCOTT DIAZ MDW, CMP, LIP, GFR, ANEU #### [address] [address] Lymphocyte, Absolute 0.8 10 3/mcL Normal 0.8-3.9 [facility] ([place] Comment on above: Performed By: #### C SCOTT DIAZ, PAULINA, CMP, LIP, GFR, ANEU #### [address] [address] Lymphocytes/100 WBC (Bld) 12.1 % Normal 10.0-50.0 [facility] ([place]) Comment on above: Performed By: #### C SCOTT DIAZ MDW, CMP, LIP, GFR, ANEU #### [address] [address] Monocyte, Absolute 0.5 10 3/mcL Normal 0.2-1.0 [facility] ([place]) Comment on above: Performed By: #### C JOE, PAULINA CHAVEZ, CMP, LIP, GFR, ANEU #### [address] [address] Monocytes/100 WBC (Bld) 6.7 % Normal 1.7-13.0 [facility] ([place]) Comment on above: Performed By: #### C SCOTT DIAZ MDW, CMP, LIP, GFR, ANEU #### [address] [address] Neutrophils/100 WBC (Bld) 80.0 % Normal 37.0-80.0 [facility] ([place]) Comment on above: Performed By: #### C SCOTT DIAZ MDW, CMP, LIP, GFR, ANEU #### [address] [address] .GFRon 01-03-2024 GFR Non- 132 ml/min/1.73sqm Normal [facility] ([place] Comment on above: Result Comment: GFR Population [...] PAULINA CHAVEZ, CMP, LIP, GFR, ANEU #### [address] [address] GFR 160 ml/min/1.73sqm Normal [facility] ([place] Comment on above: Result Comment: GFR Population [...] DIAZ MDW, CMP, LIP, GFR, ANEU #### [address] [address] .MDWon 01-03-2024 Monocyte Distribution Width 20.98 High 0.00-20.00 [facility] ([place]) Comment on above: Result Comment: For adults in ED, MDW>20.0 may be associated with a higher risk of sepsis during the first 12hrs of hospital admission Performed By: #### C SCOTT DIAZ MDW, CMP, LIP, GFR, ANEU #### [address] [address] .NEUABSon 01-03-2024 Neutrophil, Absolute 5.5 10 3/mcL Normal 2.9-6.2 [facility] ([place] Comment on above: Performed By: #### C SCOTT DIAZ MDW, CMP, LIP, GFR, ANEU #### [address] [address] CBCon 01-03-2024 Erythrocyte distribution width (RBC) [Ratio] 13.7 % Normal 11.5-14.5 [facility] ([place] Comment on above: Performed By: #### C SCOTT DIAZ MDW, CMP, LIP, GFR, ANEU #### [address] [address] Hematocrit (Bld) [Volume fraction] 42.8 % Normal 37.0-47.0 [facility] ([place]) Comment on above: Performed By: #### C SCOTT DIAZ MDW, CMP, LIP, GFR, ANEU #### [address] [address] Hgb 14.2 G/dL Normal 12.0-16.0 [facility] ([place] Comment on above: Performed By: #### C SCOTT DIAZ MDW, CMP, LIP, GFR, ANEU #### [place] [address]67 MCH (RBC) [Entitic mass] 29.7 pg Normal 27.0-31.2 [facility] ([place] Comment on above: Performed By: #### C SCOTT DIAZ MDW, CMP, LIP, GFR, ANEU #### [place] [address]6967 MCHC 33.3 G/dL Normal 33.0-37.0 [facility] ([place] Comment on above: Performed By: #### C SCOTT DIAZ MDW, CMP, LIP, GFR, ANEU #### [place] [address]6967 MCV (RBC) [Entitic vol] 89.3 fL Normal 80.0-94.0 [facility] ([place] Comment on above: Performed By: #### C SCOTT DIAZ MDW, CMP, LIP, GFR, ANEU #### [place] [id number] Platelet 254 10 3/mcL Normal 130-400 [facility] ([place] Comment on above: Performed By: #### C SCOTT DIAZ MDW, CMP, LIP, GFR, ANEU #### [place] [id number] Platelet mean volume (Bld) [Entitic vol] 7.7 fL Normal 7.4-10.4 [facility] ([place] Comment on above: Performed By: #### C SCOTT DIAZ MDW, CMP, LIP, GFR, ANEU #### [address] [address] RBC 4.79 10 6/mcL Normal 4.20-5.40 [facility] ([place]) Comment on above: Performed By: #### C JOE, PAULINA CHAVEZ, CMP, LIP, GFR, ANEU #### [address] [address] WBC 6.9 10 3/mcL Normal 4.6-10.8 [facility] ([place] Comment on above: Performed By: #### C SCOTT DIAZ MDW, CMP, LIP, GFR, ANEU #### [address] [address] CMPon 01-03-2024 Albumin Level 4.1 G/dL Normal 3.5-5.0 [facility] ([place]) Comment on above: Performed By: #### C SCOTT DIAZ MDW, CMP, LIP, GFR, ANEU #### [address] [address] Albumin/Globulin [Mass ratio] 1.3 {ratio} Normal 1.1-2.5 [facility] ([place] Comment on above: Performed By: #### C SCOTT DIAZ MDW, CMP, LIP, GFR, ANEU #### [address] [address] ALP [Catalytic activity/Vol] 97 U/L Normal 40-135 [facility] ([place] Comment on above: Performed By: #### C SCOTT DIAZ MDW, CMP, LIP, GFR, ANEU #### [address] [address] ALT [Catalytic activity/Vol] 20 U/L Normal 14-59 [facility] ([place] Comment on above: Performed By: #### C SCOTT DIAZ MDW, CMP, LIP, GFR, ANEU #### [address] [address] AST [Catalytic activity/Vol] 16 U/L Normal 10-40 [facility] ([place] Comment on above: Performed By: #### C JOE, PAULINA CHAVEZ, CMP, LIP, GFR, ANEU #### [address] [address] Bili Total 0.4 mg/dL Normal 0.2-1.0 [facility] ([place]) Comment on above: Result Comment: Use of this assay is not recommended for patients undergoing treatment with eltrombopag due to the potential for falsely elevated results. Performed By: #### C JOE, PAULINA CHAVEZ, CMP, LIP, GFR, ANEU #### [address] [address] BUN/Creatinine Ratio 30 ratio High 7-27 [facility] ([place] Comment on above: Performed By: #### C JOE, PAULINA CHAVEZ, CMP, LIP, GFR, ANEU #### [address] [address] Calcium [Mass/Vol] 9.0 mg/dL Normal 8.4-10.2 [facility] ([place]) Comment on above: Performed By: #### C JOE, PAULINA CHAVEZ, CMP, LIP, GFR, ANEU #### [address] [address] Chloride [Moles/Vol] 107 mmol/L Normal 98-107 [facility] ([place]) Comment on above: Performed By: #### C SCOTT DIAZ MDW, CMP, LIP, GFR, ANEU #### [address] [address] CO2 [Moles/Vol] 27 mmol/L Normal 22-29 [facility] ([place]) Comment on above: Performed By: #### C JOE, PAULINA CHAVEZ, CMP, LIP, GFR, ANEU #### [address] [address] Creatinine [Mass/Vol] 0.56 mg/dL Normal 0.55-1.02 [facility] ([place]) Comment on above: Performed By: #### C JOE, PAULINA CHAVEZ, CMP, LIP, GFR, ANEU #### [address] [address] Electrolyte Balance 11.0 mEq/L Normal 4.0-15.0 [facility] ([place]) Comment on above: Performed By: #### C SCOTT DIAZ MDW, CMP, LIP, GFR, ANEU #### [address] [address] Globulin 3.1 G/dL Normal [facility] ([place]) Comment on above: Performed By: #### C SCOTT DIAZ MDW, CMP, LIP, GFR, ANEU #### [address] [address] Glucose [Mass/Vol] 83 mg/dL Normal 70-105 [facility] ([place]) Comment on above: Performed By: #### C SCOTT DIAZ MDW, CMP, LIP, GFR, ANEU #### [address] [address] Potassium [Moles/Vol] 3.8 mmol/L Normal 3.5-5.1 [facility] ([place]) Comment on above: Performed By: #### C SCOTT DIAZ MDW, CMP, LIP, GFR, ANEU #### [address] [address] Sodium [Moles/Vol] 145 mmol/L Normal 136-145 [facility] ([place]) Comment on above: Performed By: #### C SCOTT DIAZ MDW, CMP, LIP, GFR, ANEU #### [address] [address] Total Protein 7.2 G/dL Normal 6.4-8.2 [facility] ([place]) Comment on above: Performed By: #### SCOTT RICHARD MDW, CMP, LIP, GFR, ANEU #### [address] [address] Urea nitrogen [Mass/Vol] 17 mg/dL Normal 7-18 [facility] ([place]) Comment on above: Performed By: #### C SCOTT DIAZ MDW, CMP, LIP, GFR, ANEU #### [address] [place] [address] LABORATORYOrdered By: SYSTEM SYSTEM on 01-03-2024 Albumin [...] 01-03-2024 Lipase Level 32 U/L Normal 16-77 [facility] ([place]) Comment on above: Performed By: #### C BC, SCOTT, MDW, CMP, LIP, GFR, ANEU #### [place] [address] [place], [place] [address] PREGUon 01-03-2024 HCG ( test) Ql (U) Negative Normal [facility] ([place]) Comment on above: Performed By: #### P REGU #### [address] [address] test (u) int Not detected Invalid Interpretation Code [facility] ([place]) Comment on above: Performed By: #### P REGU #### [address] [address] Basophil percentageOrdered B y: Dr. Bhatia on 01-10-2023 WBC (Bld) [#/Vol] 12.0 10*3/uL 4.4-11.0 [facility] Blood erythrocytes count (nu mber/volume)Ordered By: Dr. Bhatia on 01-10-2023 RBC (Bld) [#/Vol] 3.00 10*6/uL 4.2-5.4 [facility] Blood hemoglobin measurement (mass/volume)Ordered By: Dr. Bhatia on 01-10-2023 Hemoglobin (Bld) [Mass/Vol] 8.0 g/dL 12.0-15.0 [facility] Blood platelet mean volumeOr dered By: Dr. Bhatia on 01-10-2023 Platelet mean volume (Bld) [Entitic vol] 9.5 fL 6.2-12.0 [facility] Determination of erythrocyte mean corpuscular volume (MCV)Ordered By: Dr. Bhatia on 01-10-2023 MCV (RBC) [Entitic vol] 86.0 fL 81-99 [facility] Hematocrit Auto (Bld) [Volum e fraction]Ordered By: Dr. Bhatia on 01-10-2023 Hematocrit (Bld) [Volume fraction] 25.8 % 37-47 [facility] Laboratory - Hematology and Cell countsOrdered By: Dr. Bhatia on 01-10-2023 Erythrocyte distribution width (RBC) [Entitic vol] 56.9 fL 35.1-43.9 [facility] Erythrocyte distribution width (RBC) [Ratio] 18.4 % 11.6-14.6 [facility] MCH (RBC) [Entitic mass] 26.7 pg 27.0-32.0 [facility] MCHC Auto (RBC) [Mass/Vol]Or dered By: Dr. Bhatia on 01-10-2023 MCHC (RBC) [Mass/Vol] 31.0 g/dL 32-36 [facility] Platelets bldOrdered By: Dr. Bhatia on 01-10-2023 Platelets (Bld) [#/Vol] 209 10*3/uL 150-450 [facility] Absolute lymphocyte countOrd ered By: Dr. Bhatia on 01-08-2023 Lymphocytes Auto (Unsp spec) [#/Vol] 1.94 10*3/uL 0.83-4.51 [facility] Basophil percentageOrdered B y: Dr. Bhaita on 01-08-2023 Basophils/100 WBC (Bld) 0.4 % 0-1 [facility] Eosinophils/100 WBC (Bld) 0.6 % 0-5 [facility] Neutrophils (Bld) [#/Vol] 10.4 10*3/uL 2.0-7.7 [facility] Neutrophils/100 WBC (Bld) 75.6 % 47-70 [facility] Blood lymphocytes/100 leukoc ytesOrdered By: Dr. Bhatia on 01-08-2023 Lymphocytes/100 WBC (Bld) 14.2 % 19-41 [facility] Blood monocytes/100 leukocyt esOrdered By: Dr. Bhatia on 01-08-2023 Monocytes/100 WBC (Bld) 8.6 % 0-10 [facility] Laboratory - Chemistry and C hemistry - challengeon 01-08-2023 Glucose Ql (U) Negative [facility] Laboratory - Hematology and Cell countsOrdered By: Dr. Bhatia on 01-08-2023 Immature granulocytes/100 WBC (Bld) 0.600 % 0.0-0.9 [facility] Comment on above: IG% - Immature Granu locytes (promyelocytes, myelocytes and metamyelocytes) > 1% indicates that a LEFT SHIFT is Present. Nucleated RBC/100 WBC (Bld) [Ratio] 0 % 0-5 [facility] Laboratory - Urinalysison Protein Ql (U) Negative [facility] No Panel InformationOrdered By: Dr. Nathan on 01-08-2023 Vaginal Amniotic Fluid Detection Positive Negative [facility] Comment on above: Amniotic fluid prese nt indicates rupture of Membranes. RESULTS CALLED TO MICHEAL ABDUL 01/08/232023 Pedro Perdomo.REPORT READ BACK BY SAME . Serum Treponema species anti body detectionOrdered By: Dr. Bhatia on 01-08-2023 Treponema sp Ab Ql (S) Non-Reactive [facility] Laboratory - Chemistry and C hemistry - challengeon 01-01-2023 Glucose Ql (U) Negative [facility] Laboratory - Urinalysison Protein Ql (U) Negative [facility] No Panel InformationOrdered By: Lizzy Mercado on 12-25-2022 Group B Streptococcus Culture Group B Beta Streptococcus is not isolated. [facility] No Panel InformationOrdered By: Dr. Nathan on 12-24-2022 Vaginal Amniotic Fluid Detection Negative Negative [facility] Comment on above: Amniotic fluid not p resent indicates No Rupture of FetalMembranes at time of specimen collection. Absolute lymphocyte countOrd ered By: Lizzy Mercado on 12-22-2022 Lymphocytes Auto (Unsp spec) [#/Vol] 1.44 10*3/uL 0.83-4.51 [facility] Basophil percentageOrdered B y: Lizzy Mercado on 12-22-2022 Basophils/100 WBC (Bld) 0.2 % 0-1 [facility] Eosinophils/100 WBC (Bld) 0.5 % 0-5 [facility] Neutrophils (Bld) [#/Vol] 11.1 10*3/uL 2.0-7.7 [facility] Neutrophils/100 WBC (Bld) 82.3 % 47-70 [facility] WBC (Bld) [#/Vol] 13.5 10*3/uL 4.4-11.0 [facility] Blood erythrocytes count (nu mber/volume)Ordered By: Lizzy Mercado on 12-22-2022 RBC (Bld) [#/Vol] 3.87 10*6/uL 4.2-5.4 [facility] Blood hemoglobin measurement (mass/volume)Ordered By: Lizzy Mercado on 12-22-2022 Hemoglobin (Bld) [Mass/Vol] 10.6 g/dL 12.0-15.0 [facility] Blood lymphocytes/100 leukoc ytesOrdered By: Lizzy Mercado on 12-22-2022 Lymphocytes/100 WBC (Bld) 10.7 % 19-41 [facility] Blood monocytes/100 leukocyt esOrdered By: Lizzy Mercado on 12-22-2022 Monocytes/100 WBC (Bld) 5.6 % 0-10 [facility] Blood platelet mean volumeOr dered By: Lizzy Mercado on 12-22-2022 Platelet mean volume (Bld) [Entitic vol] 10.6 fL 6.2-12.0 [facility] Determination of erythrocyte mean corpuscular volume (MCV)Ordered By: Lizzy Mercado on 12-22-2022 MCV (RBC) [Entitic vol] 85.5 fL 81-99 [facility] Hematocrit Auto (Bld) [Volum e fraction]Ordered By: Lizzy Mercado on 12-22-2022 Hematocrit (Bld) [Volume fraction] 33.1 % 37-47 [facility] Laboratory - Chemistry and C hemistry - challengeon 12-22-2022 Glucose Ql (U) Negative [facility] Laboratory - Hematology and Cell countsOrdered By: Lizzy Mercado on 12-22-2022 Erythrocyte distribution width (RBC) [Entitic vol] 48.6 fL 35.1-43.9 [facility] Erythrocyte distribution width (RBC) [Ratio] 16.7 % 11.6-14.6 [facility] Immature granulocytes/100 WBC (Bld) 0.700 % 0.0-0.9 [facility] Comment on above: IG% - Immature Granu locytes (promyelocytes, myelocytes and metamyelocytes) > 1% indicates that a LEFT SHIFT is Present. MCH (RBC) [Entitic mass] 27.4 pg 27.0-32.0 [facility] Nucleated RBC/100 WBC (Bld) [Ratio] 0 % 0-5 [facility] Laboratory - Urinalysison Protein Ql (U) Negative [facility] MCHC Auto (RBC) [Mass/Vol]Or dered By: Lizzy Mercado on 12-22-2022 MCHC (RBC) [Mass/Vol] 32.0 g/dL 32-36 [facility] No Panel InformationOrdered By: Lizzy Mercado on 12-22-2022 Group B Streptococcus Culture Group B Beta Streptococcus is not isolated. [facility] Platelets bldOrdered By: Rocky Mercado on 12-22-2022 Platelets (Bld) [#/Vol] 296 10*3/uL 150-450 [facility] Laboratory - Chemistry and C hemistry - challengeon 12-15-2022 Glucose Ql (U) Negative [facility] Laboratory - Urinalysison Protein Ql (U) Negative [facility] Laboratory - Chemistry and C hemistry - challengeOrdered By: Erma White on 12-11-2022 Transferrin [Mass/Vol] 442 mg/dL 192-364 [facility] Comment on above: Performed at: [address] Director: Robert Jo PhD, Phone: [phone] No Panel InformationOrdered By: Erma White on 12-11-2022 Total Iron Binding Capacity 538 ug/dL 250-450 [facility] Serum or plasma ferritin rhina surement (mass/volume)Ordered By: Erma White on 12-11-2022 Ferritin [Mass/Vol] 7 ng/mL 8-252 [facility] Absolute lymphocyte countOrd ered By: Erma White on 12-04-2022 Lymphocytes Auto (Unsp spec) [#/Vol] 1.62 10*3/uL 0.83-4.51 [facility] Basophil percentageOrdered B y: Erma White on 12-04-2022 Basophils/100 WBC (Bld) 0.4 % 0-1 [facility] Eosinophils/100 WBC (Bld) 0.7 % 0-5 [facility] Neutrophils (Bld) [#/Vol] 11.3 10*3/uL 2.0-7.7 [facility] Neutrophils/100 WBC (Bld) 79.7 % 47-70 [facility] WBC (Bld) [#/Vol] 14.2 10*3/uL 4.4-11.0 [facility] Blood erythrocytes count (nu mber/volume)Ordered By: Erma White on 12-04-2022 RBC (Bld) [#/Vol] 3.58 10*6/uL 4.2-5.4 [facility] Blood hemoglobin measurement (mass/volume)Ordered By: Eram White on 12-04-2022 Hemoglobin (Bld) [Mass/Vol] 9.8 g/dL 12.0-15.0 [facility] Blood lymphocytes/100 leukoc ytesOrdered By: Erma White on 12-04-2022 Lymphocytes/100 WBC (Bld) 11.4 % 19-41 [facility] Blood monocytes/100 leukocyt esOrdered By: Erma White on 12-04-2022 Monocytes/100 WBC (Bld) 7.4 % 0-10 [facility] Blood platelet mean volumeOr dered By: Erma White on 12-04-2022 Platelet mean volume (Bld) [Entitic vol] 10.3 fL 6.2-12.0 [facility] Determination of erythrocyte mean corpuscular volume (MCV)Ordered By: Erma White on 12-04-2022 MCV (RBC) [Entitic vol] 84.1 fL 81-99 [facility] Hematocrit Auto (Bld) [Volum e fraction]Ordered By: Erma White on 12-04-2022 Hematocrit (Bld) [Volume fraction] 30.1 % 37-47 [facility] Laboratory - Chemistry and C hemistry - challengeon 12-04-2022 Glucose Ql (U) Negative [facility] Laboratory - Hematology and Cell countsOrdered By: Erma White on 12-04-2022 Erythrocyte distribution width (RBC) [Entitic vol] 42.5 fL 35.1-43.9 [facility] Erythrocyte distribution width (RBC) [Ratio] 13.7 % 11.6-14.6 [facility] Immature granulocytes/100 WBC (Bld) 0.400 % 0.0-0.9 [facility] Comment on above: IG% - Immature Granu locytes (promyelocytes, myelocytes and metamyelocytes) > 1% indicates that a LEFT SHIFT is Present. MCH (RBC) [Entitic mass] 27.4 pg 27.0-32.0 [facility] Nucleated RBC/100 WBC (Bld) [Ratio] 0 % 0-5 [facility] Laboratory - Urinalysison Protein Ql (U) Negative [facility] MCHC Auto (RBC) [Mass/Vol]Or dered By: Erma White on 12-04-2022 MCHC (RBC) [Mass/Vol] 32.6 g/dL 32-36 [facility] Platelets bldOrdered By: Jo White on 12-04-2022 Platelets (Bld) [#/Vol] 308 10*3/uL 150-450 [facility] Laboratory - Chemistry and C hemistry - challengeon 11-20-2022 Glucose Ql (U) Negative [facility] Laboratory - Urinalysison Protein Ql (U) Negative [facility] Quantitative serum or plasma 3 hour gestational glucose tolerance panelOrdered By: Dr. Bhatia on 10-22-2022 Glucose tolerance 3 hours gestational panel See comment [facility] Comment on above: FASTING 77 Col: 09/25 [...] Auto (Unsp spec) [#/Vol] 1.36 10*3/uL 0.83-4.51 [facility] Basophil percentageOrdered B y: Dr. Nathan on 10-16-2022 Basophils/100 WBC (Bld) 0.3 % 0-1 [facility] Eosinophils/100 WBC (Bld) 0.8 % 0-5 [facility] Neutrophils (Bld) [#/Vol] 12.3 10*3/uL 2.0-7.7 [facility] Neutrophils/100 WBC (Bld) 83.8 % 47-70 [facility] WBC (Bld) [#/Vol] 14.6 10*3/uL 4.4-11.0 [facility] Blood erythrocytes count (nu mber/volume)Ordered By: Dr. Nathan on 10-16-2022 RBC (Bld) [#/Vol] 3.63 10*6/uL 4.2-5.4 [facility] Blood hemoglobin measurement (mass/volume)Ordered By: Dr. Nathan on 10-16-2022 Hemoglobin (Bld) [Mass/Vol] 10.4 g/dL 12.0-15.0 [facility] Blood lymphocytes/100 leukoc ytesOrdered By: Dr. Nathan on 10-16-2022 Lymphocytes/100 WBC (Bld) 9.3 % 19-41 [facility] Blood monocytes/100 leukocyt esOrdered By: Dr. Nathan on 10-16-2022 Monocytes/100 WBC (Bld) 5.2 % 0-10 [facility] Blood platelet mean volumeOr dered By: Dr. Nathan on 10-16-2022 Platelet mean volume (Bld) [Entitic vol] 9.9 fL 6.2-12.0 [facility] Determination of erythrocyte mean corpuscular volume (MCV)Ordered By: Dr. Nathan on 10-16-2022 MCV (RBC) [Entitic vol] 91.2 fL 81-99 [facility] Gestational diabetes screen 1-hour screen with 50g oral glucose loadOrdered By: Dr. Nathan on 10-16-2022 Glucose 1 Hr post 50 g glucose PO [Mass/Vol] 142 mg/dL 70-140 [facility] HIV 1 and HIV-2 antibody ass ay with HIV-1 p24 antigen detectionOrdered By: Dr. Nathan on 10-16-2022 HIV 1+2 Ab+HIV1 p24 Ag IA Ql Non-Reactive Nonreactive [facility] Hematocrit Auto (Bld) [Volum e fraction]Ordered By: Dr. Nathan on 10-16-2022 Hematocrit (Bld) [Volume fraction] 33.1 % 37-47 [facility] Laboratory - Chemistry and C hemistry - challengeon 10-16-2022 Glucose Ql (U) Negative [facility] Laboratory - Hematology and Cell countsOrdered By: Dr. Nathan on 10-16-2022 Erythrocyte distribution width (RBC) [Entitic vol] 43.4 fL 35.1-43.9 [facility] Erythrocyte distribution width (RBC) [Ratio] 13.2 % 11.6-14.6 [facility] Immature granulocytes/100 WBC (Bld) 0.600 % 0.0-0.9 [facility] Comment on above: IG% - Immature Granu locytes (promyelocytes, myelocytes and metamyelocytes) > 1% indicates that a LEFT SHIFT is Present. MCH (RBC) [Entitic mass] 28.7 pg 27.0-32.0 [facility] Nucleated RBC/100 WBC (Bld) [Ratio] 0 % 0-5 [facility] Laboratory - Urinalysison Protein Ql (U) Negative [facility] MCHC Auto (RBC) [Mass/Vol]Or dered By: Dr. Nathan on 10-16-2022 MCHC (RBC) [Mass/Vol] 31.4 g/dL 32-36 [facility] Platelets bldOrdered By: Dr. Nathan on 10-16-2022 Platelets (Bld) [#/Vol] 303 10*3/uL 150-450 [facility] Serum Treponema species anti body detectionOrdered By: Dr. Nathan on 10-16-2022 Treponema sp Ab Ql (S) Non-Reactive [facility] Laboratory - Chemistry and C hemistry - challengeon 09-18-2022 Glucose Ql (U) Negative [facility] Laboratory - Urinalysison Protein Ql (U) Negative [facility] Laboratory - Chemistry and hemistry - challengeon 08-17-2022 Glucose Ql (U) Negative [facility] Laboratory - Urinalysison Protein Ql (U) Negative [facility] Culture, urineOrdered By: Ivy White on 07-24-2022 Bacteria identified Cx Nom (U) Presumptive Lactobacillus sp. [facility] Laboratory - Chemistry and C hemistry - challengeon 07-22-2022 Glucose Ql (U) Negative [facility] Laboratory - Urinalysison Protein Ql (U) Negative [facility] No Panel InformationOrdered By: Erma White on 07-22-2022 Miscellaneous Test See comment [facility] Comment on above: TEST RESULT LIMITSAF P, [...] MOM VALUE 0.91 [place] [address] [place] [id number] Interpretation: Screen NegativeThis result is screen negative [...] [employer] to discuss available options. The [employer] recommends amniocentesis be offered to women age 35 and older.Catrachita Sunshine, Ph.D., DABCCDirectorReferences: Available Upon Request. Multiples of Median cutoffs Abreviation definitions For AFP Elevations IDD - Insulin Dep DiabetesSingleton 2.5 Black 2.8 OSBR- Open Spina Bifida RiskIDD 2.0 Twins 4.5 DSR - Down Syndrome RiskFor further inquiries contact [employer] at [phone].This test was developed and its performance characteristicsdetermined by [employer]. It has not been cleared or approvedby the Food and Drug Administration. TESTING PERFORMED AT [facility]. ORIGINAL REPORT ON FILE IN LAB CONTAINS ADDITIONAL TEST SITE INFORMATION. Absolute lymphocyte countOrd ered By: Dr. Nathan on 06-25-2022 Lymphocytes Auto (Unsp spec) [#/Vol] 1.71 10*3/uL 0.83-4.51 [facility] Basophil percentageOrdered B y: Dr. Nathan on 06-25-2022 Basophils/100 WBC (Bld) 0.3 % 0-1 [facility] Eosinophils/100 WBC (Bld) 0.7 % 0-5 [facility] Neutrophils (Bld) [#/Vol] 6.6 10*3/uL 2.0-7.7 [facility] Neutrophils/100 WBC (Bld) 73.7 % 47-70 [facility] WBC (Bld) [#/Vol] 9.0 10*3/uL 4.4-11.0 [facility] Blood erythrocytes count (nu mber/volume)Ordered By: Dr. Nathan on 06-25-2022 RBC (Bld) [#/Vol] 4.67 10*6/uL 4.2-5.4 [facility] Blood hemoglobin measurement (mass/volume)Ordered By: Dr. Nathan on 06-25-2022 Hemoglobin (Bld) [Mass/Vol] 13.6 g/dL 12.0-15.0 [facility] Blood lymphocytes/100 leukoc ytesOrdered By: Dr. Nathan on 06-25-2022 Lymphocytes/100 WBC (Bld) 19.1 % 19-41 [facility] Blood monocytes/100 leukocyt esOrdered By: Dr. Nathan on 06-25-2022 Monocytes/100 WBC (Bld) 6.0 % 0-10 [facility] Blood platelet mean volumeOr dered By: Dr. Nathan on 06-25-2022 Platelet mean volume (Bld) [Entitic vol] 10.4 fL 6.2-12.0 [facility] Determination of erythrocyte mean corpuscular volume (MCV)Ordered By: Dr. Nathan on 06-25-2022 MCV (RBC) [Entitic vol] 89.7 fL 81-99 [facility] HIV 1 and HIV-2 antibody ass ay with HIV-1 p24 antigen detectionOrdered By: Dr. Nathan on 06-25-2022 HIV 1+2 Ab+HIV1 p24 Ag IA Ql Non-Reactive Nonreactive [facility] Hematocrit Auto (Bld) [Volum e fraction]Ordered By: Dr. Nathan on 06-25-2022 Hematocrit (Bld) [Volume fraction] 41.9 % 37-47 [facility] Laboratory - Hematology and Cell countsOrdered By: Dr. Nathan on 06-25-2022 Erythrocyte distribution width (RBC) [Entitic vol] 43.9 fL 35.1-43.9 [facility] Erythrocyte distribution width (RBC) [Ratio] 13.3 % 11.6-14.6 [facility] Immature granulocytes/100 WBC (Bld) 0.200 % 0.0-0.9 [facility] Comment on above: IG% - Immature Granu locytes (promyelocytes, myelocytes and metamyelocytes) > 1% indicates that a LEFT SHIFT is Present. MCH (RBC) [Entitic mass] 29.1 pg 27.0-32.0 [facility] Nucleated RBC/100 WBC (Bld) [Ratio] 0 % 0-5 [facility] MCHC Auto (RBC) [Mass/Vol]Or dered By: Dr. Nathan on 06-25-2022 MCHC (RBC) [Mass/Vol] 32.5 g/dL 32-36 [facility] No Panel InformationOrdered By: Dr. Nathan on 06-25-2022 Miscellaneous Test Comment MAILED SPECIMEN [facility] Hepatitis B Surface Antigen Non-Reactive Nonreactive [facility] Hepatitis C Antibody Non-Reactive Nonreactive [facility] Comment on above: Non Reactive: < 0.8 Equivocal: >/= 0.8 to < 1.0 Reactive: >/= 1.0The CDC recommends that a reactive/equivocal HCV antibody result be followed up by the HCV Nucleic Acid Amplificationtest (499841) Rubella IgG Antibody Reactive Nonreactive [facility] Comment on above: Antibody Results Int erpretation of Immune Status Non Reactive Presumed Non-Immune Equivocal Equivocal Reactive Presumed Immune Platelets bldOrdered By: Dr. Nathan on 06-25-2022 Platelets (Bld) [#/Vol] 315 10*3/uL 150-450 [facility] Serum Treponema species anti body detectionOrdered By: Dr. Nathan on 06-25-2022 Treponema sp Ab Ql (S) Non-Reactive [facility] Chlamydia trachomatis rRNA d etection by probe and target amplification methodon 05-27-2022 C. trachomatis rRNA JUANY+probe Ql (Unsp spec) Negative Negative [facility] Work Phone: Laboratory - Drug toxicology on 05-27-2022 Amphetamines Ql (U) Negative <1000 ng/mL [facility] Work Phone: Benzodiazepines Ql (U) Negative < 200 ng/mL [facility] Work Phone: Cannabinoids Screen Ql (U) Negative < 50 ng/mL [facility] Work Phone: Cocaine Ql (U) Negative < 300 ng/mL [facility] Work Phone: Opiates Ql (U) Negative < 300 ng/mL [facility] Work Phone: Laboratory - Microbiology an d Antimicrobial susceptibilityon 05-27-2022 N. gonorrhoeae DNA JUANY+probe Ql (Unsp spec) Negative Negative [facility] Work Phone: Comment on above: Performed at: =[address] [id number] Director: Ange Motley MD, Phone: [phone] No Panel Informationon 05-27 MDMA (Ecstasy) Screen Negative < 500 ng/mL [facility] Work Phone: Urine Barbiturates Screen Negative < 200 ng/mL [facility] Work Phone: Urine Drug Screen Comment [facility] Work Phone: Comment on above: CONFIRMATORY TESTING [...] Methadone Screen Negative < 300 ng/mL [facility] Work Phone: Urine phencyclidine (PCP) de tectionon 05-27-2022 Phencyclidine Ql (U) Negative < 25 ng/mL [facility] Work Phone: Absolute lymphocyte counton 03-20-2022 Lymphocytes Auto (Unsp spec) [#/Vol] 1.38 10*3/uL 0.83-4.51 [facility] Work Phone: [phone] Basophil percentageon 2021 Basophils/100 WBC (Bld) 0.7 % 0-1 [facility] Work Phone: Eosinophils/100 WBC (Bld) 0.7 % 0-5 [facility] Work Phone: Neutrophils (Bld) [#/Vol] 3.6 10*3/uL 2.0-7.7 [facility] Work Phone: Neutrophils/100 WBC (Bld) 65.3 % 47-70 [facility] Work Phone: WBC (Bld) [#/Vol] 5.5 10*3/uL 4.4-11.0 [facility] Work Phone: [phone] Blood erythrocytes count (nu mber/volume)on 03-20-2022 RBC (Bld) [#/Vol] 4.69 10*6/uL 4.2-5.4 [facility] Work Phone: Blood hemoglobin measurement (mass/volume)on 03-20-2022 Hemoglobin (Bld) [Mass/Vol] 13.5 g/dL 12.0-15.0 [facility] Work Phone: Blood lymphocytes/100 leukoc yteson 03-20-2022 Lymphocytes/100 WBC (Bld) 25.0 % 19-41 [facility] Work Phone: Blood monocytes/100 leukocyt eson 03-20-2022 Monocytes/100 WBC (Bld) 8.3 % 0-10 [facility] Work Phone: Blood platelet mean volumeon 03-20-2022 Platelet mean volume (Bld) [Entitic vol] 10.1 fL 6.2-12.0 [facility] Work Phone: Determination of erythrocyte mean corpuscular volume (MCV)on 03-20-2022 MCV (RBC) [Entitic vol] 89.8 fL 81-99 [facility] Work Phone: Hematocrit Auto (Bld) [Volum e fraction]on 03-20-2022 Hematocrit (Bld) [Volume fraction] 42.1 % 37-47 [facility] Work Phone: Laboratory - Hematology and Cell countson 03-20-2022 Erythrocyte distribution width (RBC) [Entitic vol] 44.1 fL 35.1-43.9 [facility] Work Phone: Erythrocyte distribution width (RBC) [Ratio] 13.3 % 11.6-14.6 [facility] Work Phone: Immature granulocytes/100 WBC (Bld) 0.000 % 0.0-0.9 [facility] Work Phone: Comment on above: IG% - Immature Granu locytes (promyelocytes, myelocytes and metamyelocytes) > 1% indicates that a LEFT SHIFT is Present. MCH (RBC) [Entitic mass] 28.8 pg 27.0-32.0 [facility] Work Phone: Nucleated RBC/100 WBC (Bld) [Ratio] 0 % 0-5 [facility] Work Phone: MCHC Auto (RBC) [Mass/Vol]on 03-20-2022 MCHC (RBC) [Mass/Vol] 32.1 g/dL 32-36 [facility] Work Phone: No Panel Informationon 03-20 Thyroid Stimulating Hormone (TSH) 0.89 uIU/mL 0.358-3.74 [facility] Work Phone: Platelets bldon 03-20-2022 Platelets (Bld) [#/Vol] 321 10*3/uL 150-450 [facility] Work Phone: Culture, urine Bacteria identified Cx Nom (U) Presumptive Lactobacillus sp. [facility] Work Phone: Gram stain for investigation of transfusion reaction Microscopic observation Gram stain Nom (Unsp spec) [facility] Work Phone: Thin prep Papanicolaou smear with manual screening Genital Culture G. vaginalis (Presumptive) [facility] Work Phone: Vital Signs Date Time Vital Sign Value Performing Clinician Faci lity 04-30-2025 11:02-0400 Body height 154.[address] Awilda Felix DO Work Phone: [facility] 04-30-2025 11:02-0400 Body mass index (BMI) [Ratio] 23.1 kg/m2 Dr. Awilda Felix DO Work Phone: [facility] 04-30-2025 11:02-0400 Body weight 55.[address] Awilda Felix DO Work Phone: [facility] 04-30-2025 11:02-0400 Diastolic blood pressure 71 mm[Hg] Dr. Awilda Felix DO Work Phone: [facility] 04-30-2025 11:02-0400 Systolic blood pressure 105 mm[Hg] Dr. Awilda Felix DO Work Phone: [facility] 03-23-2025 09:42-0400 Body height 154.[address] Awilda Felix DO Work Phone: [facility] 03-23-2025 09:41-0400 Body mass index (BMI) [Ratio] 21.6 kg/m2 Dr. Awilda Felix DO Work Phone: [facility] 03-23-2025 09:41-0400 Body weight 51.[address] Awilda Felix DO Work Phone: [facility] 03-23-2025 09:41-0400 Diastolic blood pressure 71 mm[Hg] Dr. Awilda Felix DO Work Phone: [facility] 03-23-2025 09:41-0400 Systolic blood pressure 112 mm[Hg] Dr. Awilda Felix DO Work Phone: [facility] 02-28-2025 10:07-0400 Body height 154.[address] Awilda Felix DO Work Phone: [facility] 02-28-2025 10:07-0400 Body mass index (BMI) [Ratio] 20.9 kg/m2 Dr. Awilda Felix DO Work Phone: [facility] 02-28-2025 10:07-0400 Body weight 50.[address] Awilda Felix DO Work Phone: [facility] 02-28-2025 10:07-0400 Diastolic blood pressure 66 mm[Hg] Dr. Awilda Felix DO Work Phone: [facility] 02-28-2025 10:07-0400 Systolic blood pressure 101 mm[Hg] Dr. Awilda Felix DO Work Phone: [facility] 01-29-2025 10:44-0400 Body height 154.[address] Brielle Nathan MD Work Phone: [facility] 01-29-2025 10:44-0400 Body mass index (BMI) [Ratio] 20.1 kg/m2 Dr. Brielle Nathan MD Work Phone: [facility] 01-29-2025 10:44-0400 Body weight 48.[address] Brielle Nathan MD Work Phone: [facility] 01-29-2025 10:44-0400 Diastolic blood pressure 75 mm[Hg] Dr. Brielle Nathan MD Work Phone: [facility] 01-29-2025 10:44-0400 Systolic blood pressure 112 mm[Hg] Dr. Brielle Nathan MD Work Phone: [phone] [place] [address] 01-15-2025 11:35-0400 Body height 154.[address] Brielle Nathan MD Work Phone: [phone] [place] [address] 01-15-2025 11:35-0400 Body mass index (BMI) [Ratio] 20 kg/m2 Dr. Brielle Nathan MD Work Phone: [phone] [place] [address] 01-15-2025 11:35-0400 Body weight 48.[address] Brielle Nathan MD Work Phone: [phone] [place] [address] 01-15-2025 11:35-0400 Diastolic blood pressure 67 mm[Hg] Dr. Brielle Nathan MD Work Phone: [phone] [place] [address] 01-15-2025 11:35-0400 Systolic blood pressure 106 mm[Hg] Dr. Brielle Nathan MD Work Phone: [facility] 02-28-2024 11:06-0400 Diastolic Blood Pressure Non-Invasive 68 mm[Hg] DR ROBERT BARON MD [facility] 02-28-2024 11:06-0400 Heart rate 70 /min DR ROBERT BARON MD [facility] 02-28-2024 11:06-0400 Respiratory rate 20 /min DR ROBERT BARON MD [facility] 02-28-2024 11:06-0400 Systolic Blood Pressure Non-Invasive 104 mm[Hg] DR ROBERT BARON MD [facility] 02-28-2024 10:55-0400 Diastolic Blood Pressure Non-Invasive 63 mm[Hg] DR ROBERT BARON MD [facility] 02-28-2024 10:55-0400 Heart rate 89 /min DR ROBERT BARON MD [facility] 02-28-2024 10:55-0400 Respiratory rate 20 /min DR ROBERT BARON MD [facility] 02-28-2024 10:55-0400 Systolic Blood Pressure Non-Invasive 102 mm[Hg] DR ROBERT BARON MD [facility] 02-28-2024 10:46-0400 Body temperature 98.06 [degF] DR ROBERT BARON MD [facility] 02-28-2024 10:46-0400 Diastolic Blood Pressure Non-Invasive 63 mm[Hg] DR ROBERT BARON MD [facility] 02-28-2024 10:46-0400 Heart rate 80 /min DR ROBERT BARON MD [facility] 02-28-2024 10:46-0400 Respiratory rate 16 /min DR ROBERT BARON MD [facility] 02-28-2024 10:46-0400 Systolic Blood Pressure Non-Invasive 93 mm[Hg] DR ROBERT BARON MD [facility] 02-28-2024 10:40-0400 Respiratory Rate - Anes 23 br/min DR ROBERT BARON MD [facility] 02-28-2024 10:35-0400 Respiratory Rate - Anes 12 br/min DR ROBERT BARON MD [facility] 02-28-2024 09:57-0400 Body height 159.[address] ROBERT BARON MD [facility] 02-28-2024 09:57-0400 Body temperature 98.06 [degF] DR ROBERT BARON MD [facility] 02-28-2024 09:57-0400 Body weight 44.[address] ROBERT BARON MD [facility] 02-28-2024 09:57-0400 Body weight 17.4 kg/m2 DR ROBERT BARON MD [facility] 02-28-2024 09:57-0400 Heart rate 72 /min DR ROBERT BARON MD [facility] 01-03-2024 19:46-0400 Body height [address] MARYAN ALICIA DO [facility] 01-03-2024 19:46-0400 Body temperature 96.98 [degF] DR MARYAN ALICIA DO [facility] 01-03-2024 19:46-0400 Body weight 47.[address] MARYAN ALICIA DO [facility] 01-03-2024 19:46-0400 Diastolic Blood Pressure Non-Invasive 67 mm[Hg] DR MARYAN ALICIA DO [facility] 01-03-2024 19:46-0400 Heart rate 69 /min DR MARYAN ALICIA DO [facility] 01-03-2024 19:46-0400 Respiratory rate 18 /min DR MARYAN ALICIA DO [facility] 01-03-2024 19:46-0400 Systolic Blood Pressure Non-Invasive 109 mm[Hg] DR MARYAN ALICIA DO [facility] 01-21-2023 09:38-0400 Body height 154.94 cm No Primary Care Physician [facility] 01-21-2023 09:37-0400 Body mass index (BMI) [Ratio] 23.6 kg/m2 No Primary Care Physician [facility] 01-21-2023 09:37-0400 Body weight 56.75 kg No Primary Care Physician [facility] 01-21-2023 09:37-0400 Diastolic blood pressure 78 mm[Hg] No Primary Care Physician [facility] 01-21-2023 09:37-0400 Systolic blood pressure 123 mm[Hg] No Primary Care Physician [facility] 01-11-2023 09:00-0400 Body temperature 97.5 [degF] No Primary Care Physician [facility] 01-11-2023 09:00-0400 Diastolic blood pressure 74 mm[Hg] No Primary Care Physician [facility] 01-11-2023 09:00-0400 Heart rate 75 /min No Primary Care Physician [facility] 01-11-2023 09:00-0400 Respiratory rate 16 /min No Primary Care Physician [facility] 01-11-2023 09:00-0400 SaO2% (BldA) [Mass fraction] 96 % No Primary Care Physician [facility] 01-11-2023 09:00-0400 Systolic blood pressure 125 mm[Hg] No Primary Care Physician [facility] 01-08-2023 22:21-0400 Body height 154.94 cm No Primary Care Physician [facility] 01-08-2023 22:21-0400 Body mass index (BMI) [Ratio] 28.1 kg/m2 No Primary Care Physician [facility] 01-08-2023 22:21-0400 Body weight 67.58 kg No Primary Care Physician [facility] 01-08-2023 13:57-0400 Body mass index (BMI) [Ratio] 27.2 kg/m2 No Primary Care Physician [facility] 01-08-2023 13:57-0400 Body weight 67.58 kg No Primary Care Physician [facility] 01-08-2023 13:57-0400 Diastolic blood pressure 70 mm[Hg] No Primary Care Physician [facility] 01-08-2023 13:57-0400 Systolic blood pressure 126 mm[Hg] No Primary Care Physician [facility] 01-01-2023 14:23-0400 Diastolic blood pressure 86 mm[Hg] No Primary Care Physician [facility] 01-01-2023 14:23-0400 Systolic blood pressure 125 mm[Hg] No Primary Care Physician [facility] 01-01-2023 14:06-0400 Body mass index (BMI) [Ratio] 27.4 kg/m2 No Primary Care Physician [facility] 01-01-2023 14:06-0400 Body weight 68.09 kg No Primary Care Physician [facility] 01-01-2023 14:06-0400 Heart rate 90 /min No Primary Care Physician [facility] 12-27-2022 14:35-0400 Body height 157.48 cm No Primary Care Physician [facility] 12-27-2022 14:35-0400 Body mass index (BMI) [Ratio] 27.3 kg/m2 No Primary Care Physician [facility] 12-27-2022 14:35-0400 Body weight 68 kg No Primary Care Physician [facility] 12-27-2022 14:31-0400 Diastolic blood pressure 74 mm[Hg] No Primary Care Physician [facility] 12-27-2022 14:31-0400 Heart rate 67 /min No Primary Care Physician [facility] 12-27-2022 14:31-0400 SaO2% (BldA) [Mass fraction] 99 % No Primary Care Physician [facility] 12-27-2022 14:31-0400 Systolic blood pressure 123 mm[Hg] No Primary Care Physician [facility] 12-27-2022 14:30-0400 Body temperature 98.8 [degF] No Primary Care Physician [facility] 12-24-2022 08:45-0400 Body temperature 99.1 [degF] No Primary Care Physician [facility] 12-24-2022 08:45-0400 Diastolic blood pressure 71 mm[Hg] No Primary Care Physician [facility] 12-24-2022 08:45-0400 Heart rate 72 /min No Primary Care Physician [facility] 12-24-2022 08:45-0400 SaO2% (BldA) [Mass fraction] 98 % No Primary Care Physician [facility] 12-24-2022 08:45-0400 Systolic blood pressure 112 mm[Hg] No Primary Care Physician [facility] 12-24-2022 08:27-0400 Body height 157.48 cm No Primary Care Physician [facility] 12-24-2022 08:27-0400 Body mass index (BMI) [Ratio] 27.4 kg/m2 No Primary Care Physician [facility] 12-24-2022 08:27-0400 Body weight 68.03 kg No Primary Care Physician [facility] 12-22-2022 13:55-0400 Body mass index (BMI) [Ratio] 27.8 kg/m2 No Primary Care Physician [facility] 12-22-2022 13:55-0400 Body weight 68.94 kg No Primary Care Physician [facility] 12-22-2022 13:55-0400 Diastolic blood pressure 60 mm[Hg] No Primary Care Physician [facility] 12-22-2022 13:55-0400 Systolic blood pressure 120 mm[Hg] No Primary Care Physician [facility] 12-15-2022 13:19-0400 Body mass index (BMI) [Ratio] 26.8 kg/m2 No Primary Care Physician [facility] 12-15-2022 13:19-0400 Body weight 66.45 kg No Primary Care Physician [facility] 12-15-2022 13:19-0400 Diastolic blood pressure 69 mm[Hg] No Primary Care Physician [facility] 12-15-2022 13:19-0400 Systolic blood pressure 103 mm[Hg] No Primary Care Physician [facility] 12-04-2022 15:05-0400 Body mass index (BMI) [Ratio] 27.7 kg/m2 No Primary Care Physician [facility] 12-04-2022 15:05-0400 Body weight 68.71 kg No Primary Care Physician [facility] 12-04-2022 15:05-0400 Diastolic blood pressure 69 mm[Hg] No Primary Care Physician [facility] 12-04-2022 15:05-0400 Systolic blood pressure 127 mm[Hg] No Primary Care Physician [facility] 11-20-2022 16:00-0400 Body mass index (BMI) [Ratio] 25.9 kg/m2 No Primary Care Physician [facility] 11-20-2022 16:00-0400 Body weight 64.41 kg No Primary Care Physician [facility] 11-20-2022 16:00-0400 Diastolic blood pressure 75 mm[Hg] No Primary Care Physician [facility] 11-20-2022 16:00-0400 Systolic blood pressure 114 mm[Hg] No Primary Care Physician [facility] 11-02-2022 14:53-0400 Body mass index (BMI) [Ratio] 25.4 kg/m2 No Primary Care Physician [facility] 11-02-2022 14:53-0400 Body weight 63.21 kg No Primary Care Physician [facility] 11-02-2022 14:53-0400 Diastolic blood pressure 69 mm[Hg] No Primary Care Physician [facility] 11-02-2022 14:53-0400 Systolic blood pressure 109 mm[Hg] No Primary Care Physician [facility] 10-16-2022 09:58-0400 Body height 157.48 cm No Primary Care Physician [facility] 10-16-2022 09:58-0400 Body mass index (BMI) [Ratio] 24.5 kg/m2 No Primary Care Physician [facility] 10-16-2022 09:58-0400 Body weight 60.78 kg No Primary Care Physician [facility] 10-16-2022 09:58-0400 Diastolic blood pressure 73 mm[Hg] No Primary Care Physician [facility] 10-16-2022 09:58-0400 Systolic blood pressure 123 mm[Hg] No Primary Care Physician [facility] 09-18-2022 14:59-0500 Diastolic blood pressure 68 mm[Hg] No Primary Care Physician [facility] 09-18-2022 14:59-0500 Systolic blood pressure 116 mm[Hg] No Primary Care Physician [facility] 09-18-2022 14:37-0500 Body mass index (BMI) [Ratio] 23.4 kg/m2 No Primary Care Physician [facility] 09-18-2022 14:37-0500 Body weight 58.17 kg No Primary Care Physician [facility] 08-17-2022 16:03-0500 Body mass index (BMI) [Ratio] 21.2 kg/m2 No Primary Care Physician [facility] 08-17-2022 16:03-0500 Body weight 52.61 kg No Primary Care Physician [facility] 08-17-2022 16:03-0500 Diastolic blood pressure 61 mm[Hg] No Primary Care Physician [facility] 08-17-2022 16:03-0500 Systolic blood pressure 97 mm[Hg] No Primary Care Physician [facility] 07-22-2022 15:45-0500 Body height 157.48 cm No Primary Care Physician [facility] Work Phone: 07-22-2022 15:45-0500 Body mass index (BMI) [Ratio] 20.5 kg/m2 No Primary Care Physician [facility] 07-22-2022 15:45-0500 Body weight 50.85 kg No Primary Care Physician [facility] 07-22-2022 15:45-0500 Diastolic blood pressure 71 mm[Hg] No Primary Care Physician [facility] 07-22-2022 15:45-0500 Systolic blood pressure 112 mm[Hg] No Primary Care Physician [facility] 06-25-2022 13:27-0500 Body height 157.48 cm No Primary Care Physician [facility] Work Phone: 06-25-2022 13:23-0500 Body mass index (BMI) [Ratio] 20.1 kg/m2 No Primary Care Physician [facility] 06-25-2022 13:23-0500 Body weight 49.89 kg No Primary Care Physician [facility] 06-25-2022 13:23-0500 Diastolic blood pressure 56 mm[Hg] No Primary Care Physician [facility] 06-25-2022 13:23-0500 Systolic blood pressure 96 mm[Hg] No Primary Care Physician [facility] 05-27-2022 11:46-0400 Body mass index (BMI) [Ratio] 20.4 kg/m2 No Primary Care Physician [facility] Work Phone: 05-27-2022 11:46-0400 Body weight 48.98 kg No Primary Care Physician [facility] Work Phone: 05-27-2022 11:46-0400 Diastolic blood pressure 67 mm[Hg] No Primary Care Physician [facility] Work Phone: 05-27-2022 11:46-0400 Systolic blood pressure 107 mm[Hg] No Primary Care Physician [facility] Work Phone: 03-20-2022 09:19-0400 Body height 157.[address] Brielle Nathan Work Phone: [facility] Work Phone: 03-20-2022 09:19-0400 Body mass index (BMI) [Ratio] 19 kg/m2 Dr. Brielle Nathan Work Phone: [facility] Work Phone: 03-20-2022 09:19-0400 Body weight 47.[address] Brielle Nathan Work Phone: [facility] Work Phone: 03-20-2022 09:19-0400 Diastolic blood pressure 70 mm[Hg] Dr. Brielle Nathan Work Phone: [facility] Work Phone: 03-20-2022 09:19-0400 Systolic blood pressure 110 mm[Hg] Dr. Brielle Nathan Work Phone: [facility] Work Phone: Encounters Encounter Date Encounter Type Care Provider Facility Start: 04-30-2025 End: 04-30-2025 Patient encounter procedure Lizzy ROCKWELL -[facility] Work Phone: Start: 04-30-2025 End: 04-30-[address] Awilda Felix DO Work Phone: -[facility] Start: 04-16-2025 End: 04-16-2025 ambulatory MD [facility] Start: 03-23-2025 End: 03-23-2025 Patient encounter procedure Lizzy Mercado CNM -[facility] Work Phone: Start: 03-23-2025 End: 03-23-[address] Awilda Felix DO Work Phone: -[facility] Start: 02-28-2025 End: 02-28-2025 Patient encounter procedure Jami Kunalattila WRIGHT -[facility] Work Phone: Start: 02-28-2025 End: 02-28-[address] Awilda Felix DO Work Phone: -[facility] Start: 02-09-2025 End: 02-09-[address] Awilda Felix DO Work Phone: -[facility] Start: 02-09-2025 End: 02-09-[address] Awilda Felix DO -[facility] Start: 02-09-2025 End: 02-09-2025 ambulatory Awilda Felix Facility:[facility] Start: 01-29-2025 End: 01-29-[address] Awilda Felix DO Work Phone: -[facility]atory Specimen Start: 01-29-2025 End: 01-29-[address] Awilda Felix DO -[facility] Work Phone: Start: 01-29-2025 End: 01-29-[address] Awilda Felix DO -[facility] Work Phone: Start: 01-29-2025 End: 01-29-2025 ambulatory Awilda Felix -[facility] Start: 01-29-2025 End: 01-29-2025 ambulatory Awilda Felix Facility:[facility] Start: 01-15-2025 End: 01-15-[address] Brielle Nathan MD -[facility] Work Phone: Start: 01-15-2025 End: 01-15-2025 ambulatory Brielle Nathan [facility] Work Phone: Start: 02-28-2024 End: 02-28-[address] ROBERT BARON MD Facility:[facility] Start: 02-28-2024 End: 02-28-[address] ROBERT BARON MD [facility] Start: 01-03-2024 End: 01-03-2024 Emergency department patient visit DR MARYAN ALICIA DO [facility] Start: 01-21-2023 End: 01-21-2023 Patient encounter procedure No Primary Care Physician [facility] Work Phone: Start: 01-12-2023 End: 01-12-2023 Patient encounter procedure No Primary Care Physician [facility] Work Phone: Start: 01-11-2023 Non-patient / Non-visit No Primary Care Physician [facility] Start: 01-10-2023 Non-patient / Non-visit No Primary Care Physician [facility] Start: 01-09-2023 Non-patient / Non-visit No Primary Care Physician [facility] Start: 01-08-2023 Non-patient / Non-visit No Primary Care Physician [facility] Start: 01-08-2023 End: 01-11-2023 Evaluation and management of inpatient No [facility] Start: 01-08-2023 End: 01-08-2023 Patient encounter procedure No Primary Care Physician [facility] Start: 01-01-2023 End: 01-01-2023 Patient encounter procedure No Primary Care Physician [facility] Start: 12-28-2022 Non-patient / Non-visit No Primary Care Physician [facility] Start: 12-27-2022 End: 12-27-2022 ambulatory No Primary Care Physician [facility] Work Phone: Start: 12-27-2022 End: 12-27-2022 Patient encounter procedure No Primary Care Physician [facility] Start: 12-24-2022 End: 12-24-2022 ambulatory No Primary Care Physician [facility] Work Phone: Start: 12-24-2022 End: 12-24-2022 Patient encounter procedure No Primary Care Physician [facility] Start: 12-22-2022 End: 12-22-2022 ambulatory No Primary Care Physician [facility] Work Phone: Start: 12-22-2022 End: 12-22-2022 Patient encounter procedure No Primary Care Physician [facility]Laboratory Start: 12-15-2022 End: 12-15-2022 Patient encounter procedure No Primary Care Physician [facility] Start: 12-11-2022 End: 12-11-2022 ambulatory No Primary Care Physician [facility] Work Phone: Start: 12-11-2022 End: 12-11-2022 Patient encounter procedure No Primary Care Physician [facility] Start: 12-04-2022 End: 12-04-2022 Patient encounter procedure No Primary Care Physician [facility] Start: 12-04-2022 End: 12-04-2022 Patient encounter procedure No Primary Care Physician [facility] Start: 11-20-2022 End: 11-20-2022 Patient encounter procedure No Primary Care Physician [facility] Start: 11-02-2022 End: 11-02-2022 Patient encounter procedure No Primary Care Physician [facility] Start: 10-22-2022 End: 10-22-2022 ambulatory No Primary Care Physician [facility] Work Phone: Start: 10-22-2022 End: 10-22-2022 Patient encounter procedure No Primary Care Physician [facility] Start: 10-16-2022 End: 10-16-2022 ambulatory No Primary Care Physician [facility] Work Phone: Start: 10-16-2022 End: 10-16-2022 Patient encounter procedure No Primary Care Physician [facility] Start: 09-18-2022 End: 09-18-2022 Patient encounter procedure No Primary Care Physician [facility] Start: 08-17-2022 End: 08-17-2022 Patient encounter procedure No Primary Care Physician [facility] Start: 07-22-2022 End: 07-22-2022 ambulatory No Primary Care Physician [facility] Work Phone: Start: 07-22-2022 End: 07-22-2022 Patient encounter procedure No Primary Care Physician [facility] Start: 06-25-2022 End: 06-25-2022 ambulatory No Primary Care Physician [facility] Work Phone: Start: 06-25-2022 End: 06-25-2022 Patient encounter procedure No Primary Care Physician [facility] Start: 05-27-2022 End: 05-27-2022 Patient encounter procedure No Primary Care Physician [facility]Laboratory, Specimen Start: 05-27-2022 End: 05-27-2022 Patient encounter procedure No Primary Care Physician [facility] Start: 03-26-2022 End: 03-26-[address] Brielle Nathan Work Phone: [facility] Work Phone: Start: 03-26-2022 End: 03-26-[address] Brielle Nathan Work Phone: [facility] [facility] Start: 03-20-2022 End: 03-20-[address] Brielle Nathan Work Phone: [facility] Work Phone: Start: 03-20-2022 End: 03-20-[address] Brielle Nathan Work Phone: [facility] Start: 03-20-2022 End: 03-20-[address] 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 Brielle Nathan Work Phone: Urine culture No Primary Car e Physician Urine culture No Primary Car e Physician Plan of Treatment Date Care Activity Detail Author Start: 01-11-2023 Patient discharge [facility] Start: 01-10-2023 Application of abdominal corset [facility] Start: 01-09-2023 Administration of medication [facility] Start: 01-09-2023 Ambulation therapy management [facility] Start: 01-09-2023 Application of device [facility] Start: 01-09-2023 Application of intermittent pneumatic compression device [facility] Start: 01-09-2023 Assessment of risk of venous thromboembolism [facility] Start: 01-09-2023 Catheterization of vein [facility] Start: 01-09-2023 Deep breathing and coughing exercises [facility] Start: 01-09-2023 Exercises [facility] Start: 01-09-2023 Measuring intake and output [facility] Start: 01-09-2023 End: 01-09-2023 Notification of physician [facility] Start: 01-09-2023 Procedure discontinued [facility] Start: 01-09-2023 Provision of activity privileges [facility] Start: 01-09-2023 Vital signs measurements [facility] Start: 01-09-2023 Wound care [facility] Start: 01-09-2023 End: 01-09-2023 [facility] Start: 01-09-2023 Application of abdominal corset [facility] Start: 01-08-2023 [facility] Start: 01-08-2023 Notification of physician [facility] Start: 01-08-2023 Admission procedure [facility] Start: 01-08-2023 Anesthesia consultation [facility] Start: 01-08-2023 acoustic stimulation test [facility] Start: 01-08-2023 Insertion of catheter into peripheral vein [facility] Start: 01-08-2023 Intrauterine catheterization [facility] Start: 01-08-2023 Introduction of urinary catheter [facility] Start: 01-08-2023 Obstetric monitoring [facility] Start: 01-08-2023 Provision of activity privileges [facility] Start: 01-08-2023 Vital signs measurements [facility] Start: 01-08-2023 End: 01-08-2023 [facility] Start: 12-27-2022 Nonstress test [facility] Start: 12-27-2022 Obstetric monitoring [facility] Start: 12-27-2022 Vital signs measurements [facility] Start: 12-27-2022 [facility] Start: 12-24-2022 Nonstress test [facility] Start: 12-24-2022 Obstetric monitoring [facility] Start: 12-24-2022 Vital signs measurements [facility] Start: 12-24-2022 [facility] Start: 12-24-2022 Patient discharge [facility] Start: 12-22-2022 Streptococcus agalactiae [Presence] in Unspecified specimen by Organism specific culture [facility] Beta-hemolytic Streptococcus culture [facility] CBC W Auto Different ial panel - Blood [facility] Chlamydia deoxyribon ucleic acid detection [facility] Group B Streptococcu s Culture Group B Streptococcus Culture [facility] Hepatitis C antibody measurement [facility] Patient Education [facility] Work Phone: Patient referral [facility] Work Phone: Procedure [facility] Rubella IgG measurement [facility] Serologic test for syphilis [facility] US Pelvis [facility] Work Phone: US Pelvis transvaginal [facility] Work Phone: [facility] Immunizations Immunization Date Immunization Notes Care Provider Fa roselynty 11-20-2022 tetanus toxoid, redu elmira diphtheria toxoid, and acellular pertussis vaccine, adsorbed No Primary Care Physician [facility] Payers Date Payer Category Payer Self-pay [id number] 2024 Unknown [id number] 2024 Unknown [id number] 1998 Unknown [id number] 2.16.8 [id number] 1998 Unknown [id number] 2.16.8 [id number] 1998 Unknown [id number]. [id number] Unknown [id number] 2.16.8 [id number] Unknown [id number] 2.16.8 [id number] Unknown [id number] 2.16.8 [id number] Unknown [id number] 2.16.8 [id number] Unknown [id number] 2.16.8 [id number] Unknown [id number] 2.16.8 [id number] Unknown [id number] 2.16.8 [id number] Social History Date Type Detail Facility Start: 03-20-2022 End: 01-21-2023 Tobacco smoking status NHIS Unknown if ever smoked [facility] Start: 2000 Sex Assigned At Female [facility] Tobacco smoking status No Smokin g Status Entered [facility] Start: 01-07-2024 End: 01-25-2025 Tobacco smoking status Never smoked tobacco (finding) [facility] Sex Female [facility] Goals Date Patient Goal Desired Activity /State Functional Status Date Assessment Result Facility 02-28-2024 Functional Status Independent [facility] 02-28-2024 Functional Status Maintained [facility] 01-03-2024 Functional Status Independent [facility] 01-03-2024 Functional Status Independent [facility] Mental Status Date Assessment Result Facility 02-28-2024 Mental Status Oriented x 4 [facility] 02-28-2024 Mental Status [facility] 01-03-2024 Mental Status Orientation Oriented x 4 [facility] 01-03-2024 Mental Status [facility] Clinical Notes 01-09-2023 to 04-30-2025 Note Date & Type Note Facility 04-30-2025 Progress note [facility] 03-23-2025 Progress note [facility] 01-15-2025 Evaluation note Diagnosis Onset Date Resolution acute January 15 11:18am Vaginal bleeding during acute January 15, 2025 11:18am 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 acute January 29 10:42am History of acute January 29, 2025 10:42am acute January 29, 2025 10:42am Supervision of high-risk acute January 29 10:42am Vaginal bleeding during acute January 29, 2025 10:42am [place] [facility] Phone: 1(533) 871-693806-23-2025 Evaluation note* Diagnosis Onset Date Resolution Status [...] bleeding during acute February 28, 2025 10:04am [place] [facility] Work Phone: 1(722) 892-435006-23-2025 Evaluation note* Diagnosis Onset Date Resolution Status [...] Vaginal bleeding during acute March 23 9:51am [place] [facility] Work Phone: 1(588) 841-189206-23-2025 Evaluation note* Diagnosis Onset Date Resolution Status [...] Vaginal bleeding during acute April 30 10:58am [facility] Work Phone: 1(889) 996-233008-05-2024 Evaluation + Plan noteExtracted from: Title:Clinical Document Author:ROBERT BARON Date:02/28/24 [facility] ADMISSION HISTORY AN D PHYSICIAL CHIEF COMPLAINT: [...] FAMILY HISTORY: SOCIAL HISTORY: PHYSICAL EXAM: VITALS: EaifztBrqpCPVrwniFJHrJ0XWL9OqjuGk(kg) 02/27 09:5736.7--743074UG49/05 44.5 24 Hr Tmax: 36.7 at 02/27 [...] changes to the H&P unless noted below. [facility] 08-05-2024 Hospital Discharge instructions Patient Education 02/28/2024 [...] until you are awake and alert. Take tmns-fiy-pnujtyt and prescription medicines only as told by [...] 05/02/2014 Document Revised: 06/24/2018 Document Reviewed: 10/31/2016 [employer] Patient Education 2020 [employer] 02/28/2024 10:49:36 9 - AO Minor Esophagogastroduodenoscopy [...] persists. 10/03/13 Custom 02/28/2024 10:49:29 Gastritis, Adult, Qvuu-vk-Qnfj Gastritis, Adult Gastritis is swelling (inflammation) of [...] Follow these instructions at home: Medicines Take doev-kmh-nenjnqy and prescription medicines only as told by [...] 12/28/2008 Document Revised: 11/29/2018 Document Reviewed: 11/29/2018 [employer] Patient Education 2020 [employer] Follow Up Care 02/04/2024 13:05:53 With:ROBERT BARON MD Address: [address] [facility] [address] [place] [address] [phone] When: Unknown [facility] 08-05-2024 Note Discharge Instructions Thank you for allowing [facility] to assist you with your healthcare needs. The following is importantdischarge information regarding your hospital visit. Your Care Team PHYSICIAN, AILYN BARON What to do next Follow Up Appointments Follow Up with ROBERT BARON MD Where:[address] [facility] [address] [place] [address] [phone] Allergies Vicodin Medications Please ask your primary [...] until you are awake and alert. Take hgsw-clk-hloazds and prescription medicines only as told by [...] 05/02/2014 Document Revised: 06/24/2018 Document Reviewed: 10/31/2016 [employer]ovo[employer] Patient Education 2020 [employer] Inc[employer] Esophagogastroduodenoscopy This is an endoscopic procedure [...] Follow these instructions at home: Medicines Take upgu-jux-fazwuph and prescription medicines only as told by [...] Document Reviewed: 11/29/2018 Elsevier Patient Education 2020 [employer] Additional Information VACCINATE! IT SAVES LIVES! Members of the community who have not yet received the COVID-19 vaccine and would like to receive it can visit one of [facility] vaccine clinics. There are many vaccine clinic locations within the [facility]. For locations and available times, please visit https://gettheshot.coronavirus.[place].gov/. It is important to note that some COVID mobile vaccine clinics are held outdoors and may be canceled in rainy or stormy conditions. To learn more about pediatric vaccinations (ages 5-11), we invite you to visit the [employer] webpage. https://www.[employer].org/pages/2121-Ztcrr-Gtecnhjyclk-Emonomklzs-Ounxj-Pgy stions.htmlTo learn more about the COVID-19 vaccine, we invite you to visit the CDC website for a list of frequently asked questions.https://www.cdc.gov/coronavirus/2019-ncov/vaccines/faq.html [employer] Patient Portal Access Instructions: Stay connected with your healthcare team and access your personal medical information anytime with the [employer] Patient Portal. Please follow the directions below to create your [employer] account: 1.Access the email account you provided upon registration to the hospital/physician office.2.Look for an invitation email from [facility].3.Open the email and access the invitation link: AcceptInvitation to [employer].4.Fill in the required burns to create your account. To access your account, visit [employer]un. Click the blue button labeled Access Patient [...] who you will allowto register on the [facility] for access to your information. You can also access the [facility] Patient Portal on the [facility] silvia. Simply click on Patient Portal and then log into your account. If you would like to receive a full copy of your medical records, please contact the [facility] Medical Records Department by calling [phone], Wednesday through Wednesday between 8 a.m. and [...] Call your local pharmacy or go to http://GetFresh/1N5Ut8k to find one close to you.3.Make use of household items: Use cat litter or old coffee grounds to dispose medications if other options arenot available. Mix your drugs with these household products, seal them in an airtight container andthrow it into the garbage. Call [facility]: [phone] to be sure your drugs can be [...] - AO Minor Esophagogastroduodenoscopy (10/06)(CUSTOM) Gastritis, Adult, Jctv-gh-Ytyo Medication Leaflets My discharge plan and instructions have been reviewed and explained to me and I,TK COTTER understand my current condition and have read and understand these discharge instructions. I have received a written copy of the plan/instructions. If I have questions, I am aware that I should contact my doctor. Patient/Interpretive Naturalist Signature: Date/Time: Relationship to Patient: Witness Name/Signature: Date/Time: [facility]08-05-2024 Note Date of Service February 28, 2024 Procedure Name EGD with biopsy Consent Taken before procedure Indication Patient with epigastric pain and hematemesis Location [facility] Pre-Procedure Exam Epigastric pain and hematemesis [...] HEMATEMESIS, HEMATEMESIS, Preferred Lab: Other lab service, [id number] Post Procedure Assessment, 02/28/24 10:43:00 EDT, Stop [...] ROBERT BARON MD on 02/28/2024 10:47 AM [facility]08-05-2024 Note [facility] ADMISSION HISTORY AND PHYSICIAL CHIEF COMPLAINT: HISTORY [...] FAMILY HISTORY: SOCIAL HISTORY: PHYSICAL EXAM: VITALS: GarkwrTladBSSeprmRSHrW5KNX7LyjfZs(kg) 02/27 09:5736.7--141292DY58/05 44.5 24 Hr Tmax: 36.7 at 02/27 [...] ROBERT BARON MD on 02/28/2024 10:34 AM [facility]08-05-2024 Anesthesiology Consult note Patient: TK COTTER Age: 23 years Sex: Female : 2000 Associated Diagnoses: None Author: DIONNE GUERRERO APRN-SPECIAL AGENT Preoperative Information Anesthesia history Patient's history: negative. [...] Family History: Cancer Grandparent Procedure history: delivery ([id number]) on 01/19/2023 at 22 Years. Social History: [...] Signs (last 24 hrs) Last Charted Temp Jkhuzplr49.7 DegC (FEB 27 09:57) SBP96 mmHg (FEB 27 09:57) DBP73 mmHg (FEB 27 09:57) BMI17.4 (FEB 27:57) Measurements from flowsheet : Measurements 02/28/2024 9:57 EDT Height 159.9 cm Admission Weight 44.5 kg [place] Body Weight 52.29 kg BSA Admission 1.43 [...] EDT Designated Person #1 We May Share [facility] Designated Person #1 We May Share [facility] Designated Person #1 Relationship Spouse Privacy Restrictions Requested None Height 159.9 cm Admission Weight 44.5 kg [place] Body Weight 52.29 kg BSA Admission 1.43 [...] Method Explanation, Printed materials Preferred Spoken Language Icelandic Preferred Written Language Icelandic Information Given by Patient Patient's Current Physicians N/A Discharge To, Anticipated Home independently Prev Test Positive/Diagnosis w/COVID-19 No Current Quarantine/Isolated any Illness No Any Contact with Sick Animals/Birds No Traveled Anywhere in Last 30 Days No Yes Personal Devices, Patient Valuables Glasses Admission Note-Nursing Procedure/Therapy Intake . Assessment and Plan [place] Society of Anesthesiologists (ASA) physical status classification: Class II. Anesthetic Preoperative Plan Anesthetic technique: MAC. Postoperative pain management: Per surgeon. Risks discussed: nausea, vomiting, sore throat, dental injury, hypotension, allergic reaction, serious complications. Informed consent: signed by patient. Digitally Signed by DIONNE GUERRERO on 02/28/2024 10:06 AM [facility]06-10-2024 Hospital Discharge instructions Patient Education 01/03/2024 21:12:24 [...] of blood present in vomit or stool [id number] [employer]. [address] [place] [address]. All rights reserved. This information is not [...] face You have trouble talking or seeing 0320-6197 [employer]. [address] [place] [address], [place] [address]. All rights reserved. This information is not intended as a substitute for professional medical care. Always follow yourhealthcare professional's instructions. Follow Up Care 01/03/2024 19:40:51 With:NANETTE WHITE DO Address: [address] [place] [phone]- [phone] When:2-4 days With:Follow up with primary care provider Address:Unknown When:2-4 days [facility] 06-10-2024 Note Discharge Instructions Thank you for allowing [facility] to assist you with your healthcare needs. The following is importantdischarge information regarding your hospital visit. What to Do Next Instructions from Your Care Team No qualifying data available. Post Acute Orders No qualifying data available. You Need to Schedule the Following Appointments Follow Up with NANETTE WHITE DO When:Within 2-4 days Where:[address] [place] [phone] Follow Up with Follow up with primary [...] of blood present in vomit or stool [phone] [employer] [place] [address]. All rights reserved. This information is not [...] face You have trouble talking or seeing 6406-7870 [employer]. [address] [place] [address]. All rights reserved. This information is not intended as a substitute for professional medical care. Always follow yourhealthcare professional's instructions. Additional Information VACCINATE! IT SAVES LIVES! Members of the community who have not yet received the COVID-19 vaccine and would like to receive it can visit one of [facility] vaccine clinics. There are many vaccine clinic locations within the [facility]. For locations and available times, please visit www.gettheshot.coronavirus.[place].gov/. It is important to note that some COVID mobile vaccine clinics are held outdoors and may be canceled in rainy or stormy conditions. To learn more about pediatric vaccinations (ages 5-11), we invite you to visit the [facility] webpage. https://www.[facility].org/pages/8806-Fljyk-Eqobzjohxez-Doouysicle-Joemp-Mvo stions.htmlTo learn more about the COVID-19 vaccine, we invite you to visit the CDC website for a list of frequently asked questions. https://www.cdc.gov/coronavirus/2019-ncov/vaccines/faq.html [facility] [facility] Patient Portal Access Instructions: Stay connected with your healthcare team and access your personal medical information anytime with the [employer] Patient Portal. If you would like a full copy of your medical records please contact the [facility] Medical Records Department Wednesday through Wednesday between 8a.m. and 4:30p.m. Please follow the directions below to access the portal: 1.Access the email account you provided upon registration to the hospital.2.Look for an invitation email from [facility].3.Open the email and access the invitation link: Accept Invitation to [employer]4.Fill in the required burns to create your account. Sign into www.[email or web address] Performance Partners with your username and password that you [...] you will allow to register on the [facility] Patient Portal for access to your information. You can also access the [employer] Patient Portal on the [employer] silvia. Simply click on Health Records under MyFitData and then click on the Mook logo. [...] Call your local pharmacy or go to http://bit.ly/1X3Jq2s to find one close to you.3.Make use of household items: Use cat litter or old coffee grounds to dispose medications if other options arenot available. Mix your drugs with these household products, seal them in an airtight container andthrow it into the garbage. Call [facility]: [phone] to be sure your drugs can be [...] aware that I should contact my doctor. Patient/Interpretive Naturalist Signature: Date/Time: Relationship to Patient: Witness Name/Signature: Date/Time: [facility]06-19-2023 Discharge summary Author Lizzy Mercado [facility] January 11, 2023 7:16am Note Date/Time January 11, 2023 7:13 am [facility] Medical Records Department [address] [place] [address] Instructions for Home/Discharge Instructions 01/11/2312 MR#: [id number] Acct: [id number] Name: TK COTTER Rep #:[id number] : [...] CC: No Primary Care Physician ~ Signed [facility] Work Phone: 1(775) 459-315606-19-2023 Progress note Author Lizzy Mercado [facility] January 11, 2023 7:12am Note Date/Time January 11, 2023 7:10 am [facility] Medical Records Department [address] [place] [address] Progress Note - OBGYN 01/11/23 0706 MR#: [id number] Acct: [id number] Name: TK COTTER Rep #:[id number] : 2000 22 From: Lizzy Mercado CNM PCP: Care Physician,No Primary Status :ADM IN Location: [address] Subjective Subjective Patient doing well without [...] Cosigner Signature (if applicable): CC: ~ Signed [facility] Work Phone: 1(287) 144-471306-18-[address] Bhatia [facility] January 10, 2023 7:34am Note Date/Time January 10, 2023 7:34 am [facility] Medical Records Department [address] [place] [address] Progress Note - OBGYN 01/10/23 0732 MR#: [id number] Acct: [id number] Name: TK COTTER Rep #:[id number] : 2000 22 From: Awilda Felix DO PCP: Care Physician,No Primary Status :ADM IN Location: [place] [address]-1 Subjective Subjective Patient is laying in bed [...] Cosigner Signature (if applicable): CC: ~ Signed [facility] Work Phone: 1(286) 793-455706-17-[address] Bhatia [facility] January 09, 2023 6:58am Note Date/Time January 09, 2023 6:57 am [facility] Medical Records Department [address] [place] [address] Instructions for Home/Discharge Instructions 01/09/23 0657 MR#: [id number] Acct: [id number] Name: CYNDEETK EASTON Rep #:[id number] : [...] Up With: Awilda Felix DO When: Call [phone] to make an appointment for an incision check in 1-2 weeks. Test Results: Test results from this visit will be discussed in further detail at your follow- up appointment, if applicable. Discharge Plan Admission Admit Date/Time: 01/08/23 19:55 Primary Reason for Your Visit: Attending Provider: Awilda Felix Primary Care Provider: Care PhysicianMoni Primary Discharge [...] CC: No Primary Care Physician ~ Signed [facility] Work Phone: 1(832) 220-257806-17-[address] Bhatia [facility] January 09, 2023 6:54am Note Date/Time January 09, 2023 6:54 am [facility] Medical Records Department [address] [place] [address] Progress Note - OBGYN 01/09/23 0651 MR#: [id number] Acct: [id number] Name: TK COTTER Rep #:[id number] : 2000 22 From: Awilda Felix DO PCP: Care Physician,No Primary Status :ADM IN Location: [facility]-4 Subjective Subjective pt was pushing for 3 hrs when nurses called for evaluation. current tracing: FHT: Moderate variability reactive no decelerations category I tracing [place]: q1-2 min Contractions OP position, cx compltely [...] (Auto) 75.6 H, Lymph %(Auto) 14.2 L, Divide % (Auto) 8.6, Eos % (Auto) 0.6, [...] Cosigner Signature (if applicable): CC: ~ Signed [facility] Work Phone: 1(128) 171-135406-17-2023 History and physical note Author Dr. 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 April going to [place].)out of state: Yes out of country: No sexually active: Yes Smoking Status: Never smoker alcohol intake: never substance use type: does not use well-balanced diet: daily or most days caffeine: Yes Type: coffee and tea Number of servings: 1 eating out: rarely or never during the past year weight has: remained stable what type of physical activity do you participate in: none yennifer/jewish: Religious seatbelt use: always do you feel safe at home: Yes additional social history: Same Day Serves History 1 Elective abortions Hx Para 0 [...] so her can go bear hunting in [place]. 11/02/22 -?-?-?-?-?-?-?-?-?-?-?-?- 29w 5d 139 lb 6 [...] any complications: none I have reviewed the [facility] and made any clinically relevant updates. 01/09/23 0651 <Electronically signed by Awilda Felix DO> Cosigner Signature (if applicable): CC: Dr. Awilda Felix DO; No Primary Care Physician~ Signed [facility] Work Phone: 1(391) 295-251006-17-2023 [facility] + Plan note No data available for this section [facility] Evaluation note* Diagnosis Onset Date Resolution Status Abnormal uterine bleeding ac [place] Pelvic floor tension acute Encounter for preconception consultation noneactive [facility] Work Phone: evaluation note* Diagnosis Onset Date Resolution Status Abnormal uterine bleeding re solved Pelvic floor tension resolve d Encounter for preconception consultation noneactive acute Supervision of normal first acute acute Supervision of normal first acute UTI (urinary tract infection) during acute [facility] Work Phone: Evaluation note* Diagnosis Onset Date Resolution Status acute Supervision of normal first acute acute Supervision of normal first acute UTI (urinary tract infection) during acute 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 acute acute Supervision of normal first acute UTI (urinary tract infection) during acute [facility] Work Phone: evaluation note* Diagnosis Onset Date [...] acute UTI (urinary tract infection) during acute [facility] Work Phone: Evaluation note* Diagnosis Onset Date [...] acute UTI (urinary tract infection) during acute [facility] Work Phone: Evaluation note* Diagnosis Onset Date [...] acute UTI (urinary tract infection) during acute [facility] Work Phone: Evaluation note* Diagnosis Onset Date [...] acute UTI (urinary tract infection) during acute [facility] Work Phone: Evaluation note* Diagnosis Onset Date [...] lactating mother noneactive Status post section acute [facility] Work Phone: Evaluation note* Diagnosis Onset Date Resolution Status Admit Date acute January 15 11:18am Vaginal bleeding during acute January 15, 2025 11:18am [facility] Work Phone: Hospital Discharge instructions Additional Instructions Work from [facility] Work Phone: Progress note Author Lizzy Mercado [facility] Note Date/Time March 23, 2025 9: 59am [facility] [place] [place] [address] [place] [address], [address] [place] [address] OFFICE VISIT Date of Service: 03/23/25 MR#: [id number] Acct: [id number] Name: TK COTTER Rep #: [id number] : 2000 Provider: JOY Mercado Age/Sex: 24/F [place] [facility]: Signed Intake Vital Signs 01/29/25 10:44 02/28/25 10:07 03/23/25 09:41 03/23/25 09:42 Height 5 ft 1 in 5 ft 1 in 5 ft 1 in 5 ft 1 in Weight: 114 lb 5 oz BMI 21.6 BP 112/71 Intake Visit Reasons: 16 wk ob Canteen Manager Required: No Is patient in pain?: No [...] 1 current occupational status: employed 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 Date Name GA/Weeks Outcome Route Bth Weight Infant Gen Labor Lgth Anesthesia Del Locatn Provider FOB 01/09/23 Walker 39 live - full term 8lbs 2oz Male epidural [facility] Dr. Felix Delivery Date: 01/09/23 Last Updated by: Vee Santiago PUPPS, anemia, failed vacuum, arrest of decent HPI 16 wk ob Details: TK COTTER is a 24 year old who presents for routine OB visit. OB Visit OKKI Calculator Estimated Delivery Date Method Current WG [...] Monitoring, Signs and Symptoms of Preeclampsia and [place] Education ROS Const Reports system reviewed and [...] this visit. GA appropriate handout given. 03/23/25 8586 <Electronically signed by Lizzy michaud CNM> Date _ Lizzy Mercado CNM Cosigner Signature: Date (if applicable) CC: ~ [facility] Work Phone: Progress note Author Lizzy Mercado [facility] Note Date/Time April 30, 2025 11 :14am [facility] [place] [address], [address] [place] [address] OFFICE VISIT Date of Service: 04/30/25 MR#: [id number] Acct: [id number] Name: TK COTTER Rep #: [id number] : 2000 Provider: JOY Mercado Age/Sex: 25/F [place] [facility] [place]: Signed Intake Vital Signs 01/29/25 10:44 03/23/25 09:42 04/30/25 11:02 Height 5 ft 1 in 5 ft 1 in 5 ft 1 in Weight: 122 lb 3 oz BMI 23.1 BP 105/71 Intake Visit Reasons: 21 wk ob *5 wks per patient Chief Complaint: 21wk OB Canteen Manager Required: No Is patient in pain?: No [...] 1 current occupational status: employed 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 Date Name GA/Weeks Outcome Route Bth Weight Gen Labor Lgth Anesthesia Del Locatn Provider FOB 01/09/23 Walker 39 live - full term 8lbs 2oz Male epidural [facility] Dr. 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 Admit Date Spotting/cramping in early Avni [...] No January 08, 2023 8:23pm Power of Coastal And Estuary Specialist No January 08 8:23pm Advance Directive Response Recorded Date/ Time Living Will No January 13, 2023 2:45pm Power of Coastal And Estuary Specialist No January 13 2:45pm Summary Purpose Additional [...] Provider, Refer ring Provider Active Kya Riley AUDIOVISUAL AIDS TECHNICIAN, AUDIOVISUAL AIDS TECHNICIAN-C Attending Provider Active Team Status: Inactive Member [...] Member Role/Relationship Status Dates Jami Johnson NP, AUDIOVISUAL AIDS TECHNICIAN-C Attending Provider Active Start: February 28, 2025 [...] Member Role/Relationship Status Dates Jami Johnson NP, AUDIOVISUAL AIDS TECHNICIAN-C Attending physician Active Start: February 28, 2025 [...] section and content) DATE CREATED AUTHOR 03/03/2024 [facility] ([place]) DATE CREATED AUTHOR AUTHOR'S ORGANIZ ATION 04/17/2025 [facility] DATE CREATED AUTHOR AUTHOR'S ORGANIZ ATION 05/02/2025 [facility] FOR RECORDS PERTAINING TO PATIENTS WHO ARE [...] BE BASED ON THE PRIMARY CLINICAL RECORDS. [facility] [employer], [facility]. provides no warranty or guarantee of the accuracy or completeness of information in this document.
== END | disposition home or self-care (01) ==
PROVIDERS: Referring Provider Advanced Practice Midwife; Visit Provider Advanced Practice Midwife
DX: O26.899 Other specified pregnancy related conditions, unspecified trimester (principal); R30.0 Dysuria; Z3A.00 Weeks of gestation of pregnancy not specified
CPT/HCPCS: 87086; 87088

== ENCOUNTER → 2025-06-18 | Outpatient (CLI) | payer OTHER, SELFPAY ==
[2025-06-18 12:23] LABS: Hematocrit 32.2 % (37-47); Hemoglobin 10.3 g/dL (12.0-15.0); Immature Granulocytes Count 0.040 X10^3/uL (0.0-0.0); Mean Corp Hgb Conc 32.0 g/dL (32-36); Mean Corpuscular Volume 84.7 fL (81-99); Mean Platelet Vol. 9.8 fl (6.2-12.0); NRBC Flagged by Analyzer 0 % (0-5); Platelet Count 267 K/mm3 (150-450); RBC Distribution Width CV 13.2 % (11.6-14.6); RBC Distribution Width SD 41.1 fl (35.1-43.9); Red Blood Count 3.80 M/mm3 (4.2-5.4); White Blood Count 9.8 K/mm3 (4.4-11.0)
[2025-06-18 13:04] LABS: HIV Nonreactive (Nonreactive); Syphilis Antibodies Nonreactive (Nonreactive)
[2025-06-18 13:28] LABS: Glucose Challenge Gest 1H 50g 127 mg/dL (70-140)
== END | disposition home or self-care (01) ==
PROVIDERS: Referring Provider Obstetrics & Gynecology; Visit Provider Obstetrics & Gynecology
DX: O09.91 Supervision of high risk pregnancy, unspecified, first trimester (principal); Z13.1 Encounter for screening for diabetes mellitus; Z3A.00 Weeks of gestation of pregnancy not specified
CPT/HCPCS: 36415; 82950; 85025; 86703; 86780

== ENCOUNTER → 2025-07-20 | Outpatient (CLI) | payer OTHER, SELFPAY ==
--- OUTSIDE RECORDS SUMMARY | 2025-07-20 09:41 | XMS RPT_ITS | CCD ---
Author Organization [facility] Care Team Providers Care Measurement Supervisor Name Role Phone Dr. Brielle Nathan Attending Provider [phone] Dr. Brielle Nathan Attending Provider [phone] Care Physician, No Primary Primary Care Provider Unavailable Care Physician, No Primary Referring Provider Un available Dr. Awilda Felix Attending Provider [phone] Dr. Brielle Ntahan Attending Provider [phone] JOY White Attending [...] available Dr. Brielle Nathan Attending Provider [phone] Osvaldo BICYCLE INSPECTOR, BICYCLE INSPECTOR-C Kya Attending Provider PHYSICIAN, NONE Primary Care Physician Unavailab le PHYSICIAN, NONE Primary Care Unavailable MARAL MILLER, DR MARYAN West Attending Unavailable LORAINE BANEGAS, DR CARTER Attending Unavailabl e PHYSICIAN, NONE Primary Care Unavailable Venita BANEGAS, Dr. Hannah Attending Provider [phone] Chas Bhatia DO, Dr. Kaiser Attending Provider Chas Bhatia DO, Dr. Kaiser Referring Provider Kunal GTZ-CJami Attending Provider Lizzy Mercado CNM Attending Provider [phone] NO PRIMARY CARE, MD Primary Care Unavailable VIVIAN LOBO Attending Unavailable JAMI JOHNSON Referring Unavailable Dr. Brielle Nathan MD Attending Physician Dr. Awilda Felix DO Attending Physician Kunal GTZ-Jami Hampton Attending Physician [phone] Lizzy Mercado CNM Attending Physician [phone] Dr. Awilda Felix DO Attending Physician Jami Mckay Attending Physician [phone] Lizzy Mercado CNM Attending Physician [phone] Lizzy Mercado CNM Referring Provider [phone] Dr. Brielle Nathan MD Attending Physician Awilda Felix Attending UnavailJami Aranda NP Attending Unavailable Lizzy Mercado Attending Unavailable Lizzy Mercado Attending Unavailable Lizzy Mercado Attending Unavailable Brielle Nathan Admitting Unavailable Brielle Nathan Attending Unavailable Lizzy Mercado Attending Unavailable Lizzy Mercado Referring Unavailable Awilda Felix Attending UnavailAwilda Jarvis Referring Unavailabl e Awilda Felix Attending Unavailabl rBielle Carvajal Attending Unavailable Brielle Nathan Attending Unavailable Allergies Allergy Classification Reported Allergen(s) Allergy Type Date of Onset Reaction(s) Facility Acetaminophen / HYDROcodone (1 source) Acetaminophen / HYDROcodone; Translations: [acetaminophen-hyd rocodone] Drug Allergy [facility] (2 sources) Acetaminophen Drug Allergy 03-20-2022 other [facility] Work Phone: (19 sources) HYDROcodone Drug Allergy 03-20-2022 other, Rash [facility] (1 source) Acetaminophen / HYDROcodone; Translations: [acetaminophen-hyd rocodone] Drug Allergy [facility] (1 source) Acetaminophen / HYDROcodone; Translations: [HYDROCODONE-ACETA MINOPHEN] Drug Allergy 11-21-2015 [facility] Repository (1 source) HYDROcodone Drug Allergy 05-30-2025 [facility] Repository Medications Current Medications Medication Drug Class(es) Dates Sig (Normalized) Sig (Original) famotidine 40 mg oral tablet (1 source) Histamine-2 Receptor Antagonist Start: 01-03-2024 End: 01-13-2024 Pepcid 40 mg oral tablet Dose : 40 mg = 1 tab(s), Oral, BID, # 20 tab(s), 0 Refill(s) Start Date: 01/03/24 Stop Date: 01/13/24 Status: Ordered Iron (17 sources) Start: 05-06-2022 Start: 05-06-2022 Pnv No.163-Iro n-Folate No.10 (Pnv [...] Active TABLET PO May 05, 2022 11:00pm nitrofurantoin, macrocrystals 25 mg / nitrofurantoin, monohydrate 75 mg oral capsule (17 sources) Nitrofuran Antibacterial Start: 05-14-2025 End: 05-21-2025 take 1 capsule by mouth twice daily at mealtime Nitrofurantoin Monohyd/M-Cryst (Macrobid) 100 mg capsule Discontinued 100 mg PO TWICE A DAY 14 7 0 May 13, 2025 11:00pm May 19, 2025 11:00pm May 20, 2025 11:10pm Urinary tract infection Urinary tract infection, site not specified must administer with a meal/food Start: 07-24-2022 End: 07-31-2022 take 1 capsule by mouth every twelve hours at mealtime Nitrofurantoin Monohyd/M-Cryst (Macrobid) 100 mg capsule Discontinued 100 mg PO Q12H 14 7 0 July 24, 2022 12:00am July 30, 2022 12:00am July 31, 2022 12:04am must administer with a meal/food Completed/Discontinued Medications Medication Drug Class(es) Dates Sig (Normalized) Sig (Original) cephalexin 500 mg oral capsule (17 sources) Cephalosporin Antibacterial Start: 05-29-2022 End: 07-24-2022 take 1 capsule by mouth three times daily Cephalexin 500 mg capsule Discontinued 500 mg PO THREE TIMES A DAY 21 0 May 28, 2022 11:00pm July 24, 2022 9:27pm 24 hr ferrous sulfate 142 mg extended release oral tablet (20 sources) Start: 12-11-2022 End: 02-18-2023 take 1 tablet by mouth once daily Ferrous Sulfate (Slow Fe) 142 mg (45 mg iron) tablet extended release Discontinued 142 mg PO DAILY December 24, 2022 7:51am February 18, 2023 12:20pm anemia fluconazole 150 mg oral tablet (6 sources) Azole Antifungal Start: 02-01-2025 End: 03-23-2025 Fluconazole 150 mg tablet Discontinued 150 mg PO Every 3 Days 2 0 January 31, 2025 11:00pm March 23, 2025 8:41am hydrocortisone 0.025 mg/mg topical ointment (20 sources) Corticosteroid Start: 12-22-2022 End: 01-21-2023 Hydrocortisone 2.5 % ointment Discontinued 1 NMA TOPICAL TWICE A DAY December 24, 2022 7:51am January 21, 2023 8:41am itching ibuprofen 800 mg oral tablet (20 sources) Nonsteroidal Anti-inflammatory Drug Start: 01-09-2023 End: 02-18-2023 take 1 tablet by mouth every eight hours as needed for pain Ibuprofen 800 mg tablet Discontinued 800 mg PO Q8H as needed for pain 20 0 January 21, 2023 8:59am February 18, 2023 12:20pm metroNIDAZOLE 500 mg oral tablet (19 sources) Nitroimidazole Antimicrobial Start: 03-23-2022 End: 05-06-2022 take 1 tablet by mouth twice daily Metronidazole 500 mg tablet Discontinued 500 mg PO TWICE A DAY 14 0 March 22, 2022 11:00pm May 06, 2022 2:16pm take one tab twice a day for [...] 20mm hg strength. Miscellaneous Medical Supply misc (8 sources) Start: 10-16-2022 End: 01-21-2023 Miscellaneous Medical Supply misc Discontinued 2 NMA MC ONCE 2 0 October 15, 2022 11:00pm January 21, 2023 8:41am Back pain affecting Other specified diseases and conditions complicating Dorsalgia, unspecified compression stockings 20mm hg strength. Start: 10-16-2022 End: 01-21-2023 Miscellaneous Medical Supply [facility] Discontinued 2 NMA MC ONCE 2 0 October 16, 2022 12:00am January 21, 2023 9:41am Back pain affecting Other specified diseases and conditions complicating Dorsalgia, unspecified compression stockings 20mm hg strength. Start: 10-16-2022 End: 01-21-2023 Miscellaneous Medical Supply [facility] Discontinued 2 NMA MC ONCE 2 October 16, 2022 12:00am January 21, 2023 9:41am compression stockings 20mm hg strength. 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] 01-09-2023 Episodic Gastrointestinal hemorrhage (2 sources) Hematemesis; Translations: [Hematemesis] Onset: 02-28-2024 Episodic Genitourinary symptoms and ill-defined conditions (1 source) Dysuria; Translations: [Dysuria] Onset: 05-14-2025 Episodic Hemorrhage during ; abruptio placenta; placenta previa (20 sources) Bleeding from female genital tract during ; Translations: [Antepartum hemorrhage, unspecified, unspecified trimester] Onset: 05-14-2025 01-15-2025 Episodic Other complications of (13 sources) Anemia of ; Translations: [Anemia complicating , unspecified trimester] 12-11-2022 Chronic Comment on above: cont anemia on PO ir on. iron studies ordered 12/07. slow fe 45mg Other complications of (16 sources) Anemia complicating , unspecified trimester; Translations: [Anemia of mother, unspecified as to episode of care or not applicable] 12-15-2022 Chronic Other complications of (17 sources) Urinary tract infection in ; Translations: [...] on above: supportive care Other complications of (20 sources) High risk ; Translations: [Supervision of high risk , unspecified, unspecified trimester] 01-25-2025 Episodic Comment on above: KOKI 08/31/25 PC W kizzyer Maia PRR, KOKI 08/31/25 PC Walker Maia Other complications of (1 source) Supervision of high risk , unspecified, first trimester; Translations: [Supervision of high risk , unspecified, first trimester] Onset: 05-30-2025 Episodic Other complications of (1 source) Other specified related conditions, unspecified trimester; Translations: [Other specified related conditions, unspecified trimester] Onset: 05-24-2025 Episodic Other connective tissue disease (19 sources) Pelvic floor tension; Translations: [Other specified disorders of muscle] 05-27-2022 Episodic Comment on above: possible cause of dy spareunia and pelvic pain, recommend PFPT evaluation. 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 1 11/06 Residual codes; unclassified (20 sources) Genetic carrier of other disease; Translations: [Other genetic carrier status] Onset: 05-14-2025 Episodic Residual codes; unclassified (6 sources) History of uterine scar from previous surgery; Translations: [Other postprocedural status] Onset: 05-14-2025 01-11-2023 Episodic Residual codes; unclassified (1 source) 23 weeks gestation of ; Translations: [23 weeks gestation of ] Onset: 05-14-2025 Episodic Residual codes; unclassified (1 source) 21 weeks gestation of ; Translations: [21 weeks gestation of ] Onset: 04-30-2025 Episodic Urinary tract infections (1 source) Urinary tract infection, site not specified; Translations: [Urinary tract infection, site not specified] Onset: 05-14-2025 Episodic Past or Other Problems Problem Classification Problem Date Documented Da te Episodic/Chronic Other complications of (1 source) Supervision of high risk , unspecified, unspecified trimester; Translations: [Supervision of high risk , unspecified, unspecified trimester] Onset: 02-15-2025 Episodic Results Test Name Value Interpretation Reference Range Facility Laboratory - Chemistry and C hemistry - challengeOrdered By: Brielle Gillettefaith on 05-30-2025 Glucose Ql (U) Negative [facility] - UrinalysisOrder ed By: Brielle Wilburnalejandrofaith on 05-30-2025 Protein Ql (U) Negative [facility] Supervisor Functional Testing Office Visit Reporton 05-30-2025 Supervisor Functional Testing Office Visit Report [facility] [address], [address] [place] [address] OFFICE VISIT Date of Service: 05/30/25 MR#: [id number] Acct: [id number] Name: TK COTTER Rep #: [id number] : 2000 Provider: Dr. Brielle vázquez MD Age/Sex: 25/F Location: [facility] Status: Signed Intake Vital Signs 02/28/25 10:07 03/23/25 09:42 05/14/25 14:51 05/30/25 09:59 Height 5 ft 1 in 5 ft 1 in 5 ft 1 in 5 ft 1 in Weight: 130 lb 7 oz BMI 24.6 BP 127/67 H Intake Visit Reasons: 25 WK OB 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 Is patient in pain?: No Allergies hydrocodone (From Vicodin) Allergy (Mild, Verified 05/30/25 09:58) Rash Medications ???Medication ???Instructions ???Recorded ???Confirmed ???Type vitamins no.163-iron 1 tab PO DAILY 05/06/22 05/30/25 History bis-gly 20 mg-folate no.10 1 mg tablet (PNV Tabs 20-1) Last Menstrual Period: 11/24/24 Zika: Zika virus screening: Negative : No PFSH PFSH Surgical History Status post section Family History Grandfather Cancer Grandmother Breast cancer Grandfather Cancer esophageal cancer Social History adopted: No household members: spouse housing: house number of children: 1 current occupational status: employed 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 Date Name GA/Weeks Outcome Route Bth Weight Infant Gen Labor Lgth Anesthesia Del Locatn Provider FOB 01/09/23 Walker 39 live - full term 8lbs 2oz Male epidural [facility] Dr. Felix Delivery Date: 01/09/23 Last Updated by: Vee Santiago PUPPS, anemia, failed vacuum, arrest of decent HPI 25 WK OB Details: TK COTTER is a 25 year old who presents for routine OB visit. OB Visit KOKI Calculator Estimated Delivery Date Method Current WG Current Estimate 09/08/25 Ultrasound #1 25w 4d Other Estimates 08/31/25 LMP (Certain) 26w 5d 09/05/25 Ultrasound #2 26w 0d Expected Delivery Route/Plan plan RLTCS patient counseled regarding risks/benefits of trial of [...] Negative -???-???-???-???-???-???- ???-???-???-???-???-???- Negative 160 -???-???-???-???-???-???- ???-???-???-???-???-???- -[facility] pink dc postcoital. Reassured Br US confirm FHT 03/23/25 -???-???-???-???-???-???- ???-???-???-???-???-???- 15w 6d 114 lb 5 oz (+8 lb 5 oz) 112/71 Negative -???-???-???-???-???-???- ???-???-???-???-???-???- Negative 145 -???-???-???-???-???-???- ???-???-???-???-???-???- KW- work in for JV. no vb/cramping. possible flutters US scheduled. (more content not included)... Normal [facility] Urine Cultureon 05-16-2025 URC Below infection ash rosales Mixed Gram Positive Organisms [place] Count 1000-10,000 MIXC Mixed contaminants. Submit a new specimen if indicated. Normal [facility] Comment on above: Performed By: #### M [id number] #### [facility] [address] [place], [address] Urine cultureOrdered By: Rocky Mercado on 05-15-2025 Bacteria identified Cx Nom (U) Positive Abnormal [facility] - Chemistry and C hemistry - challengeOrdered By: Lizzy Mercado on 05-14-2025 Bilirubin Ql (U) Negative [facility] Glucose Ql (U) 100 g/dL [facility] Ketones Ql (U) Moderate (40+) [facility] pH (U) 7 [pH] [facility] Specific gravity (U) [Rel density] 1.020 [facility] Urobilinogen (U) [Mass/Vol] Negative [facility] - Hematology and Cell countsOrdered By: Lizzy Mercado on 05-14-2025 Hemoglobin Ql (U) Negative [facility] - Specimen inform ationOrdered By: Lizzy Mercado on 05-14-2025 Clarity (U) Hazy [facility] Color (U) YELLOW [facility] - UrinalysisOrder ed By: Lizzy Mercado on 05-14-2025 Nitrite Ql (U) Negative [facility] Protein Ql (U) Negative [facility] No Panel InformationOrdered By: Lizzy Mercado on 05-14-2025 Urine Leukocytes Negatve [facility] Urine Non-Hemolyzed Blood [facility] Supervisor Functional Testing Office Visit Reporton 05-14-2025 Supervisor Functional Testing Office Visit Report [facility] [address], [address] [place] [address] OFFICE VISIT Date of Service: 05/14/25 MR#: [id number] Acct: [id number] Name: TK COTTER Rep #: [id number] : 2000 Provider: JOY Camargo ams Age/Sex: 25/F Location: [facility] Status: Signed Intake Vital Signs 04/30/25 11:02 05/14/25 14:51 Height 5 ft 1 in 5 ft 1 in Weight: 122 lb 3 oz 127 lb 1 oz BMI 23.1 24.0 BP 105/71 125/76 H Intake Visit Reasons: OB, dysuria Chief Complaint: OB, dysuria 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 Is patient in pain?: No Allergies hydrocodone (From Vicodin) Allergy (Mild, Verified 05/14/25 14:51) Rash Medications ???Medication ???Instructions ???Recorded ???Confirmed ???Type vitamins no.163-iron 1 tab PO DAILY 05/06/22 05/14/25 History bis-gly 20 mg-folate no.10 1 mg tablet (PNV Tabs 20-1) nitrofurantoin 100 mg PO BID 7 days #14 caps 04/2605/14/25 Rx monohydrate/macrocrystals 100 mg capsule (Macrobid) Last Menstrual Period: 11/24/24 : No Have you fallen in the past year?: No PFSH PFSH Surgical History Status post section Family History Grandfather Cancer Grandmother Breast cancer Grandfather Cancer esophageal cancer Social History adopted: No household members: spouse housing: house number of children: 1 current occupational status: employed 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 Date Name GA/Weeks Outcome Route Bth Weight Infant Gen Labor Lgth Anesthesia Del Locatn Provider FOB 01/09/23 Walker 39 live - full term 8lbs 2oz Male epidural [facility] Dr. Felix Delivery Date: 01/09/23 Last Updated by: Vee Santiago PUPPS, anemia, failed vacuum, arrest of decent HPI OB, dysuria Details: TK COTTER is a 25 year old who presents for routine OB visit. OB Visit KOKI Calculator Estimated Delivery Date Method Current WG Current Estimate 09/08/25 Ultrasound #1 23w 2d Other Estimates 08/31/25 LMP (Certain) 24w 3d 09/05/25 Ultrasound #2 23w 5d Expected Delivery Route/Plan prior c-s patient [...] oz) 112/71 Negative -???-???-???-???-???-???- ???-???-???-???-???-???- Negative 145 (more content not included)... Normal [facility] - Chemistry and C hemistry - challengeOrdered By: Lizzy Mercado on 04-30-2025 Glucose Ql (U) Negative [facility] - UrinalysisOrder ed By: Lizzy Mercado on 04-30-2025 Protein Ql (U) Negative [facility] Supervisor Functional Testing Office Visit Reporton 04-30-2025 Supervisor Functional Testing Office Visit Report [facility]'[address], [facility] [address] [place] [address] OFFICE VISIT Date of Service: 04/30/25 MR#: [id number] Acct: [id number] Name: TK COTTER ALAINA Rep #: [id number] : 2000 Provider: JOY Camargo ams Age/Sex: 25/F Location: [facility] Status: Signed Intake Vital Signs 01/29/25 10:44 03/23/25 09:42 04/30/25 11:02 Height 5 ft 1 in 5 ft 1 in 5 ft 1 in Weight: 122 lb 3 oz BMI 23.1 BP 105/71 Intake Visit Reasons: 21 wk ob *5 wks per patient Chief Complaint: 21wk OB 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 Is patient in pain?: No [...] 1 current occupational status: employed 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 Date Name GA/Weeks Outcome Route Bth Weight Gen Labor Lgth Anesthesia Del Locatn Provider FOB 01/09/23 Walker 39 live - full term 8lbs 2oz Male epidural [facility] Dr. Felix Delivery Date: 01/09/23 Last [...] unsure if wants to , desires NIPT. 08/06/25 -???-???-???-???-???-???- ???-???-???-???-???-???- 12w 4d 110 lb 9 [...] declined. 10/ (more content not included)... Normal [facility] - Chemistry and C hemistry - challengeOrdered By: Awilda Bhatia on 03-23-2025 Glucose Ql (U) Negative [facility] - UrinalysisOrder ed By: Awilda Bhatia on 03-23-2025 Protein Ql (U) Negative [facility] Supervisor Functional Testing Office Visit Reporton 03-23-2025 Supervisor Functional Testing Office Visit Report [facility] [address] [place] [address], [address] [place] [address] OFFICE VISIT Date of Service: 03/23/25 MR#: [id number] Acct: [id number] Name: TK COTTER Rep #: [id number] : 2000 Provider: JOY Camargo ams Age/Sex: 24/F Location: [facility] Status: Signed Intake Vital Signs 01/29/25 10:44 02/28/25 10:07 03/23/25 09:41 03/23/25 09:42 Height 5 ft 1 in 5 ft 1 in 5 ft 1 in 5 ft 1 in Weight: 114 lb 5 oz BMI 21.6 BP 112/71 Intake Visit Reasons: 16 wk ob 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 Is patient in pain?: No [...] 1 current occupational status: employed 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 Date Name GA/Weeks Outcome Route Bth Weight Infant Gen Labor Lgth Anesthesia Del Locatn Provider FOB 01/09/23 Walker 39 live - full term 8lbs 2oz Male epidural [facility] Dr. Felix Delivery Date: 01/09/23 Last [...] AFP d (more content not included)... Normal [facility] - Chemistry and C hemistry - challengeOrdered By: Jami Johnson on 02-28-2025 Glucose Ql (U) Negative [facility] - UrinalysisOrder ed By: Jami Johnson on 02-28-2025 Protein Ql (U) Negative [facility] Supervisor Functional Testing Office Visit Reporton 02-28-2025 Supervisor Functional Testing Office Visit Report [facility] [address], [address] [place] [address] OFFICE VISIT Date of Service: 02/28/25 MR#: [id number] Acct: [id number] Name: TK COTTER Rep #: [id number] : 2000 Provider: ADRIANA angeles Age/Sex: 24/F Location: [facility] Status: Signed Intake Vital Signs 01/29/25 10:44 02/28/25 10:07 Height 5 ft 1 in 5 ft 1 in Weight: 110 lb 9 oz BMI 20.9 BP 101/66 Intake Visit Reasons: 12 wk ob Chief Complaint: 12 Week OB 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 Is patient in pain?: No [...] 1 current occupational status: employed 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 Date Name GA/Weeks Outcome Route Bth Weight Gen Labor Lgth Anesthesia Del Locatn Provider FOB 01/09/23 Walker 39 live - full term 8lbs 2oz Male epidural [facility] Dr. Felix Delivery Date: 01/09/23 Last [...] Barriers, Environmental/Wor (more content not included)... Normal [facility] Absolute lymphocyte countOrd ered By: Awilda Jannette on 02-09-2025 Lymphocytes Auto (Unsp spec) [#/Vol] 1.38 10*3/uL 0.83-4.51 [facility] Absolute neutrophil countOrd ered By: Awilda Balana paula on 02-09-2025 Neutrophils (Bld) [#/Vol] 7.4 10*3/uL 2.0-7.7 [facility] Automated lymphocyte count a s percentage of total leukocytesOrdered By: Awilda Balana puala on 02-09-2025 Lymphocytes/100 WBC Auto (Unsp spec) 14.8 % Low 19-41 [facility] Basophil percentageOrdered B y: Awilda Balana paula on 02-09-2025 Basophils/100 WBC (Bld) 0.5 % 0-1 [facility] CBC W/Diff, Automatedon 01-23 Absolute Lymph 1.38 X10 3/uL Normal 0.83-4.51 [facility] Comment on above: Performed By: #### B TS, L3890.6301, L3890.6006, L100.0100, L900.0098, L509.4006, L509.8002, L3890.6102 #### [facility] [place], [address] Absolute Neut 7.4 X10 3/uL Normal 2.0-7.7 [facility] Comment on above: Performed By: #### B TS, L3890.6301, L3890.6006, L100.0100, L900.0098, L509.4006, L509.8002, L3890.6102 #### [facility] [address] [place], [address] Basophils/100 WBC (Bld) 0.5 % Normal 0-1 [facility] Comment on above: Performed By: #### B TS, L3890.6301, L3890.6006, L100.0100, L900.0098, L509.4006, L509.8002, L3890.6102 #### [facility] [address] [place], [address] Eosinophils/100 WBC (Bld) 0.8 % Normal 0-5 [facility] Comment on above: Performed By: #### B TS, L3890.6301, L3890.6006, L100.0100, L900.0098, L509.4006, L509.8002, L3890.6102 #### [facility] [address] [place], [address] Erythrocyte distribution width (RBC) [Ratio] 13.3 % Normal 11.6-14.6 [facility] Comment on above: Performed By: #### B TS, L3890.6301, L3890.6006, L100.0100, L900.0098, L509.4006, L509.8002, L3890.6102 #### [facility] [address] [place], [address] Hematocrit (Bld) [Volume fraction] 40.8 % Normal 37-47 [facility] Comment on above: Performed By: #### B TS, L3890.6301, L3890.6006, L100.0100, L900.0098, L509.4006, L509.8002, L3890.6102 #### [facility] [address] [place], [address] Hemoglobin (Bld) [Mass/Vol] 13.6 g/dL Normal 12.0-15.0 [facility] Comment on above: Performed By: #### B TS, L3890.6301, L3890.6006, L100.0100, L900.0098, L509.4006, L509.8002, L3890.6102 #### [facility] [address] [place], [address] IG% 0.300 Normal 0.0-0.9 [facility] Comment on above: Result Comment: IG% - Immature Granulocytes (promyelocytes, myelocytes and metamyelocytes) > 1% indicates that a LEFT SHIFT is Present. Performed By: #### B TS, L3890.6301, L3890.6006, L100.0100, L900.0098, L509.4006, L509.8002, L3890.6102 #### [facility] [address] [place], [address] Lymphocytes/100 WBC (Bld) 14.8 % Low 19-41 [facility] Comment on above: Performed By: #### B TS, L3890.6301, L3890.6006, L100.0100, L900.0098, L509.4006, L509.8002, L3890.6102 #### [facility] [address] [place], [address] MCH (RBC) [Entitic mass] 29.2 pg Normal 27.0-32.0 [facility] Comment on above: Performed By: #### B TS, L3890.6301, L3890.6006, L100.0100, L900.0098, L509.4006, L509.8002, L3890.6102 #### [facility] [address] [place], [address] MCHC (RBC) [Mass/Vol] 33.3 g/dL Normal 32-36 [facility] Comment on above: Performed By: #### B TS, L3890.6301, L3890.6006, L100.0100, L900.0098, L509.4006, L509.8002, L3890.6102 #### [facility] [address] [place], [address] MCV (RBC) [Entitic vol] 87.7 fL Normal 81-99 [facility] Comment on above: Performed By: #### B TS, L3890.6301, L3890.6006, L100.0100, L900.0098, L509.4006, L509.8002, L3890.6102 #### [facility] [address] [place], [address] Monocytes/100 WBC (Bld) 4.3 % Normal 0-10 [facility] Comment on above: Performed By: #### B TS, L3890.6301, L3890.6006, L100.0100, L900.0098, L509.4006, L509.8002, L3890.6102 #### [facility] [address] [place], [address] Neutrophils/100 WBC (Bld) 79.3 % High 47-70 [facility] Comment on above: Performed By: #### B TS, L3890.6301, L3890.6006, L100.0100, L900.0098, L509.4006, L509.8002, L3890.6102 #### [facility] [address] [place], [address] Nucleated RBC (Bld) [#/Vol] 0 10*3/uL Normal 0-5 [facility] Comment on above: Performed By: #### B TS, L3890.6301, L3890.6006, L100.0100, L900.0098, L509.4006, L509.8002, L3890.6102 #### [facility] [address] [place], [address] Platelet mean volume (Bld) [Entitic vol] 10.2 fL Normal 6.2-12.0 [facility] Comment on above: Performed By: #### B TS, L3890.6301, L3890.6006, L100.0100, L900.0098, L509.4006, L509.8002, L3890.6102 #### [facility] [address] [place], [address] Platelets (Bld) [#/Vol] 305 10*3/uL Normal 150-450 [facility] Comment on above: Performed By: #### B TS, L3890.6301, L3890.6006, L100.0100, L900.0098, L509.4006, L509.8002, L3890.6102 #### [facility] [address] [facility] [place], [address] RBC (Bld) [#/Vol] 4.65 10*6/uL Normal 4.2-5.4 [facility] Comment on above: Performed By: #### B TS, L3890.6301, L3890.6006, L100.0100, L900.0098, L509.4006, L509.8002, L3890.6102 #### [facility] [address] [place], [address] RDW SD 42.7 fl Normal 35.1-43.9 [facility] Comment on above: Performed By: #### B TS, L3890.6301, L3890.6006, L100.0100, L900.0098, L509.4006, L509.8002, L3890.6102 #### [facility] [address] [place], [address] WBC (Bld) [#/Vol] 9.3 10*3/uL Normal 4.4-11.0 [facility] Comment on above: Performed By: #### B TS, L3890.6301, L3890.6006, L100.0100, L900.0098, L509.4006, L509.8002, L3890.6102 #### [facility] [address] [place], [address] Eosinophil percentageOrdered By: Awilda Bhatia on 02-09-2025 Eosinophils/100 WBC (Bld) 0.8 % 0-5 [facility] Erythrocyte distribution wid th ratioOrdered By: Awilda Bhatia on 02-09-2025 Erythrocyte distribution width (RBC) [Ratio] 13.3 % 11.6-14.6 [facility] Erythrocyte distribution wid th standard deviationOrdered By: Awilda Bhatia on 02-09-2025 Erythrocyte distribution width (RBC) [Ratio] 42.7 fl 35.1-43.9 [facility] HIVon 02-09-2025 HIV Non-Reactive Normal Nonreactive [facility] Comment on above: Result Comment: Non- Reactive Reactive Repeatedly reactive samples must be confirmed according to CDC recommended confirmatory algorithms. The subresults for either HIVAG or AHIV can be used as an aid in the selection of the confirmation algorithm for reactive samples. Send out specimens with Reactive results to [facility] for confirmation. Order the HIV antibody detection and differentiation: lc#[id number] Performed By: #### B TS, L3890.6301, L3890.6006, L100.0100, L900.0098, L509.4006, L509.8002, L3890.6102 ####[facility] [address] [place], [address] Hematocrit Auto (Bld) [Volum e fraction]Ordered By: Awilda Bhatia on 02-09-2025 Hematocrit (Bld) [Volume fraction] 40.8 % 37-47 [facility] Hemoglobin measurementOrdere d By: Awilda Balana paula on 02-09-2025 Hemoglobin (Bld) [Mass/Vol] 13.6 g/dL 12.0-15.0 [facility] Hepatitis C Antibodyon 02-09 Hepatitis C Ab Non-Reactive Normal Nonreactive [facility] Comment on above: Result Comment: Reac tive: Presumptive evidence of antibodies to HCV. Follow CDC recommendations for supplemental testing. Non-Reactive: Antibodies to HCV were not detected; does not exclude the possibility of exposure to HCV Reactive Results are presumptive evidence of antibodies to HCV. Follow CDC recommendations for supplemental testing. Order confirmation testing: HCV Quant by PCR testing - HCVPCR lc#[id number] Non Reactive: < 0.8 Equivocal: >/= 0.8 to < 1.0 Reactive: >/= 1.0 The [facility] requires that a reactive/equivocal HCV antibody result be sent out for confirmation. HCV Quant by PCR testing. Performed By: #### B TS, L3890.6301, L3890.6006, L100.0100, L900.0098, L509.4006, L509.8002, L3890.6102 ####[facility] [address] [place], [address] Immature granulocytes/100 WB C Auto (Bld)Ordered By: Awilda Jannette on 02-09-2025 Immature granulocytes/100 WBC (Bld) 0.300 % 0.0-0.9 [facility] Comment on above: IG% - Immature Granu locytes (promyelocytes, myelocytes and metamyelocytes) > 1% indicates that a LEFT SHIFT is Present. L3890.6102on 02-09-2025 HEP B Surf Ag Non-Reactive Normal Nonreactive [facility] Comment on above: Result Comment: Reac tive: Presumptive evidence of HBV. Repeatedly reactive samples must be confirmed using a neutralization test ([employer] HBsAg Confirmatory Test) Non-Reactive: HBsAg not detected; does not exclude the possibility of exposure to HBV Performed By: #### B TS, L3890.6301, L3890.6006, L100.0100, L900.0098, L509.4006, L509.8002, L3890.6102 ####[facility] [address] [place], [place], [address] L509.4006on 02-09-2025 Rubella IgG REAC Normal Nonreactive [facility] Comment on above: Result Comment: Anti body Result: Interpretation Non-Reactive: Non-Immune Reactive: Immune The following results were obtained with the [employer] Rubella IgG assay. Results from assays of other manufacturers cannot be used interchangeably. Performed By: #### B TS, L3890.6301, L3890.6006, L100.0100, L900.0098, L509.4006, L509.8002, L3890.6102 #### [facility] [address] [facility] [address] [place], [place], [id number] Laboratory - Microbiology an d Antimicrobial susceptibilityOrdered By: Awilda Bhatia on 02-09-2025 HBV surface Ag Ql (S) Non-Reactive Nonreactive [facility] Comment on above: Reactive: Presumptiv e evidence of HBV. Repeatedly reactive samples must be confirmed using a neutralization test ([employer] HBsAg Confirmatory Test)Non-Reactive: HBsAg not detected; does not exclude the possibility of exposure to HBV MCV (mean corpuscular volume ) determinationOrdered By: Awilda Bhatia on 02-09-2025 MCV (RBC) [Entitic vol] 87.7 fL 81-99 [facility] Mean corpuscular hemoglobin (MCH) determinationOrdered By: Awilda Bhatia on 02-09-2025 MCH (RBC) [Entitic mass] 29.2 pg 27.0-32.0 [facility] Mean corpuscular hemoglobin concentration (MCHC) determinationOrdered By: Awilda Bhatia on 02-09-2025 MCHC (RBC) [Mass/Vol] 33.3 g/dL 32-36 [facility] Mean platelet volume determi nationOrdered By: Awilda Bhatia on 02-09-2025 Platelet mean volume (Bld) [Entitic vol] 10.2 fL 6.2-12.0 [facility] Monocyte percentageOrdered B y: Awilda Jannette on 02-09-2025 Monocytes/100 WBC (Bld) 4.3 % 0-10 [facility] NATERAon 02-09-2025 NATURA SEE SCANNED REPORT Normal [facility] Comment on above: Performed By: #### B TS, L3890.6301, L3890.6006, L100.0100, L900.0098, L509.4006, L509.8002, L3890.6102 #### [facility] [address] [place], [address] Neutrophil percentageOrdered By: Awilda Bhatia on 02-09-2025 Neutrophils/100 WBC (Bld) 79.3 % High 47-70 [facility] No Panel InformationOrdered By: Awilda Bhatia on 02-09-2025 HIV (1&2) Antibody Non-Reactive Nonreactive [facility] Comment on above: Non-ReactiveReactive Repeatedly reactive samples must be confirmed according to CDC recommended confirmatory algorithms. The subresults for either HIVAG or AHIV can be used as an aid in the selection of the confirmation algorithm for reactive samples.Send out specimens with Reactive results to [facility] for confirmation.Order the HIV antibody detection and differentiation: #[id number] Nucleated red blood cell per centageOrdered By: Awilda Bhatia on 02-09-2025 Nucleated RBC/100 WBC (Bld) [Ratio] 0 % 0-5 [facility] Platelet countOrdered By: Dejon Bhatia on 02-09-2025 Platelets (Bld) [#/Vol] 305 10*3/uL 150-450 [facility] RBC Auto (Bld) [#/Vol]Ordere d By: Awilda Bhatia on 02-09-2025 RBC (Bld) [#/Vol] 4.65 10*6/uL 4.2-5.4 [facility] Syphilis Antibodieson 2024 Syphilis Abs Non-Reactive Normal Nonreactive [facility] Comment on above: Performed By: #### B TS, L3890.6301, L3890.6006, L100.0100, L900.0098, L509.4006, L509.8002, L3890.6102 #### [facility] [address] [place], [address] Type AND Screenon 02-09-2025 Ab SCREEN GEL Negative Normal [facility] Comment on above: Order Comment: PN Performed By: #### B TS, L3890.6301, L3890.6006, L100.0100, L900.0098, L509.4006, L509.8002, L3890.6102 ####[facility] [address] [place], [address] ABO and Rh group Nom (Bld) Blood group A Rh(D) positive Normal [facility] Comment on above: Order Comment: PN Performed By: #### B TS, L3890.6301, L3890.6006, L100.0100, L900.0098, L509.4006, L509.8002, L3890.6102 ####[facility] [address] [place], [address] White blood cell (WBC) count Ordered By: Awilda Bhatia on 02-09-2025 WBC (Bld) [#/Vol] 9.3 10*3/uL 4.4-11.0 [facility] Chlamydia/GC JUANY aptimaon CHLAMY,NUC ACID Negative Normal Negative [facility] Comment on above: Performed By: #### M 100.2200, L7000.1800 #### [facility] [address] [place], [address] GC BY NUC ACID Negative Normal Negative [facility] Comment on above: Result Comment: Perf ormed at: =G - [facility] [address] [id number] Director Of Online Merchandising: Ange Motley MD, Phone: [phone] Performed By: #### M 100.2200, L7000.1800 #### [facility] [address] [place], [place], [address] Urine Cultureon 02-01-2025 URC Below infection leve l. Presumptive C albicans [place] Count <1000 Normal [facility] Comment on above: Performed By: #### M 100.2200, L7000.1800 #### [facility] [address] [place], [place], [address] Chlamydia trachomatis rRNA d etection by probe and target amplification methodOrdered By: Awilda Bhatia on 01-29-2025 C. trachomatis rRNA JUANY+probe Ql (Unsp spec) Negative Negative [facility] Neisseria gonorrhoeae nuclei c acid detection by amplified probe techniqueOrdered By: Awilda Bhatia on 01-29-2025 N. gonorrhoeae DNA JUANY+probe Ql (Unsp spec) Negative Negative [facility] Comment on above: Performed at: =[address] [id number] Director: Ange Motley MD, Phone: [phone] Supervisor Functional Testing Office Visit Reporton 01-29-2025 Supervisor Functional Testing Office Visit Report [facility] [address], [address] [place] [address] OFFICE VISIT Date of Service: 01/29/25 MR#: [id number] Acct: [id number] Name: TK COTTER Rep #: [id number] : 2000 Provider: Dr. 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 Date Name GA/Weeks Outcome Route Bth Weight Infant Gen Labor Lgth Anesthesia Del Locatn Provider FOB 01/09/23 Walker 39 live - full term 8lbs 2oz Male epidural [facility] Dr. Felix Delivery Date: 01/09/23 Last [...] Recurrent Pr (more content not included)... Normal [facility] Urine cultureOrdered By: Flory Bhatia on 01-29-2025 Bacteria identified Cx Nom (U) Presumptive C albicans Abnormal [facility] Supervisor Functional Testing Office Visit Reporton 01-15-2025 Supervisor Functional Testing Office Visit Report [facility] [address], [address] [place] [address] OFFICE VISIT Date of Service: 01/15/25 MR#: [id number] Acct: [id number] Name: TK COTTER Rep #: [id number] : 2000 Provider: Dr. Brielle vázquez MD Age/Sex: 24/F Location: [facility] Status: Signed Intake Vital Signs 02/23/24 14:26 01/15/25 11:35 Height 5 ft 1 in 5 ft 1 in Weight: 98 lb 106 lb 6 oz BMI 18.5 20.0 BP 104/67 106/67 Blood Pressure Location Rt brachial Position Sitting Pulse 80 Pulse Source Monitor Intake Visit Reasons: Spotting/cramping in early 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 Is patient in pain?: Yes [...] menopausal: No Patient : Yes : No [facility] Surgical History Status post section Family History Grandfather Cancer Grandmother Breast cancer Social History (Updated 01/15/25 @ 11:37 by Jami Chapman) adopted: No household members: spouse housing: house number of children: 1 current occupational status: employed 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 April going to [place].) out of state: Yes out of country: No sexually active: Yes Smoking Status: Never smoker alcohol intake: never substance use type: does not use well-balanced diet: daily or most days caffeine: Yes Type: coffee and tea Number of servings: 1 eating out: rarely or never during the past year weight has: remained stable what type of physical activity do you participate in: none yennifer/baptism: Religion seatbelt use: always do you feel safe at home: Yes additional social history: Conservis HPI Spotting/cramping in early Details: TK COTTER [...] - full term 8lbs 2oz Male epidural [facility] Dr. Felix Delivery Date: 01/09/23 Last [...] Charge Brie (more content not included)... Normal [facility] Final Surgical Pathology Rep [facility] 03-01-2024 Final Surgical Pathology Report . Pathology Reports Accession: Collected Date/Time: Received Date/Time: Pathologist: [id number] 02/28/2024 10:42 EDT 02/28/2024 13:56 EDT DONATO HARMON MD Final Surgical Pathology Report DIAGNOSIS: DUODENUM, BIOPSY: - GASTRIC MUCOSA WITH MODERATE ACTIVE CHRONIC GASTRITIS. IMMUNOHISTOCHEMICAL STUDIES ARE NEGATIVE FOR HELICOBACTER CLINICAL INFORMATION: Procedure: ESOPHAGOGASTRODUODENOSCOP Y WITH BIOPSY Preoperative diagnosis: HEMATEMESIS Postoperative diagnosis: HEMATEMESIS SPECIMEN: A DUODENUM, BX GROSS DESCRIPTION: All parts labelled with patient name and [id number] Received in formalin labeled duodenal biopsy are 2 weeks-pink tissue fragments measuring 0.3 x 0.1 and 0.3 cm. TS-1 Juliana Floyd, Grossing Ship Keeper/ Dr. Donato Harmon, Pathologist Performed by Juliana Floyd MICROSCOPIC DESCRIPTION: The microscopic examination is performed, except in the case of Gross Only. Electronically Signed by Pathology Report verified by [facility] DONATO HARMON Sign out Date: 03/01/2024 12:38 Performing Lab: [facility], [address] [place] [address] Pathology Dept Disclaimer If ancillary studies were utilized, the following Laboratory Developed Test (LDT) disclaimer will apply: Under CLIA requirements, [facility] is qualified to perform high complexity testing. For all ancillary stains, positive and negative controls stain appropriately. Performance characteristics of immunohistochemical and chromogenic in-situ hybridization tests have been determined by [facility]. These tests are used for clinical purposes, They should not be regarded as investigational or for research. Normal [facility]) LABORATORYOrdered By: Marisabel Mike on 02-28-2024 HCG ( test) Ql Negative (02/28/24 10:01 AM) Normal AO Manual Urine SS test (u) int Not detected Invalid Interpretation Code AO Manual Urine SS PREGUon 02-28-2024 HCG ( test) Ql (U) Negative Normal [facility] ([place]) Comment on above: Performed By: #### P REGU #### [address] [address] test (u) int Not detected Invalid Interpretation Code [facility] ([place]) Comment on above: Performed By: #### P REGU #### [address] [address] .Auto Diffon 01-03-2024 Basophil, Absolute 0.0 10 3/mcL Normal 0.0-0.2 [facility]) Comment on above: Performed By: #### C SCOTT DIAZ MDW, CMP, LIP, GFR, ANEU #### [address] [place], [place] [address] Basophils/100 WBC (Bld) 0.3 % Normal 0.0-2.5 [facility]) Comment on above: Performed By: #### C SCOTT DIAZ MDW, CMP, LIP, GFR, ANEU #### [address] [place], [place] [address] Eosinophil, Absolute 0.1 10 3/mcL Normal 0.0-0.4 [facility] ([place]) Comment on above: Performed By: #### C JOE, SCOTT, W, CMP, LIP, GFR, ANEU #### [address] [address] Eosinophils/100 WBC (Bld) 0.9 % Normal 0.0-7.0 [facility] ([place]) Comment on above: Performed By: #### C BC, SCOTT, MDW, CMP, LIP, GFR, ANEU #### [address] [address] Lymphocyte, Absolute 0.8 10 3/mcL Normal 0.8-3.9 [facility] ([place]) Comment on above: Performed By: #### C BC, SCOTT, W, CMP, LIP, GFR, ANEU #### [address] [address] Lymphocytes/100 WBC (Bld) 12.1 % Normal 10.0-50.0 [facility] ([place]) Comment on above: Performed By: #### C JOE, SCOTT, W, CMP, LIP, GFR, ANEU #### [address] [address] Monocyte, Absolute 0.5 10 3/mcL Normal 0.2-1.0 [facility] ([place]) Comment on above: Performed By: #### C JOE, SCOTT, MDW, CMP, LIP, GFR, ANEU #### [address] [address] Monocytes/100 WBC (Bld) 6.7 % Normal 1.7-13.0 [facility] ([place]) Comment on above: Performed By: #### C JOE, SCOTT, W, CMP, LIP, GFR, ANEU #### [address] [address] Neutrophils/100 WBC (Bld) 80.0 % Normal 37.0-80.0 [facility] ([place]) Comment on above: Performed By: #### C BC, SCOTT, W, CMP, LIP, GFR, ANEU #### [address] [address] .GFRon 01-03-2024 GFR Non- 132 ml/min/1.73sqm Normal [facility] ([place]) Comment on above: Result Comment: GFR Population [...] Performed By: #### C SCOTT DIAZ MDW, EMELINA, LIP, GFR, ANEU #### [address] [address] GFR 160 ml/min/1.73sqm Normal [facility] ([place]) Comment on above: Result Comment: GFR Population [...] Performed By: #### C SCOTT DIAZ MDW, EMELINA, LIP, GFR, ANEU #### [address] [address] .MDWon 01-03-2024 Monocyte Distribution Width 20.98 High 0.00-20.00 [facility] ([place]) Comment on above: Result Comment: For adults in ED, MDW>20.0 may be associated with a higher risk of sepsis during the first 12hrs of hospital admission Performed By: #### C SCOTT DIAZ MDW, CMP, LIP, GFR, ANEU #### [place] [address] .NEUABSon 01-03-2024 Neutrophil, Absolute 5.5 10 3/mcL Normal 2.9-6.2 [facility] ([place]) Comment on above: Performed By: #### C SCOTT DIAZ MDW, CMP, LIP, GFR, ANEU #### [place] [address] CBCon 01-03-2024 Erythrocyte distribution width (RBC) [Ratio] 13.7 % Normal 11.5-14.5 [facility] ([place]) Comment on above: Performed By: #### C SCOTT DIAZ MDW, EMELINA, LIP, GFR, ANEU #### [place] [address] Hematocrit (Bld) [Volume fraction] 42.8 % Normal 37.0-47.0 [facility] ([place]) Comment on above: Performed By: #### C SCOTT DIAZ MDW, CMP, LIP, GFR, ANEU #### [place] [address] Hgb 14.2 G/dL Normal 12.0-16.0 [facility] ([place]) Comment on above: Performed By: #### C SCOTT DIAZ MDW, EMELINA, LIP, GFR, ANEU #### [place] [address] MCH (RBC) [Entitic mass] 29.7 pg Normal 27.0-31.2 [facility] ([place]) Comment on above: Performed By: #### C SCOTT DIAZ MDW, CMP, LIP, GFR, ANEU #### [place] [address] MCHC 33.3 G/dL Normal 33.0-37.0 [facility] ([place]) Comment on above: Performed By: #### C SCOTT DIAZ MDW, CMP, LIP, GFR, ANEU #### [address] [address] MCV (RBC) [Entitic vol] 89.3 fL Normal 80.0-94.0 [facility] ([place]) Comment on above: Performed By: #### C JOE, PAULINA CHAVEZ, CMP, LIP, GFR, ANEU #### [address] [address] Platelet 254 10 3/mcL Normal 130-400 [facility] ([place]) Comment on above: Performed By: #### C SCOTT DIAZ MDW, CMP, LIP, GFR, ANEU #### [address] [address] Platelet mean volume (Bld) [Entitic vol] 7.7 fL Normal 7.4-10.4 [facility] ([place]) Comment on above: Performed By: #### C SCOTT DIAZ MDW, CMP, LIP, GFR, ANEU #### [address] [address] RBC 4.79 10 6/mcL Normal 4.20-5.40 [facility] [facility] ([place] Comment on above: Performed By: #### C SCOTT DIAZ MDW, CMP, LIP, GFR, ANEU #### [address] [address] WBC 6.9 10 3/mcL Normal 4.6-10.8 [facility] ([place]) Comment on above: Performed By: #### C SCOTT DIAZ MDW, CMP, LIP, GFR, ANEU #### [address] [address] CMPon 01-03-2024 Albumin Level 4.1 G/dL Normal 3.5-5.0 [facility] ([place]) Comment on above: Performed By: #### C SCOTT DIAZ MDW, CMP, LIP, GFR, ANEU #### [address] [address] Albumin/Globulin [Mass ratio] 1.3 {ratio} Normal 1.1-2.5 [facility] ([place]) Comment on above: Performed By: #### C SCOTT DIAZ MDW, CMP, LIP, GFR, ANEU #### [address] [address] ALP [Catalytic activity/Vol] 97 U/L Normal 40-135 [facility] ([place]) Comment on above: Performed By: #### C SCOTT DIAZ MDW, CMP, LIP, GFR, ANEU #### [address] [address] ALT [Catalytic activity/Vol] 20 U/L Normal 14-59 [facility] ([place]) Comment on above: Performed By: #### C SCOTT DIAZ MDW, CMP, LIP, GFR, ANEU #### [address] [address] AST [Catalytic activity/Vol] 16 U/L Normal 10-40 [facility] ([place]) Comment on above: Performed By: #### C SCOTT DIAZ MDW, CMP, LIP, GFR, ANEU #### [address] [address] Bili Total 0.4 mg/dL Normal 0.2-1.0 [facility] ([place]) Comment on above: Result Comment: Use of this assay is not recommended for patients undergoing treatment with eltrombopag due to the potential for falsely elevated results. Performed By: #### C SCOTT DIAZ MDW, CMP, LIP, GFR, ANEU #### [address] [address] BUN/Creatinine Ratio 30 ratio High 7-27 [facility] ([place]) Comment on above: Performed By: #### C SCOTT DIAZ MDW, CMP, LIP, GFR, ANEU #### [address] [address] Calcium [Mass/Vol] 9.0 mg/dL Normal 8.4-10.2 [facility] ([place]) Comment on above: Performed By: #### C SCOTT DIAZ MDW, CMP, LIP, GFR, ANEU #### [address] [address] Chloride [Moles/Vol] 107 mmol/L Normal 98-107 [facility] ([place]) Comment on above: Performed By: #### C SCOTT DIAZ MDW, CMP, LIP, GFR, ANEU #### [address] [address] CO2 [Moles/Vol] 27 mmol/L Normal 22-29 [facility] ([place]) Comment on above: Performed By: #### C SCOTT DIAZ MDW, CMP, LIP, GFR, ANEU #### [address] [address] Creatinine [Mass/Vol] 0.56 mg/dL Normal 0.55-1.02 [facility] ([place]) Comment on above: Performed By: #### C SCOTT DIAZ MDW, CMP, LIP, GFR, ANEU #### [address] [address] Electrolyte Balance 11.0 mEq/L Normal 4.0-15.0 [facility] ([place]) Comment on above: Performed By: #### C CSOTT DIAZ MDW, CMP, LIP, GFR, ANEU #### [address] [address] Globulin 3.1 G/dL Normal [facility] ([place]) Comment on above: Performed By: #### C SCOTT DIAZ MDW, CMP, LIP, GFR, ANEU #### [address] [address] Glucose [Mass/Vol] 83 mg/dL Normal 70-105 [facility] ([place]) Comment on above: Performed By: #### C SCOTT DIAZ MDW, CMP, LIP, GFR, ANEU #### [address] [address] Potassium [Moles/Vol] 3.8 mmol/L Normal 3.5-5.1 [facility] ([place]) Comment on above: Performed By: #### C SCOTT DIAZ MDW, CMP, LIP, GFR, ANEU #### [address] [place], [place] [address] Sodium [Moles/Vol] 145 mmol/L Normal 136-145 [facility] ([place]) Comment on above: Performed By: #### C SCOTT DIAZ MDW, CMP, LIP, GFR, ANEU #### [address] [place], [place] [address] Total Protein 7.2 G/dL Normal 6.4-8.2 [facility] ([place]) Comment on above: Performed By: #### C SCOTT DIAZ MDW, CMP, LIP, GFR, ANEU #### [address] [place], [place] [address] Urea nitrogen [Mass/Vol] 17 mg/dL Normal 7-18 [facility] ([place]) Comment on above: Performed By: #### C SCOTT DIAZ MDW, CMP, LIP, GFR, ANEU #### [address] [address] LABORATORYOrdered By: SYSTEM SYSTEM on 01-03-2024 Albumin [...] 01-03-2024 Lipase Level 32 U/L Normal 16-77 [facility] ([place]) Comment on above: Performed By: #### C JOE, SCOTT, W, CMP, LIP, GFR, ANEU #### [address] [address] PREGUon 01-03-2024 HCG ( test) Ql (U) Negative Normal [facility] ([place]) Comment on above: Performed By: #### P REGU #### [address] [place], [place] [address] test (u) int Not detected Invalid Interpretation Code [facility] ([place]) Comment on above: Performed By: #### P REGU #### [address] [address] Basophil percentageOrdered B y: Dr. Bhatia on 01-10-2023 WBC (Bld) [#/Vol] 12.0 10*3/uL 4.4-11.0 [facility] erythrocytes count (nu mber/volume)Ordered By: Dr. Bhatia on 01-10-2023 RBC (Bld) [#/Vol] 3.00 10*6/uL 4.2-5.4 [facility] Blood hemoglobin measurement (mass/volume)Ordered By: Dr. Bhatia on 01-10-2023 Hemoglobin (Bld) [Mass/Vol] 8.0 g/dL 12.0-15.0 [facility] Blood platelet mean volumeOr dered By: Dr. Bhatia on 01-10-2023 Platelet mean volume (Bld) [Entitic vol] 9.5 fL 6.2-12.0 [facility] Determination of erythrocyte mean corpuscular volume (MCV)Ordered By: Dr. Bhatia on 01-10-2023 MCV (RBC) [Entitic vol] 86.0 fL 81-99 [facility] Hematocrit Auto (Bld) [Volum e fraction]Ordered By: Dr. Bhatia on 01-10-2023 Hematocrit (Bld) [Volume fraction] 25.8 % 37-47 [facility] - Hematology and Cell countsOrdered By: Dr. Bhatia on 01-10-2023 Erythrocyte distribution width (RBC) [Entitic vol] 56.9 fL 35.1-43.9 [facility] Erythrocyte distribution width (RBC) [Ratio] 18.4 % 11.6-14.6 [facility] MCH (RBC) [Entitic mass] 26.7 pg 27.0-32.0 [facility] MCHC Auto (RBC) [Mass/Vol]Or dered By: Dr. Bhatia on 01-10-2023 MCHC (RBC) [Mass/Vol] 31.0 g/dL 32-36 [facility] Platelets bldOrdered By: Dr. Bhatia on 01-10-2023 Platelets (Bld) [#/Vol] 209 10*3/uL 150-450 [facility] Absolute lymphocyte countOrd ered By: Dr. Bhatia on 01-08-2023 Lymphocytes Auto (Unsp spec) [#/Vol] 1.94 10*3/uL 0.83-4.51 [facility] Basophil percentageOrdered B y: Dr. Bhatia on 01-08-2023 Basophils/100 WBC (Bld) 0.4 % 0-1 [facility] Eosinophils/100 WBC (Bld) 0.6 % 0-5 [facility] Neutrophils (Bld) [#/Vol] 10.4 10*3/uL 2.0-7.7 [facility] Neutrophils/100 WBC (Bld) 75.6 % 47-70 [facility] Blood lymphocytes/100 leukoc ytesOrdered By: Dr. Bhatia on 01-08-2023 Lymphocytes/100 WBC (Bld) 14.2 % 19-41 [facility] Blood monocytes/100 leukocyt esOrdered By: Dr. Bhatia on 01-08-2023 Monocytes/100 WBC (Bld) 8.6 % 0-10 [facility] - Chemistry and C hemistry - challengeon 01-08-2023 Glucose Ql (U) Negative [facility] - Hematology and Cell countsOrdered By: Dr. Bahtia on 01-08-2023 Immature granulocytes/100 WBC (Bld) 0.600 % 0.0-0.9 [facility] Comment on above: IG% - Immature Granu locytes (promyelocytes, myelocytes and metamyelocytes) > 1% indicates that a LEFT SHIFT is Present. Nucleated RBC/100 WBC (Bld) [Ratio] 0 % 0-5 [facility] - Urinalysison Protein Ql (U) Negative [facility] No Panel InformationOrdered By: Dr. Nathan on 01-08-2023 Vaginal Amniotic Fluid Detection Positive Negative [facility] Comment on above: Amniotic fluid prese nt indicates rupture of Membranes. RESULTS CALLED TO MICHEAL ABDUL 01/08/232023 Pedro Perdomo.REPORT READ BACK BY SAME . Serum Treponema species anti body detectionOrdered By: Dr. Bhatia on 01-08-2023 Treponema sp Ab Ql (S) Non-Reactive [facility] - Chemistry and C hemistry - challengeon 01-01-2023 Glucose Ql (U) Negative [facility] - Urinalysison Protein Ql (U) Negative [facility] No Panel InformationOrdered By: Lizzy Mercado on 12-25-2022 Group B Streptococcus Culture Group B Beta Streptococcus is not isolated. [facility] No Panel InformationOrdered By: Dr. Nathan on 12-24-2022 Vaginal Amniotic Fluid Detection Negative Negative [facility] Comment on above: Amniotic fluid not p resent indicates No Rupture of FetalMembranes at time of specimen collection. Absolute lymphocyte countOrd ered By: Lizzy Mercado on 12-22-2022 Lymphocytes Auto (Unsp spec) [#/Vol] 1.44 10*3/uL 0.83-4.51 [facility] Basophil percentageOrdered B y: Lizzy Mercado on 12-22-2022 Basophils/100 WBC (Bld) 0.2 % 0-1 [facility] Eosinophils/100 WBC (Bld) 0.5 % 0-5 [facility] Neutrophils (Bld) [#/Vol] 11.1 10*3/uL 2.0-7.7 [facility] Neutrophils/100 WBC (Bld) 82.3 % 47-70 [facility] WBC (Bld) [#/Vol] 13.5 10*3/uL 4.4-11.0 [facility] Blood erythrocytes count (nu mber/volume)Ordered By: Lizzy Mercado on 12-22-2022 RBC (Bld) [#/Vol] 3.87 10*6/uL 4.2-5.4 [facility] Blood hemoglobin measurement (mass/volume)Ordered By: Lizzy Mercado on 12-22-2022 Hemoglobin (Bld) [Mass/Vol] 10.6 g/dL 12.0-15.0 [facility] Blood lymphocytes/100 leukoc ytesOrdered By: Lizzy Mercado on 12-22-2022 Lymphocytes/100 WBC (Bld) 10.7 % 19-41 [facility] Blood monocytes/100 leukocyt esOrdered By: Lizzy Mercado on 12-22-2022 Monocytes/100 WBC (Bld) 5.6 % 0-10 [facility] Blood platelet mean volumeOr dered By: Lizzy Mercado on 12-22-2022 Platelet mean volume (Bld) [Entitic vol] 10.6 fL 6.2-12.0 [facility] Determination of erythrocyte mean corpuscular volume (MCV)Ordered By: Lizzy Mercado on 12-22-2022 MCV (RBC) [Entitic vol] 85.5 fL 81-99 [facility] Hematocrit Auto (Bld) [Volum e fraction]Ordered By: Lizzy Mercado on 12-22-2022 Hematocrit (Bld) [Volume fraction] 33.1 % 37-47 [facility] - Chemistry and C hemistry - challengeon 12-22-2022 Glucose Ql (U) Negative [facility] - Hematology and Cell countsOrdered By: Lizzy Mercado on 12-22-2022 Erythrocyte distribution width (RBC) [Entitic vol] 48.6 fL 35.1-43.9 [facility] Erythrocyte distribution width (RBC) [Ratio] 16.7 % 11.6-14.6 [facility] Immature granulocytes/100 WBC (Bld) 0.700 % 0.0-0.9 [facility] Comment on above: IG% - Immature Granu locytes (promyelocytes, myelocytes and metamyelocytes) > 1% indicates that a LEFT SHIFT is Present. MCH (RBC) [Entitic mass] 27.4 pg 27.0-32.0 [facility] Nucleated RBC/100 WBC (Bld) [Ratio] 0 % 0-5 [facility] - Urinalysison Protein Ql (U) Negative [facility] MCHC Auto (RBC) [Mass/Vol]Or dered By: Lizzy Mercado on 12-22-2022 MCHC (RBC) [Mass/Vol] 32.0 g/dL 32-36 [facility] No Panel InformationOrdered By: Lizzy Mercado on 12-22-2022 Group B Streptococcus Culture Group B Beta Streptococcus is not isolated. [facility] Platelets bldOrdered By: Rocky Mercado on 12-22-2022 Platelets (Bld) [#/Vol] 296 10*3/uL 150-450 [facility] - Chemistry and C hemistry - challengeon 12-15-2022 Glucose Ql (U) Negative [facility] - Urinalysison Protein Ql (U) Negative [facility] - Chemistry and C hemistry - challengeOrdered By: Erma White on 12-11-2022 Transferrin [Mass/Vol] 442 mg/dL 192-364 [facility] Comment on above: Performed at: [facility] [place], [place] [id number] Director: Robert Jo PhD, Phone: [phone] No Panel InformationOrdered By: Erma White on 12-11-2022 Total Iron Binding Capacity 538 ug/dL 250-450 [facility] Serum or plasma ferritin rhina surement (mass/volume)Ordered By: Erma White on 12-11-2022 Ferritin [Mass/Vol] 7 ng/mL 8-252 [facility] Absolute lymphocyte countOrd ered By: Erma White on 12-04-2022 Lymphocytes Auto (Unsp spec) [#/Vol] 1.62 10*3/uL 0.83-4.51 [facility] Basophil percentageOrdered B y: Erma White on 12-04-2022 Basophils/100 WBC (Bld) 0.4 % 0-1 [facility] Eosinophils/100 WBC (Bld) 0.7 % 0-5 [facility] Neutrophils (Bld) [#/Vol] 11.3 10*3/uL 2.0-7.7 [facility] Neutrophils/100 WBC (Bld) 79.7 % 47-70 [facility] WBC (Bld) [#/Vol] 14.2 10*3/uL 4.4-11.0 [facility] Blood erythrocytes count (nu mber/volume)Ordered By: Erma White on 12-04-2022 RBC (Bld) [#/Vol] 3.58 10*6/uL 4.2-5.4 [facility] Blood hemoglobin measurement (mass/volume)Ordered By: Erma White on 12-04-2022 Hemoglobin (Bld) [Mass/Vol] 9.8 g/dL 12.0-15.0 [facility] Blood lymphocytes/100 leukoc ytesOrdered By: Erma White on 12-04-2022 Lymphocytes/100 WBC (Bld) 11.4 % 19-41 [facility] Blood monocytes/100 leukocyt esOrdered By: Erma White on 12-04-2022 Monocytes/100 WBC (Bld) 7.4 % 0-10 [facility] Blood platelet mean volumeOr dered By: Erma White on 12-04-2022 Platelet mean volume (Bld) [Entitic vol] 10.3 fL 6.2-12.0 [facility] Determination of erythrocyte mean corpuscular volume (MCV)Ordered By: Erma White on 12-04-2022 MCV (RBC) [Entitic vol] 84.1 fL 81-99 [facility] Hematocrit Auto (Bld) [Volum e fraction]Ordered By: Erma White on 12-04-2022 Hematocrit (Bld) [Volume fraction] 30.1 % 37-47 [facility] - Chemistry and C hemistry - challengeon 12-04-2022 Glucose Ql (U) Negative [facility] - Hematology and Cell countsOrdered By: Erma White on 12-04-2022 Erythrocyte distribution width (RBC) [Entitic vol] 42.5 fL 35.1-43.9 [facility] Erythrocyte distribution width (RBC) [Ratio] 13.7 % 11.6-14.6 [facility] Immature granulocytes/100 WBC (Bld) 0.400 % 0.0-0.9 [facility] Comment on above: IG% - Immature Granu locytes (promyelocytes, myelocytes and metamyelocytes) > 1% indicates that a LEFT SHIFT is Present. MCH (RBC) [Entitic mass] 27.4 pg 27.0-32.0 [facility] Nucleated RBC/100 WBC (Bld) [Ratio] 0 % 0-5 [facility] - Urinalysison Protein Ql (U) Negative [facility] MCHC Auto (RBC) [Mass/Vol]Or dered By: Erma White on 12-04-2022 MCHC (RBC) [Mass/Vol] 32.6 g/dL 32-36 [facility] Platelets bldOrdered By: Jo White on 12-04-2022 Platelets (Bld) [#/Vol] 308 10*3/uL 150-450 [facility] - Chemistry and C hemistry - challengeon 11-20-2022 Glucose Ql (U) Negative [facility] - Urinalysison Protein Ql (U) Negative [facility] Quantitative serum or plasma 3 hour gestational glucose tolerance panelOrdered By: Dr. Bhatia on 10-22-2022 Glucose tolerance 3 hours gestational panel See comment [facility] Comment on above: FASTING 77 Col: 09/25 [...] Auto (Unsp spec) [#/Vol] 1.36 10*3/uL 0.83-4.51 [facility] Basophil percentageOrdered B y: Dr. Nathan on 10-16-2022 Basophils/100 WBC (Bld) 0.3 % 0-1 [facility] Eosinophils/100 WBC (Bld) 0.8 % 0-5 [facility] Neutrophils (Bld) [#/Vol] 12.3 10*3/uL 2.0-7.7 [facility] Neutrophils/100 WBC (Bld) 83.8 % 47-70 [facility] WBC (Bld) [#/Vol] 14.6 10*3/uL 4.4-11.0 [facility] Blood erythrocytes count (nu mber/volume)Ordered By: Dr. Nathan on 10-16-2022 RBC (Bld) [#/Vol] 3.63 10*6/uL 4.2-5.4 [facility] Blood hemoglobin measurement (mass/volume)Ordered By: Dr. Nathan on 10-16-2022 Hemoglobin (Bld) [Mass/Vol] 10.4 g/dL 12.0-15.0 [facility] Blood lymphocytes/100 leukoc ytesOrdered By: Dr. Nathan on 10-16-2022 Lymphocytes/100 WBC (Bld) 9.3 % 19-41 [facility] Blood monocytes/100 leukocyt esOrdered By: Dr. Nathan on 10-16-2022 Monocytes/100 WBC (Bld) 5.2 % 0-10 [facility] Blood platelet mean volumeOr dered By: Dr. Nathan on 10-16-2022 Platelet mean volume (Bld) [Entitic vol] 9.9 fL 6.2-12.0 [facility] Determination of erythrocyte mean corpuscular volume (MCV)Ordered By: Dr. Nathan on 10-16-2022 MCV (RBC) [Entitic vol] 91.2 fL 81-99 [facility] Gestational diabetes screen 1-hour screen with 50g oral glucose loadOrdered By: Dr. Nathan on 10-16-2022 Glucose 1 Hr post 50 g glucose PO [Mass/Vol] 142 mg/dL 70-140 [facility] HIV 1 and HIV-2 antibody ass ay with HIV-1 p24 antigen detectionOrdered By: Dr. Nathan on 10-16-2022 HIV 1+2 Ab+HIV1 p24 Ag IA Ql Non-Reactive Nonreactive [facility] Hematocrit Auto (Bld) [Volum e fraction]Ordered By: Dr. Nathan on 10-16-2022 Hematocrit (Bld) [Volume fraction] 33.1 % 37-47 [facility] - Chemistry and C hemistry - challengeon 10-16-2022 Glucose Ql (U) Negative [facility] - Hematology and Cell countsOrdered By: Dr. Nathan on 10-16-2022 Erythrocyte distribution width (RBC) [Entitic vol] 43.4 fL 35.1-43.9 [facility] Erythrocyte distribution width (RBC) [Ratio] 13.2 % 11.6-14.6 [facility] Immature granulocytes/100 WBC (Bld) 0.600 % 0.0-0.9 [facility] Comment on above: IG% - Immature Granu locytes (promyelocytes, myelocytes and metamyelocytes) > 1% indicates that a LEFT SHIFT is Present. MCH (RBC) [Entitic mass] 28.7 pg 27.0-32.0 [facility] Nucleated RBC/100 WBC (Bld) [Ratio] 0 % 0-5 [facility] - Urinalysison Protein Ql (U) Negative [facility] MCHC Auto (RBC) [Mass/Vol]Or dered By: Dr. Nathan on 10-16-2022 MCHC (RBC) [Mass/Vol] 31.4 g/dL 32-36 [facility] Platelets bldOrdered By: Dr. Nathan on 10-16-2022 Platelets (Bld) [#/Vol] 303 10*3/uL 150-450 [facility] Serum Treponema species anti body detectionOrdered By: Dr. Nathan on 10-16-2022 Treponema sp Ab Ql (S) Non-Reactive [facility] - Chemistry and C hemistry - challengeon 09-18-2022 Glucose Ql (U) Negative [facility] - Urinalysison Protein Ql (U) Negative [facility] - Chemistry and C hemistry - challengeon 08-17-2022 Glucose Ql (U) Negative [facility] - Urinalysison Protein Ql (U) Negative [facility] Culture, urineOrdered By: Ivy White on 07-24-2022 Bacteria identified Cx Nom (U) Presumptive Lactobacillus sp. [facility] - Chemistry and C hemistry - challengeon 07-22-2022 Glucose Ql (U) Negative [facility] - Urinalysison Protein Ql (U) Negative [facility] No Panel InformationOrdered By: Erma White on 07-22-2022 Miscellaneous Test See comment [facility] Comment on above: TEST RESULT LIMITSAF P, [...] MOM VALUE 0.91 [place] [address] Interpretation: Screen NegativeThis result is screen negative [...] [employer] to discuss available options. The [employer] recommends amniocentesis be offered to women age 35 and older.Catrachita Sunshine, Ph.D., DABCCDirectorReferences: Available Upon Request. Multiples of Median cutoffs Abreviation definitions For AFP Elevations IDD - Insulin Dep DiabetesSingleton 2.5 Black 2.8 OSBR- Open Spina Bifida RiskIDD 2.0 Twins 4.5 DSR - Down Syndrome RiskFor further inquiries contact [email or web address] at [phone].This test was developed and its performance characteristicsdetermined by [facility]. It has not been cleared or approvedby the Food and Drug Administration. TESTING PERFORMED AT [facility]. ORIGINAL REPORT ON FILE IN LAB CONTAINS ADDITIONAL TEST SITE INFORMATION. Absolute lymphocyte countOrd ered By: Dr. Nathan on 06-25-2022 Lymphocytes Auto (Unsp spec) [#/Vol] 1.71 10*3/uL 0.83-4.51 [facility] Basophil percentageOrdered B y: Dr. Nathan on 06-25-2022 Basophils/100 WBC (Bld) 0.3 % 0-1 [facility] Eosinophils/100 WBC (Bld) 0.7 % 0-5 [facility] Neutrophils (Bld) [#/Vol] 6.6 10*3/uL 2.0-7.7 [facility] Neutrophils/100 WBC (Bld) 73.7 % 47-70 [facility] WBC (Bld) [#/Vol] 9.0 10*3/uL 4.4-11.0 [facility] Blood erythrocytes count (nu mber/volume)Ordered By: Dr. Nathan on 06-25-2022 RBC (Bld) [#/Vol] 4.67 10*6/uL 4.2-5.4 [facility] Blood hemoglobin measurement (mass/volume)Ordered By: Dr. Nathan on 06-25-2022 Hemoglobin (Bld) [Mass/Vol] 13.6 g/dL 12.0-15.0 [facility] Blood lymphocytes/100 leukoc ytesOrdered By: Dr. Nathan on 06-25-2022 Lymphocytes/100 WBC (Bld) 19.1 % 19-41 [facility] Blood monocytes/100 leukocyt esOrdered By: Dr. Nathan on 06-25-2022 Monocytes/100 WBC (Bld) 6.0 % 0-10 [facility] Blood platelet mean volumeOr dered By: Dr. Nathan on 06-25-2022 Platelet mean volume (Bld) [Entitic vol] 10.4 fL 6.2-12.0 [facility] Determination of erythrocyte mean corpuscular volume (MCV)Ordered By: Dr. Nathan on 06-25-2022 MCV (RBC) [Entitic vol] 89.7 fL 81-99 [facility] HIV 1 and HIV-2 antibody ass ay with HIV-1 p24 antigen detectionOrdered By: Dr. Nathan on 06-25-2022 HIV 1+2 Ab+HIV1 p24 Ag IA Ql Non-Reactive Nonreactive [facility] Hematocrit Auto (Bld) [Volum e fraction]Ordered By: Dr. Nathan on 06-25-2022 Hematocrit (Bld) [Volume fraction] 41.9 % 37-47 [facility] - Hematology and Cell countsOrdered By: Dr. Nathan on 06-25-2022 Erythrocyte distribution width (RBC) [Entitic vol] 43.9 fL 35.1-43.9 [facility] Erythrocyte distribution width (RBC) [Ratio] 13.3 % 11.6-14.6 [facility] Immature granulocytes/100 WBC (Bld) 0.200 % 0.0-0.9 [facility] Comment on above: IG% - Immature Granu locytes (promyelocytes, myelocytes and metamyelocytes) > 1% indicates that a LEFT SHIFT is Present. MCH (RBC) [Entitic mass] 29.1 pg 27.0-32.0 [facility] Nucleated RBC/100 WBC (Bld) [Ratio] 0 % 0-5 [facility] MCHC Auto (RBC) [Mass/Vol]Or dered By: Dr. Nathan on 06-25-2022 MCHC (RBC) [Mass/Vol] 32.5 g/dL 32-36 [facility] No Panel InformationOrdered By: Dr. Nathan on 06-25-2022 Miscellaneous Test Comment MAILED SPECIMEN [facility] Hepatitis B Surface Antigen Non-Reactive Nonreactive [facility] Hepatitis C Antibody Non-Reactive Nonreactive [facility] Comment on above: Non Reactive: < 0.8 Equivocal: >/= 0.8 to < 1.0 Reactive: >/= 1.0The CDC recommends that a reactive/equivocal HCV antibody result be followed up by the HCV Nucleic Acid Amplificationtest (824837) Rubella IgG Antibody Reactive Nonreactive [facility] Comment on above: Antibody Results Int erpretation of Immune Status Non Reactive Presumed Non-Immune Equivocal Equivocal Reactive Presumed Immune Platelets bldOrdered By: Dr. Nathan on 06-25-2022 Platelets (Bld) [#/Vol] 315 10*3/uL 150-450 [facility] Serum Treponema species anti body detectionOrdered By: Dr. Nathan on 06-25-2022 Treponema sp Ab Ql (S) Non-Reactive [facility] Chlamydia trachomatis rRNA d etection by probe and target amplification methodon 05-27-2022 C. trachomatis rRNA JUANY+probe Ql (Unsp spec) Negative Negative [facility] Work Phone: Laboratory - Drug toxicology on 05-27-2022 Amphetamines Ql (U) Negative <1000 ng/mL [facility] Work Phone: Benzodiazepines Ql (U) Negative < 200 ng/mL [facility] Work Phone: Cannabinoids Screen Ql (U) Negative < 50 ng/mL [facility] Work Phone: Cocaine Ql (U) Negative < 300 ng/mL [facility] Work Phone: Opiates Ql (U) Negative < 300 ng/mL [facility] Work Phone: Laboratory - Microbiology an d Antimicrobial susceptibilityon 05-27-2022 N. gonorrhoeae DNA JUANY+probe Ql (Unsp spec) Negative Negative [facility] Work Phone: Comment on above: Performed at: =[address] [id number] Director: Ange Motley MD, Phone: [phone] No Panel Informationon 05-27 MDMA (Ecstasy) Screen Negative < 500 ng/mL [facility] Work Phone: Urine Barbiturates Screen Negative < 200 ng/mL [facility] Work Phone: Urine Drug Screen Comment [facility] Work Phone: Comment on above: CONFIRMATORY TESTING [...] Methadone Screen Negative < 300 ng/mL [facility] Work Phone: Urine phencyclidine (PCP) de tectionon 05-27-2022 Phencyclidine Ql (U) Negative < 25 ng/mL [facility] Work Phone: Absolute lymphocyte counton 03-20-2022 Lymphocytes Auto (Unsp spec) [#/Vol] 1.38 10*3/uL 0.83-4.51 [facility] Work Phone: Basophil percentageon 2021 Basophils/100 WBC (Bld) 0.7 % 0-1 [facility] Work Phone: Eosinophils/100 WBC (Bld) 0.7 % 0-5 [facility] Work Phone: [phone] Neutrophils (Bld) [#/Vol] 3.6 10*3/uL 2.0-7.7 [facility] Work Phone: [phone] Neutrophils/100 WBC (Bld) 65.3 % 47-70 [facility] Work Phone: WBC (Bld) [#/Vol] 5.5 10*3/uL 4.4-11.0 [facility] Work Phone: Blood erythrocytes count (nu mber/volume)on 03-20-2022 RBC (Bld) [#/Vol] 4.69 10*6/uL 4.2-5.4 [facility] Work Phone: Blood hemoglobin measurement (mass/volume)on 03-20-2022 Hemoglobin (Bld) [Mass/Vol] 13.5 g/dL 12.0-15.0 [facility] Work Phone: [phone] Blood lymphocytes/100 leukoc yteson 03-20-2022 Lymphocytes/100 WBC (Bld) 25.0 % 19-41 [facility] Work Phone: Blood monocytes/100 leukocyt eson 03-20-2022 Monocytes/100 WBC (Bld) 8.3 % 0-10 [facility] Work Phone: Blood platelet mean volumeon 03-20-2022 Platelet mean volume (Bld) [Entitic vol] 10.1 fL 6.2-12.0 [facility] Work Phone: Determination of erythrocyte mean corpuscular volume (MCV)on 03-20-2022 MCV (RBC) [Entitic vol] 89.8 fL 81-99 [facility] Work Phone: [phone] Hematocrit Auto (Bld) [Volum e fraction]on 03-20-2022 Hematocrit (Bld) [Volume fraction] 42.1 % 37-47 [facility] Work Phone: Laboratory - Hematology and Cell countson 03-20-2022 Erythrocyte distribution width (RBC) [Entitic vol] 44.1 fL 35.1-43.9 [facility] Work Phone: Erythrocyte distribution width (RBC) [Ratio] 13.3 % 11.6-14.6 [facility] Work Phone: Immature granulocytes/100 WBC (Bld) 0.000 % 0.0-0.9 [facility] Work Phone: Comment on above: IG% - Immature Granu locytes (promyelocytes, myelocytes and metamyelocytes) > 1% indicates that a LEFT SHIFT is Present. MCH (RBC) [Entitic mass] 28.8 pg 27.0-32.0 [facility] Work Phone: Nucleated RBC/100 WBC (Bld) [Ratio] 0 % 0-5 [facility] Work Phone: MCHC Auto (RBC) [Mass/Vol]on 03-20-2022 MCHC (RBC) [Mass/Vol] 32.1 g/dL 32-36 [facility] Work Phone: No Panel Informationon 03-20 Thyroid Stimulating Hormone (TSH) 0.89 uIU/mL 0.358-3.74 [facility] Work Phone: Platelets bldon 03-20-2022 Platelets (Bld) [#/Vol] 321 10*3/uL 150-450 [facility] Work Phone: Culture, urine Bacteria identified Cx Nom (U) Presumptive Lactobacillus sp. [facility] Work Phone: Gram stain for investigation of transfusion reaction Microscopic observation Gram stain Nom (Unsp spec) [facility] Work Phone: Thin prep Papanicolaou smear with manual screening Genital Culture G. vaginalis (Presumptive) [facility] Work Phone: Vital Signs Date Time Vital Sign Value Performing Clinician Magy alvares 05-30-2025 09:59-0500 Body height 154.94 cm Lizzy Mercado CNM Work Phone: [facility] 05-30-2025 09:59-0500 Body mass index (BMI) [Ratio] 24.6 kg/m2 Lizzy Mercado CNM Work Phone: [facility] 05-30-2025 09:59-0500 Body weight 59.16 kg Lizzy Mercado CNM Work Phone: [facility] 05-30-2025 09:59-0500 Diastolic blood pressure 67 mm[Hg] Lizzy Mercado CNM Work Phone: [facility] 05-30-2025 09:59-0500 Systolic blood pressure 127 mm[Hg] Lizzy Mercado CNM Work Phone: [facility] 05-14-2025 14:51-0400 Body mass index (BMI) [Ratio] 24 kg/m2 Lizzy Mercado CNM Work Phone: [facility] 05-14-2025 14:51-0400 Body weight 57.63 kg Lizzy Mercado CNM Work Phone: [facility] 05-14-2025 14:51-0400 Diastolic blood pressure 76 mm[Hg] Lizzy Mercado CNM Work Phone: [facility] 05-14-2025 14:51-0400 Systolic blood pressure 125 mm[Hg] Lizzy Mercado CNM Work Phone: [facility] 04-30-2025 11:02-0400 Body height 154.[address] Awilda Felix DO Work Phone: [facility] 04-30-2025 11:02-0400 Body mass index (BMI) [Ratio] 23.1 kg/m2 Dr. Awilda Felix DO Work Phone: [facility] 04-30-2025 11:02-0400 Body weight 55.[address] Awilda Felix DO Work Phone: [facility] 04-30-2025 11:02-0400 Diastolic blood pressure 71 mm[Hg] Dr. Awilda Felix DO Work Phone: [facility] 04-30-2025 11:02-0400 Systolic blood pressure 105 mm[Hg] Dr. Awilda Felix DO Work Phone: [facility] 03-23-2025 09:42-0400 Body height 154.[address] Awilda Felix DO Work Phone: [facility] 03-23-2025 09:41-0400 Body mass index (BMI) [Ratio] 21.6 kg/m2 Dr. Awilda Felix DO Work Phone: [facility] 03-23-2025 09:41-0400 Body weight 51.[address] Awilda Felix DO Work Phone: [facility] 03-23-2025 09:41-0400 Diastolic blood pressure 71 mm[Hg] Dr. Awilda Felix DO Work Phone: [facility] 03-23-2025 09:41-0400 Systolic blood pressure 112 mm[Hg] Dr. Awilda Felix DO Work Phone: [facility] 02-28-2025 10:07-0400 Body height 154.[address] Awilda Felix DO Work Phone: [facility] 02-28-2025 10:07-0400 Body mass index (BMI) [Ratio] 20.9 kg/m2 Dr. Awilda Felix DO Work Phone: [facility] 02-28-2025 10:07-0400 Body weight 50.[address] Awilda Felix DO Work Phone: [facility] 02-28-2025 10:07-0400 Diastolic blood pressure 66 mm[Hg] Dr. Awilda Felix DO Work Phone: [facility] 02-28-2025 10:07-0400 Systolic blood pressure 101 mm[Hg] Dr. Awilda Felix DO Work Phone: [facility] 01-29-2025 10:44-0400 Body height 154.[address] Brielle Nathan MD Work Phone: [facility] 01-29-2025 10:44-0400 Body mass index (BMI) [Ratio] 20.1 kg/m2 Dr. Brielle Nathan MD Work Phone: 6(369)[phone] [place] [address] 01-29-2025 10:44-0400 Body weight 48.[address] Brielle Nathan MD Work Phone: 6(206)[phone] [place] [address] 01-29-2025 10:44-0400 Diastolic blood pressure 75 mm[Hg] Dr. Brielle Nathna MD Work Phone: 3(602)[phone] [place] [address] 01-29-2025 10:44-0400 Systolic blood pressure 112 mm[Hg] Dr. Brielle Nathan MD Work Phone: 4(687)[phone] [place] [address] 01-15-2025 11:35-0400 Body height 154.[address] Brielle Nathan MD Work Phone: 6(175)[phone] [place] [address] 01-15-2025 11:35-0400 Body mass index (BMI) [Ratio] 20 kg/m2 Dr. Brielle Nathan MD Work Phone: 0(395)[phone] [place] [address] 01-15-2025 11:35-0400 Body weight 48.[address] Brielle Nathan MD Work Phone: 8([phone])[phone] [place] [address] 01-15-2025 11:35-0400 Diastolic blood pressure 67 mm[Hg] Dr. Brielle Nathan MD Work Phone: 7(753)[phone] [place] [address] 01-15-2025 11:35-0400 Systolic blood pressure 106 mm[Hg] Dr. Brielle Nathan MD Work Phone: 1(610)[phone] [place] [address] 02-28-2024 11:06-0400 Diastolic Blood Pressure Non-Invasive 68 mm[Hg] DR ROBERT BARON MD [facility] 02-28-2024 11:06-0400 Heart rate 70 /min DR ROBERT BARON MD [facility] 02-28-2024 11:06-0400 Respiratory rate 20 /min DR ROBERT BARON MD [facility] 02-28-2024 11:06-0400 Systolic Blood Pressure Non-Invasive 104 mm[Hg] DR ROBERT BARON MD [facility] 02-28-2024 10:55-0400 Diastolic Blood Pressure Non-Invasive 63 mm[Hg] DR ROBERT BARON MD [facility] 02-28-2024 10:55-0400 Heart rate 89 /min DR ROBERT BARON MD [facility] 02-28-2024 10:55-0400 Respiratory rate 20 /min DR ROBERT BARON MD [facility] 02-28-2024 10:55-0400 Systolic Blood Pressure Non-Invasive 102 mm[Hg] DR ROBERT BARON MD [facility] 02-28-2024 10:46-0400 Body temperature 98.06 [degF] DR ROBERT BARON MD [facility] 02-28-2024 10:46-0400 Diastolic Blood Pressure Non-Invasive 63 mm[Hg] DR ROBERT BARON MD [facility] 02-28-2024 10:46-0400 Heart rate 80 /min DR ROBERT BARON MD [facility] 02-28-2024 10:46-0400 Respiratory rate 16 /min DR ROBERT BARON MD [facility] 02-28-2024 10:46-0400 Systolic Blood Pressure Non-Invasive 93 mm[Hg] DR ROBERT BARON MD [facility] 02-28-2024 10:40-0400 Respiratory Rate - Anes 23 br/min DR ROBERT BARON MD [facility] 02-28-2024 10:35-0400 Respiratory Rate - Anes 12 br/min DR ROBERT BARON MD [facility] 02-28-2024 09:57-0400 Body height 159.[address] ROBERT BARON MD [facility] 02-28-2024 09:57-0400 Body temperature 98.06 [degF] DR ROBERT BARON MD [facility] 02-28-2024 09:57-0400 Body weight 44.[address] ROBERT BARON MD [facility] 02-28-2024 09:57-0400 Body weight 17.4 kg/m2 DR ROBERT BARON MD [facility] 02-28-2024 09:57-0400 Heart rate 72 /min DR ROBERT BARON MD [facility] 01-03-2024 19:46-0400 Body height [address] MARYAN ALICIA DO [facility] 01-03-2024 19:46-0400 Body temperature 96.98 [degF] DR MARYAN ALICIA DO [facility] 01-03-2024 19:46-0400 Body weight 47.[address] MARYAN ALICIA DO [facility] 01-03-2024 19:46-0400 Diastolic Blood Pressure Non-Invasive 67 mm[Hg] DR MARYAN ALICIA DO [facility] 01-03-2024 19:46-0400 Heart rate 69 /min DR MARYAN ALICIA DO [facility] 01-03-2024 19:46-0400 Respiratory rate 18 /min DR MARYAN ALICIA DO [facility] 01-03-2024 19:46-0400 Systolic Blood Pressure Non-Invasive 109 mm[Hg] DR MARYAN ALICIA DO [facility] 01-21-2023 09:38-0400 Body height 154.94 cm No Primary Care Physician [facility] 01-21-2023 09:37-0400 Body mass index (BMI) [Ratio] 23.6 kg/m2 No Primary Care Physician [facility] 01-21-2023 09:37-0400 Body weight 56.75 kg No Primary Care Physician [facility] 01-21-2023 09:37-0400 Diastolic blood pressure 78 mm[Hg] No Primary Care Physician [facility] 01-21-2023 09:37-0400 Systolic blood pressure 123 mm[Hg] No Primary Care Physician [facility] 01-11-2023 09:00-0400 Body temperature 97.5 [degF] No Primary Care Physician [facility] 01-11-2023 09:00-0400 Diastolic blood pressure 74 mm[Hg] No Primary Care Physician [facility] 01-11-2023 09:00-0400 Heart rate 75 /min No Primary Care Physician [facility] 01-11-2023 09:00-0400 Respiratory rate 16 /min No Primary Care Physician [facility] 01-11-2023 09:00-0400 SaO2% (BldA) [Mass fraction] 96 % No Primary Care Physician [facility] 01-11-2023 09:00-0400 Systolic blood pressure 125 mm[Hg] No Primary Care Physician [facility] 01-08-2023 22:21-0400 Body height 154.94 cm No Primary Care Physician [facility] 01-08-2023 22:21-0400 Body mass index (BMI) [Ratio] 28.1 kg/m2 No Primary Care Physician [facility] 01-08-2023 22:21-0400 Body weight 67.58 kg No Primary Care Physician [facility] 01-08-2023 13:57-0400 Body mass index (BMI) [Ratio] 27.2 kg/m2 No Primary Care Physician [facility] 01-08-2023 13:57-0400 Body weight 67.58 kg No Primary Care Physician [facility] 01-08-2023 13:57-0400 Diastolic blood pressure 70 mm[Hg] No Primary Care Physician [facility] 01-08-2023 13:57-0400 Systolic blood pressure 126 mm[Hg] No Primary Care Physician [facility] 01-01-2023 14:23-0400 Diastolic blood pressure 86 mm[Hg] No Primary Care Physician [facility] 01-01-2023 14:23-0400 Systolic blood pressure 125 mm[Hg] No Primary Care Physician [facility] 01-01-2023 14:06-0400 Body mass index (BMI) [Ratio] 27.4 kg/m2 No Primary Care Physician [facility] 01-01-2023 14:06-0400 Body weight 68.09 kg No Primary Care Physician [facility] 01-01-2023 14:06-0400 Heart rate 90 /min No Primary Care Physician [facility] 12-27-2022 14:35-0400 Body height 157.48 cm No Primary Care Physician [facility] 12-27-2022 14:35-0400 Body mass index (BMI) [Ratio] 27.3 kg/m2 No Primary Care Physician [facility] 12-27-2022 14:35-0400 Body weight 68 kg No Primary Care Physician [facility] 12-27-2022 14:31-0400 Diastolic blood pressure 74 mm[Hg] No Primary Care Physician [facility] 12-27-2022 14:31-0400 Heart rate 67 /min No Primary Care Physician [facility] 12-27-2022 14:31-0400 SaO2% (BldA) [Mass fraction] 99 % No Primary Care Physician [facility] 12-27-2022 14:31-0400 Systolic blood pressure 123 mm[Hg] No Primary Care Physician [facility] 12-27-2022 14:30-0400 Body temperature 98.8 [degF] No Primary Care Physician [facility] 12-24-2022 08:45-0400 Body temperature 99.1 [degF] No Primary Care Physician [facility] 12-24-2022 08:45-0400 Diastolic blood pressure 71 mm[Hg] No Primary Care Physician [facility] 12-24-2022 08:45-0400 Heart rate 72 /min No Primary Care Physician [facility] 12-24-2022 08:45-0400 SaO2% (BldA) [Mass fraction] 98 % No Primary Care Physician [facility] 12-24-2022 08:45-0400 Systolic blood pressure 112 mm[Hg] No Primary Care Physician [facility] 12-24-2022 08:27-0400 Body height 157.48 cm No Primary Care Physician [facility] 12-24-2022 08:27-0400 Body mass index (BMI) [Ratio] 27.4 kg/m2 No Primary Care Physician [facility] 12-24-2022 08:27-0400 Body weight 68.03 kg No Primary Care Physician [facility] 12-22-2022 13:55-0400 Body mass index (BMI) [Ratio] 27.8 kg/m2 No Primary Care Physician [facility] 12-22-2022 13:55-0400 Body weight 68.94 kg No Primary Care Physician [facility] 12-22-2022 13:55-0400 Diastolic blood pressure 60 mm[Hg] No Primary Care Physician [facility] 12-22-2022 13:55-0400 Systolic blood pressure 120 mm[Hg] No Primary Care Physician [facility] 12-15-2022 13:19-0400 Body mass index (BMI) [Ratio] 26.8 kg/m2 No Primary Care Physician [facility] 12-15-2022 13:19-0400 Body weight 66.45 kg No Primary Care Physician [facility] 12-15-2022 13:19-0400 Diastolic blood pressure 69 mm[Hg] No Primary Care Physician [facility] 12-15-2022 13:19-0400 Systolic blood pressure 103 mm[Hg] No Primary Care Physician [facility] 12-04-2022 15:05-0400 Body mass index (BMI) [Ratio] 27.7 kg/m2 No Primary Care Physician [facility] 12-04-2022 15:05-0400 Body weight 68.71 kg No Primary Care Physician [facility] 12-04-2022 15:05-0400 Diastolic blood pressure 69 mm[Hg] No Primary Care Physician [facility] 12-04-2022 15:05-0400 Systolic blood pressure 127 mm[Hg] No Primary Care Physician [facility] 11-20-2022 16:00-0400 Body mass index (BMI) [Ratio] 25.9 kg/m2 No Primary Care Physician [facility] 11-20-2022 16:00-0400 Body weight 64.41 kg No Primary Care Physician [facility] 11-20-2022 16:00-0400 Diastolic blood pressure 75 mm[Hg] No Primary Care Physician [facility] 11-20-2022 16:00-0400 Systolic blood pressure 114 mm[Hg] No Primary Care Physician [facility] 11-02-2022 14:53-0400 Body mass index (BMI) [Ratio] 25.4 kg/m2 No Primary Care Physician [facility] 11-02-2022 14:53-0400 Body weight 63.21 kg No Primary Care Physician [facility] 11-02-2022 14:53-0400 Diastolic blood pressure 69 mm[Hg] No Primary Care Physician [facility] 11-02-2022 14:53-0400 Systolic blood pressure 109 mm[Hg] No Primary Care Physician [facility] 10-16-2022 09:58-0400 Body height 157.48 cm No Primary Care Physician [facility] 10-16-2022 09:58-0400 Body mass index (BMI) [Ratio] 24.5 kg/m2 No Primary Care Physician [facility] 10-16-2022 09:58-0400 Body weight 60.78 kg No Primary Care Physician [facility] 10-16-2022 09:58-0400 Diastolic blood pressure 73 mm[Hg] No Primary Care Physician [facility] 10-16-2022 09:58-0400 Systolic blood pressure 123 mm[Hg] No Primary Care Physician [facility] 09-18-2022 14:59-0500 Diastolic blood pressure 68 mm[Hg] No Primary Care Physician [facility] 09-18-2022 14:59-0500 Systolic blood pressure 116 mm[Hg] No Primary Care Physician [facility] 09-18-2022 14:37-0500 Body mass index (BMI) [Ratio] 23.4 kg/m2 No Primary Care Physician [facility] 09-18-2022 14:37-0500 Body weight 58.17 kg No Primary Care Physician [facility] 08-17-2022 16:03-0500 Body mass index (BMI) [Ratio] 21.2 kg/m2 No Primary Care Physician [facility] 08-17-2022 16:03-0500 Body weight 52.61 kg No Primary Care Physician [facility] 08-17-2022 16:03-0500 Diastolic blood pressure 61 mm[Hg] No Primary Care Physician [facility] 08-17-2022 16:03-0500 Systolic blood pressure 97 mm[Hg] No Primary Care Physician [facility] 07-22-2022 15:45-0500 Body height 157.48 cm No Primary Care Physician [facility] Work Phone: 07-22-2022 15:45-0500 Body mass index (BMI) [Ratio] 20.5 kg/m2 No Primary Care Physician [facility] 07-22-2022 15:45-0500 Body weight 50.85 kg No Primary Care Physician [facility] 07-22-2022 15:45-0500 Diastolic blood pressure 71 mm[Hg] No Primary Care Physician [facility] 07-22-2022 15:45-0500 Systolic blood pressure 112 mm[Hg] No Primary Care Physician [facility] 06-25-2022 13:27-0500 Body height 157.48 cm No Primary Care Physician [facility] Work Phone: 06-25-2022 13:23-0500 Body mass index (BMI) [Ratio] 20.1 kg/m2 No Primary Care Physician [facility] 06-25-2022 13:23-0500 Body weight 49.89 kg No Primary Care Physician [facility] 06-25-2022 13:23-0500 Diastolic blood pressure 56 mm[Hg] No Primary Care Physician [facility] 06-25-2022 13:23-0500 Systolic blood pressure 96 mm[Hg] No Primary Care Physician [facility] 05-27-2022 11:46-0400 Body mass index (BMI) [Ratio] 20.4 kg/m2 No Primary Care Physician [facility] Work Phone: 05-27-2022 11:46-0400 Body weight 48.98 kg No Primary Care Physician [facility] Work Phone: 05-27-2022 11:46-0400 Diastolic blood pressure 67 mm[Hg] No Primary Care Physician [facility] Work Phone: 05-27-2022 11:46-0400 Systolic blood pressure 107 mm[Hg] No Primary Care Physician [facility] Work Phone: 03-20-2022 09:19-0400 Body height 157.[address] Brielle Nathan Work Phone: [facility] Work Phone: 03-20-2022 09:19-0400 Body mass index (BMI) [Ratio] 19 kg/m2 Dr. Brielle Nathan Work Phone: [facility] Work Phone: 03-20-2022 09:19-0400 Body weight 47.[address] Brielle Nathan Work Phone: [facility] Work Phone: 03-20-2022 09:19-0400 Diastolic blood pressure 70 mm[Hg] Dr. Brielle Nathan Work Phone: [facility] Work Phone: 03-20-2022 09:19-0400 Systolic blood pressure 110 mm[Hg] Dr. Brielle Nathan Work Phone: [facility] Work Phone: Encounters Encounter Date Encounter Type Care Provider Facility Start: 09-03-2025 ambulatory Brielle Bhatti lity:[facility] Start: 05-30-2025 End: 05-30-2025 ambulatory Brielle Nathan Facility[facility] Start: 05-14-2025 End: 05-14-2025 Patient encounter procedure Lizzy Mercado CNM -Laboratory Specimen Work Phone: Start: 05-14-2025 End: 05-14-2025 Patient encounter procedure Lizzy ROCKWELLM -[facility] Work Phone: Start: 05-14-2025 End: 05-14-2025 ambulatory Lizzy Mercado CNM Work Phone: -[facility] Start: 05-14-2025 End: 05-14-2025 ambulatory Lizzy Mercado Facility:[facility] Start: 04-30-2025 End: 04-30-2025 Patient encounter procedure Lizzy Mercado CNM -[facility] Work Phone: Start: 04-30-2025 End: 04-30-[address] Awilda Felix DO Work Phone: [facility] Start: 04-16-2025 End: 04-16-2025 ambulatory MD QUIROGA [facility] Start: 03-23-2025 End: 03-23-2025 Patient encounter procedure Lizzy Mercado CNM -[facility] Work Phone: Start: 03-23-2025 End: 03-23-[address] Awilda Felix DO Work Phone: -[facility] Start: 02-28-2025 End: 02-28-2025 Patient encounter procedure Jami WRIGHT -[facility] Work Phone: Start: 02-28-2025 End: 02-28-[address] Awilda Felix DO Work Phone: -[facility] Start: 02-09-2025 End: 02-09-[address] Awilda Felix DO Work Phone: -Lab [facility] Start: 02-09-2025 End: 02-09-[address] Awilda Felix DO -Lab [facility] Start: 02-09-2025 End: 02-09-2025 ambulatory Awilda Felix Facility:[facility] Start: 01-29-2025 End: 01-29-[address] Awilda Felix DO Work Phone: -Laboratory Specimen Start: 01-29-2025 End: 01-29-[address] Awilda Felix DO -Laboratory Specimen Work Phone: Start: 01-29-2025 End: 01-29-[address] Awilda Felix DO -[facility] Work Phone: Start: 01-29-2025 End: 01-29-[address] [facility] Start: 01-29-2025 End: 01-29-2025 ambulatory Awilda Felix Facility:[facility] Start: 01-15-2025 End: 01-15-[address] Brielle Nathan MD -[facility] Work Phone: Start: 01-15-2025 End: 01-15-2025 ambulatory Brielle Nathan [facility] Work Phone: Start: 02-28-2024 End: 02-28-[address] ROBERT BARON MD Facility:[facility] Start: 02-28-2024 End: 02-28-[address] ROBERT BARON MD [facility] Start: 01-03-2024 End: 01-03-2024 Emergency department patient visit DR MARYAN ALICIA DO [facility] Start: 01-21-2023 End: 01-21-2023 Patient encounter procedure No Primary Care Physician [facility] Work Phone: Start: 01-12-2023 End: 01-12-2023 Patient encounter procedure No Primary Care Physician [facility] Work Phone: Start: 01-11-2023 Non-patient / Non-visit No Primary Care Physician [facility] Start: 01-10-2023 Non-patient / Non-visit No Primary Care Physician [facility] Start: 01-09-2023 Non-patient / Non-visit No Primary Care Physician [facility] Start: 01-08-2023 Non-patient / Non-visit No Primary Care Physician [facility] Start: 01-08-2023 End: 01-11-2023 Evaluation and management of inpatient No Primary Care Physician [facility] Start: 01-08-2023 End: 01-08-2023 Patient encounter procedure No Primary Care Physician [facility] Start: 01-01-2023 End: 01-01-2023 Patient encounter procedure No Primary Care Physician [facility] Start: 12-28-2022 Non-patient / Non-visit No Primary Care Physician [facility] Start: 12-27-2022 End: 12-27-2022 ambulatory No Primary Care Physician [facility] Work Phone: Start: 12-27-2022 End: 12-27-2022 Patient encounter procedure No Primary Care Physician [facility] Start: 12-24-2022 End: 12-24-2022 ambulatory No Primary Care Physician [facility] Work Phone: Start: 12-24-2022 End: 12-24-2022 Patient encounter procedure No Primary Care Physician [facility] Start: 12-22-2022 End: 12-22-2022 ambulatory No Primary Care Physician [facility] Work Phone: Start: 12-22-2022 End: 12-22-2022 Patient encounter procedure No Primary Care Physician [facility] Start: 12-15-2022 End: 12-15-2022 Patient encounter procedure No Primary Care Physician [facility] Start: 12-11-2022 End: 12-11-2022 ambulatory No Primary Care Physician [facility] Work Phone: Start: 12-11-2022 End: 12-11-2022 Patient encounter procedure No Primary Care Physician [facility] Start: 12-04-2022 End: 12-04-2022 Patient encounter procedure No Primary Care Physician [facility] Start: 12-04-2022 End: 12-04-2022 Patient encounter procedure No Primary Care Physician [facility] Start: 11-20-2022 End: 11-20-2022 Patient encounter procedure No Primary Care Physician [facility] Start: 11-02-2022 End: 11-02-2022 Patient encounter procedure No Primary Care Physician [facility] Start: 10-22-2022 End: 10-22-2022 ambulatory No Primary Care Physician [facility] Work Phone: Start: 10-22-2022 End: 10-22-2022 Patient encounter procedure No Primary Care Physician [facility] Start: 10-16-2022 End: 10-16-2022 ambulatory No Primary Care Physician [facility] Work Phone: Start: 10-16-2022 End: 10-16-2022 Patient encounter procedure No Primary Care Physician [facility] Start: 09-18-2022 End: 09-18-2022 Patient encounter procedure No Primary Care Physician [facility] Start: 08-17-2022 End: 08-17-2022 Patient encounter procedure No Primary Care Physician [facility] Start: 07-22-2022 End: 07-22-2022 ambulatory No Primary Care Physician [facility] Work Phone: Start: 07-22-2022 End: 07-22-2022 Patient encounter procedure No Primary Care Physician [facility] Start: 06-25-2022 End: 06-25-2022 ambulatory No Primary Care Physician [facility] Work Phone: Start: 06-25-2022 End: 06-25-2022 Patient encounter procedure No Primary Care Physician [facility] Start: 05-27-2022 End: 05-27-2022 Patient encounter procedure No Primary Care Physician [facility], Specimen Start: 05-27-2022 End: 05-27-2022 Patient encounter procedure No Primary Care Physician [facility] Start: 03-26-2022 End: 03-26-[address] Brielle Nathan Work Phone: [facility] Work Phone: Start: 03-26-2022 End: 03-26-[address] Brielle Nathan Work Phone: [facility] Start: 03-20-2022 End: 03-20-[address] Brielle Nathan Work Phone: [facility] Work Phone: Start: 03-20-2022 End: 03-20-[address] Brielle Nathan Work Phone: [facility] Start: 03-20-2022 End: 03-20-[address] Brielle Nathan Work Phone: [facility] Procedures Date Procedure Procedure Detail Performing Clinician Start: 05-14-2025 Urine culture Lizzy bejarano JOY Work Phone: Start: 02-09-2025 Hepatitis C antibody measurement Dr. [...] HCV Quant by PCR testing - HCVPCR #[id number] Non Reactive: < 0.8 Equivocal: >/= 0.8 [...] on above: x1, currently pregna nt contemplating x1, currently pregna nt contemplating . C/s 09/03. H/O: section History of C-sectio n Dr. 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 Brielle Nathan MD Investigation of transfusion reaction Dr. 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 [facility] Work Phone: Start: 01-11-2023 Patient discharge [facility] Start: 01-10-2023 Application of abdominal corset [facility] Start: 01-09-2023 Administration of medication [facility] Start: 01-09-2023 Ambulation therapy management [facility] Start: 01-09-2023 Application of device [facility] Start: 01-09-2023 Application of intermittent pneumatic compression device [facility] Start: 01-09-2023 Assessment of risk of venous thromboembolism [facility] Start: 01-09-2023 Catheterization of vein [facility] Start: 01-09-2023 Deep breathing and coughing exercises [facility] Start: 01-09-2023 Exercises [facility] Start: 01-09-2023 Measuring intake and output [facility] Start: 01-09-2023 End: 01-09-2023 Notification of physician [facility] Start: 01-09-2023 Procedure discontinued [facility] Start: 01-09-2023 Provision of activity privileges [facility] Start: 01-09-2023 Vital signs measurements [facility] Start: 01-09-2023 Wound care [facility] Start: 01-09-2023 End: 01-09-2023 [facility] Start: 01-09-2023 Application of abdominal corset [facility] Start: 01-08-2023 [facility] Start: 01-08-2023 Notification of physician [facility] Start: 01-08-2023 Admission procedure [facility] Start: 01-08-2023 Anesthesia consultation [facility] Start: 01-08-2023 acoustic stimulation test [facility] Start: 01-08-2023 Insertion of catheter into peripheral vein [facility] Start: 01-08-2023 Intrauterine catheterization [facility] Start: 01-08-2023 Introduction of urinary catheter [facility] Start: 01-08-2023 Obstetric monitoring [facility] Start: 01-08-2023 Provision of activity privileges [facility] Start: 01-08-2023 Vital signs measurements [facility] Start: 01-08-2023 End: 01-08-2023 [facility] Start: 12-27-2022 Nonstress test [facility] Start: 12-27-2022 Obstetric monitoring [facility] Start: 12-27-2022 Vital signs measurements [facility] Start: 12-27-2022 [facility] Start: 12-24-2022 Nonstress test [facility] Start: 12-24-2022 Obstetric monitoring [facility] Start: 12-24-2022 Vital signs measurements [facility] Start: 12-24-2022 [facility] Start: 12-24-2022 Patient discharge [facility] Start: 12-22-2022 Streptococcus agalactiae [Presence] in Unspecified specimen by Organism specific culture [facility] Beta-hemolytic Streptococcus culture [facility] CBC W Auto Different ial panel - Blood [facility] CBC W Auto Different ial panel - Blood [facility] Chlamydia deoxyribon ucleic acid detection [facility] Group B Streptococcu s Culture Group B Streptococcus Culture [facility] Hepatitis C antibody measurement [facility] Patient Education [facility] Work Phone: Patient referral [facility] Work Phone: Procedure [facility] Rubella IgG measurement [facility] Serologic test for syphilis [facility] US Pelvis [facility] Work Phone: US Pelvis transvaginal [facility] Work Phone: [facility] Immunizations Immunization Date Immunization Notes Care Provider Fa cility 11-20-2022 tetanus toxoid, redu elmira diphtheria toxoid, and acellular pertussis vaccine, adsorbed No Primary Care Physician [facility] Payers Date Payer Category Payer Self-pay [id number] 2024 Unknown [id number] 2024 Unknown [id number] 2000 Unknown [id number] 2.16.8 [id number] 1998 Unknown [id number] 2.16.8 [id number] 1998 Unknown [id number] 2.16. [id number] Unknown [id number] 2.16.8 [id number] Unknown [id number] 2.16.8 [id number] Unknown [id number] 2.16.8 [id number] Unknown [id number] 2.16.8 [id number] Unknown [id number] 2.16.8 [id number] Unknown [id number] 2.16.8 [id number] Unknown [id number] 2.16.8 [id number] Unknown [id number] 2.16.8 [id number] Unknown [id number] 2.16.8 [id number] Unknown [id number] 2.16.8 [id number] Unknown [id number] 2.16.8 [id number] Social History Date Type Detail Facility Start: 03-20-2022 End: 01-21-2023 Tobacco smoking status NHIS Unknown if ever smoked [facility] Start: 2000 Sex Assigned At Female W [facility] Tobacco smoking status No Smokin g Status Entered [facility] Start: 01-07-2024 End: 01-25-2025 Tobacco smoking status Never smoked tobacco (finding) [facility] Sex Female [facility] Goals Date Patient Goal Desired Activity /State Functional Status Date Assessment Result Facility 02-28-2024 Functional Status [facility] 02-28-2024 Functional Status [facility] 01-03-2024 Functional Status [facility] 01-03-2024 Functional Status [facility] Mental Status Date Assessment Result Facility 02-28-2024 Mental Status Oriented x 4 [facility] 02-28-2024 Mental Status [facility] 01-03-2024 Mental Status Orientation Oriented x 4 [facility] 01-03-2024 Mental Status [facility] Clinical Notes 01-09-2023 to 05-14-2025 Note Date & Type Note Facility 05-14-2025 Progress note [facility] 05-14-2025 Progress note Note Date/Time May 14, 2025 4:13pm [facility] [address], [address] [place] [address] OFFICE VISIT Date of Service: 05/14/25 MR#: [id number] Acct: [id number] Name: TK COTTER Rep #: [id number] : 2000 Provider: JOY Mercado Age/Sex: 25/F Location: [facility] Status: Signed Intake Vital Signs 04/30/25 11:02 05/14/25 14:51 Height 5 ft 1 in 5 ft 1 in Weight: 122 lb 3 oz 127 lb 1 oz BMI 23.1 24.0 BP 105/71 125/76 H Intake Visit Reasons: OB, dysuria Chief Complaint: OB, dysuria 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 Is patient in pain?: No Allergies hydrocodone (From Vicodin) Allergy (Mild, Verified 05/14/25 14:51) Rash Medications ?Medication ?Instructions ?Recorded ?Confirmed ?Type vitamins no.163-iron 1 tab PO DAILY 05/06/22 05/14/25 History bis-gly 20 mg-folate no.10 1 mg tablet (PNV Tabs 20-1) nitrofurantoin 100 mg PO BID 7 days #14 cap s 05/14/25 05/14/25 Rx monohydrate/macrocrystals 100 mg capsule (Macrobid) Last Menstrual Period: 11/24/24 : No Have you fallen in the past year?: No PFSH PFSH Surgical History Status post section Family History Grandfather Cancer Grandmother Breast cancer Grandfather Cancer esophageal cancer Social History adopted: No household members: spouse housing: house number of children: 1 current occupational status: employed 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 Date Name GA/Weeks Outcome Route Bth Weight Infant Gen Labor Lgth Anes t hesia Del Locatn Provider FOB 01/09/23 Walker 39 live - full term 8lbs 2oz Male epidural [facility] Dr. Felix Delivery Date: 01/09/23 Last Updated by: Vee Santiago PUPPS, anemia, failed vacuum, arrest of decent HPI OB, dysuria Details: TK COTTER is a 25 year old who presents for routine OB visit. OB Visit KOKI Calculator Estimated Delivery Date Method Current WG Current Estimate 09/08/25 Ultrasound #1 23w 2d Other Estimates 08/31/25 LMP (Certain) 24w 3d 09/05/25 Ultrasound #2 23w 5d Expected Delivery Route/Plan prior c-s patient [...] 3 oz) 105/71 Negative -?-?-?-?-?-?-?-?-?-?-?-?- Negative 145 -?-?-?-?-?-?-?-?-?-?-?-?- kw-no vb/lof/ctx / good fm. reviewed US. desires fresh test. 05/14/25 -?-?-?-?-?-?-?-?-?-?-?-?- 23w 2d 127 lb 1 oz (+21 lb 1 oz) 125/76 Negative -?-?-?-?-?-?-?-?-?-?--?-?- 100 g/dL 145 -?-?-?-?-?-?-?-?-?-?-?-?- KW- work in for dysuria-cramping and back pain. culture sent. good fm. ACOG First Trimester First Trimester: Desire for [...] Monitoring, Signs and Symptoms of Preeclampsia and Erick Education ROS Const Reports system reviewed and [...] normal Judgment: judgment good Results POC Urinalysis Dip (Clinic) Office Urine Color YELLOW Last Edit by Mirlande Quintero on 05/14/25 14:59 Office Urine Clarity Hazy Last Edit by Mirlande Quintero on 05/14/25 14:59 Office Urine Glucose 100 g/dL Last Edit by Mirlande Quintero on 05/14/25 14:59 Office Urine Ketones Moderate (40+) Last Edit by Mirlande Quintero on 05/14/25 14 :59 Off Ur Spec [place] 1.020 Last Edit by Mirlande Quintero on 05/14/25 14:59 Office Urine pH 7 Last Edit by Mirlande Quintero on 05/14/25 14:59 Office Urine Bilirubin Negative Last Edit by Mirlande Quintero on 05/14/25 14:59 Office Urine Urobilinogen Negative Last Edit by Mirlande Quintero on 05/14/25 14: 59 Office Urine Blood Negative Last Edit by Mirlande Quintero on 05/14/25 14:59 Office Urine Blood Hemolyzed NA Last Edit by Mirlande Quintero on 05/14/25 14:59 Office Urine Protein Negative Last Edit by Mirlande Quintero on 05/14/25 14:59 Office Urine Nitrate Negative Last Edit by Mirlande Quintero on 05/14/25 14:59 Off Ur Leukocytes Negatve Last Edit by Mirlande Quintero on 05/14/25 14:59 Coding Level of Care Code OB Routine Diagnoses 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 History of Z98.891 Supervision of high risk in first trimester O09.91 Trimester: first trimester Vaginal bleeding during O46.90 23 weeks gestation of Z3A.23 Weeks of gestation: 23 weeks Assessment and Plan Assessment and Plan [...] : Status: Acute Qualifiers: Weeks of gestation: 23 weeks Qualified Code(s): Z3A.23 - 23 weeks gestation of Comment: NIPT low risk, male(PT DOES NOT KNOW GENDER YET), carrier- declines (previously did carrier), nl anatomy Orders: Orders POC Urinalysis Dip (Clinic) Today O26.899 - Other specified related conditions, unspecified trimester, R30.0 - Dysuria Culture, Urine Today O26.899 - Other specified related conditions, unspecified trimester, R30.0 - Dysuria Medications: New nitrofurantoin monohyd/m-cryst 100 mg (Macrobid) must administer with a meal/food 100 mg PO BID 14 caps 0RF 7 days N39.0 - Urinary tract infection, site not specified Plan Details Additional Comments: ACOG trimester education reviewed and updated. see problem list details for updated plan management information and see below for orders placed at this visit. GA appropriate handout given. Clinical Quality Measures Falls Risk Screening/Assistive Devices Have you fallen in the past year?: No 05/14/25 1098 <Electronically signed by Lizzy michaud CNM> Date _ Lizzy Mercado CNM Cosigner Signature: Date (if applicable) CC: ~ [facility] Work Phone: 1(282) 212-842610-06-2025 [facility] [address] [place] [address], [address] [place] [address] OFFICE VISIT Date of Service: 04/30/25 MR#: [id number] Acct: [id number] Name: TK COTTER Rep #: [id number] : 2000 Provider: JOY Mercado Age/Sex: 25/F Location: [facility] Status: Signed Intake Vital Signs 01/29/25 10:44 03/23/25 09:42 04/30/25 11:02 Height 5 ft 1 in 5 ft 1 in 5 ft 1 in Weight: 122 lb 3 oz BMI 23.1 BP 105/71 Intake Visit Reasons: 21 wk ob *5 wks per patient Chief Complaint: 21wk OB 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 Is patient in pain?: No [...] 1 current occupational status: employed 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 [place] [...] physical activity do you participate in: none yennifer/baptism: Religion seatbelt use: always do you feel safe at home: Yes 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 Date Name GA/Weeks Outcome Route B[facility] Walker 39 live - full term 8lbs 2oz Male epidural [facility] Dr. Felix Delivery Date: 01/09/23 Last [...] current plan of care details and appropriate ordersplaced. Relevant counseling for the gestational age provided. [...] of Care, Toxoplasmosis Precations, Use of Any med ications, Sexual activity, Exercise, Dental Care, Sauna/Hot tub [...] Monitoring, Signs and Symptoms of Preeclampsia and Erick Education ROS Const Reports system reviewed and [...] information and see below for orders placed atthis visit. GA appropriate handout given. 04/30/25 1114 s LULIM> Date _ Lizzy Lucero Signature: Date (if applicable) CC: ~ [facility] [id number] [facility] [address] [place] [address], [address] [place] [address] OFFICE VISIT Date of Service: 03/23/25 MR#: [id number] Acct: [id number] Name: TK COTTER Rep #: [id number] : 2000 Provider: JOY Mercado Age/Sex: 24/F Location: [facility] Status: Signed Intake Vital Signs 01/29/25 10:44 02/28/25 10:07 03/23/25 09:41 03/23/25 09:42 Height 5 ft 1 in 5 ft 1 in 5 ft 1 in 5 ft 1 in Weight: 114 lb 5 oz BMI 21.6 BP 112/71 Intake Visit Reasons: 16 wk ob 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 Is patient in pain?: No [...] 1 current occupational status: employed 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 Date Name GA/Weeks Outcome Route Bth Weight Infant Gen Labor Lgth Anesthesia Del Locatn Provider FOB 01/09/23 Walker 39 live - full term 8lbs 2oz Male epidural [facility] Dr. Felix Delivery Date: 01/09/23 Last [...] current plan of care details and appropriate ordersplaced. Relevant counseling for the gestational age provided. [...] Negative 145 -?-?-?-?-?-?-?-?-?-?-?-?- KW- work in for [employer]. no vb/cramping. possible flutters US scheduled. AFP declined. ACOG First Trimester First Trimester: Desire for , Alcohol, Tobacco Cessation, Illicit/Recreational Drug/Substance Use, Intimate Partner Violence, Barriers to care, Unstable Housing, Communication Barriers, Environmental/Work Hazards, Anticipated Course of Care, Toxoplasmosis Precations, Use of Any med ications, Sexual activity, Exercise, Dental Care, Sauna/Hot tub [...] information and see below for orders placed atthis visit. GA appropriate handout given. 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 acute March 23 9:51am History of acute 2024 9:51am acute March 23, 025 9:51am Supervision of high-risk acute March 23 9:51am Vaginal bleeding during acute March 23 9:51am 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 acute April 30 10:58am History of acute 2024 10:58am acute April 30, 2 025 10:58am Supervision of high-risk acute April 30 10:58am Vaginal bleeding during acute April 30 10:58am 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 acute May 14 2:47pm History of acute 2024 2:47pm acute May 14, 2025 2:47pm Supervision of high-risk acute May 14 2:47pm Vaginal bleeding during acute May 14 2:47pm 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 acute May 30 9:49am History of acute 2024 9:49am acute May 30, 2025 9:49am Supervision of high-risk acute May 30 9:49am Vaginal bleeding during acute May 30 9:49am [facility] Work Phone: 1(817) 207-937106-23-2025 Evaluation note* Diagnosis Onset Date Resolution Status Admit Date acute January 15 11:18am Vaginal bleeding during acute January 15, 2025 11:18am 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 acute January 29, 2025 1 0:42am History of acute January 29, 2025 10:42am acute January 29, 2025 10:42am Supervision of high-risk acute January 29, 2025 1 0:42am Vaginal bleeding during acute January 29, 2025 1 0:42am [facility] Work Phone: 1(655) 499-530906-23-2025 Evaluation note* Diagnosis Onset Date Resolution Status [...] bleeding during acute February 28, 2025 10:04am [facility] [employer] Work Phone: 1(593) 555-992506-23-2025 Evaluation note* Diagnosis Onset Date Resolution Status [...] of acute 2024 9:51am acute March 23, 025 9:51am Supervision of high-risk acute March 23 9:51am Vaginal bleeding during acute March 23 9:51am [facility] Work Phone: 1(472) 813-635106-23-2025 Evaluation note* Diagnosis Onset Date Resolution Status [...] History of acute 2024 10:58am acute April 30, 025 10:58am Supervision of high-risk acute April 30 10:58am Vaginal bleeding during acute April 30 10:58am [facility] Work Phone: 1(457) 518-441708-05-2024 Evaluation + Plan noteExtracted from: Title:Clinical Document Author:ROBERT BARON Date:02/28/24 [facility] ADMISSION HISTORY AN D PHYSICIAL CHIEF COMPLAINT: [...] FAMILY HISTORY: SOCIAL HISTORY: PHYSICAL EXAM: VITALS: FraxqaCubjRMGxscuAOOvN7SFT3HugqJk(kg) 02/27 09:5736.7--793911FO98/05 44.5 24 Hr Tmax: 36.7 at 02/27 [...] changes to the H&P unless noted below. [facility] 08-05-2024 Hospital Discharge instructions Patient Education 02/28/2024 [...] until you are awake and alert. Take lhlc-rcc-lfjxbas and prescription medicines only as told by [...] 05/02/2014 Document Revised: 06/24/2018 Document Reviewed: 10/31/2016 [employer] Patient Education 2020 [employer] 02/28/2024 10:49:36 9 - AO Minor Esophagogastroduodenoscopy [...] persists. 10/03/13 Custom 02/28/2024 10:49:29 Gastritis, Adult, Tmcp-ky-Krlh Gastritis, Adult Gastritis is swelling (inflammation) of [...] Follow these instructions at home: Medicines Take jkqv-keg-vlvhfke and prescription medicines only as told by [...] 12/28/2008 Document Revised: 11/29/2018 Document Reviewed: 11/29/2018 [employer] Patient Education 2020 [employer]. Follow Up Care 02/04/2024 13:05:53 With:ROBERT BARON MD Address: [address] [facility] [address] [place], [place] [phone]- [phone] When: Unknown [facility] 08-05-2024 Note Discharge Instructions Thank you for allowing [facility] to assist you with your healthcare needs. The following is importantdischarge information regarding your hospital visit. Your Care Team PHYSICIAN, AILYN BARON What to do next Follow Up Appointments Follow Up with ROBERT BARON MD Where:[address] [facility] [address] [place] [address]- [phone] Allergies Vicodin Medications Please ask your primary [...] until you are awake and alert. Take otcr-bjz-dtwhfsl and prescription medicines only as told by [...] 05/02/2014 Document Revised: 06/24/2018 Document Reviewed: 10/31/2016 [employer] Patient Education 2020 [employer]. Esophagogastroduodenoscopy This is an endoscopic procedure (a [...] Follow these instructions at home: Medicines Take aptc-fel-adzmehf and prescription medicines only as told by [...] 12/28/2008 Document Revised: 11/29/2018 Document Reviewed: 11/29/2018 [employer] Patient Education 2020 [employer] Additional Information VACCINATE! IT SAVES LIVES! Members of the community who have not yet received the COVID-19 vaccine and would like to receive it can visit one of [facility] vaccine clinics. There are many vaccine clinic locations within the [facility]. For locations and available times, please visit [email or web address] It is important to note that some COVID mobile vaccine clinics are held outdoors and may be canceled in rainy or stormy conditions. To learn more about pediatric vaccinations (ages 5-11), we invite you to visit the [employer] [facility] webpage. https://www.[email or web address]/pages/3977-Ozdbp-Byphvoaqkqv-Dnmzomaguz-Mknmq-Ypa stions.htmlTo learn more about the COVID-19 vaccine, we invite you to visit the CDC website for a list of frequently asked questions.https://www.cdc.gov/coronavirus/2019-ncov/vaccines/faq.html [facility] Patient Portal Access Instructions: Stay connected with your healthcare team and access your personal medical information anytime with the [facility] Patient Portal. Please follow the directions below to create your [facility] account: 1.Access the email account you provided upon registration to the hospital/physician office.2.Look for an invitation email from [facility].3.Open the email and access the invitation link: AcceptInvitation to [facility].4.Fill in the required burns to create your account. To access your account, visit Minka/Fashionchickt. Click the blue button labeled Access Patient Portal and then log in with the username and password that you created in the steps above. You will be able to view your test results, lab results, a summary of your visits, upcoming appointments and more. There is also a convenient messaging option where you can send secure messages to your p WhiteHat Securityvider. In addition, you will have the ability to download any documents or summaries to your computer and/or send the information securely to a physician. Remember that your healthcare information is confidential, so carefully consider who you will allowto register on the [facility] Patient Portal for access to your information. You can also access the [facility] Patient Portal on the [facility] [employer] silvia. Simply click on Patient Portal and then log into your account. If you would like to receive a full copy of your medical records, please contact the [facility] Medical Records Department by calling [phone], Wednesday through Wednesday between 8 a.m. and [...] Call your local pharmacy or go to http://bit.Hi-Midia/3Z9Dp7e to find one close to you.3.Make use of household items: Use cat litter or old coffee grounds to dispose medications if other options arenot available. Mix your drugs with these household products, seal them in an airtight container andthrow it into the garbage. Call [facility]: [phone] to be sure your drugs can be [...] - AO Minor Esophagogastroduodenoscopy (10/06)(CUSTOM) Gastritis, Adult, Gifp-cg-Pgyg Medication Leaflets My discharge plan and instructions have been reviewed and explained to me and I,TK COTTER understand my current condition and have read and understand these discharge instructions. I have received a written copy of the plan/instructions. If I have questions, I am aware that I should contact my doctor. 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 Signature: Date/Time: Relationship to Patient: Witness Name/Signature: Date/Time: [facility]08-05-2024 Note Date of Service February 28, 2024 Procedure Name EGD with biopsy Consent Taken before procedure Indication Patient with epigastric pain and hematemesis Location [facility] Pre-Procedure Exam Epigastric pain and hematemesis Procedural [...] HEMATEMESIS, HEMATEMESIS, Preferred Lab: Other lab service, [id number] Post Procedure Assessment, 02/28/24 10:43:00 EDT, Stop [...] ROBERT BARON MD on 02/28/2024 10:47 AM [facility]08-05-2024 Note OLIVER ADMISSION HISTORY AND PHYSICIAL CHIEF COMPLAINT: HISTORY [...] FAMILY HISTORY: SOCIAL HISTORY: PHYSICAL EXAM: VITALS: CkodymJqrzCVCnconJBUzS0RYI4KvvgCx(kg) 02/27 09:5736.7--136691DL50/05 44.5 24 Hr Tmax: 36.7 at 02/27 [...] ROBERT BARON MD on 02/28/2024 10:34 AM [facility]08-05-2024 Anesthesiology Consult note Patient: TK COTTER Age: 23 years Sex: Female : 2000 Associated Diagnoses: None Author: DIONNE GUERRERO APRN-[employer] Preoperative Information Anesthesia history Patient's history: negative. [...] Family History: Cancer Grandparent Procedure history: delivery ([id number]) on 01/19/2023 at 22 Years. Social History: [...] Signs (last 24 hrs) Last Charted Temp Byjapehn25.7 DegC (FEB 27 09:57) SBP96 mmHg (FEB 27 09:57) DBP73 mmHg (FEB 27 09:57) BMI17.4 (FEB 27 09:57) Measurements from flowsheet : Measurements 02/28/2024 9:57 EDT Height 159.9 cm Admission Weight 44.5 kg [place] Body Weight 52.29 kg BSA Admission 1.43 [...] EDT Designated Person #1 We May Share PHI Designated Person #1 We May Share PHI Designated Person #1 Relationship Spouse Privacy Restrictions Requested None Height 159.9 cm Admission Weight 44.5 kg [place] Body Weight 52.29 kg BSA Admission 1.43 [...] Method Explanation, Printed materials Preferred Spoken Language Faroese Preferred Written Language Faroese Information Given by Patient Patient's Current Physicians N/A Discharge To, Anticipated Home independently Prev Test Positive/Diagnosis w/COVID-19 No Current Quarantine/Isolated any Illness No Any Contact with Sick Animals/Birds No Traveled Anywhere in Last 30 Days No Yes Personal Devices, Patient Valuables Glasses Admission Note-Nursing Procedure/Therapy Intake . Assessment and Plan [place] Society of Anesthesiologists (ASA) physical status classification: Class II. Anesthetic Preoperative Plan Anesthetic technique: MAC. Postoperative pain management: Per surgeon. Risks discussed: nausea, vomiting, sore throat, dental injury, hypotension, allergic reaction, serious complications. Informed consent: signed by patient. Digitally Signed by DIONNE GUERRERO on 02/28/2024 10:06 AM [facility]06-10-2024 Hospital Discharge instructions Patient Education 01/03/2024 21:12:24 [...] of blood present in vomit or stool 7898-4171 The [employer]. [address] [place] [address]. All rights reserved. This information is not [...] face You have trouble talking or seeing 0795-9507 The [employer]. [address] [place] [address]. All rights reserved. This information is not intended as a substitute for professional medical care. Always follow yourhealthcare professional's instructions. Follow Up Care 01/03/2024 19:40:51 With:NANETTE WHITE DO Address: [address] [place] [address] [phone] When:2-4 days With:Follow up with primary care provider Address:Unknown When:2-4 days [facility] 06-10-2024 Note Discharge Instructions Thank you for allowing [facility] to assist you with your healthcare needs. The following is importantdischarge information regarding your hospital visit. What to Do Next Instructions from Your Care Team No qualifying data available. Post Acute Orders No qualifying data available. You Need to Schedule the Following Appointments Follow Up with NANETTE WHITE DO When:Within 2-4 days Where:[address] [place] [address], [place] [address] [phone] Follow Up with Follow up with primary [...] of blood present in vomit or stool 3787-6630 The [employer]. [address] [place], [place] [address]. All rights reserved. This information is not [...] face You have trouble talking or seeing 6006-9836 The [employer]. [address] [place] [address], [place] [address]. All rights reserved. This information is not intended as a substitute for professional medical care. Always follow yourhealthcare professional's instructions. Additional Information VACCINATE! IT SAVES LIVES! Members of the community who have not yet received the COVID-19 vaccine and would like to receive it can visit one of [facility] vaccine clinics. There are many vaccine clinic locations within the [facility]. For locations and available times, please visit www.gettheshot.coronavirus.[place].gov/. It is important to note that some COVID mobile vaccine clinics are held outdoors and may be canceled in rainy or stormy conditions. To learn more about pediatric vaccinations (ages 5-11), we invite you to visit the [facility] webpage. https://www.[email or web address]/pages/7273-Vzmbs-Xzplhyorvbs-Gnadasywsd-Tkgln-Hul stions.htmlTo learn more about the COVID-19 vaccine, we invite you to visit the CDC website for a list of frequently asked questions. https://www.cdc.gov/coronavirus/2019-ncov/vaccines/faq.html [facility] Patient Portal Access Instructions: Stay connected with your healthcare team and access your personal medical information anytime with the [facility] Patient Portal. If you would like a full copy of your medical records please contact the [facility] Medical Records Department Wednesday through Wednesday between 8a.m. and 4:30p.m. Please follow the directions below to access the portal: 1.Access the email account you provided upon registration to the hospital.2.Look for an invitation email from [facility].3.Open the email and access the invitation link: Accept Invitation to [facility]4.Fill in the required burns to create your account. Sign into www.Minka with your username and password that you [...] you will allow to register on the [facility] Patient Portal for access to your information. You can also access the [facility] Patient Portal on the [employer]. Simply click on Health Records under Innotasta and then click on the Cupple logo. HOW TO SAFELY DISPOSE OF PRESCRIPTION [...] Call your local pharmacy or go to [email or web address].Hi-Midia/5G4Bv4w to find one close to you.3.Make use of household items: Use cat litter or old coffee grounds to dispose medications if other options arenot available. Mix your drugs with these household products, seal them in an airtight container andthrow it into the garbage. Call [facility]: [phone] to be sure your drugs can be [...] been reviewed and explained to me and ICNYDEE CAITLYN understand my current condition and have read and understand these discharge instructions. I have received a written copy of the plan/instructions. If I have questions, I am aware that I should contact my doctor. 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 Signature: Date/Time: Relationship to Patient: Witness Name/Signature: Date/Time: [facility]06-19-2023 Discharge summary Author Lizzy Mercado [facility] January 11, 2023 7:16am Note Date/Time January 11, 2023 7:13 am [facility] Medical Records Department [address] [place] [address] Instructions for Home/Discharge Instructions 01/11/23 0712 MR#: [id number] Acct: [id number] Name: TK COTTER ALAINA Rep #:[id number] : 2000 22 From: [...] Order can be placed): Home, Self Care 01/11/2316<Electronically signed by Lizzy Mercado CNM>Lizzy Mercado CNM CC: No Primary Care Physician ~ Signed [facility] Work Phone: 1(608) 532-786306-19-2023 Progress note Author Lizzy Mercado [facility] January 11, 2023 7:12am Note Date/Time January 11, 2023 7:[address] [facility] Medical Records Department [address] [place] [address] Progress Note - OBGYN 01/11/2306 MR#: [id number] Acct: [id number] Name: TK COTTER Rep #:[id number] : 2000 22 From: Lizzy Mercado CNM PCP: Care Physician,No Primary Status :ADM IN [facility] Subjective Subjective Patient doing well without complaints. [...] Cosigner Signature (if applicable): CC: ~ Signed [facility] Work Phone: 1(588) 974-153206-18-[address] Bhatia [facility] January 10, 2023 7:34am Note Date/Time January 10, 2023 7:34 am [facility] Medical Records Department [address] [place] [address] Progress Note - OBGYN 01/10/23 0732 MR#: [id number] Acct: [id number] Name: TK COTTER Rep #:[id number] : 2000 22 From: Awilda Felix DO PCP: Care Physician,No Primary Status :ADM IN Location: [id number] Subjective Subjective Patient is laying in bed [...] plan for dc to home today 01/10/23 5554 <Electronically signed by Awilda Felix DO> Cosigner Signature (if applicable): CC: ~ Signed [facility] Work Phone: 1(155) 412-308206-17-[address] Bhatia [facility] January 09, 2023 6:58am Note Date/Time January 09, 2023 6:57 am [facility] Medical Records Department [address] [place] [address] Instructions for Home/Discharge Instructions 01/09/23 0657 MR#: [id number] Acct: [id number] Name: TK COTTER Rep #:[id number] : 2000 22 From: [...] Up With: Awilda Felix DO When: Call [phone] to make an appointment for an incision check in 1-2 weeks. Test Results: Test results from this visit will be discussed in further detail at your follow- up appointment, if applicable. Discharge Plan Admission Admit Date/Time: 01/08/23 19:55 Primary Reason for Your Visit: Attending Provider: Awilda Felix Primary Care Provider: Care Physician,No Primary Discharge Orders/Prescriptions Prescriptions: New ibuprofen 800 [...] CC: No Primary Care Physician ~ Signed [facility] Work Phone: 1(429) 785-744006-17-[address] Bhatia [facility] January 09, 2023 6:54am Note Date/Time January 09, 2023 6:[address] [facility] Medical Records Department [address] [facility] [place] [address] Progress Note - OBGYN 01/09/23 0651 MR#: [id number] Acct: [id number] Name: SEBASJIMITK RUSTAM Rep #:[id number] : 2000 22 From: Awilda Felix DO PCP: Care Physician,No Primary Status :ADM IN Location: [place] 571934-1 Subjective Subjective pt was pushing for 3 hrs when nurses called for evaluation. current tracing: FHT: Moderate variability reactive no decelerations category I tracing [place]: q1-2 min Contractions OP position, cx compltely [...] (Auto) 75.6 H, Lymph %(Auto) 14.2 L, Coleman % (Auto) 8.6, Eos % (Auto) 0.6, [...] Cosigner Signature (if applicable): CC: ~ Signed [facility] Work Phone: 1(283) 248-438906-17-2023 History and physical note Author Dr. 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 April going to [place].)out of state: Yes out of country: No sexually active: Yes Smoking Status: Never smoker alcohol intake: never substance use type: does not use well-balanced diet: daily or most days caffeine: Yes Type: coffee and tea Number of servings: 1 eating out: rarely or never during the past year weight has: remained stable what type of physical activity do you participate in: none yennifer/baptism: Religion seatbelt use: always do you feel safe at home: Yes additional social history: [employer] History 1 Elective abortions Hx Para 0 [...] so her can go bear hunting in [place]. 11/02/22 -?-?-?-?-?-?-?-?-?-?-?-?- 29w 5d 139 lb 6 [...] Duchenne muscular dystrophy: COMMENT: Maia tested neg. 14/14 (5) UTI (urinary tract infection) during : [...] any complications: none I have reviewed the [facility] and made any clinically relevant updates. 01/09/23 0651 <Electronically signed by Awilda Felix DO> Cosigner Signature (if applicable): CC: Dr. Awilda Felix DO; No Primary Care Physician~ Signed [facility] Work Phone: 1(376) 370-510306-17-2023 Procedure [facility] Evaluation + Plan note No data available for this section [facility] Evaluation note* Diagnosis Onset Date Resolution Status Abnormal uterine bleeding ac nooksack Pelvic floor tension acute Encounter for preconception consultation noneactive [facility] Work Phone: evaluation note* Diagnosis Onset Date Resolution Status Abnormal uterine bleeding re solved Pelvic floor tension resolve d Encounter for preconception consultation noneactive acute Supervision of normal first acute acute Supervision of normal first acute UTI (urinary tract infection) during acute [facility] Work Phone: Evaluation note* Diagnosis Onset Date Resolution Status acute Supervision of normal first acute acute Supervision of normal first acute UTI (urinary tract infection) during acute 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 acute acute Supervision of normal first acute UTI (urinary tract infection) during acute [facility] Work Phone: Evaluation note* Diagnosis Onset Date [...] acute UTI (urinary tract infection) during acute [facility] Work Phone: Evaluation note* Diagnosis Onset Date [...] acute UTI (urinary tract infection) during acute [facility] Work Phone: Evaluation note* Diagnosis Onset Date [...] acute UTI (urinary tract infection) during acute [facility] Work Phone: Evaluation note* Diagnosis Onset Date [...] Anemia affecting a cute Arrested active labor, deliv ered, current hospitalization acute 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 acute acute Pruritic urticarial papules and plaques of (puppp) acute Status post section acute Supervision of normal first acute UTI (urinary tract infection) during acute [facility] Work Phone: Evaluation note* Diagnosis Onset Date [...] Anemia affecting a cute Arrested active labor, deliv ered, current hospitalization acute 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 acute acute Pruritic urticarial papules and plaques of (puppp) acute Status post section acute Supervision of normal first acute UTI (urinary tract infection) during acute Care and examination of lactating mother noneactive Status post section acute [facility] Work Phone: Evaluation note* Diagnosis Onset Date Resolution Status Admit Date acute January 15 11:18am Vaginal bleeding during acute January 15, 2025 11:18am [facility] Work Phone: Hospital Discharge instructions Additional Instructions Work from [facility] Work Phone: Progress note Author Lizzy Mercado [facility] Note Date/Time March 23, 2025 9: 59am [facility] [address] [place] [address], [address] [place] [address] OFFICE VISIT Date of Service: 03/23/25 MR#: [id number] Acct: [id number] Name: TK COTTER Rep #: [id number] : 2000 Provider: JOY Mercado Age/Sex: 24/F Location: [facility] Status: Signed Intake Vital Signs 01/29/25 10:44 02/28/25 10:07 03/23/25 09:41 03/23/25 09:42 Height 5 ft 1 in 5 ft 1 in 5 ft 1 in 5 ft 1 in Weight: 114 lb 5 oz BMI 21.6 BP 112/71 Intake Visit Reasons: 16 wk ob 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 Is patient in pain?: No [...] 1 current occupational status: employed 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 Date Name GA/Weeks Outcome Route Bth Weight Infant Gen Labor Lgth Anesthesia Del Locatn Provider FOB 01/09/23 Walker 39 live - full term 8lbs 2oz Male epidural [facility] Dr. Felix Delivery Date: 01/09/23 Last Updated by: Vee Santiago PUPPS, anemia, failed vacuum, arrest of decent HPI 16 wk ob Details: TK COTTER is a 24 year old who presents for routine OB visit. OB Visit KKOI Calculator Estimated Delivery Date Method Current WG [...] Negative 145 -?-?-?-?-?-?-?-?-?-?-?-?- KW- work in for [employer]. no vb/cramping. possible flutters US scheduled. AFP [...] dystrophy: Status: Acute Comment: Maia tested neg. 1414 (2) History of : Status: Acute Comment: [...] at this visit. GA appropriate handout given. 03/23/2559 <Electronically signed by Lizzy michaud CNM> Date _ Lizzy Mercado CNM Cosigner Signature: Date (if applicable) CC: ~ [facility] Work Phone: Progress note Author Lizzy Mercado [facility] Note Date/Time April 30, 2025 11 :14am [facility] [address], [address] [place] [address] OFFICE VISIT Date of Service: 04/30/25 MR#: [id number] Acct: [id number] Name: TK COTTER Rep #: [id number] : 2000 Provider: JOY Mercado Age/Sex: 25/F Location: [facility] Status: Signed Intake Vital Signs 01/29/25 10:44 03/23/25 09:42 04/30/25 11:02 Height 5 ft 1 in 5 ft 1 in 5 ft 1 in Weight: 122 lb 3 oz BMI 23.1 BP 105/71 Intake Visit Reasons: 21 wk ob *5 wks per patient Chief Complaint: 21wk OB 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 Is patient in pain?: No [...] 1 current occupational status: employed 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 Date Name GA/Weeks Outcome Route Bth Weight Gen Labor Lgth Anesthesia Del Locatn Provider FOB 01/09/23 Walker 39 live - full term 8lbs 2oz Male epidural [facility] Dr. Felix Delivery Date: 01/09/23 Last [...] Cosigner Signature: Date (if applicable) CC: ~ [facility] Work Phone: Reason for referral (narrative)No reason for referral information availableMenlo [facility] Work Phone: Chief Complaint and Reason for Visit Chief Complaint pre conception consu lt Reason for Visit Abnormal uterine ble eding Pelvic floor tension Encounter for preconception consultation Chief Complaint pre conception consu lt M62.89 Reason for Visit Abnormal uterine ble eding Pelvic floor tension Encounter for preconception consultation Chief Complaint pre conception consu lt M62.89 NOB LMP 8 11WK OB E ORDERS TOO Reason for Visit Abnormal uterine ble eding Pelvic floor tension Encounter for preconception consultation Supervision of normal first Supervision of normal first UTI (urinary tract infection) during Chief Complaint NOB LMP 8 11WK OB E ORDERS TOO 15WK OB [...] and examination of lactating mother 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 Complaint Admit Date Spotting/cramping in early Avni e 2024 11:18am Reason for Visit Admit Date January 15, 2025 11:1 8am Vaginal bleeding during December 252024 11:18am Chief Complaint Admit Date Spotting/cramping in early Avni e 2024 11:18am *EST* NOB LMP /, KOKI /January 29 10:42am Reason for Visit Admit Date January 15, 2025 11:1 8am Vaginal bleeding during December 252024 11:18am 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 Brett sanjeev 2024 10:42am History of January 29, 2025 10:4 2am January 29, 2025 10:42 am Supervision of high-risk January 29, 2025 10:42am Vaginal bleeding during January 292024 10:42am Chief Complaint Admit Date Spotting/cramping in early Avni e 2024 11:18am *EST* NOB LMP 5/2, KOKI 08/31January [...] 28, 2025 10: 04am Supervision of high-risk Febus t 2024 10:04am Vaginal bleeding during February 28, 2025 10:04am Chief Complaint Admit Date Spotting/cramping in early Avni e 2024 11:18am *EST* NOB LMP 5/2, KOKI 08/31January [...] Avni e 2024 11:18am *EST* NOB LMP 11/24, KOKI /January 29 10:42am 12 wk ob February 28, [...] 28, 2025 10: 04am Supervision of high-risk Febus t 2024 10:04am Vaginal bleeding during February [...] Vaginal bleeding during Octobe r 2024 10:58am Chief Complaint Admit Date 12 wk ob February 28, 2025 10: 04am 16 wk ob March 23, 2025 9: 51am 21 wk ob *5 wks per patient April 30, 2025 10:58am OB, dysuria May 14, 2025 2 :47pm 25 WK OB May 30, 2025 9 :49am Reason for Visit Admit Date 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 A ugust [...] Vaginal bleeding during Octobe r 2024 10:58am 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 O ctober 2024 2:47pm History of May 14, 2025 2:47pm May 14, 2025 2 :47pm Supervision of high-risk Octob er 2024 2:47pm Vaginal bleeding during Octobe r 2024 2:47pm 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 N ovember 2024 9:49am History of May 30, 2025 9:49am May 30, 2025 9 :49am Supervision of high-risk Novem jes 2024 9:49am Vaginal bleeding during Novemb er 2024 9:49am Family History No Family History Records Found Relationship Condition Age at Onset Recorded Date/T hina grandfather Malignant neoplasm Unknown grandmother Malignant neoplasm of breast Unknown Advance Directives No Advanced Directives Records Found Advance Directive Response Recorded Date/ Time Living Will No January 08, 2023 8:23pm Power of Car Rental Service Attendant No January 08 3 8:23pm Advance Directive Response Recorded Date/ Time Living Will No January 13, 2023 2:45pm Power of Car Rental Service Attendant No January 13 3 2:45pm Summary Purpose Additional Source Comments Goals (unrecognized section and content) Type Care Experience svdLabor Preferences -CB/BF classes: donelabor support person: travislabor intervention preferences: []pain management options preferred: natural. prefers no epidural cut cord/dad catch: []: []PP control planned: []discussed possible routes of delivery and associated risks: []special requests: [] Care Experience prior c-spatient cou nseled regarding risks/benefits of trial of labor versus repeat . ACOG/uptodate education given to patient. 60 % likelihood of success per calculatorTOLAC consent form signed: [] Type Detail Care Experience svdLabor Preferences -CB/BF classes: donelabor support person: travislabor intervention preferences: []pain management options preferred: natural. prefers no epidural cut cord/dad catch: []: []PP control planned: []discussed possible routes of delivery and associated risks: []special requests: [] Care Experience plan RLTCS patient c ounseled regarding risks/benefits of trial of labor versus [...] Care Provider, Refer ring Provider Active Kya iRley BICYCLE INSPECTOR, BICYCLE INSPECTOR-C Attending Provider Active Team Status: Inactive Member [...] Inactive Member Role/Relationship Status Dates Jami Johnson NP BICYCLE INSPECTOR-C Attending Provider Active Start: February 28, 2025 [...] Inactive Member Role/Relationship Status Dates Jami Johnson NP BICYCLE INSPECTOR-C Attending physician Active Start: February 28, 2025 End: February 28, 2025 Team Status: Inactive Member Role/Relationship Status Dates Lizzy Mercado CNM Attending physician Active Start: March 23, 2025 End: March 23, 2025 Team Status: Inactive Member Role/Relationship Status Dates Lizzy Mercado CNM Attending physician Active Start: April 30, 2025 End: April 30, 2025 Team Status: Inactive Member Role/Relationship Status Dates Dr. Awilda Felix DO Attending physician Acti ve Start: February 09, 2025 End: February 09, 2025 Team Status: Inactive Member Role/Relationship Status Dates Jami Johnson NP, BICYCLE INSPECTOR-C Attending physician Active Start: February 28, 2025 End: February 28, 2025 Team Status: Inactive Member Role/Relationship Status Dates Lizzy Mercado CNM Attending physician Active Start: March 23, 2025 End: March 23, 2025 Team Status: Inactive Member Role/Relationship Status Dates Lizzy Mercado CNM Attending physician Active Start: April 30, 2025 End: April 30, 2025 Team Status: Inactive Member Role/Relationship Status Dates Lizzy Mercado CNM Attending physician Active Start: May 14, 2025 End: May 14, 2025 Team Status: Inactive Member Role/Relationship Status Dates Lizzy Mercado CNM Attending physician Active Start: May 14, 2025 End: May 14, 2025 Lizzy Mercado CNM Referring Provider Active S tart: May 14, 2025 End: May 14, 2025 Team Status: Inactive Member Role/Relationship Status Dates Dr. Brielle Nathan MD Attending physician Active Start: May 30, 2025 End: May 30, 2025 INFORMATION SOURCE (unrecogn ized section and content) DATE CREATED AUTHOR 03/03/2024 [facility] ([place]) DATE CREATED AUTHOR AUTHOR'S ORGANIZ ATION 04/17/2025 [facility] DATE CREATED AUTHOR AUTHOR'S ORGANIZ ATION 06/01/2025 [facility] FOR RECORDS PERTAINING TO PATIENTS WHO [...] BE BASED ON THE PRIMARY CLINICAL RECORDS. [employer] [facility]. provides no warranty or guarantee of the accuracy or completeness of information in this document.
[2025-07-20 09:56] LABS: Hematocrit 34.8 % (37-47); Hemoglobin 10.9 g/dL (12.0-15.0); Immature Granulocytes Count 0.050 X10^3/uL (0.0-0.0); Mean Corp Hgb Conc 31.3 g/dL (32-36); Mean Corpuscular Volume 83.5 fL (81-99); Mean Platelet Vol. 9.6 fl (6.2-12.0); NRBC Flagged by Analyzer 0 % (0-5); Platelet Count 237 K/mm3 (150-450); RBC Distribution Width CV 14.8 % (11.6-14.6); RBC Distribution Width SD 44.6 fl (35.1-43.9); Red Blood Count 4.17 M/mm3 (4.2-5.4); White Blood Count 9.6 K/mm3 (4.4-11.0)
[2025-07-20 11:29] LABS: Ferritin 13 ng/mL (22-378); Iron 25 ug/dL (50-170); Iron Binding Capacity,Unsat 477 ug/dL (228-428)
[2025-07-20 12:14] LABS: Iron Binding Capacity,Total 502 ug/dL (250-450)
== END | disposition home or self-care (01) ==
LOC: LAB 09:30
PROVIDERS: Student in an Organized Health Care Education/Training Program; Referring Provider Obstetrics & Gynecology; Visit Provider Obstetrics & Gynecology
DX: O99.019 Anemia complicating pregnancy, unspecified trimester (principal); Z3A.00 Weeks of gestation of pregnancy not specified
CPT/HCPCS: 36415; 82728; 83540; 83550; 85025